=== PATIENT | female | born 1990 | race Caucasian/White ===

== ENCOUNTER → 2017-10-07 10:53 | Outpatient (CLI) | payer SELFPAY ==
[2017-10-07 11:27] LABS: Hematocrit 30.9 % (37-47); Hemoglobin 10.5 g/dl (12.0-15.0); Mean Corpuscular Volume 91.2 fL (81-99); Mean Platelet Vol. 11.2 fl (6.2-12.0); Platelet Count 144 K/mm3 (150-450); RBC Distribution Width CV 14.2 % (11.6-14.6); RBC Distribution Width SD 46.8 fl (35.1-43.9); Red Blood Count 3.39 M/mm3 (4.2-5.4); White Blood Count 6.5 K/mm3 (4.4-11.0)
[2017-10-07 11:33] LABS: Glucose Challenge Gest 1H 50g 99 mg/dL (70-140)
[2017-10-07 11:34] LABS: Scan Indicated on CBC? Y/N NO
== END ==
PROVIDERS: Visit Provider Obstetrics & Gynecology
DX: Z34.83 Encounter for supervision of other normal pregnancy, third trimester (principal); Z3A.00 Weeks of gestation of pregnancy not specified
CPT/HCPCS: 82950; 85027

== ENCOUNTER → 2017-12-02 11:09 | Outpatient (CLI) | payer SELFPAY ==
[2017-12-02 13:19] LABS: Hematocrit 32.8 % (37-47); Mean Corp Hgb Conc 33.5 g/gl (32-36); Mean Corpuscular Hgb 31.3 pg (27.0-32.0); Mean Corpuscular Volume 93.2 fL (81-99); Mean Platelet Vol. 11.7 fl (6.2-12.0); Platelet Count 120 K/mm3 (150-450); RBC Distribution Width CV 14.6 % (11.6-14.6); Red Blood Count 3.52 M/mm3 (4.2-5.4); White Blood Count 5.9 K/mm3 (4.4-11.0)
[2017-12-02 13:29] LABS: Scan Indicated on CBC? Y/N NO
[2017-12-02 14:31] LABS: Group B Strep DNA By PCR Negative (Negative); Internal Control PASS; Probe Check PASS; Specimen Processing Control PASS
== END ==
PROVIDERS: Visit Provider Obstetrics & Gynecology
DX: Z36.85 Encounter for antenatal screening for Streptococcus B (principal); D69.6 Thrombocytopenia, unspecified
CPT/HCPCS: 36415; 85027; 87081; 87653

== ENCOUNTER 2018-01-10 08:15 | Inpatient (IN) | payer SELFPAY ==
[2018-01-10] MEDS: Lactated Ringers 1,000 ML 50 ML IV ×3 (08:50→20:06)
[2018-01-10 09:14] LABS: Hemoglobin 11.1 g/dl (12.0-15.0); Mean Corp Hgb Conc 34.7 g/gl (32-36); Mean Corpuscular Hgb 32.6 pg (27.0-32.0); Mean Corpuscular Volume 94.1 fL (81-99); Mean Platelet Vol. 11.7 fl (6.2-12.0); Platelet Count 112 K/mm3 (150-450); RBC Distribution Width CV 14.4 % (11.6-14.6); RBC Distribution Width SD 46.8 fl (35.1-43.9); White Blood Count 5.9 K/mm3 (4.4-11.0)
[2018-01-10 09:15] LABS: Scan Indicated on CBC? Y/N NO
[2018-01-10] MEDS: Oxytocin 30 units/NS 500 ml 30 UNITS/500 ML IV.SOLN IV (09:35)
[2018-01-10 10:14] VITALS: BMI 31.8
[2018-01-10] MEDS: 0.9% Normal Saline 100 ML IV.SOLN. INTRA-UTER (13:00)
--- NOTE | 2018-01-10 13:11 | PCM.PN.BLA ---
Progress Note LABOR PROGRESS NOTE Pitocin and Brito bulb induction. Not painful AVSS Pitocin at 6 Miu/min EFM 110-120s with avg variability. accels noted Category I tracing overall, with occasional lates which resolve with position changes. UCs q 3-4 minutes CX 2/50/very high. mod consistency. Brito bulb inserted with stylette, and inflated with 30 cc of NS Immediate return of watery , bloody fluid. Pulled back on Brito and blood stopped. A/P: 41 3/7 wk induction of labor postdates EFM reassuring. Watch continued tolerance of labor. AROM when Brito bulb expelled. Continue Pitocin per protocol for now along with Brito .
[2018-01-10] MEDS: Acetaminophen 325 MG Tablet PO (14:44)
--- NOTE | 2018-01-10 17:36 | PCM.PN.BLA ---
Progress Note LABOR PROGRESS NOTE. induction 41 1/2 wk EGA Feeling UCs a little more strongly. Brito still in place AVSS Pitocin at 3 mIU/min EFM 120-130s avg variability. Accels Category I tracing UCs q 2-3 mins EXAM: Brito bulb sitting in vagina. Scant bloody show noted. Brito bulb deflated. Cervix 3/50/much softer. -2 VTX High, anterior. AROM scant clear fluid and scant bloody show noted. A/P: 41 4/7 wk EGA induction with first baby by vaginal delivery, then C/s for twins with Twin A hand presentation. Adequate progress. Continue induction. Watch progress , descent.
[2018-01-10] MEDS: fentaNYL-bupivacaine (epidural) 100 ML BAG EPIDURAL (18:30)
[2018-01-10] MEDS: Oxytocin 30 units/NS 500 ml 30 UNITS/500 ML IV.SOLN 334 UNITS IV (21:51)
--- NOTE | 2018-01-10 21:55 | PCM.OB.VAG ---
Vaginal Delivery Maternal Presentation: Medically Indicated Induction 41 3/7 wk induction postdates Method of Induction: Pitocin, Brito Bulb, Amniotomy Medical Reason for Induction: Post term Amniotic Membrane Rupture Type: Artificial Amniotic Fluid Description: Clear Final HORACIO: 12/31/17 Final HORACIO Source: US <20 weeks Gestational age: 41 Weeks and 3 Days Date of Procedure: 01/10/18 Pre-Operative Diagnosis: 41 3/7 wk induction, Post-Operative Diagnosis: Same Surgery/ Procedure Performed: Spontaneous Vaginal Delivery Type of Anesthesia: Epidural Description of Procedure: of a sy viable female over intact perineum. Head delivered SANDRA. No nuchal cord. Shoulders delivered easily. Infant to maternal abdomen for skin to skin. Delayed cord clamping. Cord clamped x two and cut. Female Ap 8/9 PP exam: no lacerations. No repair Placenta delivered by spont expulsion, expresssion 3V normal appearing, intact with trailing membranes EBL 200 cc Pt and infant tolerated delivery well. To recovery, stable condition Raytec counts correct x two. Presentation: Vertex, SANDRA Placental Delivery Description: Spontaneous, Expressed Placenta Disposition: [facility] Cord Vessel Description: 3 Vessels Cord Entanglement: None Drain: Brito to straight drain Estimated Blood Loss: 200 A gender: Female (1 minute): 8 (5 minute): 9 Episiotomy Description: None Laceration: None Medications given after delivery: IV Pitocin Complications: None
--- NOTE | 2018-01-10 22:01 | PCM.DCVAG ---
Discharge Diet: No Restrictions Discharge Activity: May Shower, May Take a Tub Bath May resume sexual activity in: 4-6 weeks Additional Activity Instructions:: Nothing in the vagina for 4-6 weeks. You may return to work/school in 6 weeks. Additional Instructions: If you experience any of the following, contact your healthcare provider. Bleeding that soaks a pad every hour for 2 hours Fever 100.4 or higher Unrelieved abdominal pain Problems urinating (including inability to urinate or burning while urinating). Visual changes Severe headache Flu-like symptoms Pain or redness in one of both of your breasts Pain, warmth, tenderness or swelling in your legs, especially the calf area Frequent nausea and vomiting Symptoms of depression or anxiety If you experience any of the following, call 911 or go to the nearest Emergency Room. Chest pain Problems breathing Seizure activity Partial or complete paralysis of a body part, slurred speech, weakness or drooping of the face, or a sudden inability to walk or hold your balance Allergies/Adverse Reactions: Allergies No Known Allergies Allergy (Verified 01/03/15 12:12) Medications to take at Discharge Ferrous Sulfate 325 mg PO BIDCM 01/03/15 Vits [Prenatabs FA ] 1 tablet PO DAILY 01/03/15 Please Follow Up With: Moriah Izaguirre MD - [phone] When: Call to make an appointment with your doctor in 6 weeks. Primary Care Physician: Saritha Poon PA-C [Primary Care Provider] - Test Results: Test results from this visit will be discussed in further detail at your follow-up appointment, if applicable.
[2018-01-10] MEDS: Oxytocin 30 units/NS 500 ml 30 UNITS/500 ML IV.SOLN 167 UNITS IV (22:21)
[2018-01-10] MEDS: 0.9% Saline Lock 10 ML Syringe IV (23:27)
[2018-01-10 23:53] VITALS: BP 110/58; PULSE 104; RESP 18; TEMP 37.9
[2018-01-11] MEDS: Acetaminophen 500 MG Tablet 1000 MG PO ×2 (00:34→12:08)
[2018-01-11 01:10] VITALS: BP 126/58; PULSE 97; RESP 18; TEMP 36.7
[2018-01-11 04:28] VITALS: BP 103/61; PULSE 92; RESP 16; TEMP 36.1
[2018-01-11 08:15] VITALS: BP 101/60; PULSE 81; RESP 18; TEMP 36.9; O2SAT 97
--- NOTE | 2018-01-11 08:22 | PCM.PN.OB ---
Subjective: PPD#1 induction 41 3/7 wk EGA. Vaginal delivery Doing well, Baby is content. Other children in last pm to see baby. Plans to nurse and nursing well. Pain control adequate. no concerns voiced. - Physical Exam General: Alert, Oriented x3, Cooperative, No apparent distress HEENT: Atraumatic Neck: Supple Neurological: Cranial nerves II-XII grossly intact Psych/Mental Status: Normal Affect Vital Signs Temp Pulse Resp BP 97.0 F L 92 16 103/61 01/11/18 04:28 01/11/18 04:28 01/11/18 04:28 01/11/18 04:28 Oxygen Delivery Method Room Air Weight: 78.9 kg Body Mass Index (BMI) 31.8 Intake and Output for Last 24 Hours 01/09/18 01/10/18 01/11/18 23:59 23:59 23:59 Intake Total 3489 / 3489 Output Total 1525 / 1525 800 / 800 Balance 1963 / 1963 -800 / -800 Laboratory Tests Past 24 Hrs 01/10/18 01/10/18 08:50 08:50 WBC 5.9 RBC 3.40 L Hgb 11.1 L Hct 32.0 L MCV 94.1 MCH 32.6 H MCHC 34.7 RDW 14.4 RDW Differential 46.8 H Plt Count 112 L MPV 11.7 Blood Type A POSITIVE Antibody Screen NEGATIVE Medical Necessity - Tobacco Use Smoking Status: Never smoker Assessment/Plan PPD#1 Induction 41 3/7 wk Stable . continue routine care.
[2018-01-11] MEDS: Prenatal Vits Tablet 1 TABLET PO (09:43)
[2018-01-11] MEDS: Ibuprofen 600 MG Tablet PO (09:51)
[2018-01-11 12:15] VITALS: BP 127/58; PULSE 88; RESP 16; TEMP 36.9; O2SAT 97
[2018-01-11 16:30] VITALS: BP 115/57; PULSE 78; RESP 18; TEMP 36.3; O2SAT 99
[2018-01-11 20:41] VITALS: BP 120/78; PULSE 74; RESP 18; TEMP 37.3
[2018-01-12 01:35] VITALS: BP 127/75; PULSE 78; RESP 18; TEMP 36.3
[2018-01-12] MEDS: Ibuprofen 600 MG Tablet PO ×2 (01:41→12:46)
--- NOTE | 2018-01-12 06:49 | NURSING ---
referral parers given for h/s. both patient and verbalize understanding
--- NOTE | 2018-01-12 08:10 | PCM.PN.OB ---
Subjective: PPD#2 Doing well. Baby failed hearing test. Otherwise doing well. MInimal pain and bleeding. No concerns other than for baby. Breast feeding. Baby is very content. - Physical Exam General: Alert, Oriented x3, Cooperative, No apparent distress HEENT: Atraumatic Neck: Supple Neurological: Cranial nerves II-XII grossly intact Psych/Mental Status: Normal Affect Vital Signs Temp Pulse Resp BP Pulse Ox 97.3 F L 78 18 127/75 H 99 01/12/18 01:35 01/12/18 01:35 01/12/18 01:35 01/12/18 01:35 01/11/18 16:30 Oxygen Delivery Method Room Air Weight: 78.9 kg Body Mass Index (BMI) 31.8 Intake and Output for Last 24 Hours 01/10/18 01/11/18 01/12/18 23:59 23:59 23:59 Intake Total 3489 / 3489 Output Total 1525 / 1525 1200 / 1200 Balance 1963 / 1963 -1200 / -1200 Medical Necessity - Tobacco Use Smoking Status: Never smoker Assessment/Plan PPD#2 Induction 41 3/7 wk Stable . Dischg home. Baby with failed hearing test. Outpt follow up planned.
[2018-01-12 09:01] VITALS: BP 112/69; PULSE 90; RESP 16; TEMP 36.9
[2018-01-12 12:48] VITALS: BP 111/53; PULSE 90; RESP 16; TEMP 36.7
--- NOTE | 2018-01-12 13:57 | NURSING ---
pt given dc instructions pt verbalizes understanding; denies need for any further infant or maternal care teaching
--- NOTE | 2018-01-12 14:23 | NURSING ---
1415 dc to home ; infant placed in car seat per parents
== END 2018-01-12 14:15 | disposition home or self-care (01) | DRG 775 ==
PROVIDERS: Admitting Provider Obstetrics & Gynecology; Family Provider Family Medicine; PCP Family Medicine; Visit Provider Obstetrics & Gynecology
DX: O48.0 Post-term pregnancy (principal); O34.219 Maternal care for unspecified type scar from previous cesarean delivery; O99.02 Anemia complicating childbirth; D64.9 Anemia, unspecified; Z79.899 Other long term (current) drug therapy; Z3A.41 41 weeks gestation of pregnancy; Z37.0 Single live birth
CPT/HCPCS: 59025; 59050; 85027; 86850; 86900; 99218; J7050; J7120; A4216; G0378

== ENCOUNTER → 2018-11-22 16:11 | Outpatient (CLI) | payer SELFPAY ==
[2018-11-22 17:28] LABS: hCG Titer Quant., Serum 5 mIU/mL (1-3)
== END ==
PROVIDERS: Family Provider Family Medicine; PCP Family Medicine; Visit Provider Obstetrics & Gynecology
DX: O20.0 Threatened abortion (principal)
CPT/HCPCS: 36415; 84702

== ENCOUNTER → 2019-02-01 16:52 | Outpatient (CLI) | payer SELFPAY ==
[2019-02-01 21:30] LABS: Chlamydia Trachomatis by PCR Negative (Negative); Neisserai gonorrhoeae by PCR Negative (Negative); Probe Check PASS; Sample Adequacy Control PASS; Specimen Processing Control PASS
== END ==
PROVIDERS: PCP Family Medicine; Visit Provider Advanced Practice Midwife
DX: Z11.3 Encounter for screening for infections with a predominantly sexual mode of transmission (principal)
CPT/HCPCS: 87491; 87591

== ENCOUNTER → 2019-02-06 16:16 | Outpatient (CLI) | payer SELFPAY ==
[2019-02-06 17:38] LABS: Absolute Lymphocyte Count 1.43 X10^3/uL (0.83-4.51); Absolute Neutrophil Count 5.2 X10^3/uL (2.0-7.7); Basophil# 0.03 X10^3/uL; Basophil% 0.4 % (0-1); Eosinophil# 0.06 X10^3/uL; Eosinophils% 0.8 % (0-5); Hematocrit 37.6 % (37-47); Lymphocyte # 1.43 X10^3/ul (4.0); Lymphocyte % 20.1 % (19-41); Mean Corp Hgb Conc 34.6 g/dL (32-36); Mean Corpuscular Hgb 30.2 pg (27.0-32.0); Mean Corpuscular Volume 87.2 fL (81-99); Mean Platelet Vol. 11.6 fl (6.2-12.0); Monocyte# 0.39 X10^3/uL; Monocyte% 5.5 % (0-10); NRBC Flagged by Analyzer 0 % (0-5); Neutrophil # 5.17 X10^3/uL (2.7-7.7); Neutrophil % 72.9 % (47-70); Platelet Count 170 K/mm3 (150-450); RBC Distribution Width CV 13.1 % (11.6-14.6); RBC Distribution Width SD 41.3 fl (35.1-43.9); Red Blood Count 4.31 M/mm3 (4.2-5.4); White Blood Count 7.1 K/mm3 (4.4-11.0)
[2019-02-06 17:40] LABS: Color, Urine Straw (Yellow); Glucose, Dipstick Normal (Normal); Ketone-Dipstick Negative (Negative); Leukocyte Esterase-Dipstick Negative /ul (Negative); Nitrite-Dipstick Negative (Negative); Occult Blood-Urine Negative /ul (Negative); Protein-Dipstick Negative (Negative); Specific Gravity, Urine 1.005 (1.002-1.030); Urine Bilirubin Dipstick Negative (Negative); Urine Clarity Clear (Clear); Urine Urobilinogen Normal (Normal)
[2019-02-06 17:56] LABS: Thyroid Stim Hormone (TSH) 0.22 uIU/mL (0.358-3.74)
[2019-02-07 10:36] LABS: HIV - WCH Non-Reactive (Nonreactive); Hepatitis B Surface Antigen Non-Reactive (Nonreactive); Hepatitis C Antibody Non-Reactive (Nonreactive); Rubella IgG > 500.0 IU/mL
[2019-02-09 02:39] LABS: Prenatal RPR NONREACTIVE (NONREACTIVE)
== END ==
PROVIDERS: Visit Provider Obstetrics & Gynecology
DX: Z34.81 Encounter for supervision of other normal pregnancy, first trimester (principal)
CPT/HCPCS: 36415; 81002; 84443; 85025; 86703; 86762; 86803; 87340

== ENCOUNTER → 2019-06-29 14:05 | Outpatient (CLI) | payer SELFPAY ==
[2019-06-29 16:10] LABS: Hematocrit 31.4 % (37-47); Hemoglobin 10.3 g/dL (12.0-15.0); Mean Corp Hgb Conc 32.8 g/dL (32-36); Mean Corpuscular Volume 94.6 fL (81-99); Platelet Count 117 K/mm3 (150-450); RBC Distribution Width CV 15.1 % (11.6-14.6); RBC Distribution Width SD 51.8 fl (35.1-43.9); Red Blood Count 3.32 M/mm3 (4.2-5.4); White Blood Count 5.8 K/mm3 (4.4-11.0)
[2019-06-29 16:27] LABS: Glucose Challenge Gest 1H 50g 123 mg/dL (70-140)
== END ==
PROVIDERS: Referring Provider Obstetrics & Gynecology; Visit Provider Obstetrics & Gynecology
DX: Z34.83 Encounter for supervision of other normal pregnancy, third trimester (principal)
CPT/HCPCS: 36415; 82950; 85027

== ENCOUNTER → 2019-08-03 14:06 | Outpatient (CLI) | payer SELFPAY ==
[2019-08-03 16:12] LABS: Platelet Count 126 K/mm3 (150-450)
== END ==
PROVIDERS: Visit Provider Obstetrics & Gynecology
DX: O99.113 Other diseases of the blood and blood-forming organs and certain disorders involving the immune mechanism complicating pregnancy, third trimester (principal); D69.6 Thrombocytopenia, unspecified; Z3A.00 Weeks of gestation of pregnancy not specified
CPT/HCPCS: 36415; 85049

== ENCOUNTER → 2019-08-21 | Outpatient (CLI) | payer SELFPAY | END | disposition home or self-care (01) | LOC: LABSPEC 14:07 | PROVIDERS: Referring Provider Obstetrics & Gynecology; Visit Provider Obstetrics & Gynecology | DX: Z36.85 Encounter for antenatal screening for Streptococcus B (principal) | CPT/HCPCS: 87081 ==

== ENCOUNTER 2019-09-13 07:25 | Inpatient (IN) | payer SELFPAY ==
[2019-09-13] VITALS (25 sets, daily range): BP systolic 110–141; BP diastolic 55–77; PULSE 83–99; RESP 16; TEMP 36.3–37.8; O2SAT 98–100; BMI 34.0
[2019-09-13] MEDS: Lactated Ringers 1,000 ML 50 ML IV (08:05)
--- NOTE | 2019-09-13 08:16 | PCM.HP.OB ---
- Problem List (1) 40 weeks gestation of Status: Acute (2) Hx successful (vaginal after ), currently Status: Acute (3) Patient desires vaginal after section () Status: Acute History Date of Admission: 09/13/19 Final HORACIO: 09/08/19 Final HORACIO Source: US <20 weeks Gestational age: 40 Weeks and 5 Days History of this : This is a 29 year-old, G [7], P [4], at 40 weeks gestational age. Allergies No Known Allergies Allergy (Verified 09/13/19 06:59) Home Medications: Home Medications Ferrous Sulfate 325 mg PO BIDCM 01/03/15 Vits [Prenatabs FA ] 1 tablet PO DAILY 01/03/15 Smoking Status: Former smoker Number of Fetus(es): 1 NST - FHR Rate Baby A Baseline: 140 Variability:: Moderate Accelerations:: 15 x 15 Decelerations:: None NST Reactive:: Yes FHR Category:: Category I Uterine Activity:: Q3-10 minutes, irregular History Past Pregnancies: PRIOR DELIVERY HISTORY DEL DATE GEST LAB WT LB WT OZ TYPE ANES LABOR TX 03 Oct 14 11 0 0 0 Vag None No Jan 07 41 12 8 8 Vag Epidural No Jan 15 38 7 6 7 C-Sec Epidural yes Jan 12 42 22 8 1 Vag Epidural No Labs: Mom's Problem List Problem Status Onset Code 40 weeks gestation of Acute Z3A.40 Hx successful (vaginal after ), currently Acute O34.219 Patient desires vaginal after section () Acute O34.219 Mom's Labs & Results 09/13/19 09/13/19 08:00 08:00 WBC 7.1 RBC 3.34 L Hgb 10.6 L Hct 30.5 L MCV 91.3 MCH 31.7 MCHC 34.8 RDW Std Deviation 45.2 H RDW Coeff of Juan 13.8 Plt Count 103 L MPV 11.6 Immature Gran % (Auto) 0.600 Neut % (Auto) 75.0 H Lymph % (Auto) 16.9 L [place]ilton % (Auto) 6.8 Eos % (Auto) 0.6 Baso % (Auto) 0.1 Absolute Neuts (auto) 5.3 Absolute Lymphs (auto) 1.19 Nucleated RBC % 0 Blood Type Pending Antibody Screen Pending Course Did the patient receive Yes care? Labs Blood Type: A RH: POSITIVE Rubella status Immune HbSAg Negative Date Done: 02/06/19 Chlamydia Negative Gonorrhea Negative HIV/AIDS Non-Reactive Group B Strep: Negative Current Obstetrical History Gestational Diabetes No Incompetent Cervix No Infertility No IUGR No Macrosomia No Hypertension/Pre-eclampsia No Placenta Previa/Abruption No PTL/PROM No Uterine anomaly No Oligohydramnios No Polyhydramnios No Multiple gestation No Past Medical History Asthma No Diabetes No Hypertension No Heart disease No Mitral valve prolapse No Neurologic/Seizure disorder/ No Migraines Kidney disease No Liver disease No Varicosities No Clotting disorders/Hx of DVT No Thyroid Dysfunction No Other medical diseases No Psychiatric disorders No Major trauma No Abnormal PAP smear No Sleep apnea No Mammogram in the last 2 years No Social History Marital Status: Alleged father Prashant Hx Smoking No Smoking Status Former smoker Expected Delivery Method: - Repeat Number of Visits: 12 Review of Systems Constitutional: Denies: Chills, Fever, Weight Change HEENT: Denies: Head Aches, Sinus Congestion, Sinus Drainage Cardiovascular: Denies: Chest Pain, Palpitations Respiratory: Denies: Cough, Shortness of breath at rest, Sputum production Gastrointestinal: Denies: Abdominal Pain, Nausea, Vomiting Genitourinary: Denies: Dysuria Musculoskeletal: Denies: Joint Pain, Joint Tenderness Skin: Denies: Rash, Wounds Neurological: Denies: Numbness, Tingling, Focal weakness Psychiatric: Denies: Anxiety, Depression, Homicidal Ideations, Suicidal Ideations Hematologic/ Lymphatic: Denies: Easy Bruising, Easy Bleeding Physical Exam Vitals: Vital Signs Temp Pulse BP Pulse Ox 98.9 F 88 111/69 98 09/13/19 06:49 09/13/19 06:49 09/13/19 06:49 09/13/19 06:49 General: Alert, Oriented x3, No apparent distress HEENT: Atraumatic, Normocephalic. Negative for: Thyromegaly, Lymphadenopathy Cardiovascular: Regular rate, Regular Rhythm Lungs: Clear to auscultation Abdomen: Bowel Sounds Present, Gravid Neurological: Deep Tendon Reflexes 2+/4 and Symmetrical, Neuro grossly intact FURNACE FITTER: Normal external genitalia. Negative for: Vulvar lesions Estimated gestational size: Appropriate for gestational size Presentation: Cephalic Cervix Dilation (cm): 3.5 Station: -2 Effacement (%): 25 Assessment/Plan All Active Problems 40 weeks gestation of (Acute) Hx successful (vaginal after ), currently (Acute) Patient desires vaginal after section () (Acute) A/P: This is a 29 year-old, G [7], P [4], at 40 weeks gestational age. Spontaneous labor with UC Q3-10 minutes, irregular NST Category I, FHR baseline 135, +accels, -decels, moderate variability Plans repeat Okay to AROM Recheck SVE in 4 hours or as needed Expect Essential Procedure Criteria Procedure Essential: Yes Criteria Note: On 08/07/2019 the [place] Department of Health ([facility]) Public Order signed by [facility] Director Charlee Morocho M.D., regarding the Management of Non-Essential Surgeries and Procedures for the purpose of preserving Personal Protective Equipment (PPE) and critical hospital capacity and resources within [place] went into effect as of 08/08/2019 at 5:00PM. According to the [facility] Public Order: This action will remain in full force and effect until the State of Emergency declared by the Governor no longer exists or the Director of the [facility] rescinds or modifies this Order.. This [facility] order stated all non-essential or elective surgeries and procedures that utilize PPE should be delayed unless there is undue risk to the current or future health of a patient. After reviewing the aforementioned [facility] Public Order and the patients clinical case, I have determined that the scheduled procedure meets the criteria to go forward. Risk to Patient if Procedure Delayed: Threat to patient's life if surgery or procedure is not performed - repeat
[2019-09-13 08:21] LABS: Absolute Lymphocyte Count 1.19 X10^3/uL (0.83-4.51); Absolute Neutrophil Count 5.3 X10^3/uL (2.0-7.7); Basophil# 0.01 X10^3/uL; Basophil% 0.1 % (0-1); Eosinophil# 0.04 X10^3/uL; Eosinophils% 0.6 % (0-5); Hematocrit 30.5 % (37-47); Hemoglobin 10.6 g/dL (12.0-15.0); Lymphocyte # 1.19 X10^3/ul (4.0); Lymphocyte % 16.9 % (19-41); Mean Corp Hgb Conc 34.8 g/dL (32-36); Mean Corpuscular Hgb 31.7 pg (27.0-32.0); Mean Corpuscular Volume 91.3 fL (81-99); Mean Platelet Vol. 11.6 fl (6.2-12.0); Monocyte# 0.48 X10^3/uL; Monocyte% 6.8 % (0-10); NRBC Flagged by Analyzer 0 % (0-5); Platelet Count 103 K/mm3 (150-450); RBC Distribution Width CV 13.8 % (11.6-14.6); RBC Distribution Width SD 45.2 fl (35.1-43.9); Red Blood Count 3.34 M/mm3 (4.2-5.4); White Blood Count 7.1 K/mm3 (4.4-11.0)
[2019-09-13] MEDS: Oxytocin 30 units/NS 500 ml 30 UNITS/500 ML IV.SOLN IV (11:27)
[2019-09-13] MEDS: Ondansetron 4 MG/2 ML Vial IV (12:34)
[2019-09-13] MEDS: Oxytocin 30 units/NS 500 ml 30 UNITS/500 ML IV.SOLN 334 UNITS IV (13:38)
--- NOTE | 2019-09-13 13:47 | PCM.OPRPT ---
Problem List (1) (vaginal after ) Status: Acute (2) 40 weeks gestation of Status: Acute Report of Operation Date of Procedure: 09/13/19 Pre-Operative Diagnosis: 40 5/7wga, TOLAC Post-Operative Diagnosis: 40 5/7wga, TOLAC Vaginal Delivery Maternal Presentation: - - Latent labor Method of Induction: - - Amniotomy, pitocin for augmentation Amniotic Membrane Rupture Type: Artificial Rupture of Membrane time: 0836h 09/13/19 Amniotic Fluid Description: Clear Final HORACIO: 09/08/19 Final HORACIO Source: US <20 weeks Gestational age: 40 Weeks and 5 Days Date of Procedure: 09/13/19 Pre-Operative Diagnosis: 40 5/7wga, tolac Post-Operative Diagnosis: 40 5/7wga, tolac Surgery/ Procedure Performed: Spontaneous Vaginal Delivery Type of Anesthesia: None Description of Procedure: Patient was FD/-1 station with urge to push. She pushed to deliver a female over and intact perineum. The infant was placed on the maternal abdomen and further attended by nursery personnel. The cord was doubly clamped and cut. The placenta delivered spontaneously and appeared intact on inspection. Perineum intact. Sponge counts correct x 2. Presentation: Vertex Placental Delivery Description: Spontaneous Placenta Disposition: [facility] Cord Vessel Description: 3 Vessels Nuchal Cord Compression: Without compression Cord Entanglement: None Estimated Blood Loss: 400 ml Infant A gender: Female (1 minute): 8 (5 minute): 9 Episiotomy Description: None Laceration: None Medications given after delivery: IV Pitocin Complications: None
[2019-09-14] VITALS (12 sets, daily range): BP systolic 118–129; BP diastolic 56–71; PULSE 78–206; RESP 16; TEMP 36.2–37.3; O2SAT 82–99
[2019-09-14] MEDS: Acetaminophen 500 MG Tablet 1000 MG PO ×2 (06:02→16:50)
--- NOTE | 2019-09-14 09:25 | PCM.PN.OB ---
Patient Problems: Active and Suspected Problems 40 weeks gestation of (Acute) Hx successful (vaginal after ), currently (Acute) Patient desires vaginal after section () (Acute) (vaginal after ) (Acute) Subjective: Feeling good. Denies pain or heavy bleeding. Daughter is feeding well. They would like to discharge today if they can come up with an infant name. Would like to shower this AM. Objective: VSS. Fundus, firm, midline, U/1. Lochia rubra moderate with one large clot this AM. - Physical Exam Vitals/I&O's: Vital Signs Temp Pulse Resp BP Pulse Ox 99.1 F 98 16 118/56 L 100 09/14/19 04:52 09/14/19 04:53 09/14/19 04:45 09/14/19 04:53 09/13/19 14:30 Weight: 84.55 kg Body Mass Index (BMI) 34.0 Intake and Output for Last 24 Hours 09/12/19 09/13/19 09/14/19 23:59 23:59 23:59 Intake Total 781.87 / 781.87 Balance 781.87 / 781.87 General: Alert, Oriented x3, Cooperative HEENT: Atraumatic, PERRLA, EOMI, Normocephalic Neck: Supple, No JVD, Negative Carotid Bruits Lungs: Clear to auscultation, Normal air movement Cardiovascular: Regular rate, No murmurs Abdomen: Bowel Sounds Present, Soft, Non Tender, Passing Flatus Extremities: No edema, Capillary Refill Less than 3 Seconds Skin: No rashes, No breakdown Musculoskeletal: No Tenderness to Palpation of Joints or Extremities Neurological: Cranial nerves II-XII grossly intact Psych/Mental Status: Normal Affect, Appropriate Laboratory Results 09/13/19 08:00: Blood Type A POSITIVE, Antibody Screen NEGATIVE Current Medications Acetaminophen (Tylenol) 1,000 mg PO Q8H PRN PRN PRN Reason: Pain Score 1-3/10 Last Admin: 09/14/19 06:02 Dose: 1,000 mg Documented by: Bisacodyl (Dulcolax) 10 mg RECTAL UD PRN PRN Reason: If no BM Dibucaine (Dibucaine) 1 applic TOPICAL TID PRN PRN; Protocol PRN Reason: Discomfort Hydrocortisone (Hytone) 1 applic TOPICAL TID PRN PRN; Protocol PRN Reason: Discomfort Methylergonovine Maleate (Methergine) 0.2 mg IM X1 PRN PRN Reason: Excess bleeding/uterine atony Ondansetron HCl (Zofran) 4 mg IV Q4H PRN PRN PRN Reason: NAUSEA Last Admin: 09/13/19 12:34 Dose: 4 mg Documented by: Ondansetron HCl (Zofran) 4 mg IV Q4H PRN PRN PRN Reason: Nausea Multivit/Folic Acid/Iron (Prenatabs Fa) 1 tablet PO DAILY@1200 ELSY Senna/Docusate Sodium (Senokot-S, Linda-Colace) 1 - 2 tablet PO DAILY PRN PRN PRN Reason: Constipation Simethicone (Mylicon) 80 mg PO PCHS PRN PRN Reason: Indigestion/Stomach pain Sodium Chloride () 5 - 15 ml IV UD PRN PRN Reason: SALINE FLUSH Medical Necessity - Tobacco Use Smoking Status: Former smoker Assessment/Plan All Active Problems 40 weeks gestation of (Acute) Hx successful (vaginal after ), currently (Acute) Patient desires vaginal after section () (Acute) (vaginal after ) (Acute) A/P: S/P Repeat successful day #1 Normal involution and course Dyad stable Already has follow up with Dr. Manrique scheduled States understands when to call and if bleeding increases or if she passes large clots at home Would like to discharge today
--- NOTE | 2019-09-14 09:29 | DCINST_ITS ---
Discharge Diet: No Restrictions Discharge Activity: Return to Normal Activity, May not drive while taking narcotic pain medications., May Shower May resume sexual activity in: 4-6 weeks Additional Activity Instructions:: Nothing in the vagina for 4-6 weeks. You may return to work/school in 6 weeks. Call your doctor if your incision/area has: Continuous Slow Oozing, Sudden Increased Bleeding, Increased Pain/ Swelling, Increased Redness, Foul Smelling Discharge Additional Instructions: If you experience any of the following, contact your healthcare provider. * Bleeding that soaks a pad every hour for 2 hours * Fever 100.4 or higher * Unrelieved incision or abdominal pain * Swelling, redness, discharge or bleeding from your incision or episiotomy site * Your incision begins to separate * Problems urinating (including inability to urinate or burning while urinating). * Visual changes * Severe headache * Flu-like symptoms * Pain or redness in one of both of your breasts * Pain, warmth, tenderness or swelling in your legs, especially the calf area * Frequent nausea and vomiting * Symptoms of depression or anxiety If you experience any of the following, call 911 or go to the nearest Emergency Room. * Chest pain * Problems breathing * Seizure activity * Partial or complete paralysis of a body part, slurred speech, weakness or drooping of the face, or a sudden inability to walk or hold your balance Allergies/Adverse Reactions: Allergies No Known Allergies Allergy (Verified 09/13/19 06:59) Medications to take at Discharge Ferrous Sulfate 325 mg PO BIDCM 01/03/15 Vits [Prenatabs FA ] 1 tablet PO DAILY 01/03/15 Please Follow Up With: Dori Manrique MD When: Call to make an appointment with your doctor as per her instructions or keep current appointment if already scheduled. Primary Care Physician: Saritha Poon PA-C [Primary Care Provider] - Test Results: Test results from this visit will be discussed in further detail at your follow- up appointment, if applicable.
== END 2019-09-14 21:10 | disposition home or self-care (01) | DRG 807 ==
LOC: WPOUT 07:30 → WP 07:30
PROVIDERS: Admitting Provider Obstetrics & Gynecology; PCP Family Medicine; Referring Provider Obstetrics & Gynecology; Visit Provider Obstetrics & Gynecology
DX: O34.219 Maternal care for unspecified type scar from previous cesarean delivery (principal); Z37.0 Single live birth; Z3A.40 40 weeks gestation of pregnancy; Z87.891 Personal history of nicotine dependence
CPT/HCPCS: 59025; 59050; 85025; 86850; 86900; 86901; 99218; J7120; G0378; J2405

== ENCOUNTER → 2020-04-30 | Outpatient (CLI) | payer SELFPAY ==
[2019-09-13 07:10] VITALS: BMI 34.0
[2020-05-03 15:03] LABS: HPV APTIMA, High Risk Negative (Negative)
== END | disposition home or self-care (01) ==
LOC: LABSPEC 10:43
PROVIDERS: PCP Family Medicine; Visit Provider Obstetrics & Gynecology
DX: Z12.4 Encounter for screening for malignant neoplasm of cervix (principal)
CPT/HCPCS: 87624; 88175; G0145

== ENCOUNTER → 2020-11-07 15:44 | Outpatient (CLI) | payer SELFPAY ==
[2019-09-13 07:10] VITALS: BMI 34.0
[2020-11-07 16:27] LABS: Color, Urine Yellow (Yellow); Glucose, Dipstick Normal (Normal); Ketone-Dipstick Negative (Negative); Leukocyte Esterase-Dipstick Negative /ul (Negative); Nitrite-Dipstick Negative (Negative); Occult Blood-Urine Negative /ul (Negative); Protein-Dipstick Negative (Negative); Urine Bilirubin Dipstick Negative (Negative); Urine Clarity Clear (Clear); Urine Urobilinogen Normal (Normal); Urine pH 6.5 (5.0 - 8.0)
[2020-11-07 16:44] LABS: Absolute Lymphocyte Count 1.27 X10^3/uL (0.83-4.51); Basophil# 0.01 X10^3/uL; Basophil% 0.1 % (0-1); Eosinophil# 0.05 X10^3/uL; Eosinophils% 0.7 % (0-5); Hematocrit 36.6 % (37-47); Hemoglobin 12.4 g/dL (12.0-15.0); Lymphocyte # 1.27 X10^3/ul (0.83-4.51); Lymphocyte % 18.9 % (19-41); Mean Corp Hgb Conc 33.9 g/dL (32-36); Mean Corpuscular Hgb 28.9 pg (27.0-32.0); Mean Corpuscular Volume 85.3 fL (81-99); Mean Platelet Vol. 11.4 fl (6.2-12.0); Monocyte# 0.34 X10^3/uL; Monocyte% 5.1 % (0-10); NRBC Flagged by Analyzer 0 % (0-5); Neutrophil # 5.04 X10^3/uL (2.7-7.7); Neutrophil % 74.9 % (47-70); Platelet Count 185 K/mm3 (150-450); RBC Distribution Width CV 13.7 % (11.6-14.6); RBC Distribution Width SD 42.3 fl (35.1-43.9); Red Blood Count 4.29 M/mm3 (4.2-5.4); White Blood Count 6.7 K/mm3 (4.4-11.0)
[2020-11-07 17:19] LABS: Thyroid Stim Hormone (TSH) < 0.01 uIU/mL (0.358-3.74)
[2020-11-10 08:33] LABS: HIV - WCH Non-Reactive (Nonreactive); Hepatitis B Surface Antigen Non-Reactive (Nonreactive); Hepatitis C Antibody Non-Reactive (Nonreactive); Rubella IgG Reactive (Nonreactive); Syphilis Antibodies Non-reactive
[2020-11-11 03:06] LABS: Chlamydia By Nucleic Acid AMP Negative (Negative)
[2020-11-11 10:28] LABS: Gonococcus By Nucleic Acid AMP Negative (Negative)
[2020-11-12 17:37] LABS: T4 Free Direct 1.39 ng/dL (0.76-1.46)
== END ==
PROVIDERS: PCP Family Medicine; Visit Provider Obstetrics & Gynecology
DX: Z34.81 Encounter for supervision of other normal pregnancy, first trimester (principal); Z11.3 Encounter for screening for infections with a predominantly sexual mode of transmission
CPT/HCPCS: 36415; 81002; 84439; 84443; 85025; 86703; 86762; 86780; 86803; 87340; 87491; 87591

== ENCOUNTER → 2021-03-03 08:45 | Outpatient (CLI) | payer SELFPAY ==
[2021-03-03 10:46] LABS: Hematocrit 29.9 % (37-47); Hemoglobin 10.1 g/dL (12.0-15.0); Mean Corp Hgb Conc 33.8 g/dL (32-36); Mean Corpuscular Volume 94.6 fL (81-99); Mean Platelet Vol. 11.6 fl (6.2-12.0); Platelet Count 128 K/mm3 (150-450); RBC Distribution Width CV 14.1 % (11.6-14.6); RBC Distribution Width SD 49.1 fl (35.1-43.9); Red Blood Count 3.16 M/mm3 (4.2-5.4); White Blood Count 6.1 K/mm3 (4.4-11.0)
[2021-03-03 11:05] LABS: Glucose Challenge Gest 1H 50g 112 mg/dL (70-140); T4 Free Direct 0.82 ng/dL (0.76-1.46); Thyroid Stim Hormone (TSH) 0.71 uIU/mL (0.358-3.74)
== END ==
PROVIDERS: PCP Family Medicine; Visit Provider Obstetrics & Gynecology
DX: Z34.83 Encounter for supervision of other normal pregnancy, third trimester (principal)
CPT/HCPCS: 36415; 82950; 84439; 84443; 85027

== ENCOUNTER → 2021-04-08 09:34 | Outpatient (CLI) | payer SELFPAY ==
[2021-04-08 11:09] LABS: Platelet Count 125 K/mm3 (150-450)
[2021-04-08 11:48] LABS: Syphilis Antibodies Non-reactive
== END ==
PROVIDERS: PCP Family Medicine; Visit Provider Obstetrics & Gynecology
DX: O99.119 Other diseases of the blood and blood-forming organs and certain disorders involving the immune mechanism complicating pregnancy, unspecified trimester (principal); D69.6 Thrombocytopenia, unspecified; Z3A.00 Weeks of gestation of pregnancy not specified; Z36.9 Encounter for antenatal screening, unspecified
CPT/HCPCS: 36415; 85049; 86780

== ENCOUNTER → 2021-04-28 | Outpatient (CLI) | payer SELFPAY | END | disposition home or self-care (01) | LOC: LABSPEC 17:14 | PROVIDERS: PCP Family Medicine; Visit Provider Obstetrics & Gynecology | DX: Z36.85 Encounter for antenatal screening for Streptococcus B (principal) | CPT/HCPCS: 87081 ==

== ENCOUNTER 2021-05-27 11:26 | Inpatient (IN) | payer SELFPAY ==
[2021-05-27] VITALS (15 sets, daily range): BP systolic 89–148; BP diastolic 47–84; PULSE 85–105; RESP 16–20; TEMP 36.4–37.1; O2SAT 96–100; BMI 32.1
[2021-05-27] MEDS: Lactated Ringers 1,000 ML 50 ML IV (11:45)
[2021-05-27 12:04] LABS: Absolute Lymphocyte Count 0.75 X10^3/uL (0.83-4.51); Absolute Neutrophil Count 4.6 X10^3/uL (2.0-7.7); Basophil# 0.01 X10^3/uL; Basophil% 0.2 % (0-1); Eosinophil# 0.01 X10^3/uL; Eosinophils% 0.2 % (0-5); Hematocrit 33.5 % (37-47); Hemoglobin 11.5 g/dL (12.0-15.0); Lymphocyte # 0.75 X10^3/ul (0.83-4.51); Mean Corp Hgb Conc 34.3 g/dL (32-36); Mean Corpuscular Hgb 31.9 pg (27.0-32.0); Mean Corpuscular Volume 93.1 fL (81-99); Mean Platelet Vol. 11.6 fl (6.2-12.0); Monocyte# 0.39 X10^3/uL; Monocyte% 6.7 % (0-10); NRBC Flagged by Analyzer 0 % (0-5); Neutrophil % 79.4 % (47-70); POSITIVE COUNT YES; Platelet Count 95 K/mm3 (150-450); RBC Distribution Width CV 14.6 % (11.6-14.6); RBC Distribution Width SD 50.3 fl (35.1-43.9); White Blood Count 5.8 K/mm3 (4.4-11.0)
[2021-05-27 12:07] LABS: Differential Indicated SCAN CRITERIA MET
[2021-05-27 12:29] LABS: Platelet Estimate MOD DEC (ADEQ)
--- NOTE | 2021-05-27 13:19 | HP.PCM.OB_ITS ---
History and Physical Date of Admission: 05/27/21 ACOG ANTEPARTUM RECORD - HISTORY AND PHYSICAL (05/27/2021) Name: ТАТЬЯНА COKER History of this : This is a 31 year old [id number] presents at 40 wks + 5 days gestation who presents with painful contractions. OB Physician: Dori Orellana MD [facility] Physician: Gregory Flower Med. ...................................................................... : 1990 Age: 31 Address: [address] [place] [address] Phone: (H) [phone] (O) [phone] Insurance Carrier: Emergency Contact: ROSAMARIA MACKENZIE [phone] ...................................................................... Final HORACIO: 05/22/21 By Ultrasound: 16 weeks 4 days PARITY: (G-Total Pregnancies P-Fullterm,Premature,Induced AB,Spont AB, Ectopics, Multiple,Living) HORACIO CONFIRMATION: By LMP: 08/15/20 Initial Exam: 05/22/21 By First Ultrasound Exam: 05/22/21 Final HORACIO: 05/22/21 OB PROBLEM LIST: Maternal Twin Uncles with Mental Disabilities 01/2015 C section for hand presentation, twin IUP. Successful Plans another Declines genetic and carrier screening Gestational hyperthyroidism RESOLVED Plt count 128 --> 125 Undecided about an epidural. Will breastfeed. ALLERGIES: NKDA No Known Drug Allergies MEDICATIONS: + DHA 28 mg iron- 975 mcg-200 mg combo pack daily SOCIAL HISTORY: Smoking - quit smoking 2009 Alcohol Use - denies drinking Diet - moderate, balanced diet Lifestyle - and low stress lifestyle Exercise - minimal and Enc walking 20 min day Employer - [employer] Job Description - Illicit Drug Use - denies use of street drugs Sexual Activity - Residence - lives with Place of - [place], [place] Spouse-Sig Other Name - Prashant Spouse-Sig Other Occupation - Golf Instructor, self-employed Spouse-Sig Other Phone No - [phone] Children Name(s) - Aubrey (EB), De La Cruz(EB), Scarlet(EB), Miguelina ('18), Ra ('20) PRIOR DELIVERY HISTORY DEL DATE GEST LAB WT LB WT OZ TYPE ANES LABOR TX 03 Oct 14 11 0 0 0 Vag None No Dec 18 41 12 8 8 Vag Epidural No Jan 15 38 7 6 7 C-Sec Epidural yes Sep 09 40 7 8 15 Vag None No 24 Jan 12 42 22 8 1 Vag Epidural No ANTEPARTUM FLOW CHART VISIT GE RTC FU F F OK U U DATE WK MD WKS HT PN HR M SS BP ED WT OK GL D EF ST __ ____ ___ __ __ ___ __ __ __ ___ __ __ __ ___ __ 28 Apr 39 SHM 1 39 V + + 90/60 sl 176 tr - 3 50 -3 21 Apr 38 JMW 1 38 V + + 128/82 sl 178 tr - 2 50 -2 14 Apr 37 SHM 1 37 O + + 122/68 0 175 - - 1+ 50 -3 07 Apr 36 SHM 1 36 V + + 120/70 0 175 - - 1+ 50 -3 01 Apr 35 SHM 1 35 V + + 118/76 tr 171 ne ne Mar SHM 2 32 V + + 118/74 0 171 tr - Mar SHM 2 32 V + + 118/74 0 171 tr - Mar JM 2 31 - + + 130/68 0 170 - - 12 Mar 19 SHM 2 28 V + 130/72 0 170 - - 14 Feb 13 SHM 4 25 ? + + 100/66 0 166 tr - Jan 09 SHM 4 22 + + 120/82 0 163 - - 20 Dec 05 SHM 4 + ? 124/76 0 158 tr - ANTEPARTUM NOTE(S): May 19 2021: considering membrane sweep May 12 2021: Ctxs-mild, Good FM May 05 2021: doing well Apr 28 2021: doing well Apr 22 2021: Apr 08 2021: doing well Apr 08 2021: doing well Mar 23 2021: doing well Mar 03 2021: No problems Feb 03 2021: doing well, glucola given Jan 06 2021: comp u/s today, doing well Dec 09 2020: doing well COMPREHENSIVE ANTEPARTUM NOTE(S): May 19 2021: FM, labor and SROM reviewed. Is considering having membranes stripped. Declines induction. LMT May 05 2021: Татьяна is 37w4d she is doing well. Positive movement. No edema. She reports irregular contractions and would like a cervical check. BR May 04 2021: H taken to OB. tkg Apr 28 2021: Татьяна is 36w4d. She is here today for PNV and GBS swab. Good movement. No edema. She states she is having irregular contractions. LAR consent was signed. Overall she is doing well with no concerns or complaints at this time.BR Apr 22 2021: Татьяна is here at 35.5 w. Feeling well. Baby active. Trace edema in ankles only. No concerns today. DRC. Apr 22 2021: Reviewed GBS for next visit. Discussed cervical exam indication. R/b TOLAC vs. repeat C/S. Plan TOLAC consents next visit. Apr 08 2021: Reviewed FM, PTL, discomforts. LMT Apr 08 2021: PTL, FM precautions. Rpt plt levels today and RPR. Mar 23 2021: Татьяна is here for visit. She is doing well and without complaint. Encouraged Tdap, Influenza vaccines. FM, PROM, and PTL reviewed. LMT Mar 23 2021: 31 weeks, 1hr GTT wnl. gTCP platelets 128, will repeat CBC at 34 to 36 weeks. JM Mar 03 2021: US today EFW 1284g (45th%), DOROTHEA 15.5cm. Marginal previa RESOLVED. Discussed PPBC, plans NFP vs. vasectomy. PTL, ROM, FM precautions. Feb 03 2021: Татьяна is here for visit. She is doing well, no real complaints. Glucola given with instructions. Encouraged Influenza and Tdap vaccine. LMT Feb 03 2021: PTL, ROM precautions. Discussed labor analagesia. Plans no epidural, but will consider epidural if needed. Prior low lying placenta - will repeat US next visit. Some musculoskeletal complaints - recommend support band, walking for exercise daily, child care development specialist. Jan 06 2021: No complaints. Anatomy scan today wnl, EFW 48th%, SEX UNKNOWN. MARGINAL POSTERIOR PREVIA - 1.9cm from os. Discussed r/b JODY with marginal previa in this zone with section as alternative. Will plan repeat US at 28w to follow. Pt considering circ if male. Dec 11 2020: TELEHEALTH NOB VISIT, 20 MINUTE DURATION. Татьяна is a 30 year old A2 L5 (one twin gestation) with an HORACIO of 05/22/2021, current GA is 16 w 6 d. She resides with her , Prashant, and their 5 children. She had a with her first , a C/S with her second (twins), then two 's. She plans a again at [facility], she is undecided about having an epidural, and she will breastf Dec 09 2020: Declines carrier and genetic screening. Feeling well, no co mplaints or concerns. LMT ++++NEW ++++ Dec 09 2020: Reviewed labs. Gestational hyperthyroidism noted, otherwise wnl. Pt declines carrier screening and aneuploidy screening. Plan for anatomy scan at next visit. Nov 07 2020: Татьяна is here for a missed menses appt. LMP 08/15/20. Positive UPT in office. HORACIO 05/22/21. Approximately 12 weeks 4 days. . Updated medications, allergies and hx. Only taking a vitamin at this time. Reports mild nausea and fatigue, but otherwise fine. Denies alcohol, drug and tobacco use. Pap in 2019 WNL. Will do GC/CHL cultures today, consent signed. MK REVIEW OF SYSTEMS: GENERAL - Denies fever, or chills SKIN - Denies rash, new skin lesions, or change in moles EYES - Denies blurred vision, or change in visual acuity EARS - Denies ear pain, or difficulty hearing NOSE - Denies nasal congestion, discharge, or bleeding MOUTH - Denies sore throat, or difficulty swallowing NECK - Denies pain or swelling RESPIRATORY - Denies shortness of breath, cough, wheezing CARDIOVASCULAR - Denies palpitations, chest pain, orthopnea, PND, peripheral edema, syncope or claudication GASTROINTESTINAL - Denies nausea, vomiting, diarrhea, constipation, Denies abdominal pain, melena and or bright red blood GENITOURINARY - Denies dysuria, frequency of urination, urgency, or hesitancy MUSCULOSKELETAL - Denies joint or muscle pain, or back pain NEUROLOGICAL - Denies localized numbness, weakness, or tingling PSYCHIATRIC - Denies depression, anxiety, substance abuse or suicide attempts ENDOCRINE - Denies heat or cold intolerance, weight loss or gain, increasing thirst HEMATO-IMMUNOLOGIC - Denies easy bruising, bleeding, oral ulcerations or recurrent infections GENETICS SCREENING: Age 35+ years: No Thalassemia: No Neural Tube Defect: No Down Syndrome: No SIENA-SACHS: No Sickle Cell Disease: No Hemophilia: No Musc. Dystrophy: No Cystic Fibrosis: No-declines screening Ricco Chorea: No Mental Retardation: Twin uncles Fragile X: No Other genetic: No Other defects: No SABs/still births: Yes x2 Drugs since LMP: No INFECTION HISTORY: High risk AIDS: No High risk Hepatitis: No Exposed to TB: No Exposed to Herpes: No Rash/viral illness since LMP: No History of STD: No MENSTRUAL HISTORY: *Menses Amount/Duration: 5 daysMenses Regularity: RegularMenarche (Age Onset): 13* PAST SUMMARY: PARITY: 1. Total Pregnancies............ 7 2. Full Term Pregnancies........ 4 3. Premature.................... 0 4. Abortions - Induced.......... 0 5. Abortions - Spontaneous...... 2 6. Ectopics..................... 0 7. Multiple Births.............. 1 8. Living Children.............. 5 PAST #1: Date of :.................. 02/14/12 Gestation Weeks:................ 42 Length of labor(hours):......... 22 Sex:............................ M Weight-lbs:............... 8 Weight-oz:................ 1 Type of Delivery:............... Vag Type of Anesthesia:............. Epidural Place of Delivery:.............. [place] Treatment of Labor?:.... No Comment: NONE PAST #2: Date of :.................. 02/22/14 Gestation Weeks:................ 11 Length of labor(hours):......... 0 Sex:............................ UNKNOWN Weight-lbs:............... 0 Weight-oz:................ 0 Type of Delivery:............... Vag Type of Anesthesia:............. None Place of Delivery:.............. HOME Treatment of Labor?:.... No Comment: SAB PAST #3: Date of :.................. 02/11/15 Gestation Weeks:................ 38 Length of labor(hours):......... 7 Sex:............................ F Weight-lbs:............... 6 Weight-oz:................ 7 Type of Delivery:............... C-Sect Type of Anesthesia:............. Epidural Place of Delivery:.............. [place] Treatment of Labor?:.... yes Comment: IOL, TWINS, #2 6-5 PAST #4: Date of :.................. 01/10/18 Gestation Weeks:................ 41 Length of labor(hours):......... 12 Sex:............................ F Weight-lbs:............... 8 Weight-oz:................ 8 Type of Delivery:............... Vag Type of Anesthesia:............. Epidural Place of Delivery:.............. [facility] Treatment of Labor?:.... No Comment: NO PAST #5: Date of :.................. 09/13/19 Gestation Weeks:................ 40 Length of labor(hours):......... 7 Sex:............................ F Weight-lbs:............... 8 Weight-oz:................ 15 Type of Delivery:............... Vag Type of Anesthesia:............. None Place of Delivery:.............. [place] Treatment of Labor?:.... No Comment: PHYSICAL EXAMINATION General Appearence: 31 yo female in no acute distress Vital Signs: AF, VSS Heart: RRR without rubs or gallops Lungs: CTA x 2 Breasts: deferred Abdomen: gravid Pelvis: Cervix: 4-->6.5cm Presentation: cephalic Station: -3 Fetus: Size: AGA Movement: present Heart: present LAB TEST(S) ORDERED SINCE:08/25/20 05/01/2021 RULE OUT BETA STREP (GRP. B) 04/08/2021 PLATELET COUNT 04/08/2021 L509.8000 03/03/2021 THYROID STIM HORMONE (TSH) 03/03/2021 T4 FREE DIRECT 03/03/2021 GLUCOSE CHALLENGE GEST 1H 50G 03/03/2021 FREE T3 03/03/2021 CBC-COMPLETE BLOOD CNT NO DIFF 11/12/2020 T4 FREE DIRECT 11/11/2020 CHLAMYDIA/GC BETHANIE APTIMA 11/10/2020 RUBELLA IGG 11/10/2020 L509.8000 11/10/2020 HIV - [facility] 11/10/2020 HEPATITIS C ANTIBODY 11/10/2020 HEPATITIS B SURFACE ANTIGEN 11/07/2020 URINALYSIS, ROUTINE (DIPSTICK) 11/07/2020 THYROID STIM HORMONE (TSH) 11/07/2020 T AND S-NO CHARGE W/PNP 11/07/2020 CBC W/DIFF, AUTOMATED 05/27/2021 TYPE AND SCREEN 05/27/2021 CBC W/DIFF, AUTOMATED == ==== Order Observation Description Value Ref_Range A* Site == ==== Labor [facility]~[address] [place], [address]~ TYPE AND SCRE AB SCREEN GEL NEGATIVE ML CBC W/DIFF, AUT NOTE [facility] CBC W/DIFF, AUT PLT EST MOD DEC ADEQ ML RULE OUT BETA S NOTE [facility] L509.8000 NOTE [facility] L509.8000 SYPHILIS ABS Non-reactive ML PLATELET COUNT NOTE [facility] PLATELET COUNT PLT 125 K/mm3 150-450 L ML T4 FREE DIRECT NOTE [facility] T4 FREE DIRECT T4 FREE DIRECT 0.82 ng/dL 0.76-1.46 ML THYROID STIM HO NOTE [facility] THYROID STIM HO TSH 0.71 uIU/mL 0.358-3.74 ML FREE T3 NOTE [facility] FREE T3 FREE T3 2.4 pg/mL 2.18-3.98 ML GLUCOSE CHALLEN NOTE [facility] GLUCOSE CHALLEN GLU GEST 50G 1H 112 mg/dL 70-140 ML CBC-COMPLETE BL NOTE [facility] CBC-COMPLETE BL WBC 6.1 K/mm3 4.4-11.0 ML CBC-COMPLETE BL RBC 3.16 M/mm3 4.2-5.4 L ML CBC-COMPLETE BL HGB 10.1 g/dL 12.0-15.0 L ML CBC-COMPLETE BL HCT 29.9 37-47 L ML CBC-COMPLETE BL MCV 94.6 fL 81-99 ML CBC-COMPLETE BL MCH 32.0 pg 27.0-32.0 ML CBC-COMPLETE BL MCHC 33.8 g/dL 32-36 ML CBC-COMPLETE BL RDW CV 14.1 11.6-14.6 ML CBC-COMPLETE BL RDW SD 49.1 fl 35.1-43.9 H ML CBC-COMPLETE BL PLT 128 K/mm3 150-450 L ML CBC-COMPLETE BL MPV 11.6 fl 6.2-12.0 ML T4 FREE DIRECT NOTE [facility] T4 FREE DIRECT T4 FREE DIRECT 1.39 ng/dL 0.76-1.46 ML CHLAMYDIA/GC NA NOTE [facility] CHLAMYDIA/GC NA CHLAMY,NUC ACID Negative Negative LCI CHLAMYDIA/GC NA GC BY NUC ACID Negative Negative LCI Performed at: =[facility] [id number] [employer]room[employer] Supervisor: Lo Chamorro MD, Phone: [phone] HEPATITIS C ANT NOTE [facility] HEPATITIS C ANT HEPATITIS C AB Non-Reactive Nonreactive ML Non Reactive: < 0.8 Equivocal: >/= 0.8 to < 1.0 Reactive: >/= 1.0 The CDC recommends that a reactive/equivocal HCV antibody result be followed up by the HCV Nucleic Acid Amplification test (072763) HEPATITIS B TRI NOTE [facility] HEPATITIS B TRI HEP B SURF AG Non-Reactive Nonreactive ML HIV - [facility] NOTE [facility] HIV - [facility] HIV Non-Reactive Nonreactive ML L509.8000 NOTE [facility] L509.8000 SYPHILIS ABS Non-reactive ML RUBELLA IGG NOTE [facility] RUBELLA IGG RUBELLA IGG Reactive Nonreactive ML Antibody Results Interpretation of Immune Status Non Reactive Presumed Non-Immune Equivocal Equivocal Reactive Presumed Immune THYROID STIM HO NOTE [facility] THYROID STIM HO TSH < 0.01 uIU/mL 0.358-3.74 L ML PN N [facility]~[address] [place], [address]~ T AND AB SCREEN GEL NEGATIVE ML CBC W/DIFF, AUT NOTE [facility] CBC W/DIFF, AUT WBC 6.7 K/mm3 4.4-11.0 ML CBC W/DIFF, AUT RBC 4.29 M/mm3 4.2-5.4 ML CBC W/DIFF, AUT HGB 12.4 g/dL 12.0-15.0 ML CBC W/DIFF, AUT HCT 36.6 37-47 L ML CBC W/DIFF, AUT MCV 85.3 fL 81-99 ML CBC W/DIFF, AUT MCH 28.9 pg 27.0-32.0 ML CBC W/DIFF, AUT MCHC 33.9 g/dL 32-36 ML CBC W/DIFF, AUT RDW CV 13.7 11.6-14.6 ML CBC W/DIFF, AUT RDW SD 42.3 fl 35.1-43.9 ML CBC W/DIFF, AUT PLT 185 K/mm3 150-450 ML CBC W/DIFF, AUT MPV 11.4 fl 6.2-12.0 ML CBC W/DIFF, AUT NEUT% 74.9 47-70 H ML CBC W/DIFF, AUT LY% 18.9 19-41 L ML CBC W/DIFF, AUT MONO% 5.1 0-10 ML CBC W/DIFF, AUT EO% 0.7 0-5 ML CBC W/DIFF, AUT BASO% 0.1 0-1 ML CBC W/DIFF, AUT IG% 0.300 0.0-0.9 ML IG% - Immature Granulocytes (promyelocytes, myelocytes and metamyelocytes) > 1% indicates that a LEFT SHIFT is Present. CBC W/DIFF, AUT ABSOLUTE NEUT 5.0 X10 3/uL 2.0-7.7 ML CBC W/DIFF, AUT ABSOLUTE LYMPH 1.27 X10 3/uL 0.83-4.51 ML CBC W/DIFF, AUT NUCLEATED RBC 0 0-5 ML URINALYSIS, ROU NOTE [facility] URINALYSIS, ROU COLOR Yellow Yellow ML URINALYSIS, ROU URINE CLARITY Clear Clear ML URINALYSIS, ROU GLUCOSE, UR Normal mg/dl Normal ML URINALYSIS, ROU BILIRUBIN URINE Negative mg/dL Negative ML URINALYSIS, ROU KETONE UR Negative mg/dl Negative ML URINALYSIS, ROU SP.GR. DIPSTX 1.010 1.002-1.030 ML URINALYSIS, ROU PH UR 6.5 5.0 - 8.0 ML URINALYSIS, ROU PROT DIPSTX Negative mg/dl Negative ML URINALYSIS, ROU UROBILI Normal mg/dl Normal ML URINALYSIS, ROU NITRITE Negative Negative ML URINALYSIS, ROU OCCULT BLOOD-UR Negative /ul Negative ML URINALYSIS, ROU LEUK ESTERASE Negative /ul Negative ML A POSITIVE Group B Beta Streptococcus is not isolated. A POSITIVE == ==== Impression /Plan: 40 wks + 5 days intrauterine . Preparations in progress for delivery. -Category II FHR with recurrent variable decelerations post amniotomy -To OR for double set up -Consents signed
--- NOTE | 2021-05-27 13:42 | PN.OBGYN_ITS ---
Subjective Subjective Pt comfortable with epidural placed. Objective Data Objective Data Vital Signs: Vital Signs Temp Pulse BP Pulse Ox 98.3 F 92 148/59 H 99 05/27/21 11:10 05/27/21 11:10 05/27/21 11:10 05/27/21 11:10 Weight: 79.832 kg Body Mass Index (BMI) 32.1 Lab / Micro Data Result Diagrams: 05/27/21 11:45 Labs: Laboratory Results - last 24 hr 05/27/21 11:45: WBC 5.8, RBC 3.60 L, Hgb 11.5 L, Hct 33.5 L, MCV 93.1, MCH 31.9, MCHC 34.3, RDW Std Deviation 50.3 H, RDW Coeff of Juan 14.6, Plt Count 95 L, MPV 11.6, Immature Gran % (Auto) 0.500, Neut % (Auto) 79.4 H, Lymph % (Auto) 13.0 L, [place] % (Auto) 6.7, Eos % (Auto) 0.2, Baso % (Auto) 0.2, Absolute Neuts (auto) 4.6, Absolute Lymphs (auto) 0.75 L, Nucleated RBC % 0, Platelet Estimate MOD 05/27/21 11:45: Blood Type A POSITIVE, Antibody Screen NEGATIVE NST FHR Rate Baby A Baseline: 125 Variability:: Moderate Accelerations:: 15 x 15 Decelerations:: None NST Reactive:: Yes FHR Category:: Category I Uterine Activity:: 08/30 Assessment & Plan (1) 40 weeks gestation of : (2) Patient desires vaginal after section (): PLAN: Prior recurrent decelerations resolved Discussed proceed with repeat section at this time JODEE versus observation with potential for STAT section with increased risk included by not limited to hemorrhage, need for transfusion, infection, additional surgery associated with emergent section. Pt declines section at this time. Maintain double set up.
--- NOTE | 2021-05-27 14:54 | EX.PCM.OBRPT ---
Assessment & Plan (1) 40 weeks gestation of : (2) delivery delivered: Details Operative Information Date of Procedure: 05/27/21 Pre-Operative Diagnosis: 1. 40 5/7 weeks gestation 2. Non reassuring heart rate tracing Post-Operative Diagnosis: 1. 40 5/7 weeks gestation 2. Non reassuring heart rate tracing Indications for : Nonreassuring Status Indications Narrative: 6 para 31-year-old 5-0-0-6 admitted at 40-5/7 weeks gestational age in labor. She had amniotomy and subsequently began to experience recurrent deep variable decelerations. She was taken to the OR for double set up was due to no improvement of heart rate tracing despite amnioinfusion however heart rate converted to category 1. She declined section at that time and opted for observation. With continued laboring however deep variable decelerations reemerged and she was strongly advised to proceed with section. related risks, benefits, indications and alternatives were reviewed. Patient agreed to proceed. Classification: JODEE Procedure Type: low transverse human factors advisor lead #1: Deanna Gates Type of Anesthesia: Epidural Anesthesiologist: Cody Singletary Antibiotic Given: Ancef 2 grams IV x1 and Zithromax 500 mg/5 mL X1 Drain: Brito to straight drain Estimated Blood Loss: 700 ml Findings Description of Procedure: The patient was taken to the operating room and spinal analgesia was administered. She is placed in a dorsal supine position with left lateral tilt. The perineum and abdomen were prepped and draped in sterile fashion. And the spinal was found to be adequate. A Pfannenstiel incision was made using a scalpel and brought down to incise the subcutaneous tissue and rectus fascia at the midline. Subcutaneous tissue was bluntly dissected off the fascia laterally. The fascial incision was dissected laterally and cephalad bluntly and using curved Alexander. The peritoneum was identified and entered [sharply]. The vesicouterine peritoneal fold was identified and bladder flap created and Barrera retractor placed into the abdomen. A low transverse hysterotomy was made using the [Metzenbaum scissors] to level of the membranes. The hysterotomy was extended bluntly cephalad and caudad. The membranes were then ruptured revealing clear fluid. The head was elevated and brought to the level of the hysterotomy and the infant delivered revealing vigorous [female] infant. The cord was doubly clamped and cut after 30 seconds. The infant was passed to awaiting [nursery personnel]. The placenta was [expressed] from the uterus and appeared intact on inspection. The uterus was cleared of debris. The hysterotomy was then repaired using 0 Vicryl running lock suture. The Barrera retractor was removed the anterior cul-de-sac was cleared of debris. The peritoneum was repaired using 2-0 Vicryl running suture. The rectus fascia was closed using 0 strata fix running suture. The subcutaneous tissue was reapproximated using 2-0 Vicryl. The skin was closed using 4-0 Monocryl subcuticularly by the FRET SAW OPERATOR under my supervision. A Mepilex occlusive dressing was placed over the incision. The fundus was firm. The patient was then transferred to the recovery room without complication. Sponge, instrument, and needle counts were correct ?2. Presentation: Positive for Vertex Amniotic Membrane Rupture Type: Artificial Amniotic Fluid Description: Clear Placental Delivery Description: Spontaneous Placenta Disposition: [facility] Cord Vessel Description: 3 Vessels Cord Entanglement: Around neck x 1, loose and Around neck x 1, tight Cord Gases: ABG and VBG A Gender: Female (1 minute): 8 (5 minute): 9 Delayed Cord Clamping: Yes Complications Risks of Surgery Discussed w/Patient: Bleeding, Anesthesia Risks, Infection and Injury to surrounding structure(s) including bowel and bladder
[2021-05-27] MEDS: Oxytocin 30 units/NS 500 ml 30 UNITS/500 ML IV.SOLN 167 UNITS IV (15:15)
[2021-05-27] MEDS: Ketorolac 30 MG/ML Syringe IV ×2 (16:22→21:30)
[2021-05-27] MEDS: Acetaminophen 500 MG Tablet 1000 MG PO ×2 (17:15→23:47)
[2021-05-27] MEDS: Lactated Ringers 1,000 ML 100 ML IV (18:07)
[2021-05-28 02:10] VITALS: BP 112/62; PULSE 79; RESP 16; TEMP 36.8; O2SAT 100
[2021-05-28] MEDS: Enoxaparin 30 MG/0.3 ML Syringe SC (02:14)
[2021-05-28] MEDS: Ketorolac 30 MG/ML Syringe IV ×2 (04:14→10:48)
[2021-05-28] MEDS: 0.9% Saline Lock 10 ML Syringe IV ×2 (04:15→10:48)
[2021-05-28 04:23] VITALS: BP 105/51; PULSE 85; RESP 16; TEMP 36.7; O2SAT 96
[2021-05-28] MEDS: Acetaminophen 500 MG Tablet 1000 MG PO ×3 (06:10→18:55)
[2021-05-28 06:34] LABS: Hematocrit 26.4 % (37-47); Hemoglobin 8.9 g/dL (12.0-15.0); Mean Corp Hgb Conc 33.7 g/dL (32-36); Mean Corpuscular Hgb 31.7 pg (27.0-32.0); Mean Platelet Vol. 11.4 fl (6.2-12.0); POSITIVE COUNT YES; Platelet Count 76 K/mm3 (150-450); RBC Distribution Width CV 15.1 % (11.6-14.6); RBC Distribution Width SD 51.6 fl (35.1-43.9); Red Blood Count 2.81 M/mm3 (4.2-5.4); White Blood Count 7.5 K/mm3 (4.4-11.0)
--- NOTE | 2021-05-28 07:06 | CPS ---
SMI PLACED OUTSIDE ROOM. NURSES AWARE AND WILL INSTRUCT.
[2021-05-28 08:00] VITALS: BP 103/61; PULSE 78; RESP 18; TEMP 36.8; O2SAT 98
--- NOTE | 2021-05-28 08:25 | PCM.PN.OB ---
Subjective Subjective Patient without complaints. Tolerating diet well. Minimal vaginal bleeding. Positive flatus. Considering going home later today if baby is able to go. Objective Data Objective Data Vital Signs: Vital Signs Temp Pulse Resp BP Pulse Ox 98.1 F 85 16 105/51 L 96 05/28/21 04:23 05/28/21 04:23 05/28/21 04:23 05/28/21 04:23 05/28/21 04:23 Oxygen Delivery Method Room Air Weight: 176 lb Body Mass Index (BMI) 32.1 Intake & Output: Intake and Output for Last 24 Hours 05/26/21 05/27/21 05/28/21 23:59 23:59 23:59 Intake Total 1135.40 / 1723.73 588.33 / 588.33 Output Total 250 / 650 600 / 600 Balance 885.40 / 1073.73 -11.67 / -11.67 Lab / Micro Data Result Diagrams: 05/28/21 06:15 Labs: Laboratory Results - last 24 hr 05/27/21 11:45: WBC 5.8, RBC 3.60 L, Hgb 11.5 L, Hct 33.5 L, MCV 93.1, MCH 31.9, MCHC 34.3, RDW Std Deviation 50.3 H, RDW Coeff of Juan 14.6, Plt Count 95 L, MPV 11.6, Immature Gran % (Auto) 0.500, Neut % (Auto) 79.4 H, Lymph % (Auto) 13.0 L, [place] % (Auto) 6.7, Eos % (Auto) 0.2, Baso % (Auto) 0.2, Absolute Neuts (auto) 4.6, Absolute Lymphs (auto) 0.75 L, Nucleated RBC % 0, Platelet Estimate MOD DEC 05/27/21 11:45: Blood Type A POSITIVE, Antibody Screen NEGATIVE 05/27/21 11:45: Crossmatch See Detail 05/28/21 06:15: WBC 7.5, RBC 2.81 L, Hgb 8.9 L, Hct 26.4 L, MCV 94.0, MCH 31.7, MCHC 33.7, RDW Std Deviation 51.6 H, RDW Coeff of Juan 15.1 H, Plt Count 76 L, MPV 11.4 Assessment & Plan (1) delivery delivered: PLAN: Doing well post operative day #1 status post repeat for distress. No symptoms at present from Covid infection was started last Tuesday. Home-going instructions given. Will discharge patient home if baby is able to go and she desires to go later today.
--- NOTE | 2021-05-28 08:27 | PCM.DC ---
Discharge Instructions Diet Discharge Diet: No restrictions Activity May resume sexual activity in: 4-6 weeks Lifting Restrictions: 20 pounds Dressing / Incision Call your doctor if your incision/area has: Continuous Slow Oozing, Sudden Increased Bleeding, Increased Pain/ Swelling, Increased Redness and Foul Smelling Discharge Call your doctor if you observe: Fever of 101 or Higher, Inability to urinate, Inability to have a bowel movement and Using more than 1 pad per hour Follow Up Care Please Follow Up With: Dori Christie MD When: Call [phone] for appointment to be seen in 2 weeks. Test Results: Test results from this visit will be discussed in further detail at your follow-up appointment, if applicable. Discharge Plan Admission Admit Date/Time: 05/27/21 11:26 Primary Reason for Your Visit: Repeat Attending Provider: Dori Christie Primary Care Provider: Saritha Poon Discharge Orders/Prescriptions Prescriptions: New oxycodone 5 mg capsule 5 mg PO Q6H PRN (Reason: pain) 7 Days Qty: 7 RF: 0 docusate sodium 100 mg tablet 100 mg PO BID PRN (Reason: constipation) Qty: 60 RF: 1 Continued ferrous sulfate 325 MG tablet 325 mg PO BIDCM RF: 0 Prenatabs FA 1 TABLET tablet 1 tab PO DAILY RF: 0 Referrals / Follow Up: Saritha Poon PA-C [Primary Care Provider] - Disposition Disposition (needs filled in before D/C Order can be placed): Home, Self Care
[2021-05-28] MEDS: Senna/Docusate Sodium 1 Tablet PO (10:46)
[2021-05-28 12:00] VITALS: BP 109/67; PULSE 86; RESP 18; TEMP 36.7; O2SAT 98
[2021-05-28] MEDS: Prenatal Vits Tablet 1 TABLET PO (12:30)
[2021-05-28] MEDS: Ibuprofen 600 MG Tablet PO (17:04)
[2021-05-28 18:59] VITALS: BP 115/66; PULSE 89; RESP 18; TEMP 36.9; O2SAT 97
== END 2021-05-28 21:06 | disposition home or self-care (01) | DRG 788 ==
LOC: WPOUT 11:34 → WP 11:34
PROVIDERS: Admitting Provider Obstetrics & Gynecology; PCP Family Medicine; Visit Provider Obstetrics & Gynecology
DX: O76 Abnormality in fetal heart rate and rhythm complicating labor and delivery (principal); O34.219 Maternal care for unspecified type scar from previous cesarean delivery; Z3A.40 40 weeks gestation of pregnancy; O69.1XX0 Labor and delivery complicated by cord around neck, with compression, not applicable or unspecified; O26.23 Pregnancy care for patient with recurrent pregnancy loss, third trimester; Z37.0 Single live birth; Z86.16 Personal history of COVID-19; Z87.891 Personal history of nicotine dependence
CPT/HCPCS: 59025; 59050; 76815; 85025; 85027; 86850; 86900; 86901; 86920; 86922; 99218; J7120; A4216; G0378; J2405

== ENCOUNTER 2021-07-07 14:21 | Outpatient (CLI) | payer SELFPAY ==
[2021-07-07 14:36] LABS: Platelet Count 190 K/mm3 (150-450)
== END 2021-07-07 23:59 | disposition home or self-care (01) ==
LOC: WOBLAB 14:21
PROVIDERS: PCP Family Medicine; Visit Provider Obstetrics & Gynecology
DX: D69.6 Thrombocytopenia, unspecified (principal)
CPT/HCPCS: 36415; 85049

== ENCOUNTER 2025-04-05 07:28 | Inpatient (IN) | payer SELFPAY ==
[2025-04-05] VITALS (60 sets, daily range): BP systolic 91–194; BP diastolic 54–141; PULSE 76–162; RESP 16; TEMP 36.6–37.3; O2SAT 90–99; BMI 34.0
[2025-04-05] MEDS: Lactated Ringers 1,000 ML 50 ML IV (07:55)
[2025-04-05] MEDS: Oxytocin 15 Units/NS 250ml 15 UNITS/250 ML IV.SOLN 2 UNITS IV (08:09)
[2025-04-05 08:21] LABS: Hematocrit 32.8 % (37-47); Hemoglobin 11.8 g/dL (12.0-15.0); Immature Granulocytes Count 0.090 X10^3/uL (0.0-0.0); Mean Corp Hgb Conc 36.0 g/dL (32-36); Mean Corpuscular Volume 92.4 fL (81-99); Mean Platelet Vol. 12.0 fl (6.2-12.0); NRBC Flagged by Analyzer 0 % (0-5); Platelet Count 114 K/mm3 (150-450); RBC Distribution Width CV 14.3 % (11.6-14.6); RBC Distribution Width SD 48.4 fl (35.1-43.9); Red Blood Count 3.55 M/mm3 (4.2-5.4); White Blood Count 6.2 K/mm3 (4.4-11.0)
[2025-04-05 09:22] LABS: Syphilis Antibodies Nonreactive (Nonreactive)
--- NOTE | 2025-04-05 11:18 | PCM.HP.OB ---
HPI - General General Date of Admission: 04/05/25 HPI Narrative ANUP COKER, is a 35 F @ 40.3 weeks who presents for IOL for AMA, previous (h/o 2 cs) Maternal Data Information Final HORACIO: 04/02/25 Final HORACIO Source: US <20 weeks [facility] Medical History (Updated 04/05/25 @ 11:[address] Katy Shirley MD) delivery delivered 40 weeks gestation of Home Medications Medication Instructions Recorded Last Taken Type ferrous sulfate 325 mg (65 mg 325 mg PO BIDCM anemic 01/03/15 04/04/25 History iron) tablet vits,calcium no.78-iron 1 tab PO DAILY preg 01/03/15 04/04/25 History fumarate-folic acid 29 mg-1 mg tablet (Prenatabs FA) aspirin 81 mg tablet,delayed 81 mg PO DAILY 04/05/25 04/04/25 History release Allergy/AdvReac Type Severity Reaction Status Date / Time No Known Allergies Allergy Verified 04/05/25 07:51 Surgical History (Updated 04/05/25 @ 11:[address] Katy Shirley MD) Previous section Patient desires vaginal after section () Social History Smoking Status: Never smoker History Elective abortions Hx Para 6 Spontaneous abortions Hx # Term Pregnancies Ectopic pregnancies Hx # Pregnancies Multiple births # of living children NST FHR Rate Baby A Baseline: 140 Variability:: Moderate Accelerations:: 15 x 15 Decelerations:: None NST Reactive:: Yes FHR Category:: Category I Uterine Activity:: irregular on admission Vital Signs Vital Signs Vital Signs: 04/05/25 07:40 04/05/25 07:40 04/05/25 07:40 Temperature Temperature Source Temporal Pulse Rate 104 H Respiratory Rate Blood Pressure 123/70 H BP Systolic 123 BP Diastolic 70 04/05/25 07:40 04/05/25 07:40 04/05/25 09:44 Temperature 99.1 F Temperature Source Pulse Rate Respiratory Rate 16 Blood Pressure 121/75 H BP Systolic 121 BP Diastolic 75 04/05/25 09:44 04/05/25 09:45 04/05/25 09:45 Temperature Temperature Source Temporal Pulse Rate 82 Respiratory Rate 16 Blood Pressure BP Systolic BP Diastolic 04/05/25 09:45 04/05/25 10:24 04/05/25 10:24 Temperature 98.9 F Temperature Source Temporal Pulse Rate Respiratory Rate 16 Blood Pressure BP Systolic BP Diastolic 04/05/25 10:24 04/05/25 10:25 04/05/25 10:25 Temperature 98.7 F Temperature Source Pulse Rate 81 Respiratory Rate Blood Pressure 125/70 H BP Systolic 125 BP Diastolic 70 04/05/25 11:16 04/05/25 11:16 04/05/25 11:16 Temperature Temperature Source Pulse Rate 79 Respiratory Rate 16 Blood Pressure 123/78 H BP Systolic 123 BP Diastolic 78 Weight Weight: 84.368 kg Body Mass Index (BMI) 34.0 Physical Exam Const alert and oriented x3 General Appearance: cooperative HEENT normocephalic GI GI Narrative: Gravid, non tender to palpation. OB / External & Speculum: external exam normal Extremity normal to inspection Skin no rashes or lesions noted Neuro oriented x3 and CN's II-XII intact bilaterally Psych Appearance: grossly normal Labs Labs Labs: Blood Type A POSITIVE Antibody Screen NEGATIVE Hct, (37-47) 32.8 % L Hgb, (12.0-15.0) 11.8 g/dL L Syphilis Total Ab, (Nonreactive) Nonreactive Rubella IgG Antibody, (Nonreactive) Reactive Hep Bs Antigen, (Nonreactive) Non-Reactive Hepatitis C Antibody, (Nonreactive) Non-Reactive Hepatitis C Ab (EIA), (0.0-0.9) <0.1 s/co ratio Chlamydia DNA (BETHANIE), (Negative) Negative N.gonorrhoeae DNA (BETHANIE), (Negative) Negative HIV 1&2 Antibody, (Nonreactive) Non-Reactive Glucose 1 Hr 50 gm, (70-140) 112 mg/dL Group B Strep DNA, (Negative) Negative Rhogam given: No Assessment & Plan (1) Hx successful (vaginal after ), currently : (2) History of 2 sections: (3) AMA (advanced maternal age) multigravida 35+: (4) Anemia affecting : (5) Gestational thrombocytopenia: PLAN: Plan Admit to L&D Mont[facility] FHR/TOCO Epidural if requested for pain- discussed placement of catheter in even of emergent situation. Monitor VS Anticipate Pitocin and AROM
--- NOTE | 2025-04-05 11:21 | PCM.PN.BLA ---
Progress Note Pt seen at bedside VE: /-2 AROM with small amt of clear fluid. plan to continue pitcon until active labor then can consider dc
[2025-04-05] MEDS: Lactated Ringers 1,000 ML 999 ML IV (14:15)
[2025-04-05] MEDS: fentaNYL-bupivacaine (epidural) 100 ML BAG EPIDURAL (14:30)
--- NOTE | 2025-04-05 15:26 | OB.VAGDELI_ITS ---
Assessment & Plan (1) Supervision of high risk elderly multigravida in third trimester: (2) Single live : (3) AMA (advanced maternal age) multigravida 35+: (4) History of 2 sections: (5) Hx successful (vaginal after ), currently : (6) (vaginal after ): Maternal Data Information Final HORACIO: 04/02/25 Gestational age: 40 3/7 Vaginal Delivery Maternal Presentation Maternal Presentation: Medically Indicated Induction Type of Induction: Pitocin and Amniotomy Medical Reason for Induction: Other (advanced maternal age) Vaginal Delivery Information Procedure Performed: Spontaneous Vaginal Delivery Surgeon/Practitioner: Alicia Okeefe Date of Procedure: 04/05/25 Pre-Procedure Diagnosis: labor Post-Procedure Diagnosis: same Type of anesthesia: Epidural Estimated Blood Loss: 400 Time of Delivery: 15:08 Findings Description of procedure: A vigorous female was delivered ANTHONY over an intact perineum. A loose nuchal cord ×1 was easily reduced. The remainder the was delivered with maternal pushing and gentle traction only in less than 15 seconds. The Pitocin infusion was initiated for active management of the third stage. The cord was clamped and cut after cord pulsations ceased. The infant was attended to by the waiting nursing staff. The placenta was delivered spontaneously and intact. The cervix and vagina were intact. Sponge and needle counts were correct. A vaginal sweep was completed by me. Procedure findings: vigorous female Presentation: ANTHONY Amniotic Membrane Rupture Type: Artificial Amniotic Fluid Description: Clear Placental Delivery Description: Spontaneous Placenta Disposition: [facility] Specimen collected: No Cord Vessel Description: 3 Vessels Cord Entanglement: Around neck x 1, loose Nuchal Cord Compression: Without compression A Gender: Female (1 minute): 8 (5 minute): 9 Delayed Cord Clamping: Yes Solar Maintenance Technician barge worker: No Post Vaginal Deli Medications given after delivery: IV Pitocin Episiotomy Description: None Laceration: None Complication Complications: No
[2025-04-05] MEDS: Oxytocin 15 Units/NS 250ml 15 UNITS/250 ML IV.SOLN 83 UNITS IV (15:50)
--- OUTSIDE RECORDS SUMMARY | 2025-04-05 17:53 | XMS RPT_ITS | CCD ---
Author Organization [facility] Care Team Providers Care Black Oxide Operator Name Role Phone Alexus Murcia PA-C Unavailable Alexus Murcia PA-C Unavailable Anthony Ansari MD Unavailable Saritha Poon PA-C Unavailable Dulce Maria Marli LORENZO Unavailable Unavailmasoud Larios RN, Saritha Meredith Unavailable Unavaila lluvia Walsh RN, Neetu Pruett Unavailable Unavailable Chuy BEAN, Yane J Unavailable [phone] Unavailable Unavailable Unavailable Primary Care Provider Unavailabl YULIANA Melissa CNM Primary Care Unavailable YULIANA STOCKTON CNM Attending Unavailable YULIANA STOCKTON CNM Admitting Unavailable HILLS, SARITHA PAC Consulting Unavailable PROVIDER, UNKNOWN Consulting Unavailable DAPHNE GILBERT JR Primary Care Unavailable DAPHNE GILBERT JR Attending Unavailable DAPHNE GILBERT JR Admitting Unavailable VERA, YANE J Consulting Unavailable VERA, YANE J Referring Unavailable PROVIDER, UNKNOWN Consulting Unavailable YULIANA STOCKTONM Primary Care Unavailable YULIANA STOCKTON CNM Attending Unavailable YULIANA STOCKTON CNM Admitting Unavailable HILLS, SARITHA PAC Consulting Unavailable PROVIDER, UNKNOWN Consulting Unavailable KRISTOFER WARDA Primary Care Unavailable KRISTOFER WARDA DO Attending Unavailable BETTINA STACEY DO Admitting Unavailable HILLS, SARITHA PAC Consulting Unavailable PROVIDER, UNKNOWN Consulting Unavailable VERA, YANE J Consulting Unavailable VERA, YANE J Attending Unavailable VERA, YANE J Admitting Unavailable VERA, YANE J Primary Care Unavailable PROVIDER, UNKNOWN Consulting Unavailable EVAN JENKINS Attending Unavailable EVAN JENKINS Admitting Unavailable EVAN JENKINS Primary Care Unavailable HILLS, SARITHA PAC Consulting Unavailable PROVIDER, UNKNOWN Consulting Unavailable EVAN JENKINS Attending Unavailable EVAN JENKINS SUMMER Admitting Unavailable EVAN JENKINS SUMMER Primary Care Unavailable ALTASARITHA PAC Consulting Unavailable PROVIDER, UNKNOWN Consulting Unavailable EVAN JENKINS SUMMER Admitting Unavailable EVAN JENKINS SUMMER Primary Care Unavailable ALTASARITHA PAC Consulting Unavailable EVAN JENKINS SUMMER Attending Unavailable PROVIDER, UNKNOWN Consulting Unavailable OZZIE ZHAO Referring Unavailable JAVIER, RADHA Referring Unavailable PLOTTS, YULIANA Attending Unavailable JAVIER, RADHA Referring Unavailable PLOTTS, YULIANA Referring Unavailable SWETHA, ALEXUS L Referring Unavailable CECE, KARMON Attending Unavailable SWETHA, ALEXUS L Referring Unavailable JAVIER, RADHA Referring Unavailable HAURY, BECK Referring Unavailable SWETHA, ALEXUS L Attending Unavailable HAURY, BECK Referring Unavailable JAVIER, RADHA Attending Unavailable CECE, KARMON Referring Unavailable JAVIER, RADHA Referring Unavailable BENJY, AZIZA Attending Unavailable JAVIER, RADHA Referring Unavailable WISWELL, STACEY Attending Unavailable [facility] Referring Unavailable WISWELL, STACEY Attending Unavailable CECE, KARMON Referring Unavailable HAURY, BECK Attending Unavailable WISWELL, STACEY Referring Unavailable CECE, KARMON Attending Unavailable WISWELL, STACEY Attending Unavailable WISWELL, STACEY Referring Unavailable SWETHA, ALEXUS L Attending Unavailable PLOTTS, YULIANA Attending Unavailable PLOTTS, YULIANA Referring Unavailable CECE, KARMON Attending Unavailable SWETHA, ALEXUS L Referring Unavailable BENJY, AZIZA Attending Unavailable JAVIER, RADHA Attending Unavailable SWETHA, ALEXUS L Referring Unavailable WISWELL, STACEY Referring Unavailable HAURY, BECK Referring Unavailable BENJY, AZIZA Attending Unavailable WISWELL, STACEY Referring Unavailable BENJYAZIZA Attending Unavailable Medications Current Medications Medication Drug Class(es) Dates Sig (Normalized) Sig (Original) aspirin 81 mg delayed release oral tablet (10 sources) Platelet Aggregation Inhibitor, Nonsteroidal Anti-inflammatory Drug Start: 08-24-2024 take 1 tablet by mouth once daily aspirin, enteric coated (ECOTRIN LOW STRENGTH) 81 mg EC tablet Indications: with uncertain dates in first trimester (HCC) Take 1 tablet by mouth once daily. 90 tablet 3 08/24/2024 Active doxycycline hyclate 100 mg oral tablet (1 source) Tetracycline-class Drug Start: 04-17-2024 End: 04-17-2024 take 2 tablets by mouth once doxycycline (VIBRA-TABS) 100 mg tablet Take 2 tablets by mouth one time only for 1 dose. 2 tablet 04/17/2024 04/17/2024 Active LORazepam 1 mg oral tablet (1 source) Benzodiazepine Start: 04-17-2024 End: 04-17-2024 take 1 tablet by mouth once LORazepam (ATIVAN) 1 mg tablet Indications: , missed Take 1 tablet by mouth one time only for 1 dose. 1 tablet 04/17/2024 04/17/2024 Active PNV/iron,carb/docu sat/folic ac (PRENA-CAP ORAL) (20 sources) take 1 capsule by mouth once daily before mealtime PNV/iron,carb/doc usat/folic ac (PRENA-CAP ORAL) Take 2 Units by mouth once daily. Active Completed/Discontinued Medications Medication Drug Class(es) Dates Sig (Normalized) Sig (Original) amoxicillin 500 mg oral tablet (13 sources) Penicillin-class Antibacterial Start: 11-11-2022 End: 11-21-2022 inject 1 tablet by subcutaneous injection twice daily Amoxicillin 500 MG Oral Tablet ; 1 (one) Tablet BID for 10 days Quantity: 20 {Tablet} Refills: 0 Ordered: 11-Nov-2022 VIKAS Vera Start: 11-Nov-2022 End: 21-Nov-2022 Status: Inactive Comments: sub with caps if cheaper Comment on above: sub with caps if lorraine aper Azithromycin (13 sources) Macrolide Antimicrobial Start: 06-21-2022 End: 05-12-2023 Zithromax Z-Issac 250 mg tablet ; 2 (two) Tabs day one, then one daily for 4 days for 0 days Quantity: 1 {Packet} Refills: 0 Ordered: 12-May-2023 Start: 21-Jun-2022 End: 12-May-2023 Status: Inactive cyclobenzaprine hydrochloride 10 mg oral tablet (13 sources) Muscle Relaxant Start: 12-20-2016 End: 06-21-2022 take 1 tablet by mouth three times daily as needed Cyclobenzaprine HCl 10 MG Oral Tablet ; 1 (one) Tablet Three times a day as needed for 0 days Quantity: 30 {Tablet} Refills: 0 Ordered: 21-Jun-2022 SHAR Larios Start: 20-Dec-2016 End: 21-Jun-2022 Status: Inactive Comments: Medication taken as needed. may cause drowsiness Comment on above: Medication taken as needed. may cause drowsiness Ethinyl Estradiol / norgestimate (13 sources) Progestin, Estrogen Start: 07-16-2010 End: 02-15-2013 take 1 tablet by mouth once daily SPRINTEC 28, 0.25-35MG-MCG (Oral Tablet) ; 1 (one) Tablet daily for 0 days Quantity: 2 {package(s)} Refills: 7 Ordered: 15-Feb-2013 VIKAS Poon Start: 16-Jul-2010 End: 15-Feb-2013 Status: Inactive 2 ml ketorolac tromethamine 30 mg/ml injection (3 sources) Nonsteroidal Anti-inflammatory Drug, Cyclooxygenase Inhibitor Start: 04-20-2024 End: 04-20-2024 keTORolac 60 mg injection (Toradol) Start: 04-20-2024 End: 04-20-2024 60 mg, INTRAMUSCULAR, ONCE, 1 dose, On Tue04/20/24 at 1330, Ketorolac (Toradol) is indicated for the short-term (up to 5 days) management of moderately severe acute pain. Continuation of ketorolac (Toradol) beyond 5 days increases the risk of developing serious adverse events. Please verify the duration of therapy for ketorolac (Toradol). Start: 04-17-2024 End: 04-17-2024 inject 2 mL by intramuscular injection once keTORolac (TORADOL) 60 mg/2 mL soln Inject 2 mL intramuscularly one time only for 1 dose. 2 mL 04/17/2024 04/17/2024 Active miSOPROStol 0.2 mg oral tablet (9 sources) Prostaglandin E1 Analog Start: 04-13-2024 End: 06-21-2024 miSOPROStol (CYTOTEC) 200 mcg tablet Indications: Incomplete spontaneous without complication Please insert 4 tablets into vagina x1 4 tablet 04/13/2024 06/21/2024 Discontinued norethindrone 0.35 mg oral tablet (13 sources) Start: 03-19-2013 End: 02-26-2014 HAWK, 0.35MG (Oral Tablet) ; 1 tab Tablet daily for 0 days Quantity: 1 {package(s)} Refills: 11 Ordered: 26-Feb-2014 Start: 19-Mar-2013 End: 26-Feb-2014 Status: Inactive nystatin 416604 unt/ml topical cream (13 sources) Polyene Antifungal Start: 03-17-2012 End: 02-15-2013 NYSTATIN, [id number]/GM (External Cream) ; 1 application(s) to affected area BID for 0 days Quantity: 30 {gram(s)} Refills: 0 Ordered: 15-Feb-2013 VIKAS Poon Start: 17-Mar-2012 End: 15-Feb-2013 Status: Inactive Comments: Recommended patient apply after nursing baby and wash off prior to nursing. Comment on above: Recommended patient apply after nursing baby and wash off prior to nursing. Progesterone (3 sources) Progesterone End: 04-13-2024 PROGESTERONE INTRAUTERINE Use 200 Suppositories vaginally two times a day. 04/13/2024 Discontinued (Course of therapy completed) PROGESTERONE INT RAUTERINE Use 200 Suppositories vaginally two times a day. Active PROGESTERONE MICRONIZED VAGI NAL (7 sources) End: 11-06-2024 PROGESTERONE MICRONIZED VAGI NAL Use 200 mg vaginally. 11/06/2024 Discontinued PROGESTERONE SAUL RONIZED VAGINAL Use 200 mg vaginally. Active triamcinolone acetonide 1 mg/ml topical cream (13 sources) Corticosteroid Start: 11-26-2019 End: 06-21-2022 Triamcinolone Acetonide 0.1 % External Cream ; 1 (one) Application TID prn itching for 0 days Quantity: 30 {Gram} Refills: 0 Ordered: 21-Jun-2022 SHAR Lraios Start: 26-Nov-2019 End: 21-Jun-2022 Status: Inactive Problems Active Problems Problem Classification Problem Date Documented Date Episodic/Chronic Allergic reactions (20 sources) Contact dermatitis; Translations: [Unspecified contact dermatitis, unspecified cause] 11-26-2019 Episodic Chronic obstructive pulmonary disease and bronchiectasis (20 sources) Bronchitis; Translations: [Bronchitis, not specified as acute or chronic] 06-21-2022 Episodic Coagulation and hemorrhagic disorders (1 source) Thrombocytopenia, unspecified; Translations: [Benign gestational thrombocytopenia in third trimester (HCC)] Onset: 02-11-2025 Chronic Immunizations and screening for infectious disease (20 sources) Exposure to streptococcal pharyngitis; Translations: [Contact with and (suspected) exposure to other bacterial communicable diseases] 11-11-2022 Episodic Other aftercare (20 sources) Drug indicated; Translations: [Other intermediate teacher (current) drug therapy] 06-11-2010 Episodic Other aftercare (1 source) Patient encounter status; Translations: [Encounter for follow-up examination after completed treatment for conditions other than malignant neoplasm] 06-21-2024 Episodic Other bone disease and musculoskeletal deformities (20 sources) Costal chondritis; Translations: [Chondrocostal junction syndrome [Tietze]] 06-21-2022 Episodic Other complications of ; puerperium affecting management of mother (20 sources) Obstetric nipple infection with complication; Translations: [Infection of nipple associated with the puerperium] 02-15-2013 Episodic Other complications of (2 sources) Anemia in mother complicating , childbirth AND/OR puerperium; Translations: [Anemia complicating , third trimester] Onset: 01-03-2025 01-22-2025 Chronic Other complications of (1 source) Obesity complicating , third trimester; Translations: [Obesity affecting in third trimester, unspecified obesity type (HCC)] Onset: 02-25-2025 Chronic Other complications of (1 source) Anemia complicating , third trimester; Translations: [Anemia complicating , third trimester (HCC)] Onset: 01-03-2025 Chronic Other complications of (1 source) Missed miscarriage; Translations: [Missed ] 04-17-2024 Episodic Other complications of (16 sources) High risk ; Translations: [Supervision of high risk , unspecified, first trimester] Onset: 08-24-2024 08-24-2024 Episodic Other complications of (18 sources) Multigravida of advanced maternal age; Translations: [Supervision of elderly multigravida, first trimester] Onset: 08-24-2024 08-24-2024 Episodic Other complications of (7 sources) Placenta circumvallata; Translations: [Circumvallate placenta, second trimester] Onset: 11-06-2024 11-06-2024 Episodic Other complications of (1 source) Uterine size for dates discrepancy; Translations: [Uterine size-date discrepancy, third trimester] 01-22-2025 Episodic Other complications of (1 source) Other diseases of the blood and blood-forming organs and certain disorders involving the immune mechanism complicating , third trimester; Translations: [Benign gestational thrombocytopenia in third trimester (HCC)] Onset: 02-11-2025 Episodic Other complications of (1 source) Supervision of elderly primigravida, third trimester; Translations: [AMA (advanced maternal age) primigravida 35+, third trimester ([facility])] Onset: 02-08-2025 Episodic Other connective tissue disease (20 sources) Spasm; Translations: [Other muscle spasm] 06-21-2022 Episodic Other skin disorders (20 sources) Folliculitis; Translations: [Follicular disorder, unspecified] 11-17-2010 Episodic Other upper respiratory infections (20 sources) Streptococcal sore throat; Translations: [Streptococcal pharyngitis] 12-29-2022 Episodic Residual codes; unclassified (2 sources) Gestation period, 11 weeks; Translations: [11 weeks gestation of ] 03-30-2024 Episodic Residual codes; unclassified (1 source) Gestation period, 8 weeks; Translations: [8 weeks gestation of ] 08-24-2024 Episodic Residual codes; unclassified (16 sources) History of past delivery; Translations: [History of uterine scar from previous surgery] Onset: 08-24-2024 08-24-2024 Episodic Residual codes; unclassified (2 sources) Gestation period, 12 weeks; Translations: [12 weeks gestation of ] 09-21-2024 Episodic Residual codes; unclassified (1 source) Gestation period, 16 weeks; Translations: [16 weeks gestation of ] 10-16-2024 Episodic Residual codes; unclassified (1 source) Gestation period, 23 weeks; Translations: [23 weeks gestation of ] 12-04-2024 Episodic Residual codes; unclassified (1 source) Gestation period, 27 weeks; Translations: [27 weeks gestation of ] 01-01-2025 Episodic Residual codes; unclassified (1 source) Gestation period, 30 weeks; Translations: [30 weeks gestation of ] 01-22-2025 Episodic Residual codes; unclassified (1 source) 40 weeks gestation of ; Translations: [40 weeks gestation of ([facility])] Onset: 04-02-2025 Episodic Residual codes; unclassified (1 source) 39 weeks gestation of ; Translations: [39 weeks gestation of (HCC)] Onset: 03-26-2025 Episodic Residual codes; unclassified (1 source) 38 weeks gestation of ; Translations: [38 weeks gestation of (HCC)] Onset: 03-19-2025 Episodic Residual codes; unclassified (1 source) 37 weeks gestation of ; Translations: [37 weeks gestation of ([facility])] Onset: 03-15-2025 Episodic Residual codes; unclassified (1 source) 34 weeks gestation of ; Translations: [34 weeks gestation of (HCC)] Onset: 02-25-2025 Episodic Residual codes; unclassified (1 source) 32 weeks gestation of ; Translations: [32 weeks gestation of ([facility])] Onset: 02-08-2025 Episodic Residual codes; unclassified (1 source) 30 weeks gestation of ; Translations: [30 weeks gestation of ([facility])] Onset: 01-22-2025 Episodic Superficial injury; contusion (2 sources) Insect bite of lower limb; Translations: [Insect bite (nonvenomous), unspecified foot, initial encounter] 12-24-2024 Episodic Unclassified (13 sources) deliveries 12-20-2016 Comment on above: 1. twins Unclassified (13 sources) Number of Children 12-20-2016 Comment on above: 3. 1 boy, twin girls Unclassified (13 sources) Number of Pregnancies 12-20-2016 Comment on above: 3. miscarriage in be tween 2 healthy pregnancies, 3rd was twins Unclassified (13 sources) Vaginal deliveries 12-20-2016 Comment on above: 1. Unclassified (10 sources) [facility] Education - COMMON Onset: 08-24-2024 08-24-2024 Unclassified (10 sources) Education - [place] Onset: 08-24-2024 08-24-2024 Past or Other Problems Problem Classification Problem Date Documented Date Episodic/Chronic Cancer of cervix (20 sources) Atypical squamous cells of undetermined significance on cervical Papanicolaou smear; Translations: [Atypical squamous cells of undetermined significance on cytologic smear of cervix ([facility])] Onset: 04-11-2024 04-11-2024 Episodic Hemorrhage during ; abruptio placenta; placenta previa (3 sources) Threatened miscarriage; Translations: [Threatened ] Onset: 04-13-2024 04-03-2024 Episodic Other complications of (2 sources) Supervision of elderly multigravida, second trimester; Translations: [AMA (advanced maternal age) multigravida 35+, second trimester ([facility])] Onset: 08-24-2024 Episodic Other complications of (1 source) Supervision of high risk , unspecified, third trimester; Translations: [Supervision of high risk in third trimester ([facility])] Onset: 11-06-2024 Episodic Other complications of (1 source) Supervision of high risk , unspecified, second trimester; Translations: [Supervision of high risk in second trimester ([facility])] Onset: 11-06-2024 Episodic Other complications of (1 source) Supervision of elderly multigravida, first trimester; Translations: [Multigravida of advanced maternal age in first trimester ([facility])] Onset: 08-24-2024 Episodic Other complications of (1 source) Circumvallate placenta, second trimester; Translations: [Circumvallate placenta, second trimester ([facility])] Onset: 11-06-2024 Episodic Other complications of (1 source) Supervision of high risk , unspecified, first trimester; Translations: [Encounter for supervision of high risk in first trimester, antepartum ([facility])] Onset: 08-24-2024 Episodic Other and delivery including normal (6 sources) with uncertain dates; Translations: [Encounter for supervision of normal , unspecified, first trimester] Onset: 11-06-2024 08-24-2024 Episodic Other screening for suspected conditions (not mental disorders or infectious disease) (7 sources) Cancer cervix screening status; Translations: [Encounter for screening for malignant neoplasm of cervix] Onset: 09-21-2024 04-03-2024 Episodic Polyhydramnios and other problems of amniotic cavity (11 sources) Subchorionic hematoma; Translations: [Other specified disorders of amniotic fluid and membranes, first trimester, not applicable or unspecified] Onset: 08-24-2024 08-24-2024 Episodic Residual codes; unclassified (13 sources) H/O: miscarriage; Translations: [Personal history of other complications of , childbirth and the puerperium] Onset: 08-24-2024 06-01-2024 Episodic Residual codes; unclassified (1 source) 23 weeks gestation of ; Translations: [23 weeks gestation of (HCC)] Onset: 01-01-2025 Episodic Residual codes; unclassified (3 sources) History of uterine scar from previous surgery; Translations: [History of vaginal after ] Onset: 08-24-2024 Episodic Residual codes; unclassified (1 source) 27 weeks gestation of ; Translations: [27 weeks gestation of (HCC)] Onset: 01-01-2025 Episodic Residual codes; unclassified (1 source) 16 weeks gestation of ; Translations: [16 weeks gestation of (HCC)] Onset: 10-16-2024 Episodic Residual codes; unclassified (1 source) 12 weeks gestation of ; Translations: [12 weeks gestation of (HCC)] Onset: 09-21-2024 Episodic Residual codes; unclassified (1 source) 11 weeks gestation of ; Translations: [11 weeks gestation of ] Onset: 04-13-2024 Episodic Spontaneous (16 sources) Incomplete miscarriage with complication; Translations: [Incomplete spontaneous without complication] Onset: 04-13-2024 04-13-2024 Episodic Unclassified (13 sources) Cold Symptoms - Symptoms include sore throat (with coughing), dry cough (feels congested) and productive cough, but do not include sneezing, nasal congestion, runny nose, ear pain, ear fullness, wheezing (with activity feels slightly short of breath, denies chest pain), fever, chills, general malaise (no body aches), headache or facial pain. The onset was gradual 2 week(s) ago. The symptoms occur constantly. The patient describes this as moderate in severity and worsening (maybe little worse feeling). Current treatment includes an oral decongestant (mucinex). Risk factors do not include smoking. The patient has been exposed to an individual with an upper respiratory infection (children). Patient denies history of seasonal allergies, recurrent sinusitis, asthma, tonsillectomy or recurrent ear infections. Note for Upper respiratory infection": She is currently . 06-21-2022 Unclassified (13 sources) Chest pain - The onset of the pain has been gradual and has been occurring in a recurrent pattern for 3 weeks. The pain is described as a moderate dull ache. The pain is described as being located in the left chest and radiates to the left shoulder and back. There are no precipitating factors. The symptoms have no aggravating factors. The symptoms have no relieving factors. The symptoms have been associated with shoulder pain (left), but have not been associated with blurred vision, cough, dizziness, diaphoresis, dyspnea, fever, headache, nausea, neck pain or palpitations. There is a family history of diabetes and hypertension. Note for "Chest pain": Pt. c/o "not being able to get a full breath" at times. 12-20-2016 Unclassified (13 sources) Chest pain - The onset of the pain has been acute and has been occurring in a persistent pattern for 2 days. The pain is described as a moderate dull ache and sharp pain. The pain is described as being located in the left chest and radiates to the left arm, left chest, left shoulder, left sternal border, jaw and neck. There are no precipitating factors. The symptoms have no aggravating factors. The symptoms have no relieving factors. The symptoms have been associated with headache, but have not been associated with blurred vision, cough, dizziness, diaphoresis, dyspnea, fever, nausea, palpitations, syncope or vomiting. There have been no previous evaluations. There is a family history of coronary artery disease. 02-28-2014 Unclassified (13 sources) Well Adult, female - The patient feels well with no complaints. The first day of the last menstrual period was : (02/01/13). The current method of contraception is: oral contraceptives (for now is on micronor - however when she stops breast feeding she would like to return to [facility]). The patient has a balanced diet and takes supplemental vitamins (pre-ingrid). The patient exercises 3 - 4 times per week. The patient sleeps 8 hours per night. 02-15-2013 Unclassified (13 sources) Rash - The onset of the rash has been acute and has been occurring in a persistent pattern for 1 week. The course has been increasing. The rash is characterized as red and raised above the skin. The rash was first seen on the genital area. There has been no progression. There has been associated pain (only occasionally then resolves quickly), while there has been no associated itching or drainage. There has been no associated fever, lymphadenopathy or mucous membrane lesions. Note for "Rash": was on amox 3 weeks ago for a root canal. Has some burning with intercourse upon insertion; no h/o STD and is in monogamous relationship 11-17-2010 Unclassified (13 sources) Well adult female - The patient feels well with no complaints. Most recent Pap smear: : (07/24/09). The first day of the last menstrual period was : (06/23/10). The current method of contraception is oral contraceptives (sprintec). Patient has not had a screening mammogram. The patient reports that she does not perform monthly breast self exam. Patient has not had bone density screening. Patient has not had a cholesterol screening. There has been no glucose screening. Patient has not received a recent influenza vaccine. Last Tetanus booster: Date: (08/09/06). The patient has a balanced diet. Patient exercises weekly. Patient sleeps 8 hours per night. 07-16-2010 Results Test Name Value Interpretation Reference Range Facil ity ROUTINE, GROUP B ST REPTOCOCCUS BY PCRon 03-19-2025 ROUTINE, GROUP B STREPTOCOCCUS BY PCR Not detected Normal [facility] Comment on above: Performed By: #### G BPCR #### [facility] CLIA [id number] [address] [place] [address] [place] CBC panel Auto (Bld)on 03-15 Erythrocyte distribution width (RBC) [Ratio] 14.6 % Normal 11.5-15.0 [facility] Comment on above: Order Comment: Speci men Type: BLOOD SPECIMENOrdering Facility: [facility] Address: [address] [place] [address] Performed By: #### 5 8410-2 ####[facility] [id number] [place] [address] [place] Hematocrit (Bld) [Volume fraction] 32.3 % Low 36.0-46.0 [facility] Comment on above: Order Comment: Speci men Type: BLOOD SPECIMENOrdering Facility: [facility] Address: [address] [place] [address] Performed By: #### 5 8410-2 ####[facility] WESTWNARENLIA [id number] [place] [address] [place] Hemoglobin (Bld) [Mass/Vol] 11.5 g/dL Normal 11.5-15.5 [facility] Comment on above: Order Comment: Speci men Type: BLOOD SPECIMENOrdering Facility: [facility] Address: [address] [place] [address] Performed By: #### 5 8410-2 ####[facility]ENTERNARENLIA [id number] [place] [address] [place] MCH (RBC) [Entitic mass] 32.5 pg Normal 26.0-34.0 [facility] Comment on above: Order Comment: Speci men Type: BLOOD SPECIMENOrdering Facility: [facility] Address: [address] [place] [address] Performed By: #### 5 8410-2 ####[facility] [id number] [place] [address] [place] [facility] MCHC (RBC) [Mass/Vol] 35.6 g/dL Normal 30.5-36.0 [facility] Comment on above: Order Comment: Speci men Type: BLOOD SPECIMENOrdering Facility: [facility] Address: [address] [place] [address] Performed By: #### 5 8410-2 ####[facility]ENTERDOMINGAA [id number] [place] [address] [place] MCV (RBC) [Entitic vol] 91.2 fL Normal 80.0-100.0 [facility] Comment on above: Order Comment: Speci men Type: BLOOD SPECIMENOrdering Facility: [facility] Address: [address] [place] [address] Performed By: #### 5 8410-2 ####[facility] CENTERNCLIA [id number] [place] [address] [place] Nucleated RBC (Bld) [#/Vol] 10*3/uL Normal <0.01 [facility] Comment on above: Order Comment: Speci men Type: BLOOD SPECIMENOrdering Facility: [facility] Address: [address] [place] [address] Performed By: #### 5 8410-2 ####[facility] CENTERCHRIS [id number] [place] [address] [place] Platelet mean volume (Bld) [Entitic vol] 11.3 fL Normal 9.0-12.7 [facility] Comment on above: Order Comment: Speci men Type: BLOOD SPECIMENOrdering Facility: [facility] Address: [address] [place] [address] Performed By: #### 5 8410-2 ####[facility] CENTERNCREYMUNDO [id number] [place] [address] [place] Platelets (Bld) [#/Vol] 131 10*3/uL Low 150-400 [facility] Comment on above: Order Comment: Speci men Type: BLOOD SPECIMENOrdering Facility: [facility] Address: [address] [place] [address] Result Comment: No c lot detected. Performed By: #### 5 8410-2 ####[facility] CENTERMACA [id number] [place] [address] [place] RBC (Bld) [#/Vol] 3.54 10*6/uL Low 3.90-5.20 [facility] Comment on above: Order Comment: Speci men Type: BLOOD SPECIMENOrdering Facility: [facility] Address: [address] [place] [address] Performed By: #### 5 8410-2 ####[facility]ENTERWNCLIA [id number] [place] [address] [place] WBC (Bld) [#/Vol] 6.72 10*3/uL Normal 3.70-11.00 [facility] Comment on above: Order Comment: Speci men Type: BLOOD SPECIMENOrdering Facility: [facility] Address: [address] [place] [address] Performed By: #### 5 8410-2 ####[facility] ROSOCE MORENO [id number] [address] OF [facility] ASHIANon 03-15-2025 CNPN Telephone (OBGYWM) ANUP NIELSEN ([id number]) 1990 F Date Time Provider Department 03/15/25 STACEY WARD During your visit today, we recorded the following information about you: Alcides Moreland LPN 03/15/2025 2:33 PM Signed Phone call placed x3, update patient need to collect group B strep swab with visit on 03/19/2025, patient verbalized understanding agreed with plan of care. Alcides Moreland LPN Allergies As of Date: 03/15/2025 (No Known Allergies) Date Reviewed: 03/15/2025 Reviewed by: Farzana Dunbar MA - Fully Assessed Reason for Visit: Patient Update [1234] Prescriptions as of 03/15/2025 - ferrous sulfate (IRON PO) Take by mouth. - aspirin, enteric coated (ECOTRIN LOW STRENGTH) 81 mg EC tablet Take 1 tablet by mouth once daily. - PNV/iron,carb/docusat /folic ac (PRENA-CAP ORAL) Take 2 Units by mouth once daily. Problem List As Of Date 03/15/2025 Noted Resolved Atypical squamous cell changes of undetermined *04/11/2024 Supervision of high risk in second tr*08/24/2024 History of miscarriage [Z87.59] 08/24/2024 AMA (advanced maternal age) multigravida 35+, s*08/24/2024 History of section [Z98.891] 08/24/2024 History of [Z98.891] 08/24/2024 Subchorionic hematoma in first trimester (HCC) *08/24/2024 Circumvallate placenta, second trimester (HCC) *11/06/2024 Anemia complicating , third trimester *01/03/2025 Benign gestational thrombocytopenia in third tr*02/11/2025 Encounter Status:Closed by ALCIDES MORELAND on 03/15/25 Normal [facility] CBC W Auto Differential pane l (Bld)on 02-08-2025 Basophils (Bld) [#/Vol] 10*3/uL Normal <0.11 [facility] Comment on above: Order Comment: Speci men Type: BLOOD SPECIMENOrdering Facility: [facility] Address: [address] [place] [address] Performed By: #### 5 7021-8 ####[facility] [id number] [place] [address] [place] Basophils/100 WBC (Bld) 0.3 % Normal [facility] Comment on above: Order Comment: Speci men Type: BLOOD SPECIMENOrdering Facility: [facility] Address: [address] [place] [address] Performed By: #### 5 7021-8 ####[facility] [id number] [place] [address] [place] Differential cell count method Nom (Bld) Auto Normal [facility] Comment on above: Order Comment: Speci men Type: BLOOD SPECIMENOrdering Facility: [facility] Address: [address] [place] [address] Performed By: #### 5 7021-8 ####[facility] [id number] [place] [address] [place] Eosinophils (Bld) [#/Vol] 0.04 10*3/uL Normal <0.46 [facility] Comment on above: Order Comment: Speci men Type: BLOOD SPECIMENOrdering Facility: [facility] Address: [address] [place] [address] Performed By: #### 5 7021-8 ####[facility] CENTERNCLI [id number] [place] [address] [place] Eosinophils/100 WBC (Bld) 0.6 % Normal [facility] Comment on above: Order Comment: Speci men Type: BLOOD SPECIMENOrdering Facility: [facility] Address: [address] [place] [address] Performed By: #### 5 7021-8 ####[facility] CENTERNCLI [id number] [place] [address] [place] Erythrocyte distribution width (RBC) [Ratio] 14.2 % Normal 11.5-15.0 [facility] Comment on above: Order Comment: Speci men Type: BLOOD SPECIMENOrdering Facility: [facility] Address: [address] [place] [address] Performed By: #### 5 7021-8 ####[facility]ENTERNCLIA [id number] [place] [address] [place] Hematocrit (Bld) [Volume fraction] 30.3 % Low 36.0-46.0 [facility] Comment on above: Order Comment: Speci men Type: BLOOD SPECIMENOrdering Facility: [facility] Address: [address] [place] [address] Performed By: #### 5 7021-8 ####[facility] [id number] [place] [address] [place] Hemoglobin (Bld) [Mass/Vol] 11.0 g/dL Low 11.5-15.5 [facility] Comment on above: Order Comment: Speci men Type: BLOOD SPECIMENOrdering Facility: [facility] Address: [address] [place] [address] Performed By: #### 5 7021-8 ####[facility] MILLTOWNCLIA [id number] [place] [address] [place] Immature granulocytes (Bld) [#/Vol] 0.03 10*3/uL Normal <0.10 [facility] Comment on above: Order Comment: Speci men Type: BLOOD SPECIMENOrdering Facility: [facility] Address: [address] [place] [address] Performed By: #### 5 7021-8 ####[facility] MILLWNCLIA [id number] [place] [address] [place] Immature granulocytes/100 WBC (Bld) 0.4 % Normal [facility] Comment on above: Order Comment: Speci men Type: BLOOD SPECIMENOrdering Facility: [facility] Address: [address] [place] [address] Performed By: #### 5 7021-8 ####[facility] ROSAWNCLIA [id number] [place] [address] [place] Lymphocytes (Bld) [#/Vol] 1.22 10*3/uL Normal 1.00-4.00 [facility] Comment on above: Order Comment: Speci men Type: BLOOD SPECIMENOrdering Facility: [facility] Address: [address] [place] [address] Performed By: #### 5 7021-8 ####[facility] MILLTOWNCLIA [id number] [place] [address] [place] Lymphocytes/100 WBC (Bld) 17.1 % Normal [facility] Comment on above: Order Comment: Speci men Type: BLOOD SPECIMENOrdering Facility: [facility] Address: [address] [place] [address] Performed By: #### 5 7021-8 ####[facility] MILLTOWNCLIA [id number] [place] [address] [place] MCH (RBC) [Entitic mass] 32.4 pg Normal 26.0-34.0 [facility] Comment on above: Order Comment: Speci men Type: BLOOD SPECIMENOrdering Facility: [facility] Address: [address] [place] [address] Performed By: #### 5 7021-8 ####[facility] [id number] [place] [address] [place] MCHC (RBC) [Mass/Vol] 36.3 g/dL High 30.5-36.0 [facility] Comment on above: Order Comment: Speci men Type: BLOOD SPECIMENOrdering Facility: [facility] Address: [address] [place] [address] Performed By: #### 5 7021-8 ####[facility] [id number] [place] [address] [place] MCV (RBC) [Entitic vol] 89.4 fL Normal 80.0-100.0 [facility] Comment on above: Order Comment: Speci men Type: BLOOD SPECIMENOrdering Facility: [facility] Address: [address] [place] [address] Performed By: #### 5 7021-8 ####[facility] [id number] [place] [address] [place] Monocytes (Bld) [#/Vol] 0.57 10*3/uL Normal <0.87 [facility] Comment on above: Order Comment: Speci men Type: BLOOD SPECIMENOrdering Facility: [facility] Address: [address] [place] [address] Performed By: #### 5 7021-8 ####[facility] CENTERNCLI [id number] [place] [address] [place] Monocytes/100 WBC (Bld) 8.0 % Normal [facility] Comment on above: Order Comment: Speci men Type: BLOOD SPECIMENOrdering Facility: [facility] Address: [address] [place] [address] Performed By: #### 5 7021-8 ####[facility] [id number] [place] [address] [place] Neutrophils (Bld) [#/Vol] 5.26 10*3/uL Normal 1.45-7.50 [facility] Comment on above: Order Comment: Speci men Type: BLOOD SPECIMENOrdering Facility: [facility] Address: [address] [place] [address] Performed By: #### 5 7021-8 ####[facility] [id number] [place] [address] [place] Neutrophils/100 WBC (Bld) 73.6 % Normal [facility] Comment on above: Order Comment: Speci men Type: BLOOD SPECIMENOrdering Facility: [facility] Address: [address] [place] [address] Performed By: #### 5 7021-8 ####[facility] [id number] [place] [address] [place] Nucleated RBC (Bld) [#/Vol] 10*3/uL Normal <0.01 [facility] Comment on above: Order Comment: Speci men Type: BLOOD SPECIMENOrdering Facility: [facility] Address: [address] [place] [address] Performed By: #### 5 7021-8 ####[facility] [id number] [place] [address] [place] Nucleated RBC/100 WBC (Bld) [Ratio] 0.0 /100 WBC Normal [facility] Comment on above: Order Comment: Speci men Type: BLOOD SPECIMENOrdering Facility: [facility] Address: [address] [place] [address] Performed By: #### 5 7021-8 ####[facility] ANGELODavidNCLIA [id number] [place] [address] [place] Platelet mean volume (Bld) [Entitic vol] 11.4 fL Normal 9.0-12.7 [facility] Comment on above: Order Comment: Speci men Type: BLOOD SPECIMENOrdering Facility: [facility] Address: [address] [place] [address] Performed By: #### 5 7021-8 ####[facility] CENTERNCDOMINGAA [id number] [place] [address] [place] Platelets (Bld) [#/Vol] 136 10*3/uL Low 150-400 [facility] Comment on above: Order Comment: Speci men Type: BLOOD SPECIMENOrdering Facility: [facility] Address: [address] [place] [address] Result Comment: No c lot detected. Performed By: #### 5 7021-8 ####[facility] [id number] [place] [address] [place] RBC (Bld) [#/Vol] 3.39 10*6/uL Low 3.90-5.20 [facility] Comment on above: Order Comment: Speci men Type: BLOOD SPECIMENOrdering Facility: [facility] Address: [address] [place] [address] Performed By: #### 5 7021-8 ####[facility] CENTERNCLIA [id number] [place] [address] [place] WBC (Bld) [#/Vol] 7.14 10*3/uL Normal 3.70-11.00 [facility] Comment on above: Order Comment: Speci men Type: BLOOD SPECIMENOrdering Facility: [facility] Address: [address] [place] [address] Performed By: #### 5 7021-8 ####[facility] [id number] [place] [id number] [place] Ferritin SerPl-mCncon 2024 Ferritin [Mass/Vol] 21.4 ng/mL Normal 14.7-205.1 [facility] Comment on above: Order Comment: Speci men Type: BLOOD SPECIMENOrdering Facility: [facility] Address: [address] [place] [address] Performed By: #### 5 0190-8, 2275-08 ####[facility] LABCLIA [id number] [place] [address] [place] Iron and Iron binding capaci ty panelon 02-08-2025 Iron [Mass/Vol] 118 ug/dL Normal 41-186 [facility] Comment on above: Order Comment: Speci men Type: BLOOD SPECIMENOrdering Facility: [facility] Address: [address] [place] [address] Performed By: #### 5 0190-8, 2275-08 ####[facility] LABIA [id number] [address] [place] Iron binding capacity [Mass/Vol] 350 ug/dL Normal 232-386 [facility] Comment on above: Order Comment: Speci men Type: BLOOD SPECIMENOrdering Facility: [facility] Address: [address] [place] [address] Performed By: #### 5 0190-8, 2275-08 ####[facility] LABIA [id number] [place] [id number] [place] Iron/TIBC [Molar ratio] 33.7 % Normal 15.0-57.0 [facility] Comment on above: Order Comment: Speci men Type: BLOOD SPECIMENOrdering Facility: [facility] Address: [address] [place] [address] Performed By: #### 5 0190-8, 2275- ####[facility] LABCLIA [id number] [place] [address] [place] CBC W Auto Differential pane l (Bld)on 01-01-2025 Basophils (Bld) [#/Vol] 10*3/uL Normal <0.11 [facility] Comment on above: Order Comment: Speci men Type: BLOOD SPECIMENOrdering Facility: [facility] Address: [address] [place] [address] Performed By: #### 6 30-4 #### [facility] LAB CLIA [id number] [address] [place] [address] [place] Basophils/100 WBC (Bld) 0.2 % Normal [facility] Comment on above: Order Comment: Speci men Type: BLOOD SPECIMENOrdering Facility: [facility] Address: [address] [place] [address] Performed By: #### 6 30-4 #### [facility] CLIA [id number] [address] [place] [address] [place] Differential cell count method Nom (Bld) Auto Normal [facility] Comment on above: Order Comment: Speci men Type: BLOOD SPECIMENOrdering Facility: [facility] Address: [address] [place] [address] Performed By: #### 6 30-4 #### [facility] CLIA [id number] [address] [place] [address] [place] Eosinophils (Bld) [#/Vol] 0.05 10*3/uL Normal <0.46 [facility] Comment on above: Order Comment: Speci men Type: BLOOD SPECIMENOrdering Facility: [facility] Address: [address] [place] [address] Performed By: #### 6 30-4 #### [facility] CLIA [id number] [address] [place] [address] [place] Eosinophils/100 WBC (Bld) 0.8 % Normal [facility] Comment on above: Order Comment: Speci men Type: BLOOD SPECIMENOrdering Facility: [facility] Address: [address] [place] [address] Performed By: #### 6 30-4 #### [facility] CLIA [id number] [address] [place] [address] [place] Erythrocyte distribution width (RBC) [Ratio] 14.6 % Normal 11.5-15.0 [facility] Comment on above: Order Comment: Speci men Type: BLOOD SPECIMENOrdering Facility: [facility] Address: [address] [place] [address] Performed By: #### 6 30-4 #### [facility] CLIA [id number] [address] [place] [address] [place] Hematocrit (Bld) [Volume fraction] 30.0 % Low 36.0-46.0 [facility] Comment on above: Order Comment: Speci men Type: BLOOD SPECIMENOrdering Facility: [facility] Address: [address] [place] [address] Performed By: #### 6 30-4 #### [facility] CLIA [id number] [address] [place] [address] [place] Hemoglobin (Bld) [Mass/Vol] 10.4 g/dL Low 11.5-15.5 [facility] Comment on above: Order Comment: Speci men Type: BLOOD SPECIMENOrdering Facility: [facility] Address: [address] [place] [address] Performed By: #### 6 30-4 #### [facility] CLIA [id number] [address] [place] [address] [place] Immature granulocytes (Bld) [#/Vol] 0.03 10*3/uL Normal <0.10 [facility] Comment on above: Order Comment: Speci men Type: BLOOD SPECIMENOrdering Facility: [facility] Address: [address] [place] [address] Performed By: #### 6 30-4 #### [facility] CLIA [id number] [address] [place] [address] [place] Immature granulocytes/100 WBC (Bld) 0.5 % Normal [facility] Comment on above: Order Comment: Speci men Type: BLOOD SPECIMENOrdering Facility: [facility] Address: [address] [place] [address] Performed By: #### 6 30-4 #### [facility] CLIA [id number] [address] [place] [address] [place] Lymphocytes (Bld) [#/Vol] 0.85 10*3/uL Low 1.00-4.00 [facility] Comment on above: Order Comment: Speci men Type: BLOOD SPECIMENOrdering Facility: [facility] Address: [address] [place] [address] Performed By: #### 6 30-4 #### [facility] CLIA [id number] [address] [place] [address] [place] Lymphocytes/100 WBC (Bld) 13.5 % Normal [facility] Comment on above: Order Comment: Speci men Type: BLOOD SPECIMENOrdering Facility: [facility] Address: [address] [place] [address] Performed By: #### 6 30-4 #### [facility] CLIA [id number] [address] [place] [address] [place] MCH (RBC) [Entitic mass] 31.8 pg Normal 26.0-34.0 [facility] Comment on above: Order Comment: Speci men Type: BLOOD SPECIMENOrdering Facility: [facility] Address: [address] [place] [address] Performed By: #### 6 30-4 #### [facility] CLIA [id number] [address] [place] [address] [place] MCHC (RBC) [Mass/Vol] 34.7 g/dL Normal 30.5-36.0 [facility] Comment on above: Order Comment: Speci men Type: BLOOD SPECIMENOrdering Facility: [facility] Address: [address] [place] [address] Performed By: #### 6 30-4 #### [facility] CLIA [id number] [address] [place] [address] [place] MCV (RBC) [Entitic vol] 91.7 fL Normal 80.0-100.0 [facility] Comment on above: Order Comment: Speci men Type: BLOOD SPECIMENOrdering Facility: [facility] Address: [address] [place] [address] Performed By: #### 6 30-4 #### [facility] CLIA [id number] [address] [place] [address] [place] Monocytes (Bld) [#/Vol] 0.37 10*3/uL Normal <0.87 [facility] Comment on above: Order Comment: Speci men Type: BLOOD SPECIMENOrdering Facility: [facility] Address: [address] [place] [address] Performed By: #### 6 30-4 #### [facility] CLIA [id number] [address] [place] [address] [place] Monocytes/100 WBC (Bld) 5.9 % Normal [facility] Comment on above: Order Comment: Speci men Type: BLOOD SPECIMENOrdering Facility: [facility] Address: [address] [place] [address] Performed By: #### 6 30-4 #### [facility] CLIA [id number] [address] [place] [address] [place] Neutrophils (Bld) [#/Vol] 4.99 10*3/uL Normal 1.45-7.50 [facility] Comment on above: Order Comment: Speci men Type: BLOOD SPECIMENOrdering Facility: [facility] Address: [address] [place] [address] Performed By: #### 6 30-4 #### [facility] CLIA [id number] [address] [place] [address] [place] Neutrophils/100 WBC (Bld) 79.1 % Normal [facility] Comment on above: Order Comment: Speci men Type: BLOOD SPECIMENOrdering Facility: [facility] Address: [address] [place] [address] Performed By: #### 6 30-4 #### [facility] CLIA [id number] [address] [place] [address] [place] Nucleated RBC (Bld) [#/Vol] 10*3/uL Normal <0.01 [facility] Comment on above: Order Comment: Speci men Type: BLOOD SPECIMENOrdering Facility: [facility] Address: [address] [place] [address] Performed By: #### 6 30-4 #### [facility] CLIA [id number] [address] [place] [address] [place] Nucleated RBC/100 WBC (Bld) [Ratio] 0.0 /100 WBC Normal [facility] Comment on above: Order Comment: Speci men Type: BLOOD SPECIMENOrdering Facility: [facility] Address: [address] [place] [address] Performed By: #### 6 30-4 #### [facility] CLIA [id number] [address] [place] [address] [place] Platelet mean volume (Bld) [Entitic vol] 11.6 fL Normal 9.0-12.7 [facility] Comment on above: Order Comment: Speci men Type: BLOOD SPECIMENOrdering Facility: [facility] Address: [address] [place] [address] Performed By: #### 6 30-4 #### [facility] CLIA [id number] [address] [id number] [address] [place] Platelets (Bld) [#/Vol] 138 10*3/uL Low 150-400 [facility] Comment on above: Order Comment: Speci men Type: BLOOD SPECIMENOrdering Facility: [facility] Address: [address] [place] [address] Performed By: #### 6 30-4 #### [facility] CLIA [id number] [address] [place] [address] [place] RBC (Bld) [#/Vol] 3.27 10*6/uL Low 3.90-5.20 [facility] Comment on above: Order Comment: Speci men Type: BLOOD SPECIMENOrdering Facility: [facility] Address: [address] [place] [address] Performed By: #### 6 30-4 #### [facility] CLIA [id number] [address] [place] [address] [place] WBC (Bld) [#/Vol] 6.30 10*3/uL Normal 3.70-11.00 [facility] Comment on above: Order Comment: Speci men Type: BLOOD SPECIMENOrdering Facility: [facility] Address: [address] [place] [address] Performed By: #### 6 30-4 #### [facility] CLIA [id number] [address] [place] [address] [place] Ferritin SerPl-mCncon 2024 Ferritin [Mass/Vol] 15.2 ng/mL Normal 14.7-205.1 [facility] Comment on above: Order Comment: Speci men Type: BLOOD SPECIMENOrdering Facility: [facility] Address: [address] [place] [address] Performed By: #### 6 30-4 #### [facility] CLIA [id number] [address] [place] [address] [place] GESTATIONAL GLUCOSE SCREEN, 1-HOUR, 50 GRAM, NON-FASTINGon 01-01-2025 Glucose [Mass/Vol] 132 mg/dL Normal 74-134 [facility] Comment on above: Order Comment: Speci men Type: BLOOD SPECIMENOrdering Facility: [facility] Address: [address] [place] [address] Result Comment: [facility] Congress of Obstetricians and Gynecologists (Edgardo/Nneka) guidelines state a gestational diabetes mellitus positive screen is made, in women not previously diagnosed with overt diabetes, when the 1 hr plasma glucose level is equal to or above 140 mg/dL. The [facility] [employer] and [facility] [place] recommends a 135 mg/dL cutoff. Performed By: #### 6 30-4 #### [facility] CLIA [id number] [address] [place] [address] [place] Iron and Iron binding capaci ty panelon 01-01-2025 Iron [Mass/Vol] 87 ug/dL Normal 41-186 [facility] Comment on above: Order Comment: Speci men Type: BLOOD SPECIMENOrdering Facility: [facility] Address: [address] [place] [address] Performed By: #### 6 30-4 #### [facility] CLIA [id number] [address] [place] [address] [place] Iron binding capacity [Mass/Vol] 372 ug/dL Normal 232-386 [facility] Comment on above: Order Comment: Speci men Type: BLOOD SPECIMENOrdering Facility: [facility] Address: [address] [place] [address] Performed By: #### 6 30-4 #### [facility] CLIA [id number] [address] [place] [address] [place] Iron/TIBC [Molar ratio] 23.4 % Normal 15.0-57.0 [facility] Comment on above: Order Comment: Speci men Type: BLOOD SPECIMENOrdering Facility: [facility] Address: [address] [place] [address] Performed By: #### 6 30-4 #### [facility] CLIA [id number] [address] [place] [address] [place] Reagin and Treponema pallidu m IgG and IgM [Interp]on 01-01-2025 T. pallidum IgG+IgM IA Ql (S) Non-Reactive Normal Nonreactive [facility] Comment on above: Order Comment: Speci men Type: BLOOD SPECIMENOrdering Facility: [facility] Address: [address] [place] [address] Performed By: #### 6 30-4 #### [facility] CLIA [id number] [address] [place] [address] [place] Reagin+T pallidum IgG+IgM Se rPl-Impon 01-01-2025 Reagin and Treponema pallidum IgG and IgM [Interp] Cannot exclude recent Treponemal infection if specimen collected within 7-10 days after appearance of suspect lesions or 2-3 weeks after an exposure. Clinical correlation is required. Normal [facility] Comment on above: Order Comment: Speci men Type: BLOOD SPECIMENOrdering Facility: [facility] Address: [address] [place] [address] Performed By: #### 6 30-4 #### [facility] CLIA [id number] [address] [place] [address] [place] LYME AB PANEL WBLOT [CCL]on 12-25-2024 Lyme IgG Bands p-58 Normal [facility] Comment on above: Performed By: #### 2 02522 #### [facility],[address] [place], [place] [id number] Lyme IgG Wblot Negative Normal Negative [facility] Comment on above: Result Comment: CDC criteria for a positive Western blot are the presence of >=5 bands for IgG. Performed By: #### 2 43820 #### [facility],[address] [place] [address] Lyme IgM Bands No Bands Seen Normal [facility] Comment on above: Performed By: #### 2 08804 #### [facility],[address] [place] [address] Lyme IgM Wblot Negative Normal Negative [facility] Comment on above: Result Comment: CDC criteria for a positive Western Blot are the presence of >=2 bands for IgM. Performed By: #### 2 39863 #### [facility],[address] [place] [address] Lyme Interp No evidence of antibodies to Borrelia burgdorferi. Normal [facility] Comment on above: Result Comment: [facility] [address] [place] [address] Cody Slater III, M.D. [id number] Performed By: #### 2 94250 #### [facility],[address] [place] [address] B. burgdorferi IgG+IgM IB Ql (S)on 12-24-2024 B. burgdorferi Ab band pattern IB (S) [Interp] No evidence of antibodies to Borrelia burgdorferi. Normal [facility] Comment on above: Order Comment: Speci men Type: BLOOD SPECIMENOrdering Facility: [facility] Address: [address] [place] [address] Performed By: #### 1 8203-0 ####[facility] [id number] [place] [address] [place] B. burgdorferi IgG band pattern IB (S) [Interp] p-58 Normal [facility] Comment on above: Order Comment: Speci men Type: BLOOD SPECIMENOrdering Facility: [facility] Address: [address] [place] [address] Performed By: #### 1 8203-0 ####[facility] [id number] [place] [id number] [place] B. burgdorferi IgG IB Ql (S) Negative Normal Negative [facility] Comment on above: Order Comment: Speci men Type: BLOOD SPECIMENOrdering Facility: [facility] Address: [address] [place] [address] Result Comment: [facility] criteria for a positive Western blot are the presence of >=5 bands for IgG. Performed By: #### 1 8203-0 ####[facility] [id number] [address] B. burgdorferi IgM band pattern IB (S) [Interp] No Bands Seen Normal [facility] Comment on above: Order Comment: Speci men Type: BLOOD SPECIMENOrdering Facility: [facility] Address: [address] [place] [address] Performed By: #### 1 8203-0 ####[facility] [id number] [address] B. burgdorferi IgM IB Ql (S) Negative Normal Negative [facility] Comment on above: Order Comment: Speci men Type: BLOOD SPECIMENOrdering Facility: [facility] Address: [address] [place] [address] Result Comment: [facility] criteria for a positive Western Blot are the presence of >=2 bands for IgM. Performed By: #### 1 8203-0 ####[facility] [id number] [address] STATES OF [facility] Examination level ultrasound on 11-06-2024 Indication Detailed anatomic survey Advanced maternal age, Maternal obesity, BMI >30 Impression The patient is referred for a detailed anatomic survey. - Single, live, intrauterine . - biometry is consistent with the established gestational age. - No malformations were visualized on a complete detailed anatomic survey. - The amniotic fluid volume is normal amount. - The placenta is posterior, fundal. - The Transabdominal cervical length measures 37.8 mm with no evidence of funneling or other dynamic changes. - Not all structural malformations can be detected by ultrasound examination. Recommendations Additional follow-up as clinically indicated. Maternal Assessment Height 157 cm Height (ft) 5 ft Height (in) 2 in Physical Exam Initial weight (lb) 165 lb Initial BMI 30.18 kg/m Maternal assessment other: 10 Para 6 REMOTE READ Method Transabdominal ultrasound examination. View: Adequate visualization Sy . Number of fetuses: 1 Dating LMP on: 06/26/2024 GA by LMP 19 w + 0 d HORACIO by LMP: 04/02/2025 GA by prior assessment 19 w + 0 d HORACIO by prior assessment: 04/02/2025 Ultrasound examination on: 11/06/2024 GA by U/S based upon: AC, BPD, Femur, HC GA by U/S 18 w + 6 d HORACIO by U/S: 04/03/2025 Assigned: based on stated HORACIO, selected on 11/06/2024 Assigned GA 19 w + 0 d Assigned HORACIO: 04/02/2025 General Evaluation Cardiac activity present. FHR 141 bpm. movements: present. Presentation: transverse head left Placenta: Placental site: posterior, fundal. circumvallate placenta Umbilical cord: Cord vessels: 3 vessel cord Amniotic fluid: Amount of AF: normal amount. MVP 5.3 cm Growth Overview Exam date GA BPD (mm) HC (mm) AC (mm) FL (mm) HL (mm) EFW (g) 11/06/2024 19w 0d 41.9 37% 157.7 36% 137.6 52% 28.7 59% 29 66% 264 40% Biometry Standard BPD 41.9 mm 18w 5d 37% Hadlock OFD 56.5 mm 18w 4d 55% Nicolaides HC 157.7 mm 18w 4d 36% Randall Cerebellum tr 19.6 mm 19w 0d 34% Hill Nuchal fold 2.8 mm AC 137.6 mm 19w 1d 52% Hadlock Femur 28.7 mm 19w 0d 59% Randall Humerus 29.0 mm 19w 3d 66% Randall EFW 264 g 18w 6d 40% Hadlock EFW (lb) 0 lb EFW (oz) 9 oz EFW by: Hadlock (HC-AC-FL) Extended Adjunct Physics Instructor 5.6 mm CM 3.2 mm 7% Nicolaides Extremities / Bony Struc FL / HC 0.18 48% Hadlock Other Structures FHR 141 bpm Anatomy Cranium: normal Lateral ventricles: normal Choroid plexus: normal Midline falx: normal Cavum septi pellucidi: normal Cerebellum: normal Cisterna magna: normal Head / Neck Vermis: normal Neck: normal Nuchal fold: normal Lips: normal Profile: normal Nose: normal Face Maxilla: normal Mandible: normal Orbits: normal Lens: normal 4-chamber view: normal RVOT view: normal LVOT view: normal 3-vessel view: normal 0-jouejq-oqimzez view: normal Heart / Thorax Situs: situs solitus (normal) Aortic arch view: normal SVC: normal IVC: normal Cardiac axis: normal Rt lung: normal Lt lung: normal Diaphragm: normal Cord insertion: normal Stomach: normal Kidneys: normal Bladder: normal Genitals: normal Abdomen Abdom. wall: normal Cervical spine: normal Thoracic spine: normal Lumbar spine: normal Sacral spine: normal Arms: normal Legs: normal Rt upper arm: normal Rt forearm: normal Rt hand: normal Rt fingers: normal Lt upper arm: normal Lt forearm: normal Lt hand: normal Lt fingers: normal Rt upper leg: normal Rt lower leg: normal Rt foot: normal Lt upper leg: normal Lt lower leg: normal Lt foot: normal Gender: Unspecified Wants to know sex: no Maternal Structures Uterus / Cervix Uterus: Visualized Cervix: Visualized Approach: Transabdominal Cervical length 37.8 mm Other: Patient declined transvaginal ultrasound for cervical length. Ovaries / Tubes / Adnexa Rt ovary: Visualized Lt ovary: Visualized Performed By: Loly Ko RDMS, RVT Read By: Yane Galvan M.D. MATERNAL MEDICINE [facility] Radiology Study observation (narrative) [facility] Examination level ultrasound on 09-21-2024 Indication First trimester anatomic survey Advanced maternal age, Maternal obesity, BMI >30 Impression The patient is referred for a first trimester anatomy scan including nuchal translucency measurement as clinically indicated. - Single, live, intrauterine . - [place] rump length measurement is consistent with the established gestational age. - A qualitative screen of the nuchal translucency and other anatomic structures was unremarkable on a complete first trimester anatomic assessment. - Not all structural malformations can be detected by ultrasound examination. Maternal Structures: Right Ovary: Size 29 mm x 18 mm x 17 mm Left Ovary: Size 28 mm x 23 mm x 22 mm Recommendations - A standard anatomic survey at 16 weeks can be offered and a detailed exam at 20 weeks is recommended for increased risk. Maternal Assessment Height 157 cm Height (ft) 5 ft Height (in) 2 in Physical Exam Initial weight (lb) 165 lb Initial BMI 30.18 kg/m Maternal assessment other: 10 Para 6 REMOTE READ Method Transabdominal ultrasound examination Sy . Number of fetuses: none Dating LMP on: 06/26/2024 GA by LMP 12 w + 3 d HORACIO by LMP: 04/02/2025 GA by prior assessment 12 w + 3 d HORACIO by prior assessment: 04/02/2025 Ultrasound examination on: 09/21/2024 GA by U/S based upon: CRL GA by U/S 12 w + 4 d HORACIO by U/S: 04/01/2025 Assigned: based on stated HORACIO, selected on 09/21/2024 Assigned GA 12 w + 3 d Assigned HORACIO: 04/02/2025 General Evaluation Cardiac activity present Placenta: posterior Cord vessels: 3 vessel cord Amniotic fluid: normal amount Biometry Standard FHR 157 bpm CRL 61.0 mm 12w 4d 47% Hadlock NT 1.80 mm First Trimester Anatomy Calvarium: normal Falx cerebri: normal Choroid plexus: normal Profile: normal Nasal bone: normal Retronasal triangle: normal Maxilla: normal Mandible: normal Nuchal translucency: Unremarkable Situs: normal Cardiac position: normal Cardiac axis: normal 4-chamber view: visualized 4-chamber view with color: visualized 9-balkoz-mkhruyy view: visualized Abdominal cord insertion: normal Stomach: normal Kidneys: normal Bladder: normal Color doppler of perivesical umbilical arteries: normal Vertebral alignment: normal Arms: normal Hands: normal Legs: normal Feet: normal Maternal Structures Uterus / Cervix Uterus: Visualized Uterus length 208 mm Uterus width 112 mm Uterus height 75 mm Uterus Vol 910.9 cm Ovaries / Tubes / Adnexa Rt ovary: Visualized Rt ovary D1 29 mm Rt ovary D2 18 mm Rt ovary D3 17 mm Rt ovary Vol 4.4 cm Lt ovary: Visualized Lt ovary D1 28 mm Lt ovary D2 23 mm Lt ovary D3 22 mm Lt ovary Vol 7.5 cm Performed By: Loly Ko RDMS, RVT Read By: Eri Ferrera M.D. MATERNAL MEDICINE [facility] Radiology Study observation (narrative) [facility] Bacteria Ur Culton 5 Bacteria identified Cx Nom (U) ORGANISM ID: 1 10,000 -<50,000 CFU/ml Normal urogenital landon Normal [facility] Comment on above: Performed By: #### 6 30-4 #### [facility] CLIA [id number] [address] [place] [address] [place] C. trachomatis+N. gonorrhoea e DNA BETHANIE+probe Ql (Unsp spec)on 08-24-2024 C. trachomatis rRNA BETHANIE+probe Ql (Unsp spec) Not detected Normal Not detected [facility] Comment on above: Order Comment: Speci men Type: SWABOrdering Facility: [facility] Address: [address] [place] [address] Performed By: #### 3 6902-5, TRVAMP ####[facility]IA [id number] [place] [address] [place] N. gonorrhoeae rRNA BETHANIE+probe Ql (Unsp spec) Not detected Normal Not detected [facility] Comment on above: Order Comment: Speci men Type: SWABOrdering Facility: [facility] Address: [address] [place] [address] Performed By: #### 3 6902-5, TRVAMP ####[facility] [id number] [place] [address] [place] CBC W Auto Differential pane l (Bld)on 08-24-2024 Basophils (Bld) [#/Vol] 0.04 10*3/uL Normal <0.11 [facility] Comment on above: Order Comment: Speci men Type: BLOOD SPECIMENOrdering Facility: [facility] Address: [address] [place] [address] Performed By: #### 6 30-4 #### [facility] CLIA [id number] [address] [place] [address] [place] Basophils/100 WBC (Bld) 0.6 % Normal [facility] Comment on above: Order Comment: Speci men Type: BLOOD SPECIMENOrdering Facility: [facility] Address: [address] [place] [address] Performed By: #### 6 30-4 #### [facility] CLIA [id number] [address] [place] [address] [place] Differential cell count method Nom (Bld) Auto Normal [facility] Comment on above: Order Comment: Speci men Type: BLOOD SPECIMENOrdering Facility: [facility] Address: [address] [place] [address] Performed By: #### 6 30-4 #### [facility] CLIA [id number] [address] [place] [address] [place] Eosinophils (Bld) [#/Vol] 0.06 10*3/uL Normal <0.46 [facility] Comment on above: Order Comment: Speci men Type: BLOOD SPECIMENOrdering Facility: [facility] Address: [address] [place] [address] Performed By: #### 6 30-4 #### [facility] CLIA [id number] [address] [place] [address] [place] Eosinophils/100 WBC (Bld) 0.9 % Normal [facility] Comment on above: Order Comment: Speci men Type: BLOOD SPECIMENOrdering Facility: [facility] Address: [address] [place] [address] Performed By: #### 6 30-4 #### [facility] CLIA [id number] [address] [place] [address] [place] Erythrocyte distribution width (RBC) [Ratio] 13.2 % Normal 11.5-15.0 [facility] Comment on above: Order Comment: Speci men Type: BLOOD SPECIMENOrdering Facility: [facility] Address: [address] [place] [address] Performed By: #### 6 30-4 #### [facility] CLIA [id number] [address] [place] [address] [place] Hematocrit (Bld) [Volume fraction] 37.3 % Normal 36.0-46.0 [facility] Comment on above: Order Comment: Speci men Type: BLOOD SPECIMENOrdering Facility: [facility] Address: [address] [place] [address] Performed By: #### 6 30-4 #### [facility] CLIA [id number] [address] [place] [address] [place] Hemoglobin (Bld) [Mass/Vol] 13.2 g/dL Normal 11.5-15.5 [facility] Comment on above: Order Comment: Speci men Type: BLOOD SPECIMENOrdering Facility: [facility] Address: [address] [place] [address] Performed By: #### 6 30-4 #### [facility] CLIA [id number] [address] [place] [address] [place] Immature granulocytes (Bld) [#/Vol] 10*3/uL Normal <0.10 [facility] Comment on above: Order Comment: Speci men Type: BLOOD SPECIMENOrdering Facility: [facility] Address: [address] [place] [address] Performed By: #### 6 30-4 #### [facility] CLIA [id number] [address] [place] [address] [place] Immature granulocytes/100 WBC (Bld) 0.1 % Normal [facility] Comment on above: Order Comment: Speci men Type: BLOOD SPECIMENOrdering Facility: [facility] Address: [address] [place] [address] Performed By: #### 6 30-4 #### [facility] CLIA [id number] [address] [place] [address] [place] Lymphocytes (Bld) [#/Vol] 1.13 10*3/uL Normal 1.00-4.00 [facility] [facility] Comment on above: Order Comment: Speci men Type: BLOOD SPECIMENOrdering Facility: [facility] Address: [address] [place] [address] Performed By: #### 6 30-4 #### [facility] CLIA [id number] [address] [place] [address] [place] Lymphocytes/100 WBC (Bld) 16.6 % Normal [facility] Comment on above: Order Comment: Speci men Type: BLOOD SPECIMENOrdering Facility: [facility] Address: [address] [place] [address] Performed By: #### 6 30-4 #### [facility] CLIA [id number] [address] [place] [address] [place] MCH (RBC) [Entitic mass] 28.8 pg Normal 26.0-34.0 [facility] Comment on above: Order Comment: Speci men Type: BLOOD SPECIMENOrdering Facility: [facility] Address: [address] [place] [address] Performed By: #### 6 30-4 #### [facility] CLIA [id number] [address] [place] [address] [place] MCHC (RBC) [Mass/Vol] 35.4 g/dL Normal 30.5-36.0 [facility] Comment on above: Order Comment: Speci men Type: BLOOD SPECIMENOrdering Facility: [facility] Address: [address] [place] [address] Performed By: #### 6 30-4 #### [facility] CLIA [id number] [address] [place] [address] [place] MCV (RBC) [Entitic vol] 81.4 fL Normal 80.0-100.0 [facility] Comment on above: Order Comment: Speci men Type: BLOOD SPECIMENOrdering Facility: [facility] Address: [address] [place] [address] Performed By: #### 6 30-4 #### [facility] CLIA [id number] [address] [place] [address] [place] Monocytes (Bld) [#/Vol] 0.53 10*3/uL Normal <0.87 [facility] Comment on above: Order Comment: Speci men Type: BLOOD SPECIMENOrdering Facility: [facility] Address: [address] [place] [address] Performed By: #### 6 30-4 #### [facility] CLIA [id number] [address] [place] [address] [place] Monocytes/100 WBC (Bld) 7.8 % Normal [facility] Comment on above: Order Comment: Speci men Type: BLOOD SPECIMENOrdering Facility: [facility] Address: [address] [place] [address] Performed By: #### 6 30-4 #### [facility] CLIA [id number] [address] [place] [address] [place] Neutrophils (Bld) [#/Vol] 5.03 10*3/uL Normal 1.45-7.50 [facility] Comment on above: Order Comment: Speci men Type: BLOOD SPECIMENOrdering Facility: [facility] Address: [address] [place] [address] Performed By: #### 6 30-4 #### [facility] CLIA [id number] [address] [place] [address] [place] Neutrophils/100 WBC (Bld) 74.0 % Normal [facility] Comment on above: Order Comment: Speci men Type: BLOOD SPECIMENOrdering Facility: [facility] Address: [address] [place] [address] Performed By: #### 6 30-4 #### [facility] CLIA [id number] [address] [place] [address] [place] Nucleated RBC (Bld) [#/Vol] 10*3/uL Normal <0.01 [facility] Comment on above: Order Comment: Speci men Type: BLOOD SPECIMENOrdering Facility: [facility] Address: [address] [place] [address] Performed By: #### 6 30-4 #### [facility] CLIA [id number] [address] [place] [address] [place] Nucleated RBC/100 WBC (Bld) [Ratio] 0.0 /100 WBC Normal [facility] Comment on above: Order Comment: Speci men Type: BLOOD SPECIMENOrdering Facility: [facility] Address: [address] [place] [address] Performed By: #### 6 30-4 #### [facility] CLIA [id number] [address] [place] [address] [place] Platelet mean volume (Bld) [Entitic vol] 11.3 fL Normal 9.0-12.7 [facility] Comment on above: Order Comment: Speci men Type: BLOOD SPECIMENOrdering Facility: [facility] Address: [address] [place] [address] Performed By: #### 6 30-4 #### [facility] CLIA [id number] [address] [place] [address] [place] Platelets (Bld) [#/Vol] 184 10*3/uL Normal 150-400 [facility] Comment on above: Order Comment: Speci men Type: BLOOD SPECIMENOrdering Facility: [facility] Address: [address] [place] [address] Performed By: #### 6 30-4 #### [facility] CLIA [id number] [address] [place] [address] [place] RBC (Bld) [#/Vol] 4.58 10*6/uL Normal 3.90-5.20 [facility] Comment on above: Order Comment: Speci men Type: BLOOD SPECIMENOrdering Facility: [facility] Address: [address] [place] [address] Performed By: #### 6 30-4 #### [facility] CLIA [id number] [address] [place] [address] [place] WBC (Bld) [#/Vol] 6.80 10*3/uL Normal 3.70-11.00 [facility] Comment on above: Order Comment: Speci men Type: BLOOD SPECIMENOrdering Facility: [facility] Address: [address] [place] [address] Performed By: #### 6 30-4 #### [facility] CLIA [id number] [address] [place] [address] [place] HBV surface Ag Ser Qlon 04- HBV surface Ag Ql (S) Negative Normal Negative [facility] Comment on above: Order Comment: Speci men Type: BLOOD SPECIMENOrdering Facility: [facility] Address: [address] [place] [address] Performed By: #### 5 195-3, 83302-4, 98468-1 ####[facility] [id number] [place] [address] [place] HCV Ab Ser Qlon 08-24-2024 HCV Ab Ql (S) Negative Normal Negative [facility] Comment on above: Order Comment: Speci men Type: BLOOD SPECIMENOrdering Facility: [facility] Address: [address] [place] [address] Result Comment: The result suggests no evidence of infection with Hepatitis C virus. Should recent infection be suspected, repeat testing may be considered 4-6 weeks after this draw. Performed By: #### 6 30-4 #### [facility] CLIA [id number] [address] [place] [address] [place] HIV 1+2 Ab IA Qlon HIV 1 and 2 Ab IA.rapid Nom (S/P/Bld) Normal [facility] Comment on above: Order Comment: Speci men Type: BLOOD SPECIMENOrdering Facility: [facility] Address: [address] [place] [address] Result Comment: Test not indicated. Performed By: #### 5 195-3, 47185-0, 65192-0 ####[facility] [id number] [place] [address] [place] HIV 1+2 Ab+HIV1 p24 Ag IA Ql Non-Reactive Normal Nonreactive [facility] Comment on above: Order Comment: Speci men Type: BLOOD SPECIMENOrdering Facility: [facility] Address: [address] [place] [address] Performed By: #### 5 195-3, 21149-0, 68123-1 ####[facility] [id number] [place] [address] [place] HIV immunoassay testing algorithm interpretation (S/P/Bld) [Interp] Normal [facility] Comment on above: Order Comment: Speci men Type: BLOOD SPECIMENOrdering Facility: [facility] Address: [address] [place] [address] Result Comment: No e vidence of HIV-1 or HIV-2 infection. Should recent infection be suspected, repeat testing may be considered 2-3 weeks after this draw. [place] Rev. Code 3701.243(E): This information has been disclosed to you from confidential records protected from disclosure by state law. ???You shall make no further disclosure of this information without the specific, written, and informed release of the individual to whom it pertains or as otherwise permitted by state law. A general authorization for the release of medical or other information is not sufficient for the purpose of the release of HIV test results or diagnoses. Performed By: #### 5 195-3, 65613-8, 18754-5 ####[facility] [id number] [place] [id number] [place] HbA1c (Bld)on 08-24-2024 Average glucose Estimated from glycated hemoglobin (Bld) [Mass/Vol] 88 mg/dL Normal [facility] Comment on above: Order Comment: Speci men Type: BLOOD SPECIMENOrdering Facility: [facility] Address: [address] [place] [address] Result Comment: eAG: (Estimated average glucose) is a calculated value from HgbA1c and is inbound call center representative of the average blood glucose level in the last 2-3 month period. Performed By: #### 6 30-4 #### [facility] CLIA [id number] [address] [place] [address] [place] HbA1c (Bld) [Mass fraction] 4.7 % Normal 4.3-5.6 [facility] Comment on above: Order Comment: Speci men Type: BLOOD SPECIMENOrdering Facility: [facility] Address: [address] [place] [address] [place] [address] Result Comment: [place] Diabetes Association guidelines indicate that patients with HgbA1c in the range 5.7-6.4% are at increased risk for development of diabetes, and intervention by lifestyle modification may be beneficial. HgbA1c greater or equal to 6.5% is considered diagnostic of diabetes. Performed By: #### 6 30-4 #### [facility] CLIA [id number] [address] [place] [address] [place] [facility] OPERATOR ULTRASOUNDon 08-25-19 25 Indication Viability; confirm cardiac activity Impression Single intrauterine gestational sac, CRL is appropriate for clinical dates, corresponding to HORACIO 04/02/2025 cardiac activity is visualized Recommendations Follow up for 1st Trimester Anatomy with Nuchal Translucency as clinically indicated if desired. Method Transabdominal ultrasound examination, Transvaginal ultrasound examination. View: Adequate visualization Sy . Number of embryos: none Dating LMP on: 06/26/2024 GA by LMP 8 w + 3 d HORACIO by LMP: 04/02/2025 Ultrasound examination on: 08/24/2024 GA by U/S based upon: CRL GA by U/S 8 w + 0 d HORACIO by U/S: 04/05/2025 Assigned: based on the LMP, selected on 08/24/2024 Assigned GA 8 w + 3 d Assigned HORACIO: 04/02/2025 Biometry Standard FHR 167 bpm CRL 16.6 mm 8w 0d 28% Hadlock Assessment Gestational sac: visualized Location: intrauterine Yolk sac: visualized Embryo: visualized CRL 16.6 mm 8w 0d 28% Hadlock Cardiac activity: present FHR 167 bpm General Evaluation Cardiac activity present. FHR 167 bpm Performed By: Beck Bishop NP Read By: Beck Bishop NP MATERNAL MEDICINE [facility] Radiology Study observation (narrative) [facility] RUBELLA IGG ANTIBODYon 08-24 RUBELLA IGG AB, QUAL Positive Normal Positive [facility] Comment on above: Order Comment: Speci men Type: BLOOD SPECIMENOrdering Facility: [facility] Address: [address] [place] [address] Result Comment: The result suggests recent or past exposure to Rubella virus or history of Rubella vaccination. Positive result may also be seen due to presence of passively-transferred antibodies. Please correlate with patient's history. Performed By: #### R UBIGG ####[facility] [id number] [place] [address] [place] Reagin and Treponema pallidu m IgG and IgM [Interp]on 08-24-2024 T. pallidum IgG+IgM IA Ql (S) Non-Reactive Normal Nonreactive [facility] Comment on above: Order Comment: Speci men Type: BLOOD SPECIMENOrdering Facility: [facility] Address: [address] [place] [address] Performed By: #### 5 195-3, 64563-1, 91531-2 ####[facility] [id number] [place] [address] [place] Reagin+T pallidum IgG+IgM Se rPl-Impon 08-24-2024 Reagin and Treponema pallidum IgG and IgM [Interp] Cannot exclude recent Treponemal infection if specimen collected within 7-10 days after appearance of suspect lesions or 2-3 weeks after an exposure. Clinical correlation is required. Normal [facility] Comment on above: Order Comment: Speci men Type: BLOOD SPECIMENOrdering Facility: [facility] Address: [address] [place] [address] Performed By: #### 5 195-3, 39939-6, 18922-2 ####[facility] [id number] [place] [id number] [place] TRICHOMONAS VAGINALIS NAATon 08-24-2024 T. vaginalis DNA BETHANIE+probe Ql (Unsp spec) Not detected Normal Not detected [facility] Comment on above: Order Comment: Speci men Type: SWABOrdering Facility: [facility] Address: [address] [place] [address] Performed By: #### 3 6902-5, TRVAMP ####[facility] [id number] [place] [address] [place] TYPE + SCREEN PRENATALon ABO A Normal [facility] Comment on above: Order Comment: Speci men Type: BLOOD SPECIMENOrdering Facility: [facility] Address: [address] [place] [address] Performed By: #### T SPN ####[facility] [id number] [place] [address] [place] Rh Nom (Bld) Positive Normal [facility] Comment on above: Order Comment: Speci men Type: BLOOD SPECIMENOrdering Facility: [facility] Address: [address] [place] [address] Performed By: #### T SPN ####[facility] [id number] [place] [address] [place] TYPE AND SCREEN EXPIRATION 08/27/2024 23:59 Normal [facility] Comment on above: Order Comment: Speci men Type: BLOOD SPECIMENOrdering Facility: [facility] Address: [address] [place] [address] Performed By: #### T SPN ####[facility] [id number] [place] [address] [place] CBC + DIFFon 08-08-2024 Baso # 0.01 x10EE3/UL Normal 0.00 - 0.10 [facility] Comment on above: Performed By: #### 2 59607 #### [facility],[address] [place], [place] [address] Basophils/100 WBC (Bld) 0.1 % Normal 0.0 - 2.0 [facility] Comment on above: Performed By: #### 2 31228 #### [facility],[address] [place] [address] CBC + DIFF Normal [facility] Comment on above: Result Comment: CBC- COMPLETE BLOOD COUNT Performed By: #### 2 17814 #### [facility],[address] [place] [address] EO # 0.08 x10EE3/UL Normal 0.00 - 0.50 [facility] Comment on above: Performed By: #### 2 19704 #### [facility],[address] [place] [address] Eosinophils/100 WBC (Bld) 1.3 % Normal 0.0 - 7.0 [facility] Comment on above: Performed By: #### 2 72922 #### [facility],[address] [place] [address] Erythrocyte distribution width (RBC) [Ratio] 13.2 % Normal 12.0 - 15.6 [facility] Comment on above: Performed By: #### 2 35885 #### [facility],[address] [place] [address] Hematocrit (Bld) [Volume fraction] 39.3 % Normal 34.0 - 46.0 [facility] Comment on above: Performed By: #### 2 03382 #### [facility],[address] [place] [address] Hemoglobin (Bld) [Mass/Vol] 14.2 g/dL Normal 12.0 - 16.0 [facility] Comment on above: Performed By: #### 2 99476 #### [facility],[address] [place] [address] Lymph # 1.09 x10EE3/UL Normal 0.80 - 2.80 [facility] Comment on above: Performed By: #### 2 67265 #### [facility],[address] [place] [address] Lymphocytes/100 WBC (Bld) 17.8 % Low 20.0 - 45.0 [facility] Comment on above: Performed By: #### 2 72960 #### [facility],[address] [place] [address] MANUAL DIFF N/A Normal [facility] Comment on above: Performed By: #### 2 66279 #### [facility],[address] [place] [address] MCH (RBC) [Entitic mass] 30 pg Normal 27 - 33 [facility] Comment on above: Performed By: #### 2 25803 #### [facility],[address] [place] [address] MCHC 36 X10 3 Normal 32 - 36 [facility] Comment on above: Performed By: #### 2 49189 #### [facility],[address] [place] [address] MCV (RBC) [Entitic vol] 83 fL Normal 80 - 99 [facility] Comment on above: Performed By: #### 2 88969 #### [facility],[address] [place] [address] Prentiss # 0.34 x10EE3/UL Normal 0.20 - 1.00 [facility] Comment on above: Performed By: #### 2 66751 #### [facility],[address] [place] [address] MONOS % 5.6 % Normal 0.0 - 10.0 [facility] Comment on above: Performed By: #### 2 75449 #### [facility],[address] [place], [place] [address] Morphology Emanuel (Bld) [Interp] N/A Normal [facility] Comment on above: Performed By: #### 2 84886 #### [facility],[address] [place] [address] Neut # 4.62 x10EE3/UL Normal 1.50 - 7.10 [facility] Comment on above: Performed By: #### 2 72414 #### [facility],[address] [place] [address]73 Neutrophils/100 WBC (Bld) 75.2 % Normal 46.0 - 76.0 [facility] Comment on above: Performed By: #### 2 79624 #### [facility],[address] [place] [address]21 PLATELET 205 x10EE3/UL Normal 150 - 450 [facility] Comment on above: Performed By: #### 2 34727 #### [facility],[address] [place] [address] 08275 Platelet mean volume (Bld) [Entitic vol] 9.3 fL Normal 6.6 - 10.5 [facility] Comment on above: Result Comment: AUTO MATED DIFFERENTIAL Performed By: #### 2 06109 #### [facility],[address] [place] [address] 28112 RBC 4.72 x 10EE6/UL Normal 4.10 - 5.30 [facility] Comment on above: Performed By: #### 2 44712 #### [facility],[address] [place] [address] 64011 WBC 6.1 x 10EE3/UL Normal 4.5 - 10.8 [facility] Comment on above: Performed By: #### 2 87908 #### [facility],[address] [place] [address] 80441 CMP with eGFRon 08-08-2024 AGE 34 years Normal [facility] Comment on above: Performed By: #### 2 84369 #### [facility],[address] [place] [address] 45392 Albumin [Mass/Vol] 4.2 g/dL Normal 3.4 - 5.0 [facility] Comment on above: Performed By: #### 2 44287 #### [facility],[address] [place] [address] 99098 Albumin/Globulin [Mass ratio] 1.4 {ratio} Normal 0.9 - 1.6 [facility] Comment on above: Performed By: #### 2 11113 #### [facility],[address] [place] [address] 43333 ALK PHOS 53 U/L Normal 46 - 116 [facility] Comment on above: Performed By: #### 2 68032 #### [facility],[address] [place] [address] 46355 ALT [Catalytic activity/Vol] 21 U/L Normal 16 - 63 [facility] Comment on above: Performed By: #### 2 94462 #### [facility],[address] [place] [address] 76844 Anion gap [Moles/Vol] 14 mmol/L Normal 10 - 20 [facility] Comment on above: Performed By: #### 2 10499 #### [facility],[address] [place] [address] 07926 AST [Catalytic activity/Vol] 17 U/L Normal 13 - 39 [facility] Comment on above: Performed By: #### 2 97461 #### [facility],[address] [place] [address] 66283 B/C RATIO 14 ratio Normal 0 - 30 [facility] Comment on above: Performed By: #### 2 66027 #### [facility],[address] [place] [address] 32009 Bilirubin [Mass/Vol] 0.4 mg/dL Normal 0.2 - 1.0 [facility] Comment on above: Performed By: #### 2 01129 #### [facility],[address] [place] [address] 45347 Calcium [Mass/Vol] 9.0 mg/dL Normal 8.5 - 10.1 [facility] Comment on above: Performed By: #### 2 06089 #### [facility],[address] [place] [address] 87492 Chloride [Moles/Vol] 101 mmol/L Normal 98 - 107 [facility] Comment on above: Performed By: #### 2 11307 #### [facility],[address] [place] [address] 33671 CMP with eGFR Normal [facility] Comment on above: Result Comment: COMP REHENSIVE METABOLIC PANEL Performed By: #### 2 88308 #### [facility],[address] [place] [address] 26890 CO2 [Moles/Vol] 23.9 mmol/L Normal 21.0 - 32.0 [facility] Comment on above: Performed By: #### 2 04430 #### [facility],[address] [place] [address] 59885 Creatinine [Mass/Vol] 0.70 mg/dL Normal 0.55 - 1.02 [facility] Comment on above: Performed By: #### 2 03403 #### [facility],[address] [place] [address] 68427 GFR/1.73 sq M.predicted among non-blacks MDRD (S/P/Bld) [Vol rate/Area] mL/min/{1.73_m2} Normal 60 - 999 [facility] Comment on above: Performed By: #### 2 96772 #### [facility],[address] [place] [address] 716[address] Result Comment: ACCO RDING TO THE NATIONAL KIDNEY DISEASE EDUCATION PROGRAM(NKDE), A NORMAL eGFR IS A VALUE GREATER THAN OR EQUAL TO 60 ML/MIN/1.73 SQ METERS. CHRONIC KIDNEY DISEASE: <60mL/MIN/1.73 SQ METERS KIDNEY FAILURE: <15mL/MIN/1.73 SQ METERS THIS TEST SHOULD ONLY BE USED FOR PATIENTS 18 YEARS OF AGE AND OLDER. Globulin (S) [Mass/Vol] 3.1 g/dL Normal 1.5 - 3.8 [facility] Comment on above: Performed By: #### 2 08386 #### [facility],[address] [place] [address]78[address] Glucose [Mass/Vol] 96 mg/dL Normal 74 - 106 [facility] Comment on above: Performed By: #### 2 [id number] #### [facility],[address] [place] [address] 90958 Potassium [Moles/Vol] 3.6 mmol/L Normal 3.5 - 5.1 [facility] Comment on above: Performed By: #### 2 64415 #### [facility],[address] [place] [address] 14305 Protein [Mass/Vol] 7.3 g/dL Normal 6.4 - 8.2 [facility] Comment on above: Performed By: #### 2 [id number] #### [facility],[address] [place] [address] 81632 Sodium [Moles/Vol] 135 mmol/L Low 136 - 145 [facility] Comment on above: Performed By: #### 2 [id number] #### [facility],[address] [place] [address] 84658 Urea nitrogen [Mass/Vol] 10 mg/dL Normal 7 - 18 [facility] Comment on above: Performed By: #### 2 [id number] #### [facility],[address] [place] [address] 32016 ED MED ADMINISTRATION DETAIL on 08-08-2024 ED MED ADMINISTRATION DETAIL Progress Clerk [place] [address] [id number] 08/08/2024 Patient: ANUP NIELSEN Sex: Female : 1990 Age: 34y MEASUREMENTS: Wt: 75.3 kg, Ht/Darek: 62.0 in, BMI: 30.36 ALLERGIES: No known drug allergies Medication Ordered Medication Administration Date/Time 1 of 1 Normal [facility] ED NURSES CLINICAL NOTEon ED NURSES CLINICAL NOTE Nurse Narrative Nurse Clinical Narrative [place] [id number] [facility] [place] [address] [phone] 08/08/2024 [id number] Sex: Female : 1990 Age: 34y Disposition: Discharge Disposition Decision Time: 16:49 08/08/2024 Departure Time: 17:01 08/08/2024 TRIAGE Arrived by private vehicle. Historian: (patient). Patient has a primary care physician. Primary physician (chuy). Triage time: 13:54 08/08/2024. Acuity: LEVEL 3. Chief Complaint: ABDOMINAL PAIN. This started last night. ( pt states that she had two short bouts of sharp pain last night and when she woke up today, she had constant left groin pain and is concerned for an ectopic). SEPSIS SCREEN: NEGATIVE. SIRS criteria negative: heart rate greater than 90. No possible sources of infection. -- 14:00 08/08/24 PERRY Galvin R.N. 13:57 08/08/24. BP: 139/83 MAP: 102. HR: 95. RR: 16. O2 saturation: 100% Temperature: 97.6 F. Pain level now 4/10. -- 14:00 08/08/24 PERRY Galvin R.N. Measurements: 14:00 08/08/24 Wt: 75.3 kg, Ht/Darek: 62.0 in, BMI: 30.36 -- 14:00 08/08/24 PERRY Galvin R.N. Medications: progesterone micronized 200 mg capsule: INSERT TWO CAPSULES VAGINALLY TWICE DAILY -- 14:04 08/08/24 PERRY Galvin R.N. 1 of 4 Nurse Narrative Allergies: no known drug allergies -- 13:57 08/08/24 PERRY Galvin R.N. Problems: no known problem -- 13:57 08/08/24 PERRY Galvin R.N. ADDITIONAL SURGERIES: -- 13:57 08/08/24 PERRY Galvin R.N. Appendectomy -- 13:57 08/08/24 PERRY Galvin R.N. History 13:54 08/08/24. PAST MEDICAL HX: LNMP: Last normal menstrual period- Jun 26. 10. Para 5. Abortions 4. status: possibly . In 1st trimester. SOCIAL HX: Never smoker. No alcohol use or drug use. The patient has not traveled outside the [place] Infectious disease exposure: No infectious disease exposure. ABUSE ASSESSMENT: Abuse denied. SELF HARM ASSESSMENT: Self harm assessment was performed. The patient answered "no" to the question(s) "Do you have thoughts of harming or killing yourself?" and "Do you have a plan for harming or killing yourself?". FALL RISK ASSESSMENT: Fall risk assessment completed. No risk factors identified. -- 14:00 08/08/24 PERRY Galvin R.N. Interventions 13:54 08/08/24. Advanced care plan discussed with patient. Patient does not have advanced directive. -- 14:00 08/08/24 PERRY Galvin R.N. PHYSICAL ASSESSMENT 2 of 4 Nurse Narrative 14:15 08/08/24. Ambulatory to room. (Pt is G 10 P 5, approx. 6 weeks gestation. Pt reports LLQ/pelvic pain since last night.). GENERAL / NEURO / PSYCH: Alert. Oriented X 4. Appears in no acute distress. RESPIRATORY: Respirations not labored. CVS: Capillary refill less than 2 seconds. GI / : Abdomen soft and nontender. No vaginal bleeding. No vaginal discharge. SKIN: Skin is warm and dry. -- 14:26 08/08/24 PERRY Gaines R.N. NURSING PROGRESS NOTES 14:15 08/08/24. Patient identifiers checked. Call light placed in reach. Bed placed in lowest position. Brakes of bed on. -- 14:25 08/08/24 PERRY Gaines R.N. 14:20 08/08/24. Site #1 started via IV in the right antecubital space with a 20g angiocath with aseptic technique and good blood return; 1 attempt. Saline lock flushed with 5 mL saline. -- 14:27 08/08/24 PERRY Gaines R.N. 14:25 08/08/24. Patient transported to [facility]. -- 14:25 08/08/24 EDT Blair CorralNNaya 15:15 08/08/24. Rounding: Position: states comfortable. Proximity of possessions / care items: call light within easy reach. Plug ins: checked status of equipment in use; located all cords, tubes, and lines to prevent fall hazard. Set expectations: advised patient of rounding protocol timing and asked if they needed anything else at this time. -- 15:46 08/08/24 EDT Allan Ganies R.N. 16:15 08/08/24. Rounding: Position: states comfortable. Proximity of possessions / care items: call light within easy reach. Plug ins: checked status of equipment in use; located all cords, tubes, and lines to prevent fall hazard. Set expectations: advised patient of rounding protocol timing and asked if they needed anything else at this time. -- 17:03 08/08/24 EDT Allan Gaines R.N. DISPOSITION / DISCHARGE 16:45 08/08/24. BP: 121/72 MAP: 87 mmHg. HR: 80 bpm. -- 17:04 08/08/24 EDT Allan Gaines R.NNaya 16:50 08/08/24. HR: 81 bpm. O2 saturation: 100%. -- 17:04 08/08/24 MAGALYT Allan Gaines R.N. 16:58 08/08/24. Site #1 removed upon discharge. Catheter intact. Bandage applied. -- 17:03 08/08/24 EDT Allan Gaines R.NNaya 17:00 08/08/24. RR: 14. Temperature: Deferred . Pain: Deferred. -- 17:04 08/08/24 EDT Allan Gaines R.N. Departure time: 17:01 08/08/2024. Condition at departure: unchanged and stable. No learning barriers present. Di (more content not included)... Normal [facility] ED ORDER SHEET (CPOE ONLY)on 08-08-2024 ED ORDER SHEET (CPOE ONLY) Order Sheet Order Sheet [facility] [address] [place] [address] [phone] 08/08/2024 Patient: ANUP NIELSEN Sex: Female : 1990 Age: 34y MEASUREMENTS: Wt: 75.3 kg, Ht/Darek: 62.0 in, BMI: 30.36 ALLERGIES: No known drug allergies MEDICATION/IV/DRIP/FL UID ORDERS Order Description Priority Entered Acknowledged Completed LAB ORDERS Order Description Priority Entered Acknowledged Collected Completed CBC w Diff Stat Stat 14:08/08/2024 14:08/08/2024 14:24 08/08/2024 Allan Yo Lucas Eastep, D.O. R.N. R.N. CMP Stat Stat 14:08/08/2024 14:08/08/2024 14:24 08/08/2024 Allan Yo Lucas Eastep, D.O. R.N. R.N. HCG, Quant Serum Stat Stat 14:08/08/2024 14:08/08/2024 14:24 08/08/2024 Allan Yo Lucas Eastep, D.O. R.N. R.N. Urinalysis Stat Stat 14:08/08/2024 14:08/08/2024 14:24 08/08/2024 Allan Yo Lucas Eastep, 1 of 2 Order Sheet D.ONaya R.N. R.N. DIAGNOSTIC STUDY ORDERS Order Description Priority Entered Acknowledged Completed US OB Endo Vag Stat Stat 14:08/08/2024 Cancelled: Other Daphne Gilbert D.O. 14:21 EDT Daphne Gilbert D.O. Reason for Study: Pain US OB<14WK Single Gestation Stat 14:22 08/08/2024 14:24 14:24 Stat Daphne Gilbert D.O. 08/08/2024 08/08/2024 Allan Corral R.N. R.NNaya Reason for Study: Pain STAFF ORDERS Order Description Priority Entered Acknowledged Collected Completed IV Saline Lock 14:08/08/2024 14:09 08/08/2024 14:24 08/08/2024 Allan Yo Lucas Eastep, D.O. R.NNaya RNayaNNaya [Electronically signed by Daphne Gilbert D.O. (08/08/2024 16:54 EDT)] 2 of 2 Normal [facility] ED PHYSICIAN CLINICAL REPORT on 08-08-2024 ED PHYSICIAN CLINICAL REPORT Narrative Physician Clinical Narrative [facility] [address] [place] [address] [phone] 08/08/2024 Patient: ANUP NIELSEN Sex: Female : 1990 Age: 34y Measurements Wt: 75.3 kg, Ht/Darek: 62.0 in, BMI: 30.36 Initial Vital Sign Measured Time BP MAP HR RR O2Sat ETCO2 Temp Pain GCS RTS 13:57 08/08/2024 139/83 102 95 16 100% 97.6 F 4 Time Seen: 14:13 08/08/2024. Arrived- By private vehicle. Historian- patient. HISTORY OF PRESENT ILLNESS Chief Complaint: PELVIC PAIN. Gestational age is (estimated to be 6 weeks). This started yesterday. The patient has had pelvic pain. Is still present. No vaginal bleeding or complaint of leakage of fluid. Similar symptoms previously. None. REVIEW OF SYSTEMS CVS: No chest pain. RESPIRATORY: No cough or difficulty breathing. EYES: No eye discomfort or eye discharge. CONSTITUTIONAL: No fever. NEUROLOGICAL: No headache. GI: No nausea, vomiting, diarrhea, black stools or bloody stools. PAST HISTORY 1 of 13 Narrative See nurses notes. no known problem Surgeries: Appendectomy Medications: progesterone micronized 200 mg capsule: INSERT TWO CAPSULES VAGINALLY TWICE DAILY Allergies: no known drug allergies SOCIAL HISTORY No alcohol use. ADDITIONAL NOTES The nursing notes have been reviewed. PHYSICAL EXAM Vital Signs: Have been reviewed. Appearance: Alert. Oriented X3. No acute distress. HEENT: Normal external inspection. CVS: Heart sounds normal. Respiratory: No respiratory distress. Abdomen: Soft. (left pelvic pain). Back: Normal external inspection. Skin: Skin warm. Normal skin color. Normal skin turgor. Extremities: Extremities nontender. Neuro: Oriented X 3. LABS, X-RAYS, AND EKG Laboratory Tests: 2 of 13 Narrative CBC + DIFF Final SHEY: 08/08/2024 14:20:00 EDT MsgRcvd: 08/08/2024 14:43 EDT Lab Test Result Reference Status Received Comments 08/08/2024 14:43 CBC-COMPLETE CBC + DIFF Final EDT BLOOD COUNT 08/08/2024 14:43 WBC 6.1 x 10/UL 4.5 - 10.8 Final EDT 08/08/2024 14:43 RBC 4.72 x 10/UL 4.10 - 5.30 Final EDT 08/08/2024 14:43 HEMOGLOBIN 14.2 g/dl 12.0 - 16.0 Final EDT 08/08/2024 14:43 HEMATOCRIT 39.3 % 34.0 - 46.0 Final EDT 08/08/2024 14:43 MCV 83 fl 80 - 99 Final EDT 08/08/2024 14:43 MCH 30 pg 27 - 33 Final EDT 08/08/2024 14:43 MCHC 36 X10 3 32 - 36 Final EDT 08/08/2024 14:43 RDW/CV 13.2 % 12.0 - 15.6 Final EDT 08/08/2024 14:43 PLATELET 205 x10/UL 150 - 450 Final EDT 08/08/2024 14:43 AUTOMATED MPV 9.3 fl 6.6 - 10.5 Final EDT DIFFERENTIAL 08/08/2024 14:43 NEUT % 75.2 % 46.0 - 76.0 Final EDT 3 of 13 Narrative Lab Test Result Reference Status Received Comments 17.8 % 08/08/2024 14:43 LYMPH % 20.0 - 45.0 Final Below low normal EDT 08/08/2024 14:43 MONOS % 5.6 % 0.0 - 10.0 Final EDT 08/08/2024 14:43 EO % 1.3 % 0.0 - 7.0 Final EDT 08/08/2024 14:43 BASO % 0.1 % 0.0 - 2.0 Final EDT 08/08/2024 14:43 Lymph # 1.09 x10/UL 0.80 - 2.80 Final EDT 08/08/2024 14:43 Neut # 4.62 x10/UL 1.50 - 7.10 Final EDT 08/08/2024 14:43 Prentiss # 0.34 x10/UL 0.20 - 1.00 Final EDT 08/08/2024 14:43 EO # 0.08 x10/UL 0.00 - 0.50 Final EDT 08/08/2024 14:43 Baso # 0.01 x10/UL 0.00 - 0.10 Final EDT 08/08/2024 14:43 MANUAL DIFF N/A New Order EDT 08/08/2024 14:43 MORPHOLOGY N/A New Order EDT CMP with eGFR Final SHEY: 08/08/2024 14:20:00 EDT MsgRcvd: 08/08/2024 15:47 EDT Lab Test Result Reference Status Received Comments 4 of 13 Narrative Lab Test Result Reference Status Received Comments COMPREHENSIVE 08/08/2024 CMP with eGFR Final METABOLIC 15:47 EDT PANEL 135 mmol/l 08/08/2024 SODIUM 136 - 145 Final Below low normal 15:47 EDT 08/08/2024 POTASSIUM 3.6 mmol/L 3.5 - 5.1 Final 15:47 EDT 08/08/2024 CHLORIDE 101 mmol/L 98 - 107 Final 15:47 EDT 08/08/2024 CO2 23.9 mmol/L 21.0 - 32.0 Final 15:47 EDT 08/08/2024 GLUCOSE 96 mg/dl 74 - 106 Final 15:47 EDT 08/08/2024 BUN 10 mg/dl 7 - 18 Final 15:47 EDT 08/08/2024 CREATININE 0.70 mg/dl 0.55 - 1.02 Final 15:47 EDT 08/08/2024 AST/SGOT 17 U/L 13 - 39 Final 15:47 EDT 08/08/2024 ALK PHOS 53 U/L 46 - 116 Final 15:47 EDT 08/08/2024 CALCIUM 9.0 mg/dl 8.5 - 10.1 Final 15:47 EDT TOTAL 08/08/2024 7.3 g/dl 6.4 - 8.2 Final PROTEIN 15:47 EDT 08/08/2024 ALBUMIN 4.2 g/dL 3.4 - 5.0 Final 15:47 EDT 5 of 13 Narrative Lab Test Result Reference Status Received Comments 08/08/2024 GLOBULIN 3.1 G/DL 1.5 - 3.8 Final 15:47 EDT 08/08/2024 A/G RATIO 1.4 0.9 - 1.6 Final 15:47 EDT 08/08/2024 TOTAL BILI 0.4 mg/dl 0.2 - 1.0 Final 15:47 EDT 08/08/2024 B/C RATIO 14 ratio 0 - 30 (more content not included)... Normal [facility] ED SUPER BILLon 08-08-2024 ED SUPER BILL Superbill [address] [place] [address] [phone] 08/08/2024 Patient: ANUP NIELSEN Sex: Female : 1990 Age: 34y Item Professional Category Description Facility Code Code Quantity Fee Total Nurse/E/M EMERGENCY 854692 1 $0.00 $0.00 DEPARTMENT VISIT HIGH/URGENT SEVERITY (57829-73) Grand Total $0.00 Providers Daphne Gilbert D.O. Chief Complaint PELVIC PAIN. Principal Diagnosis First trimester . Threatened . Single simple left ovarian cyst. 1 of 2 [facility] ICD-10 Codes N83.299: Other ovarian cyst, unspecified side N83.202: Unspecified ovarian cyst, left side Z34.91: Encounter for supervision of normal , unspecified, first trimester Z3A.00: Weeks of gestation of not specified O20.0: Threatened 2 of 2 Normal [facility] ED VISIT SUMMARYon ED VISIT SUMMARY Visit Overview Visit Overview [address] [place] [address] [phone] 08/08/2024 Patient: ANUP NIELSEN Sex: Female : 1990 Age: 34y 08/08/2024 05:55 PM EDT ED Arrival:13:48 08/08/2024 EDT Status: Recent Travel:no Language:eng Adv Directive:No Isolation Status: Ethnicity:N Fall Risk:no risk Infectious Disease Exposure:no Measurements:5'2" / 157.5 Self-Harm Status:risk Sepsis Screen:negative cm 166.0 lb / 75.3 kg Chief Complaint:ABDOMINAL PAIN, (vera), and (pt states that she had two short bouts of sharp pain last night and when she woke up today, she had constant left groin pain and is concerned for an ectopic) ALLERGIES No Known Drug Allergies HOME MEDICATIONS progesterone micronized 200 mg capsule: INSERT TWO CAPSULES VAGINALLY TWICE DAILY 1 of 3 Visit Overview PAST MEDICAL HISTORY / PROBLEMS LNMP: Last normal menstrual period- Jun 26. 10. Para 5. Abortions 4 None status: possibly . In 1st trimester See nurses notes PAST SURGICAL HISTORY Appendectomy SOCIAL HISTORY Smoking status: No Alcohol use: No Drug use: No ED COURSE MEDICATIONS GIVEN IN EMERGENCY DEPARTMENT IV SITE INFORMATION INTAKE OUTPUT REASSESMENT (most recent) 14:15 08/08/24. Ambulatory to room. (Pt is G 10 P 5, approx. 6 weeks gestation. Pt reports LLQ/pelvic pain since last night.). GENERAL / NEURO / PSYCH: Alert. Oriented X 4. Appears in no acute distress. RESPIRATORY: Respirations not labored. CVS: Capillary refill less than 2 seconds. GI / : Abdomen soft and nontender. No vaginal bleeding. No vaginal discharge. SKIN: Skin is warm and dry. VITAL SIGNS First Vitals Last Vitals Temp 13:57 08/08/24 97.6 F Temp 17:00 08/08/24 BP 13:57 08/08/24 139/83 BP 17:00 08/08/24 HR 13:57 08/08/24 95 HR 17:00 08/08/24 2 of 3 Visit Overview First Vitals Last Vitals RR 13:57 08/08/24 16 RR 17:00 08/08/24 14 O2 Sat 13:57 08/08/24 100% O2 Sat 17:00 08/08/24 Pain 13:57 08/08/24 4 Pain 17:00 08/08/24 ETCO2 13:57 08/08/24 ETCO2 17:00 08/08/24 GCS 13:57 08/08/24 GCS 17:00 08/08/24 RTS 13:57 08/08/24 RTS 17:00 08/08/24 PROCEDURES NURSING INTERVENTIONS LABS / STUDIES LABS / STUDIES ORDERED CBC w Diff CMP HCG, Quant Serum Urinalysis US OB<14WK Single Gestation CLINICAL IMPRESSION FIRST TRIMESTER SINGLE SIMPLE LEFT OVARIAN CYST THREATENED 3 of 3 Normal [facility] ED VITALS FLOW SHEETon 08-08 ED VITALS FLOW SHEET Vitals Vital Sign Flow Sheet [address] [address] [phone] 08/08/2024 Patient: ANUP NIELSEN Sex: Female : 1990 Age: 34y Measurements Wt: 75.3 kg, Ht/Darek: 62.0 in, BMI: 30.36 Measured Time BP MAP HR RR O2Sat ETCO2 Temp Pain GCS RTS 17:00 08/08/2024 14 16:55 08/08/2024 84 99% 16:50 08/08/2024 81 100% 16:45 08/08/2024 121/72 87 80 16:45 08/08/2024 82 100% 16:40 08/08/2024 82 99% 16:35 08/08/2024 85 100% 16:30 08/08/2024 81 100% 16:30 08/08/2024 124/75 85 80 16:25 08/08/2024 84 100% 16:20 08/08/2024 89 100% 16:15 08/08/2024 107/70 85 80 16:15 08/08/2024 88 99% 16:10 08/08/2024 90 100% 16:05 08/08/2024 86 100% 1 of 2 Vitals Measured Time BP MAP HR RR O2Sat ETCO2 Temp Pain GCS RTS 16:00 08/08/2024 114/73 85 85 16:00 08/08/2024 86 97% 15:55 08/08/2024 84 99% 15:50 08/08/2024 88 99% 15:45 08/08/2024 113/66 77 83 15:45 08/08/2024 77 99% 15:44 08/08/2024 116/72 85 80 14:10 08/08/2024 88 100% 14:05 08/08/2024 85 100% 13:57 08/08/2024 139/83 102 95 16 100% 97.6 F 4 2 of 2 Normal [facility] PREG SERUM QUANTon HCG QUANTITATIVE [id number] Normal [facility] Comment on above: Result Comment: Margaret childs Range: Male: <5 Female: Non: <5 1 - 7 days : 5 - 50 1 - 2 weeks: 50 - 500 2 - 3 weeks: 100 - 5000 3 - 4 weeks: 500 - 10,000 4 - 5 weeks: 1000 - 50,000 5 - 6 weeks: 10,000 - 100,000 6 - 8 weeks: 15,000 - 200,000 2 - 3 months: 10,000 - 100,000 2ND TRIMESTER 3000-50,000 3RD TRIMESTER 1000-50,000 Performed By: #### 2 [id number] #### [facility],[address] [place] [address] 19689 URINALYSISon 08-08-2024 Bilirubin Ql (U) Negative Normal NORMAL: NEGATIVE [facility] Comment on above: Performed By: #### 2 [id number] #### [facility],[address] [place] [address] 01437 Clarity (U) clear Normal NORMAL: CLEAR [facility] Comment on above: Performed By: #### 2 70314 #### [facility],[address] [place] [address] 97026 Color (U) p.yel Normal NORMAL: YELLOW [facility] Comment on above: Performed By: #### 2 [id number] #### [facility],[address] [place] [address] 85358 Glucose Ql (U) NORM Normal NORMAL: NORMAL [facility] Comment on above: Performed By: #### 2 [id number] #### [facility],[address] [place] [address] 70765 Hemoglobin Ql (U) Negative Normal NORMAL: NEGATIVE [facility] Comment on above: Performed By: #### 2 [id number] #### [facility],[address] [place] [address] [place] [address] Ketone Negative Normal NORMAL: NEGATIVE [facility] Comment on above: Performed By: #### 2 [id number] #### [facility],[address] [place] [address] 92850 Leukocytes Negative Normal NORMAL: NEGATIVE [facility] Comment on above: Performed By: #### 2 12510 #### [facility],[address] [place] [address] 85151 Nitrite Ql (U) Negative Normal NORMAL: NEGATIVE [facility] Comment on above: Performed By: #### 2 33658 #### [facility],[address] [place] [address] 35555 pH (U) 7 [pH] Normal NORMAL: 5.0-8.0 [facility] Comment on above: Performed By: #### 2 57066 #### [facility],[address] [place] [address] 13115 Protein Ql (U) Negative Normal NORMAL: NEGATIVE [facility] Comment on above: Performed By: #### 2 97154 #### [facility],[address] [place] [address] Sp Wilbur 1.005 Low NORMAL: 1.010-1.030 [facility] Comment on above: Performed By: #### 2 60777 #### [facility],[address] [place], [place] [id number] Specimen Type R Normal [facility] Comment on above: Performed By: #### 2 85734 #### [facility],[address] [place] [address] 35759 Urinalysis dipstick W Reflex Microscopic panel (U) NOT INDICATED Normal [facility] Comment on above: Performed By: #### 2 [id number] #### [facility],[address] [place] [address] 81531 Urobilinog NORM Normal NORMAL: NORMAL [facility] Comment on above: Performed By: #### 2 [id number] #### [facility],[address] [place], [place] [id number] US OB ENDO VAGINALon 025 OB ENDO VAGINAL [place] [address] Patient: ANUP NIELSEN Phone#: : 1990 Age: 34 Gender: F Pt. Type: ER Account: [id number] Location: 052 Ordering: DAPHNE GILBERT Exam Date: 08/08/2024/14:25 Family Phys: YANE VERA Charge Code: [id number] Physician: [place] Order #: [id number] Dose#: PROCEDURE: OB INITIAL <14 WEEKS ULTRASOUND, TRANSABDOMINAL ENDOVAGINAL COMPARISON: None. INDICATIONS: Pain. TECHNIQUE: Transabdominal and endovaginal pelvic ultrasound examinations were performed. FINDINGS: GESTATIONAL SAC: Present and normal appearing. POLE: pole is not identified. Possibly related to early gestational age. Follow-up evaluation and correlation with beta HCG levels is recommended. YOLK SAC: Present. CARDIAC ACTIVITY: Not identified UTERUS: Echo lucency is present to the right of the gestational sac and suspicious for subchorionic hemorrhage. ADNEXAE/OVARIES: Normal. CUL-DE-SAC: Small amount of free fluid is present in the cul-de-sac. CERVICAL LENGTH: Not applicable. CLINICAL AGE: 6 weeks 1 day SONOGRAPHIC AGE: 5 weeks 4 days. PLACENTA: Unable to visualize due to age. AMNIOTIC FLUID VOLUME: Normal for age. OTHER: Negative. CONCLUSION: 1. Intrauterine gestational sac is present corresponding to an age of 5 weeks 4 days. Yolk sac is identified. pole is not demonstrated at this time. Follow-up evaluation and correlation with beta HCG levels is recommended. 2. To the right of the gestational sac is a 19 x 16 by 17 millimeter echo lucency, consistent with subchorionic hemorrhage. 3. Small amount of free fluid is present in the cul-de-sac. 4. Echo lucency of the left ovarian cyst consistent with corpus luteum cyst. Dictated by: Leilani Winston MD on 08/08/2024 at 15:57 Approved by: Leilani Winston MD on 08/08/2024 at 16:04 Normal [facility] US OB INITIAL< 14 WEEKS; 1st GESTATIONon 08-08-2024 OB INITIAL< 14 WEEKS; 1st GESTATION [place] [address] Patient: ANUP NIELSEN Phone#: : 1990 Age: 34 Gender: F Pt. Type: ER Account: [id number] Location: 052 Ordering: DAPHNE GILBERT Exam Date: 08/08/2024/14:25 Family Phys: YANE VERA Charge Code: 117630 Physician: [place] Order #: [id number] Dose#: PROCEDURE: OB INITIAL <14 WEEKS ULTRASOUND, TRANSABDOMINAL ENDOVAGINAL COMPARISON: None. INDICATIONS: Pain. TECHNIQUE: Transabdominal and endovaginal pelvic ultrasound examinations were performed. FINDINGS: GESTATIONAL SAC: Present and normal appearing. POLE: pole is not identified. Possibly related to early gestational age. Follow-up evaluation and correlation with beta HCG levels is recommended. YOLK SAC: Present. CARDIAC ACTIVITY: Not identified UTERUS: Echo lucency is present to the right of the gestational sac and suspicious for subchorionic hemorrhage. ADNEXAE/OVARIES: Normal. CUL-DE-SAC: Small amount of free fluid is present in the cul-de-sac. CERVICAL LENGTH: Not applicable. CLINICAL AGE: 6 weeks 1 day SONOGRAPHIC AGE: 5 weeks 4 days. PLACENTA: Unable to visualize due to age. AMNIOTIC FLUID VOLUME: Normal for age. OTHER: Negative. CONCLUSION: 1. Intrauterine gestational sac is present corresponding to an age of 5 weeks 4 days. Yolk sac is identified. pole is not demonstrated at this time. Follow-up evaluation and correlation with beta HCG levels is recommended. 2. To the right of the gestational sac is a 19 x 16 by 17 millimeter echo lucency, consistent with subchorionic hemorrhage. 3. Small amount of free fluid is present in the cul-de-sac. 4. Echo lucency of the left ovarian cyst consistent with corpus luteum cyst. Dictated by: Leilani Winston MD on 08/08/2024 at 15:57 Approved by: Leilani Winston MD on 08/08/2024 at 16:04 Normal [facility] CNOVon 06-21-2024 CNOV Office Visit (OBGYWM ) ANUP NIELSEN ([id number]) 1990 F Date Time Provider Department 06/21/24 10:20 AM STACEY WARD During your visit today, we recorded the following information about you: Blood pressure Weight Last Period 116/80 75.6 kg 05/28/24 Stacey Ward MD 06/21/2024 12:22 PM Signed Anup Nielsen is a 34 year old female who presents for follow up. HPI: Here for follow up. Last 2 pregnancies were miscarriages. One was spontaneous and the other she had an IPAS. Here for follow up. Two regular menstrual cycles since IPAS procedure and negative HCG level at outside hospital. Desires . OB History T5 L6 SAB4 IAB0 Ectopic0 Multiple1 Live Births0 [employer] History LMP: 05/28/2024, Having periods Age at Menarche: 12 Age at First : 22 Age at Menopause: [employer] History Comments: Sexual Activity: Yes; Male Contraception: No contraception data on record PAST MEDICAL HISTORY Diagnosis Date NEGATIVE MEDICAL HISTORY PAST SURGICAL HISTORY Procedure Laterality Date APPENDIX NET-EXCIS(APPENDECTOM Y)SYNOPTIC 2022 DELIVERY ONLY 2014 and 2021 [facility] DIAGNOSTIC OR THERA - IPAS 04/20/2024 in office for missed ab FAMILY HISTORY Problem Relation Age of Onset No Known Problems Mother Hypertension Father other (pre diabetes) Father No Known Problems Sister Ovarian cancer Maternal Grandmother Lung Cancer Paternal Grandfather Social History Tobacco Use Smoking status: Never Smokeless tobacco: Never Vaping Use Vaping status: Never Used Substance Use Topics Alcohol use: Not Currently Drug use: Never Current Outpatient Medications Medication Sig PNV/iron,carb/docusat /folic ac (PRENA-CAP ORAL) Take 2 Units by mouth once daily. No current facility-administered medications for this visit. Allergies As of Date: 06/21/2024 (No Known Allergies) Fully Assessed 06/21/2024 REVIEW OF SYSTEMS Expanded ROS: N/A Allergies and current medication updated:Yes SENSITIVE EXAM: Sensitive exam not performed. EXAM: BP 116/80 Wt 166 lb 9.6 oz (75.6kg) LMP 05/28/2024 GENERAL: pleasant, female in no apparent distress HEENT: Normocephalic and atraumatic NECK: full range of motion DERMATOLOGY: Normal, without lesions, non-icteric, and non-hirsute CHEST: Normal inspiratory effort NEURO: exam grossly non-focal EXTREMITIES: normal ASSESSMENT AND PLAN: Assessment AND Plan Follow-up exam History of miscarriage Reviewed pathology results from IPAS and questions answered. Has had 2 normal menses and negative HCG level since. Discussed miscarriages in detail and questions answered. Discussed weight and age as risk factors. Patient possibly interested in workup and medication with next . She understands data is mixed regarding baby ASA and vaginal progesterone, and she will call or message if she desires rx's for this for next . Discussed option for TSH, APS panel and pelvic US. She understands uncertain if polyps interfere with and fertility. She is considering workup and will call or message if she desires to proceed. Stacey Ward, I spent 20 minutes in the visit, with more than 50% of the total [id number]-se-msiu time of the visit in counseling / coordination of care. Allergies As of Date: 06/21/2024 (No Known Allergies) Date Reviewed: 06/21/2024 Reviewed by: Alla Chavez MA - Fully Assessed Reason for Visit: Follow Up [171] Cmt: From IPAS Primary Visit Diagnosis:History of miscarriage [Z87.59] Other Visit Diagnosis:Follow-up exam [Z09] Prescriptions as of 06/21/2024 - PNV/iron,carb/docusat /folic ac (PRENA-CAP ORAL) Take 2 Units by mouth once daily. Problem List As Of Date 06/21/2024 Noted Resolved Atypical squamous cell changes of undetermined *04/11/2024 Incomplete spontaneous without complic*04/13/2024 Medications Discontinued During This Encounter Prescriptions - miSOPROStol (CYTOTEC) 200 mcg tablet (Discontinued) Please insert 4 tablets into vagina x1 Encounter Status:Closed by STACEY WARD on 06/21/24 Normal [facility] PREG SERUM QUANTon 5 HCG QUANTITATIVE 2 mIU/mL Normal 0 - 6 [facility] Comment on above: Result Comment: Refe rence Range: Male: <5 Female: Non: <5 1 - 7 days : 5 - 50 1 - 2 weeks: 50 - 500 2 - 3 weeks: 100 - 5000 3 - 4 weeks: 500 - 10,000 4 - 5 weeks: 1000 - 50,000 5 - 6 weeks: 10,000 - 100,000 6 - 8 weeks: 15,000 - 200,000 2 - 3 months: 10,000 - 100,000 2ND TRIMESTER 3000-50,000 3RD TRIMESTER 1000-50,000 Performed By: #### 2 [id number] #### [facility],[address] [place], [place] [id number] [place] [address] 04-26-2024 CNPN Telephone (OBGYWM) ANUP NIELSEN ([id number]) 1990 F Date Time Provider Department 04/26/24 STACEY WARD During your visit today, we recorded the following information about you: Briana Houston RN 04/26/2024 1:59 PM Signed ----- Message from Stacey Ward MD sent at 04/26/2024 1:21 PM EST ----- Please call path and make sure this was read correctly. During IPAS POC's were noted, and patient with +HCG quant and concern for retained products on ultrasound. Thanks Briana Houston RN 04/26/2024 2:03 PM Signed Called lab client services-pathology to inquire about this. Routed Pt's chart to Kathya uriarte assistance and she will send message to pathologist via email. Pathologist will then call office. SHAR Musa Tara, RN 05/01/2024 4:12 PM Signed Called Lab Client services and spoke to Brenton in Pathology department. States she will follow-up on this and send message to Kathya Nancie-administrato r anesthetic assistant and pathologist. SHAR Musa Tara, RN 05/08/2024 12:10 PM Signed Left message for lab client services pathology department to call office. SHAR Musa Tara, RN 06/01/2024 4:15 PM Addendum Called Lab client services again-spoke to Kathya Canada-administrato r anesthetic assistant. She is going to discuss this with administrator of home health to get with the Pathologist in person and will be in contact with our office sometime next week.SHAR Musa Sara, MD 06/01/2024 3:47 PM Signed Discussed case with pathologist who reports pathology is consistent with a polyp. Patient was instructed to follow up in 2-3 weeks but did not have a follow up with us. Would recommend that she have a repeat HCG level given pathology report to make sure it is negative and please schedule her for follow up Briana Houston RN 06/01/2024 4:34 PM Signed Pt notified and appointment scheduled. Order faxed to [facility] as it is closer to Pt's home. Briana Houston RN Allergies As of Date: 04/26/2024 (No Known Allergies) Date Reviewed: 04/20/2024 Reviewed by: Laureen Cooper RN - Fully Assessed Reason for Visit: Results [95] Primary Visit Diagnosis:History of miscarriage [Z87.59] Order(s):HCG QUANTITATIVE [SQHCGQT] Order #: [id number] FUTURE Prescriptions as of 06/01/2024 - miSOPROStol (CYTOTEC) 200 mcg tablet Please insert 4 tablets into vagina x1 - PNV/iron,carb/docusat /folic ac (PRENA-CAP ORAL) Take 2 Units by mouth once daily. Problem List As Of Date 04/26/2024 Noted Resolved Atypical squamous cell changes of undetermined *04/11/2024 Incomplete spontaneous without complic*04/13/2024 Encounter Status:Closed by BRIANA HOUSTON on 06/01/24 Normal [facility] CNOVon 04-20-2024 CNOV Office Visit (OBGYWM ) ANUP NIELSEN ([id number]) 1990 F Date Time Provider Department 04/20/24 2:00 PM STACEY WARD During your visit today, we recorded the following information about you: Pulse Blood pressure Weight 90/minute 104/68 76.2 kg Stacey Ward MD 04/20/2024 2:36 PM Signed UNIVERSAL PROTOCOL / SAFETY CHECKLIST Procedure to be Performed: IPAS Sign In: A Moment of CARE was completed. Personnel directly involved with the procedure wore the appropriate PPE (Personal Protective Equipment). Patient/Surrogate Stated/Verified: PATIENT VERIFIED(optional for EMERGENT procedures): Patient name, Date of , Relevant allergies, and The intended procedure Time Out Communication: Intended patient and procedure match the source documents. Consent documented and matches the intended procedure. Sign Out: SIGN OUT (optional for EMERGENT procedures): All specimen containers correctly labeled. All instruments, equipment, possible retained foreign bodies accounted for. Post-procedure follow-up management communicated and Plan of Care Visit completed when applicable. Procedure note: Speculum was placed in the vagina. After prepping the cervix with betadine paracervical block was performed using 10 cc of 1% lidocaine with 1:100,000 epi. Cervix was grasped with single tooth tenaculum. Cervix was dilated. Using sterile technique, the Manual Vacuum Aspiration device with size 7 cannula was inserted into the uterus and contents were evacuated. Post-procedure ultrasound confirmed no retained tissue. Post-procedure vital signs were obtained and stable Specimen was sent to pathology Patient tolerated procedure well. PLAN: Patient was advised to observe for signs and symptoms of infection including but not limited to fever, malodorous vaginal discharge and/or pain. Bleeding expectations were reviewed. Discussed taking home urine test after next period, and calling if positive. Discussed bleeding expectations and when to expect first period. Follow up: 2-3 weeks DO Allison Ramirez Trisha, RN 04/20/2024 12:58 PM Signed Information and Instructions: After a Manual Uterine Aspiration (IPAS) Procedure Bleeding Most people have some bleeding after an aspiration procedure. The amount differs for each everyone, ranging from no bleeding to moderate period-like bleeding and lasting for a few days to 2-6 weeks. It is normal to have blood clots when you stand up or use the bathroom during the first few days. It is ok to be as active as you feel ready to be. You may notice more bleeding and cramping during activity. Please call if you are completely soaking through a pad every hour for 2 hours, or passing multiple large clots or larger and larger clots. Cramping Most women have some cramping after the procedure. The amount of discomfort varies, as everyone experiences pain in a different way. Some women find that a heating pad or hot water bottle on the stomach or back helps. If you don?t have a heating pad, put some rice into a sock and heat it in the microwave, but beware, it?s hot! You may also take ibuprofen (Motrin/ Advil) or naproxen (Aleve). If you can?t take either of those medications you may use acetaminophen (Tylenol). Please call if you have severe pain or cramps that are not relieved by the pain medication. Fever Please call if your temperature is 100.4 degrees or higher for more than 2 hours. Fever can be a sign of infection, so call your doctor if you are feeling sick. You may have received a medication called misoprostol, which can cause a fever on the day of your procedure that goes away on it's own and is not concerning. symptoms You may have symptoms such as nausea, breast tenderness, or fatigue that last for a few days after the procedure. You may also notice some nipple discharge or breast swelling. If this occurs, wear a supportive bra and avoid stimulation. You may also use a cold compress. Your test may remain positive for up to 4 weeks. Please call if you have symptoms that last longer than 7 - 10 days. control For most people, it is physically possible (though unlikely) to become in the next 2 - 4 weeks, so it is important to start a control method if you are not planning a right away. Please discuss this with your provider if you have not already chosen a method. If you would like to become soon after this procedure, please discuss this with your doctor. Follow up Most women do not need a follow up appointment. Your doctor may recommend one, or you may choose to schedule one if you have any concerns, problems, or questions. Please do not put anything in your vagina for 1 week (no vaginal intercourse, toys, tampons, or douching). Do not swim or use hot (more content not included)... Normal [facility] SURGICAL PATHOLOGYon 024 CASE REPORT Normal [facility] Comment on above: Order Comment: Speci men Type: TISSUE SPECIMENOrdering Facility: [facility] Address: [address] [place] [address] Result Comment: Surg [facility] Pathology Report Case: [id number] Authorizing Provider: Stacey Ward MD Collected: 04/20/2024 02:10 PM Ordering Location: OB/Gynecology Received: 04/20/2024 03:57 PM Pathologist: Cem Briseno MD, PhD Specimen: Products of Conception Performed By: #### S ####[facility] LABCLIA [id number] [place] [address] [place] CLINICAL HISTORY missed ab Normal [facility] Comment on above: Order Comment: Speci men Type: TISSUE SPECIMENOrdering Facility: [facility] Address: [address] [place] [address] Performed By: #### S ####[facility] LABCLIA [id number] [address] STATES OF SHE FINAL DIAGNOSIS Normal [facility] Comment on above: Order Comment: Speci men Type: TISSUE SPECIMENOrdering Facility: [facility] Address: [address] [place] [address] Result Comment: A. U terine contents, missed : - Benign endometrial polyp. - Proliferative endometrium. - No evidence of products of conception. Performed By: #### S ####[facility] LABCLIA [id number] [place] [address] [place] FINAL PERFORMING LAB Normal [facility] Comment on above: Order Comment: Speci men Type: TISSUE SPECIMENOrdering Facility: [facility] Address: [address] [place] [address] Result Comment: Diag nostic interpretation performed at [place] [address] CLIA# [id number] Jury Consultant: Cody Slater M.D. Performed By: #### S ####[facility] [id number] [address] STATES OF SHE GROSS DESCRIPTION Normal [facility] Comment on above: Order Comment: Speci men Type: TISSUE SPECIMENOrdering Facility: [facility] Address: [address] [place] [address] Result Comment: A. P roducts of Conception Received in formalin labeled "products of conception" are multiple fragments of lawson-brown soft tissue and mucinous material aggregating to 7.2 x 2.3 x 0.3 cm. Chorionic villi, fragments, and vesicles are not identified. The specimen is totally submitted in formalin in cassettes A1-A3. Gross examination performed at [facility], [address] [place] [address] 04/21/24 10:01 AM Performed By: #### S ####[facility] [id number] [address] STATES [facility] Examination level ultrasound on 04-18-2024 Indication Incomplete spontaneous without complication Impression Normal appearing anteverted uterus measuring 114 mm x 90 mm x 63 mm. The central endometrial complex measures 10.6 mm in combined thickness. In the left aspect of the endometrial cavity, there is heterogeneous vascular area suggestive of retained products of conception. Normal endometrial contour. Both ovaries are visualized and appear normal with follicular change. No adnexal masses identified. There is no free fluid visualized in the peritoneal cavity. Ultrasound Consultation Recommendations Retained products of conception. Follow up as clinically indicated. Method 3D ultrasound examination, Color Doppler examination. Transvaginal ultrasound examination. View: Adequate visualization Sy . Number of fetuses: none Dating LMP on: 01/16/2024 GA by LMP 13 w + 1 d HORACIO by LMP: 10/22/2024 Assigned: based on the LMP, selected on 04/13/2024 Assigned GA 13 w + 1 d Assigned HORACIO: 10/22/2024 Assessment Gestational sac: not visualized Type: Incomplete miscarriage Retained products D1 15.3 mm Retained products D2 13.8 mm Retained products D3 8.6 mm Uterus Uterus: Visualized Uterus position: anteverted Description of uterine malformations: none Myometrium: heterogeneous Endometrium: intracavitary fluid: 'mixed' echogenicity, RPOC noted Cervix details: cystic lesions identified suggesting superficial Nabothian cysts Uterus length 114 mm Uterus width 90 mm Uterus height 63 mm Uterus Vol 338.4 cm Endometrial thickness, total 10.6 mm Cul de Sac Visualized. no free fluid visualized Right Ovary Rt ovary: Visualized Rt ovary morphology: premenopausal normal follicular Rt ovary D1 22 mm Rt ovary D2 21 mm Rt ovary D3 25 mm Rt ovary Vol 6.1 cm Left Ovary Lt ovary: Visualized Lt ovary morphology: premenopausal normal follicular Lt ovary D1 33 mm Lt ovary D2 21 mm Lt ovary D3 18 mm Lt ovary Vol 6.5 cm Performed By: Sandra Olivares RDMS Read By: Lisa Smalls M.D. MATERNAL MEDICINE [facility] Solomon 04-17-2024 CNPN Telephone (OBGYWM) ANUP NIELSEN ([id number]) 1990 F Date Time Provider Department 04/17/24 YULIANA STOCKTON OBGYW During your visit today, we recorded the following information about you: Briana Houston RN 04/17/2024 10:08 AM Signed Pt had visit with CP today for f/u missed AB. Had pelvic u/s completed today as well. CP stated Pt still has retained products and is in need of IPAS procedure o Tuesday04/20/24.SHAR Musa Deidre, MD 04/17/2024 11:43 AM Signed I spoke to LT- I have two cases on Tuesday- and then a full office. So it will probably be better to add to SW after my Hysterectomy before she does her cases. Briana Houston RN 04/17/2024 12:00 PM Signed Preparing for Your Procedure - Manual Vacuum Aspiration (MVA) or ?Ipas? procedure What is it? This is a simple procedure that uses suction to remove tissue or blood clots from the uterus. A local pain medication is used to numb the cervix and medicines to reduce pain and anxiety may also be offered. A cannula is a thin tube that is guided through the cervical opening into the uterus. A handheld suction device is attached to the tube and together they are used to remove the contents of the uterus. It takes less than ten minutes. When is the procedure done? This procedure is used to remove tissue when a person has experienced a miscarriage. It is sometimes used to help doctors diagnose the location of tissue (inside the uterus or not). It is also sometimes used to clear blood clots from the uterus in someone bleeding heavily. Is it safe? Yes, the procedure is safe. Having this procedure done does not lower your chance of getting again. Serious complications are very rare. Advantages Simple and safe Can be done in an outpatient medical office Over quickly Very effective at removing tissue Disadvantages There is a 1-2 % percent chance it will be incomplete and need to be repeated. Serious complications like infection or damage to the uterus are possible but very rare and occur in less than 0.5% of cases. What to expect You can expect to have some cramping during and after the procedure. The amount of discomfort varies as everyone experiences pain in a different way. Your doctor will talk to you about ways to make the discomfort manageable. You will have some bleeding after the procedure, usually equivalent to a light or moderate period and lasting for a few days to 2 weeks. [facility] Appointments in News Producer ( Early Assessment Clinics) [facility] at [phone] [facility] at [phone] [facility] at [phone] After 4:30 PM or on weekends, you may reach the on-call News Producer by calling the clinic where you were seen. This will automatically transfer you to a contracted answering service, who will then page the appropriate provider. Most calls are returned within 15-20 minutes depending on other direct patient care. LOSS RESOURCES Many people have different feelings and experiences with loss or termination. Grief can be a normal part of the healing process. Taking time to heal both physically and emotionally after a loss is important. Counseling is available to help you cope with your loss. A loss support group might also be a valuable resource to you and your family. Ask your healthcare provider for more information about counseling and support groups. Online Resources Unspoken Grief: an online miscarriage support resource for miscarriage, stillbirth and loss unspokengrief.org A Heartbreaking Choice: support for diagnosis or termination for medical reasons. http://www.Serious Business/ [facility]: ending a for a abnormality http://www.FatSkunktalPaperwoven.org/Pregnancy_ children/Ending_a_pre gnancy_for_fetal- _abnormality Ending a Wanted : support for patients and families ending a after or maternal medical diagnosis https://endingawanted .misterbnb Janising Maryann: one person's story about loss and collected resources. Defecarrieing maryann. [facility]iri: headquarters in [place] but with online support group https://www.Teads/mbqngj-vnlq-nl pport-groups.html Local Resources Love Lives On, [facility] Support Group https://Click Security.[facility]/locations/[facility]/supp- ort F.E.E.L.(Families Experiencing Early Loss) [facility] Support Group https://consultqd.[facility].org/hosp opjcu-vizfwzzgt-bwuli utroed-srlswxv-b- lresipm-dzkwwuqn-usbv lies/ [facility] - counseling services [phone] or toll free at [phone] [facility] Support Surjit (more content not included)... Normal [facility] Examination level ultrasound on 04-17-2024 Radiology Study observation (narrative) [facility] US Pelvison 04-15-2024 Indication threatened , r/o retained products of conception Impression Normal appearing anteverted uterus measuring 111 mm x 83 mm x 59 mm. The central endometrial complex measures 15.9 mm in combined thickness. There is increased endometrial vascularity and apparent retained products measuring 32.2 mm x 20.7 mm x 12.3 mm. Right ovary contains a 13 x 13 x 10 mm hemorrhagic cyst. Normal appearing left ovary. No adnexal masses identified. There is no free fluid visualized in the peritoneal cavity. Recommendations Follow up as clinically indicated. Method Transabdominal and transvaginal ultrasound examination. View: Adequate visualization Sy . Number of fetuses: none Dating LMP on: 01/16/2024 GA by LMP 12 w + 4 d HORACIO by LMP: 10/22/2024 Assigned: based on the LMP, selected on 04/13/2024 Assigned GA 12 w + 4 d Assigned HORACIO: 10/22/2024 Assessment Gestational sac: not visualized Type: Incomplete miscarriage Retained products D1 32.2 mm Retained products D2 20.7 mm Retained products D3 12.3 mm Color Doppler: increased vascularity Uterus Uterus: Visualized Uterus position: anteverted Description of uterine malformations: none Myometrium: heterogeneous Endometrium: heterogeneous, possible retained products noted within Cervix details: cystic lesions identified suggesting superficial Nabothian cysts Uterus length 111 mm Uterus width 83 mm Uterus height 59 mm Uterus Vol 283.5 cm Endometrial thickness, total 15.9 mm Cul de Sac Visualized. free fluid visualized: trace Right Ovary Rt ovary: Visualized Rt ovary D1 21 mm Rt ovary D2 21 mm Rt ovary D3 21 mm Rt ovary Vol 4.9 cm Rt ovarian corpus luteum: hemorrhagic Rt ovarian corpus luteum D1 12.8 mm Rt ovarian corpus luteum D2 13.2 mm Rt ovarian corpus luteum D3 10.0 mm Left Ovary Lt ovary: Visualized Lt ovary morphology: premenopausal normal follicular Lt ovary D1 13 mm Lt ovary D2 17 mm Lt ovary D3 13 mm Lt ovary Vol 1.5 cm Performed By: Sandra Olivares RDMS Read By: Lisa Smalls M.D. MATERNAL MEDICINE [facility] Solomon 04-13-2024 RUBIO Telephone (OBGYWM) SHEELAANUP GAMINONaya ([id number]) 1990 F Date Time Provider Department 04/13/24 ALEXUS POSADA During your visit today, we recorded the following information about you: Briana Houston RN 04/13/2024 2:17 PM Signed ----- Message from Alexus Posada MD sent at 04/13/2024 1:35 PM EST ----- If hasn't started passing the miscarriage does she want a f/u to discuss options sooner or still wait. Thanks. MD Gregorio Fajardo Tara, SHAR 04/13/2024 2:19 PM Signed Alexus Posada MD P [facility] Ob-[employer] Pool hcg falling slowly. Has she had bleeding? Would recommend a f/u this coming week or the next to see if she has passed it. MD Gregorio Fajardo Tara, SHAR 04/13/2024 2:19 PM Signed Pt was seen in office by CP today and plan of care was discussed. Briana Houston RN Allergies As of Date: 04/13/2024 (Not on File) Date Reviewed: 04/13/2024 Reviewed by: Rolando Guajardo MA - Fully Assessed Prescriptions as of 04/13/2024 - miSOPROStol (CYTOTEC) 200 mcg tablet Please insert 4 tablets into vagina x1 - PNV/iron,carb/docusat /folic ac (PRENA-CAP ORAL) Take 2 Units by mouth once daily. Problem List As Of Date 04/13/2024 Noted Resolved Atypical squamous cell changes of undetermined *04/11/2024 Incomplete spontaneous without complic*04/13/2024 Encounter Status:Closed by BRIANA HOUSTON on 04/13/24 [facility] Telephone (OBGYWM) ANUP NIELSEN ([id number]) 1990 F Date Time Provider Department 04/13/24 YULIANA STOCKTON During your visit today, we recorded the following information about you: Briana Houston RN 04/13/2024 5:09 PM Signed PSS called as Pt was accidentally scheduled for April ultrasound when it was to be next week. Pt was seen in office today and advised to have Ultrasound with follow-up appt next week for missed AB. We only have 1 US opening at 0900 on 04/17/24. 04/17/24 0900 US placed on hold for Pt. No provider has appt opening after that. Are you willing to fit Pt in your schedule as this was advised by CNM student? Please advise. Will need to call Pt to inform her of f/u appt date and time. SHAR Musa Courtney, APRN.CNM 04/13/2024 5:59 PM Signed Yes, Patient will need seen after ultrasound. We can fit her into my schedule or someone if they have a cancellation. Yuliana Stockton APRN.TRISH Briana Houston RN 04/16/2024 10:06 AM Signed Pills over the weekend, bled lightly over the weekend, did not feel like she passed POC. Advised Pt to come for ultrasound at 0900 and she will see CP following. Pt voiced understanding. Briana Houston RN Allergies As of Date: 04/13/2024 (Not on File) Date Reviewed: 04/13/2024 Reviewed by: Rolando Guajardo MA - Fully Assessed Prescriptions as of 04/16/2024 - miSOPROStol (CYTOTEC) 200 mcg tablet Please insert 4 tablets into vagina x1 - PNV/iron,carb/docusat /folic ac (PRENA-CAP ORAL) Take 2 Units by mouth once daily. Problem List As Of Date 04/13/2024 Noted Resolved Atypical squamous cell changes of undetermined *04/11/2024 Incomplete spontaneous without complic*04/13/2024 Encounter Status:Closed by BRIANA HOUSTON on 04/16/24 Normal [facility] US Pelvison 04-13-2024 Radiology Study observation (narrative) [facility] PREG SERUM QUANTon 4 HCG QUANTITATIVE 936 mIU/mL High 0 - 6 [facility] Comment on above: Result Comment: Margaret childs Range: Male: <5 Female: Non: <5 1 - 7 days : 5 - 50 1 - 2 weeks: 50 - 500 2 - 3 weeks: 100 - 5000 3 - 4 weeks: 500 - 10,000 4 - 5 weeks: 1000 - 50,000 5 - 6 weeks: 10,000 - 100,000 6 - 8 weeks: 15,000 - 200,000 2 - 3 months: 10,000 - 100,000 2ND TRIMESTER 3000-50,000 3RD TRIMESTER 1000-50,000 Performed By: #### 2 69288 #### [facility],[address] [place] [address] CNCOon 04-11-2024 CNCO Letter Text Normal [facility] B-HCG SerPl-aCn[place] 4 [place] [address].0 m[IU]/mL High <5.0 [facility] Comment on above: Order Comment: Speci men Type: BLOOD SPECIMENOrdering Facility: [facility] Address: [address] [place] [address] Result Comment: HIRAM TITATIVE HCG NORMAL RANGES Weeks of Gestation (Weeks Since LMP) 3 Weeks (5.8-71.2 mIU/mL) 4 Weeks (9.5-750 mIU/mL) 5 Weeks (217-7138 mIU/mL) 6 Weeks (158-44486 mIU/mL) 7 Weeks (3697-091747 mIU/mL) 8 Weeks (99649-752467 mIU/mL) 9 Weeks (77150-512835 mIU/mL) 10 Weeks (29527-917836 mIU/mL) 12 Weeks (30213-897211 mIU/mL) Referenced to 4th IS of [facility] Performed By: #### 2 1198-7 ####[facility] LABCLIA [id number] [place] [address] [place] CNPKarina 04-05-2024 CNPN Telephone (OBGYWM) SHEELAANUP UriarteNaya ([id number]) 1990 F Date Time Provider Department 04/05/24 RADHA JAVIER During your visit today, we recorded the following information about you: Aziza Murray RN 04/05/2024 8:34 AM Addendum ----- Message from Rahda Javier APRN.CNM sent at 04/04/2024 9:25 AM EST ----- Please follow up with long wall shear operator provider with second serum results. Scheduled for follow up US. Radha Javier APRN.CNM hCG Quantitative, Blood (mIU/mL) Date Value 04/03/2024 34,298.0 Laureen Cooper RN 04/06/2024 8:26 AM Signed Please review decreasing hcg quant result. Saw CHUY 04/03. hCG Quantitative, Blood (mIU/mL) Date Value 04/05/2024 26,761.0 04/03/2024 34,298.0 SHAR Cintron Deidre, MD 04/06/2024 8:42 AM Signed Hcg quant decreasing - based on CHUY findings with ultrasound and quants this is likely c/w missed ab. Per CHUY notes it looks like she discussed options with her- does she still expectant management at this time or would she like to proceed with any intervention? Loly Munoz, SHAR 04/06/2024 10:48 AM Signed Patient notified and voiced understanding of below. Patient states she has started to spot and at this time is just going to continue with expectant management. Patient states she did discuss IPAS with CHUY and that she will think about that over the weekend and let us know if she wants to proceed. Patient has ultrasound and follow up scheduled for 04/13. SHAR Bueno Deidre, MD 04/06/2024 4:18 PM Signed noted Loly Munoz RN 04/09/2024 12:08 PM Signed Patient calling to update office on her miscarriage. Patient states she feels she passed everything naturally over the weekend. Do you want patient to have ultrasound and ultrasound follow up with you on 04/13 that is already scheduled? SHAR Bueno Courtney, APRN.CNM 04/09/2024 12:58 PM Signed Yes, I would recommend an ultrasound as well as continued HCG levels until they reach zero. Yuliana Stockton APRN.Laureen Melara RN 04/09/2024 1:47 PM Signed Patient notified. She wants to get remainder of blood draws at [facility]. Written order form to CP to sign. SHAR Cintron Trisha, RN 04/09/2024 2:52 PM Signed Order signed and faxed for weekly blood draw x6. Laureen Cooper RN Allergies As of Date: 04/05/2024 (Not on File) Date Reviewed: 04/03/2024 Reviewed by: Mili Cullen MA - Fully Assessed Reason for Visit: Results [95] Miscarriage [1752] Prescriptions as of 04/09/2024 - PNV/iron,carb/docusat /folic ac (PRENA-CAP ORAL) Take 2 Units by mouth once daily. - PROGESTERONE INTRAUTERINE Use 200 Suppositories vaginally two times a day. Problem List As Of Date: 04/05/2024 (None) Encounter Status:Closed by LOLY MUNOZ on 04/06/24 Normal [facility] POC SECURITY CONTROL CENTER OPERATOR ULTRASOUNDon 04-03-20 Indication Viability Impression Single intrauterine gestational sac, cardiac activity is not visualized, CRL indicates discrepancy from clinical dates Recommendations Follow up for repeat ultrasound in at least 10-14 days to confirm viability Method Transabdominal and transvaginal ultrasound examination Sy . Number of embryos: 1 Dating LMP on: 01/16/2024 GA by LMP 11 w + 1 d HORACIO by LMP: 10/22/2024 Ultrasound examination on: 04/03/2024 GA by U/S based upon: CRL, GS GA by U/S 6 w + 0 d HORACIO by U/S: 11/27/2024 Assigned: based on ultrasound (CRL, GS), selected on 04/03/2024 Assigned GA 6 w + 0 d Assigned HORACIO: 11/27/2024 Biometry Standard CRL 2.7 mm 5w 6d <1% Hadlock Extended GS 17.0 mm 6w 0d 52% Negrita Assessment Gestational sac: visualized GS 17.0 mm 6w 0d 52% Negrita Location: intrauterine Yolk sac: visualized Embryo: visualized CRL 2.7 mm 5w 6d <1% Hadlock Cardiac activity: absent General Evaluation Cardiac activity absent Performed By: Radha Javier CNM Read By: Radha Javier CNM MATERNAL MEDICINE [facility] Radiology Study observation (narrative) [facility] PROGESTERONE [CCL]on 024 Progesterone 17.5 ng/mL Normal See comment [facility] Comment on above: Result Comment: Mens trual Cycle Progesterone Reference Ranges: Follicular: <1.0 ng/mL Ovulation: <12.1 ng/mL Luteal: 1.8 to 23.9 ng/mL. Progesterone Reference Ranges vary by gestational period: First Trimester: 11.0 to 44.3 ng/mL Second Trimester: 25.4 to 83.3 ng/mL Third Trimester: 58.7 to 214 ng/mL Post menopausal Progesterone: <0.5 ng/mL Reference: 1. Progesterone (Progesterone III) [package insert V 1.0 Citizen Of [place]]. [employer], [place], [place]. February 2015. [place] [address] Cody Slater III, M.D. [id number] Performed By: #### 2 48796 #### [facility],[address] [place], [place] [address] PREG SERUM QUANTon 4 HCG QUANTITATIVE 696 mIU/mL High 0 - 6 [facility] Comment on above: Result Comment: Refe rence Range: Male: <5 Female: Non: <5 1 - 7 days : 5 - 50 1 - 2 weeks: 50 - 500 2 - 3 weeks: 100 - 5000 3 - 4 weeks: 500 - 10,000 4 - 5 weeks: 1000 - 50,000 5 - 6 weeks: 10,000 - 100,000 6 - 8 weeks: 15,000 - 200,000 2 - 3 months: 10,000 - 100,000 2ND TRIMESTER 3000-50,000 3RD TRIMESTER 1000-50,000 Performed By: #### 2 32756 #### [facility],[address] [place] [address] ESTRADIOL-17B [CCL]on 2023 Estradiol-17B 150 pg/mL Normal [facility] Comment on above: Result Comment: This test is not suitable for patients receiving treatment with the drug Fulvestrant (Faslodex). The drug causes an interference leading to falsely elevated estradiol results. Menstrual cycle Estradiol reference ranges: Follicular : < 234 pg/mL Ovulation : 41 to 398 pg/mL Luteal : < 342 pg/mL Estradiol reference ranges vary by gestational period: First trimester : 154 to 3243 pg/mL Second trimester : 1561 to 31926 pg/mL Third trimester : 8285 to >97756 pg/mL Post-menopausal Estradiol reference range: < 41 pg/mL Reference: 1. Estradiol - E2 (Estradiol III) [package insert V 3.0 Citizen Of [place]]. [employer], [place], [place], October 2015. [facility] [employer] [address] [place] [address] Cody Slater III, M.D. [id number] Performed By: #### 2 21084 #### [facility],[address] [place] [address] PROGESTERONE [CCL]on 024 Progesterone 11.4 ng/mL Normal See comment [facility] Comment on above: Result Comment: Mens trual Cycle Progesterone Reference Ranges: Follicular: <1.0 ng/mL Ovulation: <12.1 ng/mL Luteal: 1.8 to 23.9 ng/mL. Progesterone Reference Ranges vary by gestational period: First Trimester: 11.0 to 44.3 ng/mL Second Trimester: 25.4 to 83.3 ng/mL Third Trimester: 58.7 to 214 ng/mL Post menopausal Progesterone: <0.5 ng/mL Reference: 1. Progesterone (Progesterone III) [package insert V 1.0 Citizen Of [place]]. [employer], [place], [place]. February 2015. [employer] [address] [place] [address] Cody Slater III, M.D. [id number] Performed By: #### 2 37041 #### [facility],[address] [place] [address] PREG SERUM QUANTon 4 HCG QUANTITATIVE 260 mIU/mL High 0 - 6 [facility] Comment on above: Result Comment: Refe rence Range: Male: <5 Female: Non: <5 1 - 7 days : 5 - 50 1 - 2 weeks: 50 - 500 2 - 3 weeks: 100 - 5000 3 - 4 weeks: 500 - 10,000 4 - 5 weeks: 1000 - 50,000 5 - 6 weeks: 10,000 - 100,000 6 - 8 weeks: 15,000 - 200,000 2 - 3 months: 10,000 - 100,000 2ND TRIMESTER 3000-50,000 3RD TRIMESTER 1000-50,000 Performed By: #### 2 66308 #### [facility],[address] [place] [address] Laboratory - Microbiology an d Antimicrobial susceptibilityon 12-29-2022 S. pyogenes Ag EIA Ql (Throat) Negative Normal [facility] PLATELET COUNTon 07-07-2021 Platelets (Bld) [#/Vol] 190 10*3/uL Normal 150-450 [facility] Comment on above: Performed By: #### L 100.0618 #### [facility] Laboratory [address] [place], [address] CBC-Complete Blood Cnt No Di ffon 05-28-2021 Erythrocyte distribution width (RBC) [Ratio] 15.1 % High 11.6-14.6 [facility] Comment on above: Order Comment: Comme nts: Day #1 Reason for Laboratory Test Performed By: #### L 100.0500 #### [facility] [address] [place], [address] Hematocrit (Bld) [Volume fraction] 26.4 % Low 37-47 [facility] Comment on above: Order Comment: Comme nts: Day #1 Reason for Laboratory Test Performed By: #### L 100.0500 #### [facility] [address] [place], [address] Hemoglobin (Bld) [Mass/Vol] 8.9 g/dL Low 12.0-15.0 [facility] Comment on above: Order Comment: Comme nts: Day #1 Reason for Laboratory Test Performed By: #### L 100.0500 #### [facility] [address] [place], [address] MCH (RBC) [Entitic mass] 31.7 pg Normal 27.0-32.0 [facility] Comment on above: Order Comment: Comme nts: Day #1 Reason for Laboratory Test Performed By: #### L 100.0500 #### [facility] [address] [place], [address] MCHC (RBC) [Mass/Vol] 33.7 g/dL Normal 32-36 [facility] Comment on above: Order Comment: Comme nts: Day #1 Reason for Laboratory Test Performed By: #### L 100.0500 #### [facility] [address] [place], [address] MCV (RBC) [Entitic vol] 94.0 fL Normal 81-99 [facility] Comment on above: Order Comment: Comme nts: Day #1 Reason for Laboratory Test Performed By: #### L 100.0500 #### [facility] [address] [place], [address] Platelet mean volume (Bld) [Entitic vol] 11.4 fL Normal 6.2-12.0 [facility] Comment on above: Order Comment: Comme nts: Day #1 Reason for Laboratory Test Performed By: #### L 100.0500 #### [facility] [address] [place], [address] Platelets (Bld) [#/Vol] 76 10*3/uL Low 150-450 [facility] Comment on above: Order Comment: Comme nts: Day #1 Reason for Laboratory Test Performed By: #### L 100.0500 #### [facility] [address] [place], [address] RBC (Bld) [#/Vol] 2.81 10*6/uL Low 4.2-5.4 [facility] Comment on above: Order Comment: Comme nts: Day #1 Reason for Laboratory Test Performed By: #### L 100.0500 #### [facility] [address] [place], [address] RDW SD 51.6 fl High 35.1-43.9 [facility] Comment on above: Order Comment: Comme nts: Day #1 Reason for Laboratory Test Performed By: #### L 100.0500 #### [facility] [address] [place], [address] WBC (Bld) [#/Vol] 7.5 10*3/uL Normal 4.4-11.0 [facility] Comment on above: Order Comment: Comme nts: Day #1 Reason for Laboratory Test Performed By: #### L 100.0500 #### [facility] [address] [place], [address] Discharge Instructionon Discharge Instruction [facility] Medical Records Department [address] [place] [address] Instructions for Home/Discharge Instructions 05/28/21 0827 MR#: [id number] Acct: [id number] Name: ANUP NIELSEN Kalani Rep #: [id number] : 1990 31 From: Eamon Pérez MD PCP: Saritha Poon PA-C Status:ADM IN Discharge Instructions Diet Discharge Diet: No restrictions Activity May resume sexual activity in: 4-6 weeks Lifting Restrictions: 20 pounds Dressing / Incision Call your doctor if your incision/area has: Continuous Slow Oozing, Sudden Increased Bleeding, Increased Pain/ Swelling, Increased Redness and Foul Smelling Discharge Call your doctor if you observe: Fever of 101 or Higher, Inability to urinate, Inability to have a bowel movement and Using more than 1 pad per hour Follow Up Care Please Follow Up With: Dori Christie MD When: Call [phone] for appointment to be seen in 2 weeks. Test Results: Test results from this visit will be discussed in further detail at your follow-up appointment, if applicable. Discharge Plan Admission Admit Date/Time: 05/27/21 11:26 Primary Reason for Your Visit: Repeat Attending Provider: Dori Christie Primary Care Provider: Saritha Poon Discharge Orders/Prescriptions Prescriptions: New oxycodone 5 mg capsule 5 mg PO Q6H PRN (Reason: pain) 7 Days Qty: 7 RF: 0 docusate sodium 100 mg tablet 100 mg PO BID PRN (Reason: constipation) Qty: 60 RF: 1 Continued ferrous sulfate 325 MG tablet 325 mg PO BIDCM RF: 0 Prenatabs FA 1 TABLET tablet 1 tab PO DAILY RF: 0 Referrals / Follow Up: Saritha Poon PA-C [Primary Care Provider] - Disposition Disposition (needs filled in before D/C Order can be placed): Home, Self Care 05/28/21 0831 Eamon Pérez MD CC: VIKAS Poon Signed Normal [facility] BRCon 05-27-2021 RC Normal [facility] Comment on above: Result Comment: [id number] RC XM COMPATIBLE [id number] RC XM COMPATIBLE Performed By: #### B RC #### [facility] [address] [place], [place], [address] CBC W/Diff, Automatedon PLT EST MOD DEC Normal ADEQ [facility] Comment on above: Performed By: #### B TS, L100.0100 ####[facility] [address] [place], [address] H AND P Exam - OB/GYNon H&P Exam - MANUFACTURING PRODUCTION MANAGER [facility] Medical Records Department [address] [place] [address] H P Exam - MANUFACTURING PRODUCTION MANAGER 05/27/21 1319 MR#: [id number] Acct: [id number] Name: ANUP NIELSEN Rep #: [id number] : 1990 31 From: Dori Orellana MD PCP: Saritha Poon PA-C Status:ADM IN [facility] History and Physical Date of Admission: 05/27/21 ACOG ANTEPARTUM RECORD - HISTORY AND PHYSICAL (05/27/2021) Name: ANUP NIELSEN History of this : This is a 31 year old [id number] presents at 40 wks + 5 days gestation who presents with painful contractions. OB Physician: Dori Orellana MD [place]'s Physician: Gregory [facility] Med. ..................... ..................... ..................... ....... : 1990 Age: 31 [address]: [address] [place] [address] Phone: (H) [phone] (O) [phone] Insurance Carrier: Emergency Contact: ROSAMARIA MACKENZIE [phone] ..................... ..................... ..................... ....... Final HORACIO: 05/22/21 By Ultrasound: 16 weeks 4 days PARITY: (G-Total Pregnancies P-Fullterm,Premature, Induced AB,Spont AB, Ectopics, Multiple,Living) HORACIO CONFIRMATION: By LMP: 08/15/20 Initial Exam: 05/22/21 By First Ultrasound Exam: 05/22/21 Final HORACIO: 05/22/21 OB PROBLEM LIST: Maternal Twin Uncles with Mental Disabilities 01/2015 C section for hand presentation, twin IUP. Successful Plans another Declines genetic and carrier screening Gestational hyperthyroidism RESOLVED Plt count 128 --> 125 Undecided about an epidural. Will breastfeed. ALLERGIES: NKDA No Known Drug Allergies MEDICATIONS: + DHA 28 mg iron- 975 mcg-200 mg combo pack daily SOCIAL HISTORY: Smoking - quit smoking 2008 Alcohol Use - denies drinking Diet - moderate, balanced diet Lifestyle - and low stress lifestyle Exercise - minimal and Enc walking 20 min day Employer - [employer] Job Description - Illicit Drug Use - denies use of street drugs Sexual Activity - Residence - lives with Place of - [place], [place] Spouse-Sig Other Name - Prashant Spouse-Sig Other Occupation - Nurse [employer], self-employed Spouse-Sig Other Phone No - [phone] Children Name(s) - Aubrey (EB), De La Cruz(EB), Haleigh(EB), Miguelina ('18), Ra ('20) PRIOR DELIVERY HISTORY DEL DATE GEST LAB WT LB WT OZ TYPE ANES LABOR TX ____ 03 Feb 14 11 0 0 0 Vag None No Dec 18 41 12 8 8 Vag Epidural No Jan 15 38 7 6 7 C-Sec Epidural yes Sep 09 40 7 8 15 Vag None No Jan 12 42 22 8 1 Vag Epidural No ANTEPARTUM FLOW CHART VISIT GE RTC FU F F OK U U DATE WK MD WKS HT PN HR M SS BP ED WT OK GL D EF ST __ ____ ___ __ __ ___ __ __ __ ___ __ __ __ ___ __ 28 Apr SHM 1 39 V + + 90/60 sl 176 tr - 3 50 -3 Apr JMW 1 38 V + + 128/82 sl 178 tr - 2 50 -2 Apr SHM 1 37 O + + 122/68 0 175 - - 1+ 50 -3 07 Apr SHM 1 36 V + + 120/70 0 175 - - 1+ 50 -3 Apr SHM 1 35 V + + 118/76 tr 171 ne ne Mar SHM 2 32 V + + 118/74 0 171 tr - Mar SHM 2 32 V + + 118/74 0 171 tr - Mar JM 2 31 - + + 130/68 0 170 - - 12 Mar 19 SHM 2 28 V + 130/72 0 170 - - 14 Feb 13 SHM 4 25 ? + + 100/66 0 166 tr - Jan 09 SHM 4 22 + + 120/82 0 163 - - 20 Dec 05 SHM 4 + ? 124/76 0 158 tr - ANTEPARTUM NOTE(S): May 19 2021: considering membrane sweep May 12 2021: Ctxs-mild, Good FM May 05 2021: doing well Apr 28 2021: doing well Apr 22 2021: Apr 08 2021: doing well Apr 08 2021: doing well Mar 23 2021: doing well Mar 03 2021: No problems Feb 03 2021: doing well, glucola given Jan 06 2021: comp u/s today, doing well Dec 09 2020: doing well COMPREHENSIVE ANTEPARTUM NOTE(S): May 19 2021: FM, labor and SROM reviewed. Is considering having membranes stripped. Declines induction. LMT May 05 2021: Anup is 37w4d she is doing well. Positive movement. No edema. She reports irregular contractions and would like a cervical check. BR May 04 2021: H taken to OB. tkg Apr 28 2021: Anup is 36w4d. She is here today for PNV and GBS swab. Good movement. No edema. She states she is having irregular contractions. LARC consent was signed. Overall she is doing well with no concerns or complaints at this time.BR Apr 22 2021: Anup is here at 35.5 w. Feeling well. Baby active. Trace edema in ankles only. No concerns today. DRC. Apr 22 2021: Reviewed GBS for next visit. Discussed cervical exam indication. R/b TOLAC vs. repeat C/S. Plan TOLAC consents next visit. Apr 08 2021: Reviewed FM, PTL, discomforts. LMT Apr 08 2021: PTL, FM pre (more content not included)... Normal [facility] Operative Reporton 2 Operative Report [facility] Medical Records Department [address] [place] [address] Operative Report 05/27/21 1454 MR#: [id number] Acct: [id number] Name: ANUP NIELSEN R Rep #: [id number] : 1990 31 From: Dori Orellana MD PCP: Saritha Poon PA-C Status:DIS IN Location: [id number] Assessment Plan (1) 40 weeks gestation of : (2) delivery delivered: Details Operative Information Date of Procedure: 05/27/21 Pre-Operative Diagnosis: 1. 40 5/7 weeks gestation 2. Non reassuring heart rate tracing Post-Operative Diagnosis: 1. 40 5/7 weeks gestation 2. Non reassuring heart rate tracing Indications for : Nonreassuring Status Indications Narrative: 6 para 31-year-old 5-0-0-6 admitted at 40-5/7 weeks gestational age in labor. She had amniotomy and subsequently began to experience recurrent deep variable decelerations. She was taken to the OR for double set up was due to no improvement of heart rate tracing despite amnioinfusion however heart rate converted to category 1. She declined section at that time and opted for observation. With continued laboring however deep variable decelerations reemerged and she was strongly advised to proceed with section. related risks, benefits, indications and alternatives were reviewed. Patient agreed to proceed. Classification: JODEE Procedure Type: low transverse silk spooler #1: Deanna Gates Type of Anesthesia: Epidural Anesthesiologist: Cody Singletary Antibiotic Given: Ancef 2 grams IV x1 and Zithromax 500 mg/5 mL X1 Drain: Brito to straight drain Estimated Blood Loss: 700 ml Findings Description of Procedure: The patient was taken to the operating room and spinal analgesia was administered. She is placed in a dorsal supine position with left lateral tilt. The perineum and abdomen were prepped and draped in sterile fashion. And the spinal was found to be adequate. A Pfannenstiel incision was made using a scalpel and brought down to incise the subcutaneous tissue and rectus fascia at the midline. Subcutaneous tissue was bluntly dissected off the fascia laterally. The fascial incision was dissected laterally and cephalad bluntly and using curved Alexander. The peritoneum was identified and entered [sharply]. The vesicouterine peritoneal fold was identified and bladder flap created and Barrera retractor placed into the abdomen. A low transverse hysterotomy was made using the [Metzenbaum scissors] to level of the membranes. The hysterotomy was extended bluntly cephalad and caudad. The membranes were then ruptured revealing clear fluid. The head was elevated and brought to the level of the hysterotomy and the infant delivered revealing vigorous [female] . The cord was doubly clamped and cut after 30 seconds. The infant was passed to awaiting [nursery personnel]. The placenta was [expressed] from the uterus and appeared intact on inspection. The uterus was cleared of debris. The hysterotomy was then repaired using 0 Vicryl running lock suture. The Barrera retractor was removed the anterior cul-de-sac was cleared of debris. The peritoneum was repaired using 2-0 Vicryl running suture. The rectus fascia was closed using 0 strata fix running suture. The subcutaneous tissue was reapproximated using 2-0 Vicryl. The skin was closed using 4-0 Monocryl subcuticularly by the FINANCE ANALYST under my supervision. A Mepilex occlusive dressing was placed over the incision. The fundus was firm. The patient was then transferred to the recovery room without complication. Sponge, instrument, and needle counts were correct ???2. Presentation: Positive for Vertex Amniotic Membrane Rupture Type: Artificial Amniotic Fluid Description: Clear Placental Delivery Description: Spontaneous Placenta Disposition: [facility] Cord Vessel Description: 3 Vessels Cord Entanglement: Around neck x 1, loose and Around neck x 1, tight Cord Gases: ABG and VBG Infant A Gender: Female (1 minute): 8 (5 minute): 9 Delayed Cord Clamping: Yes Complications Risks of Surgery Discussed w/Patient: Bleeding, Anesthesia Risks, Infection and Injury to surrounding structure(s) including bowel and bladder 06/03/21628 Cosigner Signature (if applicable): CC: VIKAS Poon; Dr. Dori Orellana MD Signed [facility] Type AND Screenon 05-27-2021 Ab SCREEN GEL Negative [facility] Comment on above: Order Comment: Labor Performed By: #### B TS, L100.0100 ####[facility] [address] [place], [address] ABO and Rh group Nom (Bld) Blood group A Rh(D) positive [facility] Comment on above: Order Comment: Labor Performed By: #### B TS, L100.0100 ####[facility] [address] [place], [address] Rule out Beta Strep (Grp. B) on 04-30-2021 CHRIS Group B Beta Streptococcus is not isolated. [facility] Comment on above: Performed By: #### M 100.3400 #### [facility] [address] [place], [address] L509.8000on 04-08-2021 Syphilis Abs Non-Reactive [facility] Comment on above: Performed By: #### L 509.8000, L100.0625 ####[facility] [address] [place], [address] PLATELET COUNTon 04-08-2021 Platelets (Bld) [#/Vol] 125 10*3/uL Low 150-450 [facility] Comment on above: Performed By: #### L 509.8000, L100.0625 ####[facility] [address] [place], [address] CBC-Complete Blood Cnt No Di ffon 03-03-2021 Erythrocyte distribution width (RBC) [Ratio] 14.1 % Normal 11.6-14.6 [facility] Comment on above: Performed By: #### L 501.81582, L100.0500, L501.9520, L506.0400, L501.0250 #### [facility] [address] [place], [address] Hematocrit (Bld) [Volume fraction] 29.9 % Low 37-47 [facility] Comment on above: Performed By: #### L 501.78313, L100.0500, L501.9520, L506.0400, L501.0250 #### [facility] [address] [place], [address] Hemoglobin (Bld) [Mass/Vol] 10.1 g/dL Low 12.0-15.0 [facility] Comment on above: Performed By: #### L 501.65632, L100.0500, L501.9520, L506.0400, L501.0250 #### [facility] [address] [place], [address] MCH (RBC) [Entitic mass] 32.0 pg Normal 27.0-32.0 [facility] Comment on above: Performed By: #### L 501.35867, L100.0500, L501.9520, L506.0400, L501.0250 #### [facility] [address] [place], [address] MCHC (RBC) [Mass/Vol] 33.8 g/dL Normal 32-36 [facility] Comment on above: Performed By: #### L 501.31396, L100.0500, L501.9520, L506.0400, L501.0250 #### [facility] [address] [place], [address] MCV (RBC) [Entitic vol] 94.6 fL Normal 81-99 [facility] Comment on above: Performed By: #### L 501.05665, L100.0500, L501.9520, L506.0400, L501.0250 #### [facility] [address] [place], [address] Platelet mean volume (Bld) [Entitic vol] 11.6 fL Normal 6.2-12.0 [facility] Comment on above: Performed By: #### L 501.55979, L100.0500, L501.9520, L506.0400, L501.0250 #### [facility] [address] [place], [address] Platelets (Bld) [#/Vol] 128 10*3/uL Low 150-450 [facility] Comment on above: Performed By: #### L 501.84977, L100.0500, L501.9520, L506.0400, L501.0250 #### [facility] [address] [place], [address] RBC (Bld) [#/Vol] 3.16 10*6/uL Low 4.2-5.4 [facility] Comment on above: Performed By: #### L 501.67860, L100.0500, L501.9520, L506.0400, L501.0250 #### [facility] [address] [place], [address] RDW SD 49.1 fl High 35.1-43.9 [facility] Comment on above: Performed By: #### L 501.34740, L100.0500, L501.9520, L506.0400, L501.0250 #### [facility] [address] [place], [address] WBC (Bld) [#/Vol] 6.1 10*3/uL Normal 4.4-11.0 [facility] Comment on above: Performed By: #### L 501.43983, L100.0500, L501.9520, L506.0400, L501.0250 #### [facility] [address] [place], [address] Free T3on 03-03-2021 Free T3 [Mass/Vol] 2.4 pg/mL Normal 2.18-3.98 [facility] Comment on above: Performed By: #### L 501.76920, L100.0500, L501.9520, L506.0400, L501.0250 #### [facility] [address] [place], [address] Glucose Challenge Gest 1H 50 linda 03-03-2021 GLU GEST 50g 1H 112 mg/dL Normal 70-140 [facility] Comment on above: Performed By: #### L 501.16587, L100.0500, L501.9520, L506.0400, L501.0250 #### [facility] [address] [place], [address] T4 Free Directon 03-03-2021 T4 FREE DIRECT 0.82 ng/dL Normal 0.76-1.46 [facility] Comment on above: Performed By: #### L 501.41817, L100.0500, L501.9520, L506.0400, L501.0250 ####[facility] [address] [place], [address] Thyroid Stim Hormone (TSH)on 03-03-2021 TSH 0.71 uIU/mL Normal 0.358-3.74 [facility] Comment on above: Performed By: #### L 501.26130, L100.0500, L501.9520, L506.0400, L501.0250 ####[facility] [address] [place], [place], [address] T4 Free Directon 11-12-2020 T4 FREE DIRECT 1.39 ng/dL Normal 0.76-1.46 [facility] Comment on above: Performed By: #### L 3890.6300, L400.2010, L7000.1800, L3890.6100, L509.8000, L509.4005, L501.9520, L3890.6005, BPNTSNC, L100.0100, L506.0400 ####[facility] [address] [place], [place], [id number] Chlamydia/GC BETHANIE aptimaon GC BY NUC ACID Negative Normal Negative [facility] Comment on above: Result Comment: Perf ormed at: =G - [facility] [address] [id number] Neurosurgery Spine Physician: Lo Chamorro MD, Phone: [phone] Performed By: #### L 3890.6300, L400.2010, L7000.1800, L3890.6100, L509.8000, L509.4005, L501.9520, L3890.6005, BPNTSNC, L100.0100, L506.0400 ####[facility] [address] [place], [place], [id number] CHLAMY,NUC ACID Negative Normal Negative [facility] Comment on above: Performed By: #### L 3890.6300, L400.2010, L7000.1800, L3890.6100, L509.8000, L509.4005, L501.9520, L3890.6005, BPNTSNC, L100.0100, L506.0400 ####[facility] [address] [place], [place], [id number] HIV - WCHon 11-10-2020 HIV Non-Reactive Normal Nonreactive [facility] Comment on above: Performed By: #### L 3890.6300, L400.2010, L7000.1800, L3890.6100, L509.8000, L509.4005, L501.9520, L3890.6005, BPNTSNC, L100.0100, L506.0400 ####[facility] [address] [place], [place], [id number] Hepatitis B Surface Antigeno n 11-10-2020 HEP B Surf Ag Non-Reactive Normal Nonreactive [facility] Comment on above: Performed By: #### L 3890.6300, L4, L7000.1800, L3890.6100, L509.8000, L509.4005, L501.9520, L3890.6005, BPNTSNC, L100.0100, L506.0400 ####[facility] [address] [facility] [place], [place], [phone] Hepatitis C Antibodyon 11-10 Hepatitis C Ab Non-Reactive Normal Nonreactive [facility] Comment on above: Result Comment: Non Reactive: < 0.8 Equivocal: >/= 0.8 to < 1.0 Reactive: >/= 1.0 The CDC recommends that a reactive/equivocal HCV antibody result be followed up by the HCV Nucleic Acid Amplification test (203185) Performed By: #### L 3890.6300, L4, L7000.1800, L3890.6100, L509.8000, L509.4005, L501.9520, L3890.6005, BPNTSNC, L100.0100, L506.0400 ####[facility] [address] [place], [place], [id number] L509.8000on 11-10-2020 Syphilis Abs Non-Reactive Normal [facility] Comment on above: Performed By: #### L 3890.6300, L4, L7000.1800, L3890.6100, L509.8000, L509.4005, L501.9520, L3890.6005, BPNTSNC, L100.0100, L506.0400 ####[facility] [address] [place], [address] Rubella IgGon 11-10-2020 Rubella IgG Reactive Normal Nonreactive [facility] Comment on above: Result Comment: Anti body Results Interpretation of Immune Status Non Reactive Presumed Non-Immune Equivocal Equivocal Reactive Presumed Immune Performed By: #### L 3890.6300, L400.2010, L7000.1800, L3890.6100, L509.8000, L509.4005, L501.9520, L3890.6005, BPNTSNC, L100.0100, L506.0400 ####[facility] [address] [place], [address] CBC W/Diff, Automatedon - Absolute Lymph 1.27 X10 3/uL Normal 0.83-4.51 [facility] Comment on above: Performed By: #### L 3890.6300, L400.2010, L7000.1800, L3890.6100, L509.8000, L509.4005, L501.9520, L3890.6005, BPNTSNC, L100.0100, L506.0400 ####[facility] [address] [place], [address] Absolute Neut 5.0 X10 3/uL Normal 2.0-7.7 [facility] Comment on above: Performed By: #### L 3890.6300, L400.2010, L7000.1800, L3890.6100, L509.8000, L509.4005, L501.9520, L3890.6005, BPNTSNC, L100.0100, L506.0400 ####[facility] [address] [place], [address] Basophils/100 WBC (Bld) 0.1 % Normal 0-1 [facility] Comment on above: Performed By: #### L 3890.6300, L400.2010, L7000.1800, L3890.6100, L509.8000, L509.4005, L501.9520, L3890.6005, BPNTSNC, L100.0100, L506.0400 ####[facility] [address] [place], [address] Eosinophils/100 WBC (Bld) 0.7 % Normal 0-5 [facility] Comment on above: Performed By: #### L 3890.6300, L400.2010, L7000.1800, L3890.6100, L509.8000, L509.4005, L501.9520, L3890.6005, BPNTSNC, L100.0100, L506.0400 ####[facility] [address] [place], [address] Erythrocyte distribution width (RBC) [Ratio] 13.7 % Normal 11.6-14.6 [facility] Comment on above: Performed By: #### L 3890.6300, L4.2010, L7000.1800, L3890.6100, L509.8000, L509.4005, L501.9520, L3890.6005, BPNTSNC, L100.0100, L506.0400 ####[facility] [address] [place], [address] Hematocrit (Bld) [Volume fraction] 36.6 % Low 37-47 [facility] Comment on above: Performed By: #### L 3890.6300, L4.2010, L7000.1800, L3890.6100, L509.8000, L509.4005, L501.9520, L3890.6005, BPNTSNC, L100.0100, L506.0400 ####[facility] [address] [place], [address] Hemoglobin (Bld) [Mass/Vol] 12.4 g/dL Normal 12.0-15.0 [facility] Comment on above: Performed By: #### L 3890.6300, L400.2010, L7000.1800, L3890.6100, L509.8000, L509.4005, L501.9520, L3890.6005, BPNTSNC, L100.0100, L506.0400 ####[facility] [address] [place], [address] IG% 0.300 Normal 0.0-0.9 [facility] Comment on above: Result Comment: IG% - Immature Granulocytes (promyelocytes, myelocytes and metamyelocytes) > 1% indicates that a LEFT SHIFT is Present. Performed By: #### L 3890.6300, L4, L7000.1800, L3890.6100, L509.8000, L509.4005, L501.9520, L3890.6005, BPNTSNC, L100.0100, L506.0400 ####[facility] [address] [place], [address] Lymphocytes/100 WBC (Bld) 18.9 % Low 19-41 [facility] Comment on above: Performed By: #### L 3890.6300, L4, L7000.1800, L3890.6100, L509.8000, L509.4005, L501.9520, L3890.6005, BPNTSNC, L100.0100, L506.0400 ####[facility] [address] [place], [address] MCH (RBC) [Entitic mass] 28.9 pg Normal 27.0-32.0 [facility] Comment on above: Performed By: #### L 3890.6300, L4, L7000.1800, L3890.6100, L509.8000, L509.4005, L501.9520, L3890.6005, BPNTSNC, L100.0100, L506.0400 ####[facility] [address] [place], [address] MCHC (RBC) [Mass/Vol] 33.9 g/dL Normal 32-36 [facility] Comment on above: Performed By: #### L 3890.6300, L400.2010, L7000.1800, L3890.6100, L509.8000, L509.4005, L501.9520, L3890.6005, BPNTSNC, L100.0100, L506.0400 ####[facility] [address] [place], [address] MCV (RBC) [Entitic vol] 85.3 fL Normal 81-99 [facility] Comment on above: Performed By: #### L 3890.6300, L4, L7000.1800, L3890.6100, L509.8000, L509.4005, L501.9520, L3890.6005, BPNTSNC, L100.0100, L506.0400 ####[facility] [address] [place], [address] Monocytes/100 WBC (Bld) 5.1 % Normal 0-10 [facility] Comment on above: Performed By: #### L 3890.6300, L4, L7000.1800, L3890.6100, L509.8000, L509.4005, L501.9520, L3890.6005, BPNTSNC, L100.0100, L506.0400 ####[facility] [address] [place], [address] Neutrophils/100 WBC (Bld) 74.9 % High 47-70 [facility] Comment on above: Performed By: #### L 3890.6300, L4, L7000.1800, L3890.6100, L509.8000, L509.4005, L501.9520, L3890.6005, BPNTSNC, L100.0100, L506.0400 ####[facility] [address], [address] Nucleated RBC (Bld) [#/Vol] 0 10*3/uL Normal 0-5 [facility] Comment on above: Performed By: #### L 3890.6300, L4.2010, L7000.1800, L3890.6100, L509.8000, L509.4005, L501.9520, L3890.6005, BPNTSNC, L100.0100, L506.0400 ####[facility] [address] [place], [address] Platelet mean volume (Bld) [Entitic vol] 11.4 fL Normal 6.2-12.0 [facility] Comment on above: Performed By: #### L 3890.6300, L4, L7000.1800, L3890.6100, L509.8000, L509.4005, L501.9520, L3890.6005, BPNTSNC, L100.0100, L506.0400 ####[facility] [address], [address] Platelets (Bld) [#/Vol] 185 10*3/uL Normal 150-450 [facility] Comment on above: Performed By: #### L 3890.6300, L4, L7000.1800, L3890.6100, L509.8000, L509.4005, L501.9520, L3890.6005, BPNTSNC, L100.0100, L506.0400 ####[facility] [address] [place], [address] RBC (Bld) [#/Vol] 4.29 10*6/uL Normal 4.2-5.4 [facility] Comment on above: Performed By: #### L 3890.6300, L400.2010, L7000.1800, L3890.6100, L509.8000, L509.4005, L501.9520, L3890.6005, BPNTSNC, L100.0100, L506.0400 ####[facility] [address] [place], [address] RDW SD 42.3 fl Normal 35.1-43.9 [facility] Comment on above: Performed By: #### L 3890.6300, L400.2010, L7000.1800, L3890.6100, L509.8000, L509.4005, L501.9520, L3890.6005, BPNTSNC, L100.0100, L506.0400 ####[facility] [address] [place], [place], [id number]) WBC (Bld) [#/Vol] 6.7 10*3/uL Normal 4.4-11.0 [facility] Comment on above: Performed By: #### L 3890.6300, L4, L7000.1800, L3890.6100, L509.8000, L509.4005, L501.9520, L3890.6005, BPNTSNC, L100.0100, L506.0400 ####[facility] [address] [place], [address] T AND S-No Charge w /PNPon 11-07-2020 Ab SCREEN GEL Negative Normal [facility] Comment on above: Order Comment: PNN Performed By: #### L 3890.6300, L400, L7000.1800, L3890.6100, L509.8000, L509.4005, L501.9520, L3890.6005, BPNTSNC, L100.0100, L506.0400 ####[facility] [address] [place], [address] ABO and Rh group Nom (Bld) Blood group A Rh(D) positive Normal [facility] Comment on above: Order Comment: PNN Performed By: #### L 3890.6300, L4.2010, L7000.1800, L3890.6100, L509.8000, L509.4005, L501.9520, L3890.6005, BPNTSNC, L100.0100, L506.0400 ####[facility] [address] [place], [address] Thyroid Stim Hormone (TSH)on 11-07-2020 TSH Qn m[IU]/L Low 0.358-3.74 [facility] Comment on above: Performed By: #### L 3890.6300, , L7000.1800, L3890.6100, L509.8000, L509.4005, L501.9520, L3890.6005, BPNTSNC, L100.0100, L506.0400 ####[facility] [address] [place], [address] Urinalysis, Routine (Dipstic k)on 11-07-2020 BILIRUBIN URINE Negative Normal Negative [facility] Comment on above: Order Comment: Urine , Random Performed By: #### L 3890.6300, L4, L7000.1800, L3890.6100, L509.8000, L509.4005, L501.9520, L3890.6005, BPNTSNC, L100.0100, L506.0400 ####[facility] [address] [place], [address] Clarity (U) Clear Normal Clear [facility] Comment on above: Order Comment: Urine , Random Performed By: #### L 3890.6300, L4, L7000.1800, L3890.6100, L509.8000, L509.4005, L501.9520, L3890.6005, BPNTSNC, L100.0100, L506.0400 ####[facility] [address] [place], [address] Color (U) Yellow Normal Yellow [facility] Comment on above: Order Comment: Urine , Random Performed By: #### L 3890.6300, L400.2010, L7000.1800, L3890.6100, L509.8000, L509.4005, L501.9520, L3890.6005, BPNTSNC, L100.0100, L506.0400 ####[facility] [address] [place], [address] GLUCOSE, UR Normal Normal Normal [facility] Comment on above: Order Comment: Urine , Random Performed By: #### L 3890.6300, L4, L7000.1800, L3890.6100, L509.8000, L509.4005, L501.9520, L3890.6005, BPNTSNC, L100.0100, L506.0400 ####[facility] [address] [place], [address] KETONE UR Negative Normal Negative [facility] Comment on above: Order Comment: Urine , Random Performed By: #### L 3890.6300, L4.2010, L7000.1800, L3890.6100, L509.8000, L509.4005, L501.9520, L3890.6005, BPNTSNC, L100.0100, L506.0400 ####[facility] [address] [place], [address] LEUK ESTERASE Negative Normal Negative [facility] Comment on above: Order Comment: Urine , Random Performed By: #### L 3890.6300, L4.2010, L7000.1800, L3890.6100, L509.8000, L509.4005, L501.9520, L3890.6005, BPNTSNC, L100.0100, L506.0400 ####[facility] [address] [place], [address] Nitrite Ql (U) Negative Normal Negative [facility] Comment on above: Order Comment: Urine , Random Performed By: #### L 3890.6300, L400.2010, L7000.1800, L3890.6100, L509.8000, L509.4005, L501.9520, L3890.6005, BPNTSNC, L100.0100, L506.0400 ####[facility] [address] [place], [address] OCCULT BLOOD-UR Negative Normal Negative [facility] Comment on above: Order Comment: Urine , Random Performed By: #### L 3890.6300, L4.2010, L7000.1800, L3890.6100, L509.8000, L509.4005, L501.9520, L3890.6005, BPNTSNC, L100.0100, L506.0400 ####[facility] [address] [place], [address] pH UR 6.5 Normal 5.0 - 8.0 [facility] Comment on above: Order Comment: Urine , Random Performed By: #### L 3890.6300, L4.2010, L7000.1800, L3890.6100, L509.8000, L509.4005, L501.9520, L3890.6005, BPNTSNC, L100.0100, L506.0400 ####[facility] [address] [place], [address] PROT DIPSTX Negative Normal Negative [facility] Comment on above: Order Comment: Urine , Random Performed By: #### L 3890.6300, L4.2010, L7000.1800, L3890.6100, L509.8000, L509.4005, L501.9520, L3890.6005, BPNTSNC, L100.0100, L506.0400 ####[facility] [address] [place], [address] SP.GR. DIPSTX 1.010 Normal 1.002-1.030 [facility] Comment on above: Order Comment: Urine , Random Performed By: #### L 3890.6300, L400.2011, L7000.1800, L3890.6100, L509.8000, L509.4005, L501.9520, L3890.6005, BPNTSNC, L100.0100, L506.0400 ####[facility] [address] [place], [address] UROBILI Normal Normal Normal [facility] Comment on above: Order Comment: Urine , Random Performed By: #### L 3890.6300, L400.2010, L7000.1800, L3890.6100, L509.8000, L509.4005, L501.9520, L3890.6005, BPNTSNC, L100.0100, L506.0400 ####[facility] [address] [place], [place], [id number] Laboratory - Chemistry and C hemistry - challengeon 02-15-2013 Bilirubin Ql (U) Negative [facility] [employer], [employer]ara. Ketones Ql (U) Negative Normal [facility] Apiary.; [employer], Makara. pH (U) 5.5 [pH] Normal GCW.; [employer], Makara. Specific gravity (U) [Rel density] 1.020 Normal GCW.; [employer], Makara. Laboratory - Hematology and Cell countson 02-15-2013 Hemoglobin Ql (U) small Abnormal GCW.; [employer], Makara. Laboratory - Specimen inform ationon 02-15-2013 Appearance (U) clear Normal [facility] Apiary.; [employer], [place]ara. Color (U) yellow Normal GCW.; [employer], Makara. Laboratory - Urinalysison Glucose Test strip (U) [Mass/Vol] Negative Normal [facility].; [employer]. Leukocyte esterase Test strip Ql (U) Negative Normal [facility] [employer] [facility].; [employer], Makara. Nitrite Ql (U) Negative Normal [facility].; [employer], [place]ara. Protein Ql (U) Negative Normal [facility] [employer].; [employer]. No Panel Informationon 02-15 UA - UROBILINOGEN 0.2 mg/dL Normal [email or web address].; [employer]. Laboratory - Chemistry and C hemistry - challengeon 07-16-2010 Bilirubin Ql (U) Negative [facility] [employer], [employer]. Ketones Ql (U) Negative Normal [facility] [employer], [employer]. pH (U) 6.0 [pH] Normal 4.6 - 8.0 [employer]. Specific gravity (U) [Rel density] 1.005 Normal 1.001 - 1.025 [employer].; [employer]. Laboratory - Cytologyon 06-24 Microscopic observation Cyto stain Nom (Cvx) SEE NOTE Normal [employer].; [employer]. Laboratory - Hematology and Cell countson 07-16-2010 Hemoglobin Ql (U) trace, non-hemolyzed Abnormal [facility].; [employer]. Laboratory - Specimen inform ationon 07-16-2010 Appearance (U) clear [facility] [employer]. Color (U) yellow Normal [employer]. Laboratory - Urinalysison Glucose Test strip (U) [Mass/Vol] Negative Normal [employer] [facility] [employer].; [employer] Leukocyte esterase Test strip Ql (U) Negative Normal [facility].; [employer], [place]. Nitrite Ql (U) Negative Normal [facility] [employer] Protein Ql (U) Negative Normal [facility]; [facility] No Panel Informationon 07-16 UA - UROBILINOGEN 0.2 mg/dL Normal [facility]; [facility] Vital Signs Date Time Vital Sign Value Performing Clinician Facility 01-22-2025 10:26-0400 Body mass index (BMI) [Ratio] 32.34 kg/m2 Radha Javier APRN.CNM Work Phone: [facility] 01-22-2025 10:26-0400 Body weight 80.74 kg Radha Javier APRN.CNM Work Phone: [facility] 01-22-2025 10:26-0400 Diastolic blood pressure 64 mm[Hg] Radha Javier APRN.CNM Work Phone: [facility] 01-22-2025 10:26-0400 Systolic blood pressure 110 mm[Hg] Radha Javier APRN.CNM Work Phone: [facility] 01-01-2025 09:00-0400 Body mass index (BMI) [Ratio] 32.23 kg/m2 Ozzie Zhao MD Work Phone: [facility] 01-01-2025 09:00-0400 Body weight 80.47 kg Ozzie Zhao MD Work Phone: [facility] 01-01-2025 09:00-0400 Diastolic blood pressure 80 mm[Hg] Ozzie Zhao MD Work Phone: [facility] 01-01-2025 09:00-0400 Systolic blood pressure 120 mm[Hg] Ozzie Zhao MD Work Phone: [facility] 12-04-2024 09:49-0400 Body mass index (BMI) [Ratio] 31.43 kg/m2 Ozzie Zhao MD Work Phone: [facility] 12-04-2024 09:49-0400 Body weight 78.47 kg Ozzie Zhao MD Work Phone: [facility] 12-04-2024 09:49-0400 Diastolic blood pressure 68 mm[Hg] Ozzie Zhao MD Work Phone: [facility] 12-04-2024 09:49-0400 Systolic blood pressure 120 mm[Hg] Ozzie Zhao MD Work Phone: [facility] 11-06-2024 09:24-0400 Diastolic blood pressure 66 mm[Hg] Alexus Posada MD Work Phone: [facility] 11-06-2024 09:24-0400 Systolic blood pressure 104 mm[Hg] Alexus Posada MD Work Phone: [facility] 10-16-2024 09:34-0400 Body mass index (BMI) [Ratio] 30.89 kg/m2 Aziza Trujillo MD Work Phone: [facility] 10-16-2024 09:34-0400 Body weight 77.11 kg Aziza Trujillo MD Work Phone: [facility] 10-16-2024 09:34-0400 Diastolic blood pressure 70 mm[Hg] Aziza Trujillo MD Work Phone: [facility] 10-16-2024 09:34-0400 Systolic blood pressure 120 mm[Hg] Aziza Trujillo MD Work Phone: [facility] 09-21-2024 11:49-0400 Body mass index (BMI) [Ratio] 30.34 kg/m2 Aziza Trujillo MD Work Phone: [facility] 09-21-2024 11:49-0400 Body weight 75.75 kg Aziza Trujillo MD Work Phone: [facility] 09-21-2024 11:49-0400 Diastolic blood pressure 68 mm[Hg] Aziza Trujillo MD Work Phone: [facility] 09-21-2024 11:49-0400 Systolic blood pressure 114 mm[Hg] Aziza Trujillo MD Work Phone: [facility] 08-24-2024 11:10-0400 Body height 158 cm Beck Bishop APRN.CNP Work Phone: [facility] 08-24-2024 11:10-0400 Body mass index (BMI) [Ratio] 30.71 kg/m2 Beck Haury TRUCK REPAIR SUPERVISOR.OTC CLERK Work Phone: [facility] 08-24-2024 11:10-0400 Body weight 76.66 kg Beck Bishop TRUCK REPAIR SUPERVISOR.OTC CLERK Work Phone: [facility] 08-24-2024 11:10-0400 Diastolic blood pressure 64 mm[Hg] Beck Haury TRUCK REPAIR SUPERVISOR.OTC CLERK Work Phone: [facility] 08-24-2024 11:10-0400 Systolic blood pressure 118 mm[Hg] Beck Haury TRUCK REPAIR SUPERVISOR.OTC CLERK Work Phone: [facility] 06-21-2024 10:14-0500 Body mass index (BMI) [Ratio] 30.27 kg/m2 Stacey Ward MD Work Phone: [facility] 06-21-2024 10:14-0500 Body weight 75.57 kg Stacey Ward MD Work Phone: [facility] 06-21-2024 10:14-0500 Diastolic blood pressure 80 mm[Hg] Stacey Ward MD Work Phone: [facility] 06-21-2024 10:14-0500 Systolic blood pressure 116 mm[Hg] Stacey Ward MD Work Phone: [facility] 04-20-2024 13:03-0500 Body mass index (BMI) [Ratio] 30.53 kg/m2 Stacey Ward MD Work Phone: [facility] 04-20-2024 13:03-0500 Body weight 76.2 kg Stacey Ward MD Work Phone: [facility] 04-20-2024 13:03-0500 Diastolic blood pressure 68 mm[Hg] Stacey Ward MD Work Phone: [facility] 04-20-2024 13:03-0500 Heart rate 90 /min Stacey Ward MD Work Phone: [facility] 04-20-2024 13:03-0500 SaO2% (BldA) [Mass fraction] 99 % Stacey Ward MD Work Phone: [facility] 04-20-2024 13:03-0500 Systolic blood pressure 104 mm[Hg] Stacey Ward MD Work Phone: [facility] 04-17-2024 09:27-0500 Body mass index (BMI) [Ratio] 30.53 kg/m2 Yuliana Plotts TRUCK REPAIR SUPERVISOR.CNM Work Phone: [facility] 04-17-2024 09:27-0500 Body weight 76.2 kg Yuliana Plotts TRUCK REPAIR SUPERVISOR.CNM Work Phone: [facility] 04-17-2024 09:27-0500 Diastolic blood pressure 64 mm[Hg] Yuliana Plotts TRUCK REPAIR SUPERVISOR.CNM Work Phone: [facility] 04-17-2024 09:27-0500 Systolic blood pressure 110 mm[Hg] Yuliana Plotts TRUCK REPAIR SUPERVISOR.CNM Work Phone: [facility] 04-13-2024 13:44-0500 Body mass index (BMI) [Ratio] 30.53 kg/m2 Yuliana Plotdarci TRUCK REPAIR SUPERVISOR.CNM Work Phone: [facility] 04-13-2024 13:44-0500 Body weight 76.2 kg Yuliana Plotdarci TRUCK REPAIR SUPERVISOR.CNM Work Phone: [facility] 04-13-2024 13:44-0500 Diastolic blood pressure 68 mm[Hg] Yuliana Plotts TRUCK REPAIR SUPERVISOR.CNM Work Phone: [facility] 04-13-2024 13:44-0500 Systolic blood pressure 110 mm[Hg] Yuliana Plotts TRUCK REPAIR SUPERVISOR.CNM Work Phone: [facility] 04-03-2024 08:37-0500 Body height 158 cm Radha Javier APRN.CNM Work Phone: [facility] 04-03-2024 08:37-0500 Body mass index (BMI) [Ratio] 30.71 kg/m2 Radha Javier TRUCK REPAIR SUPERVISOR.CNM Work Phone: [facility] 04-03-2024 08:37-0500 Body weight 76.66 kg Radha Javier PJ.CNM Work Phone: [facility] 04-03-2024 08:37-0500 Diastolic blood pressure 70 mm[Hg] Radha Javier APRN.CNM Work Phone: [facility] 04-03-2024 08:37-0500 Systolic blood pressure 120 mm[Hg] Radha Yaya OLIVA.CNM Work Phone: [facility] 06-21-2022 09:52-0500 Body height 154.94 cm Saritha Larios RN [facility], [facility].; [facility] [facility] 06-21-2022 09:52-0500 Body mass index (BMI) [Ratio] 30.42 kg/m2 Saritha Larios RN [email or web address].; [employer] [facility]. 06-21-2022 09:52-0500 Body surface area Derived from formula 1.72 m2 Saritha Larios RN [facility].; [employer] [facility]. 06-21-2022 09:52-0500 Body temperature 98.6 [degF] Saritha Larios RN [employer] [facility].; [employer]. Comment on above: Method: Tympanic 06-21-2022 09:52-0500 Body weight 73.03 kg Saritha Larios RN [employer] [email or web address].; [employer]. 06-21-2022 09:52-0500 Diastolic blood pressure 65 mm[Hg] Saritha Larios RN [employer] [facility].; [employer]. Comment on above: Patient Position: Sitting; Cuff Location : Left Arm; Cuff Size: Standard 06-21-2022 09:52-0500 Heart rate 102 /min Saritha Larios RN [email or web address].; [employer]. Comment on above: Pattern: Regular 06-21-2022 09:52-0500 Inhaled oxygen concentration 20 % Saritha Larios RN [employer].; [employer]W. Comment on above: Room air 06-21-2022 09:52-0500 Inhaled oxygen concentration 21 % Saritha Larios RN [employer].; [employer]. Comment on above: Room air 06-21-2022 09:52-0500 SaO2% (BldA) [Mass fraction] 98 % Saritha Larios RN [employer].; [employer]. 06-21-2022 09:52-0500 Systolic blood pressure 99 mm[Hg] Saritha Larios RN [employer].; [employer]. Comment on above: Patient Position: Sitting; Cuff Location : Left Arm; Cuff Size: Standard 12-20-2016 09:54-0400 Body temperature 98.1 [degF] Neetu Walsh RN [employer].; [employer]. Comment on above: Method: Tympanic 12-20-2016 09:54-0400 Body weight 65.41 kg Neetu Walsh RN [employer].; [employer]. 12-20-2016 09:54-0400 Diastolic blood pressure 66 mm[Hg] Neetu Walsh RN [employer].; [employer]. Comment on above: Patient Position: Sitting; Cuff Location : Left Arm; Cuff Size: Standard 12-20-2016 09:54-0400 Heart rate 81 /min Neetu Walsh RN [employer].; [employer]. Comment on above: Pattern: Regular 12-20-2016 09:54-0400 Inhaled oxygen concentration 20 % Neetu Walsh RN [employer].; [employer]. Comment on above: Room air 12-20-2016 09:54-0400 Inhaled oxygen concentration 21 % Neetu Walsh RN [employer].; [employer]. Comment on above: Room air 12-20-2016 09:54-0400 SaO2% (BldA) [Mass fraction] 99 % Neetu Walsh RN [employer].; [employer]. 12-20-2016 09:54-0400 Systolic blood pressure 118 mm[Hg] Neetu Walsh RN [facility] [employer].; [employer]. Comment on above: Patient Position: Sitting; Cuff Location : Left Arm; Cuff Size: Standard 02-26-2014 17:45-0400 Body height 154.31 cm Alexus Murcia PA-C Work Phone: [employer].; [employer]. 02-26-2014 17:45-0400 Body mass index (BMI) [Ratio] 24.96 kg/m2 Alexus Murcia PA-C Work Phone: [employer].; [employer]. 02-26-2014 17:45-0400 Body surface area Derived from formula 1.57 m2 Alexus Murcia PA-C Work Phone: [employer].; [employer]. 02-26-2014 17:45-0400 Body temperature 97.1 [degF] Alexus Murcia PA-C Work Phone: [employer].; [employer]W. Comment on above: Method: Tympanic 02-26-2014 17:45-0400 Body weight 59.42 kg Alexus Murcia PA-C Work Phone: [employer].; [employer]. 02-26-2014 17:45-0400 Diastolic blood pressure 75 mm[Hg] Alexus Murcia PA-C Work Phone: [employer].; [employer]W. Comment on above: Patient Position: Sitting; Cuff Location : Left Arm; Cuff Size: Standard 02-26-2014 17:45-0400 Heart rate 77 /min Alexus Murcia PA-C Work Phone: [employer]; [employer]W. Comment on above: Pattern: Regular 02-26-2014 17:45-0400 Systolic blood pressure 111 mm[Hg] Alexus Murcia PA-C Work Phone: [facility].; [employer]. Comment on above: Patient Position: Sitting; Cuff Location : Left Arm; Cuff Size: Standard 02-15-2013 09:27-0400 Body height 154.31 cm Neetu Walsh RN [facility].; [employer]. 02-15-2013 09:27-0400 Body mass index (BMI) [Ratio] 24.73 kg/m2 Neetu Walsh RN [facility].; [employer]. 02-15-2013 09:27-0400 Body surface area Derived from formula 1.57 m2 Neetu Walsh RN [employer] [facility].; [employer]. 02-15-2013 09:27-0400 Body temperature 98.3 [degF] Neetu Walsh RN [employer].; [employer]. Comment on above: Method: Tympanic 02-15-2013 09:27-0400 Body weight 58.88 kg Neetu Walsh RN [employer] [facility].; [employer]. 02-15-2013 09:27-0400 Diastolic blood pressure 83 mm[Hg] Neetu Walsh RN [employer].; [employer]. Comment on above: Patient Position: Sitting; Cuff Location : Left Arm; Cuff Size: Standard 02-15-2013 09:27-0400 Heart rate 89 /min Neetu Walsh RN [employer] [facility].; [employer]. Comment on above: Pattern: Regular 02-15-2013 09:27-0400 Systolic blood pressure 117 mm[Hg] Neetu Walsh RN [employer].; [employer]. Comment on above: Patient Position: Sitting; Cuff Location : Left Arm; Cuff Size: Standard 11-17-2010 09:44-0400 Body temperature 96.6 [degF] Alexus Murcia PA-C Work Phone: [employer].; [employer]. 11-17-2010 09:44-0400 Body weight 53.07 kg Alexus Murcia PA-C Work Phone: [employer]; GCW. 11-17-2010 09:44-0400 Diastolic blood pressure 84 mm[Hg] Alexus Bean PA-C Work Phone: [employer] [facility] [employer]; [employer]. Comment on above: Patient Position: Sitting; Cuff Location : Left Arm; Cuff Size: Standard 11-17-2010 09:44-0400 Heart rate 92 /min Alexus Murcia PA-C Work Phone: [employer]; GCW. Comment on above: Pattern: Regular 11-17-2010 09:44-0400 Systolic blood pressure 124 mm[Hg] Alexus Murcia PA-C Work Phone: [employer]; [employer]W. Comment on above: Patient Position: Sitting; Cuff Location : Left Arm; Cuff Size: Standard 07-16-2010 14:00-0500 Body height 154.31 cm Neetu Walsh RN [employer] [facility].; [employer]. 07-16-2010 14:00-0500 Body mass index (BMI) [Ratio] 23.09 kg/m2 Neetu Walsh RN [employer] [email or web address].; [employer]. 07-16-2010 14:00-0500 Body surface area Derived from formula 1.52 m2 Neetu Walsh RN [employer] [email or web address].; [employer] [facility]. 07-16-2010 14:00-0500 Body temperature 97.5 [degF] Neetu Walsh RN [employer].; [employer]. Comment on above: Method: Tympanic 07-16-2010 14:00-0500 Body weight 54.98 kg Neetu Walsh RN [employer] [facility].; [employer]. 07-16-2010 14:00-0500 Diastolic blood pressure 70 mm[Hg] Neetu Walsh RN [employer].; [employer]. Comment on above: Patient Position: Sitting; Cuff Location : Left Arm; Cuff Size: Standard 07-16-2010 14:00-0500 Heart rate 85 /min Neetu Walsh RN [facility], [employer].; [facility], [facility]. Comment on above: Pattern: Regular 07-16-2010 14:00-0500 Systolic blood pressure 108 mm[Hg] Neetu Walsh RN [facility], [employer].; [facility], [facility]. Comment on above: Patient Position: Sitting; Cuff Location : Left Arm; Cuff Size: Standard Encounters Encounter Date Encounter Type Care Provider Facility Start: 04-02-2025 End: 04-02-2025 ambulatory ALEXUS POSADA Facility:[facility] Start: 03-26-2025 End: 03-26-2025 ambulatory OZZIE ZHAO Facility:[facility] Start: 03-19-2025 End: 03-19-2025 ambulatory AZIZA TRUJILLO Facility:[facility] Start: 03-15-2025 End: 03-15-2025 ambulatory STACEY WARD Facility:[facility] Start: 03-15-2025 End: 03-15-2025 ambulatory STACEY WARD Facility:[facility] Start: 03-14-2025 End: 03-14-2025 ambulatory OZZIE ZHAO Facility:[facility] Start: 02-25-2025 End: 02-25-2025 ambulatory AZIZA TRUJILLO Facility:[facility] Start: 02-08-2025 End: 02-08-2025 ambulatory RADHA JAVIER Facility:[facility] Start: 02-08-2025 End: 02-08-2025 ambulatory OZZIE ZHAO Facility:[facility] Start: 01-22-2025 End: 01-22-2025 Patient encounter procedure Radha Javier APRN.CNM Work Phone: OB/Gynecology Comment on above: Supervision of high risk in third trimester (HCC) (Primary Dx); 30 weeks gestation of (HCC); Anemia complicating , third trimester (HCC); AMA (advanced maternal age) multigravida 35+, second trimester (HCC); History of ; Circumvallate placenta, second trimester (HCC); Uterine size-date discrepancy, third trimester (HCC) Start: 01-22-2025 End: 01-22-2025 ambulatory RADHA JAVIER Facility:[facility] Start: 01-01-2025 End: 01-01-2025 Patient encounter procedure Ozzie Zhao MD Work Phone: OB/Gynecology Comment on above: 27 weeks gestation o f (HCC) (Primary Dx); History of vaginal after ; AMA (advanced maternal age) multigravida 35+, second trimester (HCC) Start: 01-01-2025 End: 01-01-2025 ambulatory ALEXUS POSADA Facility:[facility] Start: 12-24-2024 End: 12-24-2024 ambulatory [facility] Start: 12-24-2024 End: 12-24-2024 Orders Alexsu Murcia PA-C Work Phone: [facility] Start: 12-04-2024 End: 12-04-2024 Patient encounter procedure Ozzie Zhao MD Work Phone: OB/Gynecology Comment on above: History of section (Primary Dx); Supervision of high risk in second trimester (HCC); History of ; 23 weeks gestation of (HCC); Screening for diabetes mellitus Start: 12-04-2024 End: 12-04-2024 ambulatory OZZIE ZHAO Facility:[facility] Start: 11-06-2024 End: 11-06-2024 ambulatory ALEXUS POSADA Facility:[facility] Start: 11-06-2024 End: 11-06-2024 Patient encounter procedure Whi Tech 1 Laser [employer] [facility] Comment on above: Multigravida of adva nced maternal age in first trimester (HCC) (Primary Dx); with uncertain dates in first trimester (HCC) History of section (Primary Dx); Supervision of high risk in second trimester (HCC); AMA (advanced maternal age) multigravida 35+, second trimester (HCC); Circumvallate placenta, second trimester (HCC) Start: 10-16-2024 End: 10-16-2024 Office outpatient visit 15 minutes Aziza Trujillo MD Work Phone: OB/Gynecology Comment on above: Supervision of high risk in second trimester (HCC) (Primary Dx); History of ; History of section; Multigravida of advanced maternal age in second trimester (HCC); 16 weeks gestation of (HCC) Start: 10-16-2024 End: 10-16-2024 ambulatory AZIZA TRUJILLO Facility:[facility] Start: 09-21-2024 End: 09-21-2024 Office outpatient visit 15 minutes Aziza Trujillo MD Work Phone: OB/Gynecology Comment on above: Encounter for superv ision of high risk in first trimester, antepartum (HCC) (Primary Dx); Multigravida of advanced maternal age in first trimester (HCC); History of ; History of section; 12 weeks gestation of (HCC) Start: 09-21-2024 End: 09-21-2024 Patient encounter procedure Whi Tech 1 Laser Operator [facility] Comment on above: Encounter for antena collin screening for malformation using ultrasound (HCC) (Primary Dx); 12 weeks gestation of (HCC); Encounter for (NT) nuchal translucency scan ([facility]) Start: 09-21-2024 End: 09-21-2024 ambulatory BECK BISHOP Facility:[facility] Start: 08-27-2024 End: 10-27-2024 Follow-up encounter Beck Bishop APRN.CNP Work Phone: OB/Gynecology Start: 08-24-2024 End: 08-24-2024 ambulatory STACEY WARD Facility:[facility] Start: 08-24-2024 End: 08-24-2024 Patient encounter procedure Beck Bishop APRN.CNP Work Phone: OB/Gynecology Comment on above: Encounter for superv ision of high risk in first trimester, antepartum (HCC) (Primary Dx); 8 weeks gestation of (HCC); with uncertain dates in first trimester (HCC); Screen for STD (sexually transmitted disease); History of miscarriage; Multigravida of advanced maternal age in first trimester (HCC); History of section; History of ; Subchorionic hematoma in first trimester, single or unspecified fetus (HCC) Start: 08-08-2024 End: 08-08-2024 Emergency department patient visit DAPHNE JR ABRAM [facility] Start: 06-21-2024 End: 06-21-2024 ambulatory STACEY WARD Facility:[facility] Start: 06-21-2024 End: 06-21-2024 Patient encounter procedure Stacey Ward MD Work Phone: OB/Gynecology Comment on above: History of miscarria ge (Primary Dx); Follow-up exam Start: 06-14-2024 End: 06-14-2024 ambulatory STACEY BETTINA [facility] Start: 04-26-2024 End: 06-01-2024 Telephone encounter Stacey Ward MD Work Phone: OB/Gynecology Comment on above: Results Start: 04-20-2024 End: 04-20-2024 ambulatory STACEYMasoud ROSADOLINO Facility:[facility] Start: 04-20-2024 End: 04-20-2024 Patient encounter procedure Stacey Ward MD Work Phone: OB/Gynecology Comment on above: Incomplete spontaneo us without complication (Primary Dx) Start: 04-17-2024 End: 04-17-2024 Telephone encounter Yuliana Stockton APRN.CNM Work Phone: OB/Gynecology Comment on above: Appointment Start: 04-17-2024 End: 04-17-2024 ambulatory YULIANA STOCKTON Facility:[facility] Start: 04-17-2024 End: 04-17-2024 Patient encounter procedure Yuliana Stockton APRN.CNDash Work Phone: OB/Gynecology Comment on above: Incomplete spontaneo us without complication (Primary Dx); Retained products of conception after miscarriage Incomplete spontaneo us without complication Start: 04-13-2024 End: 04-16-2024 Telephone encounter Alexus Posada APRN.CNDash Work Phone: OB/Gynecology Start: 04-13-2024 End: 04-13-2024 ambulatory Laser Operator [employer] Work Phone: OB/Gynecology Start: 04-13-2024 End: 04-13-2024 Patient encounter procedure Yuliana Stockton APRN.CNDash Work Phone: OB/Gynecology Comment on above: Incomplete spontaneo us without complication (Primary Dx) Start: 04-12-2024 End: 04-12-2024 ambulatory YULIANA YOUSIF [facility] Start: 04-05-2024 End: 04-05-2024 ambulatory RADHA JAVIER Facility:[facility] Start: 04-05-2024 End: 04-06-2024 Telephone encounter Radha Javier APRN.CNM Work Phone: OB/Gynecology Comment on above: Results Start: 04-03-2024 End: 04-03-2024 Patient encounter procedure Radha Javier APRN.CNM Work Phone: OB/Gynecology Comment on above: 11 weeks gestation o f (Primary Dx); Threatened ; Screening for cervical cancer; Special screening examination for human papillomavirus (HPV) Start: 03-02-2024 End: 03-02-2024 ambulatory [facility] Start: 02-20-2024 End: 02-20-2024 ambulatory [facility] Start: 02-17-2024 End: 02-17-2024 ambulatory [facility] Start: 12-29-2022 End: 06-28-2023 Orders Alexus Murcia PA-C Work Phone: [employer]. Start: 12-29-2022 Review Alexus Murcia P A-C Work Phone: [facility]. Start: 11-11-2022 End: 11-11-2022 Medication Alexus Murcia PA-C Work Phone: [employer]. Start: 06-21-2022 End: 06-21-2022 Office outpatient new 30 minutes Alexus Murcia PA-C Work Phone: [employer] Start: 11-26-2019 End: 11-26-2019 Medication Alexus Murcia PA-C Work Phone: [employer]. Start: 12-20-2016 End: 12-20-2016 Patient encounter procedure Alexus Murcia PA-C Work Phone: [employer] Start: 02-26-2014 End: 02-28-2014 Patient encounter procedure Alexus Murcia PA-C Work Phone: [employer] Start: 03-19-2013 End: 03-19-2013 Medication Alexus Murcia PA-C Work Phone: [employer] Start: 02-15-2013 End: 02-15-2013 Patient encounter procedure Alexus Murcia PA-C Work Phone: [employer]. Start: 03-17-2012 End: 03-17-2012 Medication Alexus Murcia PA-C Work Phone: [employer] Start: 03-01-2012 End: 03-01-2012 Nursing evaluation of patient and report Alexus Murcia PA-C Work Phone: [employer] Start: 11-17-2010 End: 11-17-2010 Patient encounter procedure Alexus Murcia PA-C Work Phone: [employer] Start: 07-16-2010 End: 07-16-2010 Patient encounter procedure Alexus Murcia PA-C Work Phone: [employer] Start: 07-13-2010 End: 07-13-2010 Historical Summary Alexus Murcia PA-C Work Phone: GCW. Start: 06-11-2010 End: 06-11-2010 Medication Alexus Murcia PA-C Work Phone: [employer] Procedures Date Procedure Procedure Detail Performing Clinician Start: 11-06-2024 Us preg uterus after 1st trimest / gestation Beck Bishop APRN.OTC CLERK Work Phone: Start: 09-21-2024 Us preg uterus after 1st trimest / gestation Beck Bishop APRN.OTC CLERK Work Phone: Start: 08-24-2024 H/O: section History of section Beck Vegaswati TRUCK REPAIR SUPERVISOR.OTC CLERK Work Phone: Start: 08-24-2024 Antibody screen OZZIE ZHAO Comment on above: Order Comment: Speci men Type: BLOOD SPECIMENOrdering Facility: [facility] Address: [address] [place] [address] Performed By: #### T SPN ####CC MAIN BLOOD BANKCLIA [id number] [facility] [id number] [place] [address] [place] Start: 08-24-2024 Us uterus l imited 1/> fetuses Beck Vegaswati TRUCK REPAIR SUPERVISOR.OTC CLERK Work Phone: Start: 08-08-2024 Urinalysis YULIANA ROJAS Comment on above: Result Comment: URIN ALYSIS Performed By: #### 2 [id number] #### [facility],[address] [place] [address] Start: 04-17-2024 Us preg uterus after 1st trimest 1/ gestation Yuliana Stockton TRUCK REPAIR SUPERVISOR.CNM Work Phone: Start: 04-13-2024 Us pelvic nonobstetr ic real-time image complete Radha Javier TRUCK REPAIR SUPERVISOR.CNM Work Phone: Start: 04-03-2024 Us uterus l imited 1/> fetuses Radha Yaya TRUCK REPAIR SUPERVISOR.CNM Work Phone: Start: 03-15-2012 End: 03-15-2012 Microscopic examination of cervical Papanicolaou smear Neetu Walsh RN Comment on above: Normal. Appendectomy Saritha wade RN Comment on above: 2002 H/O: section History of section Aziza Trujillo MD Work Phone: H/O: section History of section Aziza Trujillo MD Work Phone: H/O: section History of section Alexus Posada MD Work Phone: H/O: section History of section Ozzie Zhao MD Work Phone: Plan of Treatment Date Care Activity Detail Author Start: 04-03-2025 Screening for malign ant neoplasm of cervix Cervical Cancer Screening [facility] Start: 02-05-2025 RSV Vaccine (1 - Ris k 1-dose series) RSV Vaccine (1 - Risk 1-dose series) [facility] Start: 02-04-2025 End: 02-04-2025 Patient encounter procedure Maternal Medicine Comment on above: Growth Growth/OB Start: 01-22-2025 End: 01-22-2025 Patient encounter procedure 01/22/2025 10:30 AM EDT Routine Office Visit OB/Gynecology [address] [place] [address] Radha Javier APRN.CN [address] [place] [address] OB OB/Gynecology Comment on above: OB Start: 01-21-2025 Influenza vaccination [facility] Start: 01-01-2025 End: 01-01-2026 OBSTETRIC ULTRASOUND WHI OBSTETRIC ULTRASOUND [facility]I Anc Imaging Routine History of vaginal after AMA (advanced maternal age) multigravida 35+, second trimester (HCC) Expected: 01/01/2025, Expires: 01/01/2026 [facility] Work Phone: Comment on above: Expected: 01/01/2025 , Expires: 01/01/2026 Start: 01-01-2025 End: 01-01-2025 Patient encounter procedure 01/01/2025 9:00 AM EDT Routine Office Visit OB/Gynecology [address] [place] [address] Ozzie Zhao MD [address] [place] [address] Glucose/OB OB/Gynecology Comment on above: Glucose/OB Start: 01-01-2025 End: 01-01-2025 ambulatory 01/01/2025 8:45 AM EDT Results Only [facility] [address] [place] [address] Glucose/ lab [facility] Comment on above: Glucose/ lab Start: 12-24-2024 Antibody borrelia burgdorferi lyme disease Lyme Titer/EIA, reflex IgM and IgG ([id number]) Start: 24-Dec-2024 09:09-04:00 Request [facility]. Start: 12-04-2024 End: 03-05-2025 ANEMIA REFLEX PANEL ANEMIA REFLEX PANEL Lab Routine Supervision of high risk in second trimester (HCC) 23 weeks gestation of (HCC) Expected: 12/04/2024, Expires: 03/05/2025 [facility] Comment on above: Expected: 12/04/2024 , Expires: 03/05/2025 Start: 12-04-2024 End: 12-04-2025 GESTATIONAL GLUCOSE SCREEN, 1-HOUR, 50 GRAM, NON-FASTING GESTATIONAL GLUCOSE SCREEN, 1-HOUR, 50 GRAM, NON-FASTING Lab Routine Supervision of high risk in second trimester (HCC) 23 weeks gestation of (HCC) Screening for diabetes mellitus Expected: 12/04/2024, Expires: 12/04/2025 [facility] Work Phone: Comment on above: Expected: 12/04/2024 , Expires: 12/04/2025 Start: 12-04-2024 End: 12-04-2025 SYPHILIS TREPONEMAL W/REFLEX SYPHILIS TREPONEMAL W/REFLEX Lab Routine Supervision of high risk in second trimester (HCC) 23 weeks gestation of (HCC) Expected: 12/04/2024, Expires: 12/04/2025 [facility] Comment on above: Expected: 12/04/2024 , Expires: 12/04/2025 Start: 12-04-2024 End: 12-04-2024 Patient encounter procedure 12/04/2024 9:40 AM EDT Routine Office Visit OB/Gynecology [address] [place] [address] Ozzie Zhao MD [address] [place] [place] [place] [address] OB OB/Gynecology Comment on above: OB Start: 11-06-2024 End: 11-06-2024 Patient encounter procedure Maternal Medicine Comment on above: anatomy OB OB (Anatomy scan @8a m) Start: 10-16-2024 End: 10-16-2024 Patient encounter procedure 10/16/2024 9:40 AM EDT Routine Office Visit OB/Gynecology [address] [place] [address] Aziza Trujillo MD [address] [place] [address] OB OB/Gynecology Comment on above: OB Start: 09-21-2024 End: 09-21-2024 Patient encounter procedure Maternal Medicine Comment on above: nuchal 1st ob appt Start: 08-24-2024 End: 11-23-[address] [facility] Work Phone: Comment on above: Expected: 08/24/2024 , Expires: 11/23/2024 Start: 08-24-2024 End: 11-23-2024 Hemoglobin A1c in Blood [facility] Comment on above: Expected: 08/24/2024 , Expires: 11/23/2024 Start: 08-24-2024 End: 11-23-2024 Hepatitis B virus surface Ag [Presence] in Serum [facility] Comment on above: Expected: 08/24/2024 , Expires: 11/23/2024 Start: 08-24-2024 End: 11-23-2024 Hepatitis C virus Ab [Presence] in Serum [facility] Comment on above: Expected: 08/24/2024 , Expires: 11/23/2024 Start: 08-24-2024 End: 11-23-2024 HIV 1+2 Ab [Presence] in Serum or Plasma by Immunoassay [facility] Comment on above: Expected: 08/24/2024 , Expires: 11/23/2024 Start: 08-24-2024 End: 08-24-2025 OBSTETRIC ULTRASOUND WHI OBSTETRIC ULTRASOUND WHI Anc Imaging Routine with uncertain dates in first trimester (HCC) Expected: 08/24/2024, Expires: 08/24/2025 [facility] Comment on above: Expected: 08/24/2024 , Expires: 08/24/2025 Start: 08-24-2024 End: 11-23-2024 RUBELLA IGG ANTIBODY [facility] Comment on above: Expected: 08/24/2024 , Expires: 11/23/2024 Start: 08-24-2024 End: 11-23-2024 SYPHILIS TREPONEMAL W/REFLEX [facility] Comment on above: Expected: 08/24/2024 , Expires: 11/23/2024 Start: 08-24-2024 End: 11-23-2024 TYPE + SCREEN [facility] Comment on above: Expected: 08/24/2024 , Expires: 11/23/2024 Start: 06-21-2024 End: 06-21-2024 Patient encounter procedure 06/21/2024 10:20 AM EST Office Visit OB/Gynecology [address] [place] [address] Stacey Ward MD [address] [place] [address] Follow-up OB/Gynecology Comment on above: Follow-up Start: 06-01-2024 End: 08-31-2024 Choriogonadotropin.beta subunit [Units/volume] in Serum or Plasma HCG QUANTITATIVE Lab Routine History of miscarriage Expected: 06/01/2024, Expires: 08/31/2024 [facility] Work Phone: Comment on above: Expected: 06/01/2024 , Expires: 08/31/2024 Start: 05-10-2024 End: 05-10-2024 Patient encounter procedure 05/10/2024 1:20 PM EST Routine Office Visit OB/Gynecology [address] [place] [address] Stacey Ward MD [address] [place] [address] ob lmp 01/15 OB/Gynecology Comment on above: ob lmp 01/15 Start: 04-30-2024 End: 04-30-2024 Patient encounter procedure 04/30/2024 2:00 PM EST Office Visit OB/Gynecology [address] [place] [address] Stacey Ward MD [address] [place] [address] f/u IPAS OB/Gynecology Comment on above: f/u IPAS Start: 04-20-2024 End: 04-20-2024 Patient encounter procedure 04/20/2024 2:00 PM EST Office Visit OB/Gynecology [address] [place] [address] Stacey Ward MD [address] [place] [address] IPAS OB/Gynecology Comment on above: IPAS Start: 04-17-2024 End: 04-17-2024 Patient encounter procedure OB/Gynecology Comment on above: okay per nurse briana OB Start: 04-13-2024 End: 07-13-2024 CBC panel - Blood by Automated count COMPLETE BLOOD COUNT Lab Routine Incomplete spontaneous without complication Expected: 04/13/2024, Expires: 07/13/2024 [facility] Comment on above: Expected: 04/13/2024 , Expires: 07/13/2024 Start: 04-13-2024 End: 07-13-2024 Choriogonadotropin.beta subunit [Units/volume] in Serum or Plasma HCG QUANTITATIVE Lab Routine Incomplete spontaneous without complication Expected: 04/13/2024, Expires: 07/13/2024 [facility] Work Phone: Comment on above: Expected: 04/13/2024 , Expires: 07/13/2024 Start: 04-13-2024 End: 04-13-2025 OBSTETRIC ULTRASOUND WHI OBSTETRIC ULTRASOUND WHI Anc Imaging Routine Incomplete spontaneous without complication Expected: 04/13/2024, Expires: 04/13/2025 [facility] Comment on above: Expected: 04/13/2024 , Expires: 04/13/2025 Start: 04-13-2024 End: 04-13-2024 Patient encounter procedure 04/13/2024 2:00 PM EST Routine Office Visit OB/Gynecology [address] [place] [address] Yuliana Stockton APRN.CNM [address] [place] [address] US follow up OB/Gynecology Comment on above: US follow up Start: 04-13-2024 End: 04-13-2024 ambulatory 04/13/2024 1:00 PM EST Procedure OB/Gynecology [address] [place] [address] Remote, Laser [employer] [facility] [address] [place] [address] 11 weeks gestation of [Z3A.11]; Threatened [O20.0] OB/Gynecology Comment on above: 11 weeks gestation o f [Z3A.11]; Threatened [O20.0] Start: 04-03-2024 End: 07-03-2024 TYPE + SCREEN [facility] Work Phone: Comment on above: Expected: 04/03/2024 , Expires: 07/03/2024 Start: 04-03-2024 End: 04-03-2025 US Pelvis PELVIC US [facility]I Anc Imaging Routine 11 weeks gestation of Threatened Expected: 04/03/2024, Expires: 04/03/2025 [facility] Comment on above: Expected: 04/03/2024 , Expires: 04/03/2025 Start: 01-22-2024 Covid-19 Vaccine ( season) Covid-19 Vaccine ( season) [facility] Start: 01-22-2024 Influenza vaccination Influenza Vacc ine (#1) [facility] Start: 02-13-2016 HPV Vaccine (1 - 3-d ose SCDM series) HPV Vaccine (1 - 3-dose SCDM series) [facility] Start: 2010 Screening for malign ant neoplasm of cervix Cervical Cancer Screening [facility] Start: 02-13-2008 Hepatitis B Vaccine (1 of 3 - 19+ 3-dose series) Hepatitis B Vaccine (1 of 3 - 19+ 3-dose series) [facility] Start: 02-13-2008 Urine microalbumin profile DTaP,Tdap,Td Vaccine (1 - Tdap) [facility] Start: 2007 Anxiety Screening Anxiety Screening [facility] Start: 2007 Depression Screening Depression Scre marychuying [facility] Start: 2007 Hepatitis C screening Hepatitis C Sc alysia [facility] Start: 2007 HIV screening HIV Screening [facility] Bacteria identified in Urine by Culture URINE CULTURE Microbiology Routine 11 weeks gestation of 04/03/2024 9:28 AM [facility] Bacteria identified in Urine by Culture BACTERIAL CULTURE, URINE Microbiology Routine with uncertain dates in first trimester (HCC) 08/24/2024 11:49 AM [facility] Chlamydia trachomatis+Neisseria gonorrhoeae DNA [Presence] in Unspecified specimen by BETHANIE with probe detection GONORRHEA/CHLAMYDIA NAAT Lab Routine 11 weeks gestation of 04/03/2024 9:28 AM [facility] Chlamydia trachomatis+Neisseria gonorrhoeae DNA [Presence] in Unspecified specimen by BETHANIE with probe detection GONORRHEA/CHLAMYDIA NAAT Lab Routine with uncertain dates in first trimester ([facility]) Screen for STD (sexually transmitted disease) 08/24/2024 11:49 AM [facility] End: 04-25-2024 Choriogonadotropin.beta subunit [Units/volume] in Serum or Plasma HCG QUANTITATIVE Lab Routine 11 weeks gestation of Threatened 2x per week for 2 Occurrences starting 04/03/2024 until 04/25/2024 [facility] Comment on above: 2x per week for 2 Oc currences starting 04/03/2024 until 04/25/2024 Choriogonadotropin.b eta subunit [Units/volume] in Serum or Plasma HCG QUANTITATIVE Lab Routine 11 weeks gestation of Threatened 04/03/2024 9:46 AM [facility] PAP TEST PAP TEST Lab Rou italo 11 weeks gestation of Screening for cervical cancer Special screening examination for human papillomavirus (HPV) 04/03/2024 9:44 AM [facility] SURGICAL PATHOLOGY SURGICAL PATH OLOGY Lab Routine 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 Work Phone: Comment on above: Ordered: 04/17/2024 WHI (OFFICE IPAS) WHI (OFFICE IP ) Procedures Routine , missed Ordered: 04/17/2024 [facility] Work Phone: Comment on above: Ordered: 04/17/2024 WHI (OFFICE IPAS) WHI (OFFICE IP ) Procedures Routine Incomplete spontaneous without complication Ordered: 04/20/2024 [facility] Work Phone: Comment on above: Ordered: 04/20/2024 Immunizations Immunization Date Immunization Notes Care Provider Elza riojas 03-01-2012 influenza, seasonal, injectable Alexus Murcia PA-C Work Phone: [facility]; [email or web address] Comment on above: Site: Deltoid Area ( Left)VIS Given: * Inactivated Influenza Vaccine (12/31/08) * Inactivated Influenza Vaccine (12/15/10) * Influenza vaccine [id number], inactivated (11/22/2011) * VIS Given (Unspecified) 03-01-2012 influenza virus vaccine, unspecified formulation Radha Javier APRN.CNM Work Phone: [facility] 08-09-2006 tetanus toxoid, redu lili diphtheria toxoid, and acellular pertussis vaccine, adsorbed Alexus Murcia PA-C Work Phone: [email or web address]; [facility] Social History Date Type Detail Facility Start: 04-03-2024 End: 01-01-2025 Alcohol Use Alcohol Use [email or web address]; [facility] Current Work/Study Status: Current Work/Study Status: ; Full-time. [facility] Tobacco Use: Tobacco Use: ; N ever smoker. [facility]; [facility] Start: 1989 [email or web address] Work Phone: Full-time [facility]; [facility] Work Phone: Start: 03-30-2024 Never smoked tobacco [facility] Work Phone: Start: 03-30-2024 Tobacco use and exposure Smokeless tobacco non-user [facility] Start: 04-03-2024 End: 01-01-2025 Alcoholic beverage intake Ex-drinker (finding) [facility] Start: 04-03-2024 End: 01-01-2025 Tobacco use panel [facility] Start: 03-30-2024 Education 13 [facility] Start: 01-30-2024 [facility] Start: 03-30-2024 Gender identity Identifies as female gender (finding) [facility] Start: 03-30-2024 Sexual orientation Heterosexual (fin ding) [facility] Start: 07-02-2023 National Score (1-10 0), lower number is lower risk 41 [facility] Goals Date Patient Goal Desired Activity /State Personal health goal Clinical Notes 03-30-2024 to 04-02-2025 Quick Notes - Radha Javier APRN.[facility] - 01/22/2025 12:23 PM EDTPrenatal Quick Notes - Radha Javier APRN.[facility] - 01/22/2025 12:23 PM EDTPatient InstructionsPatient Instructions Note Date & Type Note Facility 04-02-2025 Note HNO ID: [id number] Author: ALEXUS POSADA MD Service: ? Author Type: Physician Type: Progress Notes Filed: 04/02/2025 11:50 Note Text: NST SUMMARY PROVIDER ASSESSMENT AND INTERPRETATION Anup Nielsen is a 35 year old female, , who is at 40w0d with an HORACIO of 04/02/2025, by Last Menstrual Period dating method. Indications for NST: AMA Baseline: 140 Variability: Moderate Accelerations: Present 15 X 15 Decelerations: None Contractions: TOCO: no regular ctxs Interpretation: Reactive SIGNATURE: Alexus Posada MD [facility] 02-08-2025 Note HNO ID: [id number] Author: RADHA JAVIER APRN.CNM Service: ? Author Type: Funder Type: Progress Notes Filed: 02/11/2025 17:51 Note Text: [facility] 01-22-2025 Progress note Formatting of t his note might be different from the original. CHUY-S: Anup Nielsen is a 34 year old female who presents at 30w0d with HORACIO:04/02/2025, by Last Menstrual Period for a routine visit. Denies headache, visual changes, chest pain, shortness of breath, vaginal bleeding, leakage of fluid, or dysuria. Feeling well, no complaints. Difficulty with iron supplement causing diarrhea O: See flow sheet Gen: No apparent distress Abd: Gravid, nontender ASSESSMENT/PLAN: 1. Supervision of high risk in third trimester -Continue PNV -Continue ASA 2. 30 weeks gestation of 3. Anemia complicating , third trimester -Continue iron supplement -Repeat CBC next visit -Reviewed option for Flroadix 4. AMA (advanced maternal age) multigravida 35+, second trimester -Will be 35 at delivery 5. History of -Planning repeat 6. Circumvallate placenta, second trimester 7.Uterine size-date discrepancy, third trimester -Growth US at 32 week PTL precautions reviewed and when to call RTO in 2 weeks Radha Javier APRN.CNM [facility] 01-22-2025 Miscellaneous Notes Formattin g of this note might be different from the original. CHUY-S: Anup Nielsen is a 34 year old female who presents at 30w0d with HORACIO:04/02/2025, by Last Menstrual Period for a routine visit. Denies headache, visual changes, chest pain, shortness of breath, vaginal bleeding, leakage of fluid, or dysuria. Feeling well, no complaints. Difficulty with iron supplement causing diarrhea O: See flow sheet Gen: No apparent distress Abd: Gravid, nontender ASSESSMENT/PLAN: 1. Supervision of high risk in third trimester -Continue PNV -Continue ASA 2. 30 weeks gestation of 3. Anemia complicating , third trimester -Continue iron supplement -Repeat CBC next visit -Reviewed option for Flroadix 4. AMA (advanced maternal age) multigravida 35+, second trimester -Will be 35 at delivery 5. History of -Planning repeat 6. Circumvallate placenta, second trimester 7.Uterine size-date discrepancy, third trimester -Growth US at 32 week PTL precautions reviewed and when to call RTO in 2 weeks Radha Javier APRN.CNM documented in this encounter [facility] 01-22-2025 Instructions Radha Javier APRN.CNM - 01/22/2025 10:23 AM EDT [facility] SIGNS AND SYMPTOMS OF LABOR 1. Contractions every 10 minutes or more often 2. Clear, pink, or brownish fluid (water) leaking from vagina 3. Feeling that baby is pushing down, pressure 4. Low, dull backache 5. Cramps that feel like a period 6. Cramps with or without diarrhea If you notice any of the above symptoms, contact our office at [phone] and ask to speak with a nurse. After hours, you can call doctors registry at [phone] OR call [facility] at [phone] and ask to have the doctor long wall shear operator paged. If you consider this an emergency, dial 9-1-1 or go to your nearest emergency department. NEED HELP? Are you dealing with a violent or abusive relationship? Are you a victim of rape or sexual assult? Call [facility] ([place]) 24 hour Crisis Hotline: 206.921.3916 or 668-734-9694. MANUAL Your Guide to a Healthy manual is now on-line. Visit [email or web address] [email or web address] to download your free copy documented in this encounter [facility] 01-01-2025 Progress note Formatting of t his note might be different from the original. KJ - S: Anup denies LOF, contractions or vaginal bleeding. O: 27w0d, see flow sheet SENSITIVE EXAM: Sensitive exam not performed. A/P: Assessment & Plan 27 weeks gestation of (HCC) 28wk labs today Declines LARC History of vaginal after Plans TOLAC at [facility] for h/o 2 c/s Orders: OBSTETRIC ULTRASOUND WHI; Future AMA (advanced maternal age) multigravida 35+, second trimester (HCC) Orders: OBSTETRIC ULTRASOUND WHI; Future Reviewed PTL & FM precautions Ozzie Zhao MD [facility] 01-01-2025 Miscellaneous Notes Formattin g of this note might be different from the original. KJ - S: Anup denies LOF, contractions or vaginal bleeding. O: 27w0d, see flow sheet SENSITIVE EXAM: Sensitive exam not performed. A/P: Assessment & Plan 27 weeks gestation of (HCC) 28wk labs today Declines LARC History of vaginal after Plans TOLAC at [facility] for h/o 2 c/s Orders: OBSTETRIC ULTRASOUND WHI; Future AMA (advanced maternal age) multigravida 35+, second trimester (HCC) Orders: OBSTETRIC ULTRASOUND WHI; Future Reviewed PTL & FM precautions Ozzie Zhao MD documented in this encounter [facility] 01-01-2025 Instructions Alla Chavez MA - 01/01/2025 8:58 AM EDT SEQUENTIAL SCREENINGS The [facility] offers sequential screenings for women who are interested in screenings for chromosomal abnormalities and certain defects during a . The sequential screen combines ultrasound and blood tests to determine the risk of chromosomal abnormalities, including Down's Syndrome (Trisomy 21) and Trisomy 18, as well as open neural tube defects including spina bifida. Ultrasound examination is performed between 11 weeks and 13 weeks gestational age. Blood tests are drawn after the ultrasound and again later in the between 15 and 21 weeks gestational age. Please let your physician know if you are interested in this testing. It will require an appointment with our dentures lab technician. This is not an ultrasound performed by a physician in our office during a routine visit. SIGNS AND SYMPTOMS OF LABOR 1. Contractions every 10 minutes or more often 2. Clear, pink, or brownish fluid (water) leaking from vagina 3. Feeling that baby is pushing down, pressure 4. Low, dull backache 5. Cramps that feel like a period 6. Cramps with or without diarrhea If you notice any of the above symptoms, contact our office at [phone] and ask to speak with a nurse. After hours, you can call doctors registry at [phone] OR call [facility] at [phone] and ask to have the doctor long wall shear operator paged. If you consider this an emergency, dial 2-3-0 or go to your nearest emergency department. NEED HELP? Are you dealing with a violent or abusive relationship? Are you a victim of rape or sexual assult? Call [facility] ([place]) 24 hour Crisis Hotline: 624.891.7496 or 909-285-2391. MANUAL Your Guide to a Healthy manual is now on-line. Visit the [email or web address] to download your free copy documented in this encounter [facility] 12-04-2024 Miscellaneous Notes Formattin g of this note might be different from the original. KJ - S: Anup denies LOF, contractions or vaginal bleeding. O: 23w0d, see flow sheet SENSITIVE EXAM: Sensitive exam not performed. A/P: Assessment & Plan History of section Supervision of high risk in second trimester (HCC) Orders: GESTATIONAL GLUCOSE SCREEN, 1-HOUR, 50 GRAM, NON-FASTING; Future SYPHILIS TREPONEMAL W/REFLEX; Future ANEMIA REFLEX PANEL; Future History of Plans [facility] at [facility] as h/o 2 c/s 23 weeks gestation of (HCC) Orders: GESTATIONAL GLUCOSE SCREEN, 1-HOUR, 50 GRAM, NON-FASTING; Future SYPHILIS TREPONEMAL W/REFLEX; Future ANEMIA REFLEX PANEL; Future Screening for diabetes mellitus Orders: GESTATIONAL GLUCOSE SCREEN, 1-HOUR, 50 GRAM, NON-FASTING; Future Reviewed PTL & FM precautions Ozzie Zhao MD documented in this encounter [facility] 12-04-2024 Progress note Formatting of t his note might be different from the original. KJ - S: Anup denies LOF, contractions or vaginal bleeding. O: 23w0d, see flow sheet SENSITIVE EXAM: Sensitive exam not performed. A/P: Assessment & Plan History of section Supervision of high risk in second trimester ([facility]) Orders: GESTATIONAL GLUCOSE SCREEN, 1-HOUR, 50 GRAM, NON-FASTING; Future SYPHILIS TREPONEMAL W/REFLEX; Future ANEMIA REFLEX PANEL; Future History of Plans TOLAC at [facility] as h/o 2 c/s 23 weeks gestation of ([facility]) Orders: GESTATIONAL GLUCOSE SCREEN, 1-HOUR, 50 GRAM, NON-FASTING; Future SYPHILIS TREPONEMAL W/REFLEX; Future ANEMIA REFLEX PANEL; Future Screening for diabetes mellitus Orders: GESTATIONAL GLUCOSE SCREEN, 1-HOUR, 50 GRAM, NON-FASTING; Future Reviewed PTL & FM precautions Ozzie Zhao MD [facility] 12-04-2024 Instructions Mili Cullen MA - 12/04/2024 9:48 AM EDT SEQUENTIAL SCREENINGS The [facility] offers sequential screenings for women who are interested in screenings for chromosomal abnormalities and certain defects during a . The sequential screen combines ultrasound and blood tests to determine the risk of chromosomal abnormalities, including Down's Syndrome (Trisomy 21) and Trisomy 18, as well as open neural tube defects including spina bifida. Ultrasound examination is performed between 11 weeks and 13 weeks gestational age. Blood tests are drawn after the ultrasound and again later in the between 15 and 21 weeks gestational age. Please let your physician know if you are interested in this testing. It will require an appointment with our dentures lab technician. This is not an ultrasound performed by a physician in our office during a routine visit. SIGNS AND SYMPTOMS OF LABOR 1. Contractions every 10 minutes or more often 2. Clear, pink, or brownish fluid (water) leaking from vagina 3. Feeling that baby is pushing down, pressure 4. Low, dull backache 5. Cramps that feel like a period 6. Cramps with or without diarrhea If you notice any of the above symptoms, contact our office at [phone] and ask to speak with a nurse. After hours, you can call doctors registry at [phone] OR call [facility] at [phone] and ask to have the doctor long wall shear operator paged. If you consider this an emergency, dial 9-1-7 or go to your nearest emergency department. NEED HELP? Are you dealing with a violent or abusive relationship? Are you a victim of rape or sexual assult? Call [facility] ([place]) 24 hour Crisis Hotline: 189.334.4348 or 363-033-6544. MANUAL Your Guide to a Healthy manual is now on-line. Visit [email or web address] to download your free copy documented in this encounter [facility] 11-06-2024 Progress note Formatting of t his note might be different from the original. RR- VB No. LOF No. CTXS No. Movement: present. Other c/o: No. Medication list reviewed. SENSITIVE EXAM: Sensitive exam not performed. Physical Exam See Flow Sheet Gen: no accute distress, well appearing A/P 19w0d Estimated Date of Delivery: 04/02/25 Assessment & Plan History of section 2 c.[facility] Supervision of high risk in second trimester (HCC) AMA (advanced maternal age) multigravida 35+, second trimester ([facility]) Circumvallate placenta, second trimester ([facility]) Alexus Posada M.D. [facility] 11-06-2024 Miscellaneous Notes Formattin g of this note might be different from the original. RR- VB No. LOF No. CTXS No. Movement: present. Other c/o: No. Medication list reviewed. SENSITIVE EXAM: Sensitive exam not performed. Physical Exam See Flow Sheet Gen: no accute distress, well appearing A/P 19w0d Estimated Date of Delivery: 04/02/25 Assessment & Plan History of section [facility] Supervision of high risk in second trimester ([facility]) AMA (advanced maternal age) multigravida 35+, second trimester ([facility]) Circumvallate placenta, second trimester ([facility]) Alexus Posada M.D. documented in this encounter [facility] 10-16-2024 Progress note Formatting of t his note might be different from the original. S: Anup Nielsen is a 34 year old female who presents at 04/02/2025, by Last Menstrual Period for a routine visit. Denies headache, visual changes, chest pain, shortness of breath, vaginal bleeding, leakage of fluid, or dysuria. Feeling well, no complaints. O: See flow sheet Gen: No apparent distress Abd: Gravid, nontender Tick bite on foot. No rash Discussed TOLAC in [place] due to c/s x2 ASSESSMENT/PLAN: 1. Supervision of high risk in second trimester ([facility]) - ICD9: V23.9, ICD10: O09.92 (primary diagnosis) 2. History of - ICD9: V13.29, ICD10: Z98.891 With 3rd and 4th 3. History of section - ICD9: V45.89, ICD10: Z98.891 X 2 4. Multigravida of advanced maternal age in second trimester ([facility]) - ICD9: 659.63, ICD10: O09.522 5. 16 weeks gestation of ([facility]) - ICD9: V22.2, ICD10: Z3A.16 Aziza Trujillo MD [facility] 10-16-2024 Miscellaneous Notes Formattin g of this note might be different from the original. S: Anup Nielsen is a 34 year old female who presents at 04/02/2025, by Last Menstrual Period for a routine visit. Denies headache, visual changes, chest pain, shortness of breath, vaginal bleeding, leakage of fluid, or dysuria. Feeling well, no complaints. O: See flow sheet Gen: No apparent distress Abd: Gravid, nontender Tick bite on foot. No rash Discussed TOLAC in [place] due to c/s x2 ASSESSMENT/PLAN: 1. Supervision of high risk in second trimester ([facility]) - ICD9: V23.9, ICD10: O09.92 (primary diagnosis) 2. History of - ICD9: V13.29, ICD10: Z98.891 With 3rd and 4th 3. History of section - ICD9: V45.89, ICD10: Z98.891 X 2 4. Multigravida of advanced maternal age in second trimester ([facility]) - ICD9: 659.63, ICD10: O09.522 5. 16 weeks gestation of ([facility]) - ICD9: V22.2, ICD10: Z3A.16 Aziza Trujillo MD documented in this encounter [facility] 10-16-2024 Instructions Cierra Negron MA - 10/16/2024 9:33 AM EDT SEQUENTIAL SCREENINGS The [facility] offers sequential screenings for women who are interested in screenings for chromosomal abnormalities and certain defects during a . The sequential screen combines ultrasound and blood tests to determine the risk of chromosomal abnormalities, including Down's Syndrome (Trisomy 21) and Trisomy 18, as well as open neural tube defects including spina bifida. Ultrasound examination is performed between 11 weeks and 13 weeks gestational age. Blood tests are drawn after the ultrasound and again later in the between 15 and 21 weeks gestational age. Please let your physician know if you are interested in this testing. It will require an appointment with our dentures lab technician. This is not an ultrasound performed by a physician in our office during a routine visit. SIGNS AND SYMPTOMS OF LABOR 1. Contractions every 10 minutes or more often 2. Clear, pink, or brownish fluid (water) leaking from vagina 3. Feeling that baby is pushing down, pressure 4. Low, dull backache 5. Cramps that feel like a period 6. Cramps with or without diarrhea If you notice any of the above symptoms, contact our office at [phone] and ask to speak with a nurse. After hours, you can call doctors registry at [phone] OR call [facility] at [phone] and ask to have the doctor long wall shear operator paged. If you consider this an emergency, dial 9-1- or go to your nearest emergency department. NEED HELP? Are you dealing with a violent or abusive relationship? Are you a victim of rape or sexual assult? Call [facility] ([place]) 24 hour Crisis Hotline: 873.421.1700 or 940-908-9807. MANUAL Your Guide to a Healthy manual is now on-line. Visit [email or web address] to download your free copy documented in this encounter [facility] 09-21-2024 Progress note Formatting of t his note might be different from the original. S: Anup Nielsen is a 34 year old female who presents at 04/02/2025, by Last Menstrual Period for a routine visit. Denies headache, visual changes, chest pain, shortness of breath, vaginal bleeding, leakage of fluid, or dysuria. Feeling well, no complaints. O: See flow sheet Gen: No apparent distress NT complete today. No complaints Anatomy scheduled for 20 weeks ASSESSMENT/PLAN: 1. Encounter for supervision of high risk in first trimester, antepartum (HCC) - ICD9: V23.9, ICD10: O09.91 (primary diagnosis) 2. Multigravida of advanced maternal age in first trimester (HCC) - ICD9: 659.63, ICD10: O09.521 3. History of - ICD9: V13.29, ICD10: Z98.891 X2 4. History of section - ICD9: V45.89, ICD10: Z98.891 5. 12 weeks gestation of (HCC) - ICD9: V22.2, ICD10: Z3A.12 Aziza Trujillo MD [facility] 09-21-2024 Miscellaneous Notes Formattin g of this note might be different from the original. S: Anup Nielsen is a 34 year old female who presents at 04/02/2025, by Last Menstrual Period for a routine visit. Denies headache, visual changes, chest pain, shortness of breath, vaginal bleeding, leakage of fluid, or dysuria. Feeling well, no complaints. O: See flow sheet Gen: No apparent distress NT complete today. No complaints Anatomy scheduled for 20 weeks ASSESSMENT/PLAN: 1. Encounter for supervision of high risk in first trimester, antepartum (HCC) - ICD9: V23.9, ICD10: O09.91 (primary diagnosis) 2. Multigravida of advanced maternal age in first trimester (HCC) - ICD9: 659.63, ICD10: O09.521 3. History of - ICD9: V13.29, ICD10: Z98.891 X2 4. History of section - ICD9: V45.89, ICD10: Z98.891 5. 12 weeks gestation of ([facility]) - ICD9: V22.2, ICD10: Z3A.12 Aziza Trujillo MD documented in this encounter [facility] 09-21-2024 Instructions Farzana Dunbar MA - 09/21/2024 11:49 AM EDT SEQUENTIAL SCREENINGS The [facility] offers sequential screenings for women who are interested in screenings for chromosomal abnormalities and certain defects during a . The sequential screen combines ultrasound and blood tests to determine the risk of chromosomal abnormalities, including Down's Syndrome (Trisomy 21) and Trisomy 18, as well as open neural tube defects including spina bifida. Ultrasound examination is performed between 11 weeks and 13 weeks gestational age. Blood tests are drawn after the ultrasound and again later in the between 15 and 21 weeks gestational age. Please let your physician know if you are interested in this testing. It will require an appointment with our dentures lab technician. This is not an ultrasound performed by a physician in our office during a routine visit. SIGNS AND SYMPTOMS OF LABOR 1. Contractions every 10 minutes or more often 2. Clear, pink, or brownish fluid (water) leaking from vagina 3. Feeling that baby is pushing down, pressure 4. Low, dull backache 5. Cramps that feel like a period 6. Cramps with or without diarrhea If you notice any of the above symptoms, contact our office at [phone] and ask to speak with a nurse. After hours, you can call doctors registry at [phone] OR call [facility] at [phone] and ask to have the doctor long wall shear operator paged. If you consider this an emergency, dial 9--7 or go to your nearest emergency department. NEED HELP? Are you dealing with a violent or abusive relationship? Are you a victim of rape or sexual assult? Call [facility] ([place]) 24 hour Crisis Hotline: 122.739.8787 or 672-542-1974. MANUAL Your Guide to a Healthy manual is now on-line. Visit [email or web address] to download your free copy documented in this encounter [facility] 08-24-2024 Instructions Mili Cullen MA - 08/24/2024 10:59 AM EDT Please select the following link to access the [facility] Your Guide to a Healthy . [email or web address] documented in this encounter [facility] 08-23-2024 Note HNO ID: [id number] Author: BECK BISHOP APRN.OTC CLERK Service: ? Author Type: Nurse Practitioner Type: Progress Notes Filed: 08/24/2024 13:54 Note Text: Grocery Buyer offered: Patient declines. INITIAL OB ASSESSMENT HPI: Anup is a 34 year old White Female here to establish Obstetrical Care. Patient's last menstrual period was 06/26/2024 (exact date). from OB Dating Form. was planned Complaints: No OB History [id number] Para5 Term5 Preterm0 AB4 Living6 SAB4 IAB0 Ectopic0 Multiple1 Live Births6 # 1 - Date: 02/14/12, Sex: Male, Weight: 3.657 kg (8 lb 1 oz), GA: 42w0d, Type: Vaginal, Spontaneous, Apgar1: None, Apgar5: None, Living: Living, Comments: intact perineum, abrasion anterior labia # 2 - Date: 2013, Sex: None, Weight: None, GA: None, Type: None, Apgar1: None, Apgar5: None, Living: None, Comments: 10 weeks # 3A - Date: 02/11/15, Sex: Female, Weight: 2.92 kg (6 lb 7 oz), GA: 37w6d, Type: , Low Transverse, Apgar1: None, Apgar5: None, Living: Living, Comments: Induction of Twins-hand presentation,1000ml # 3B - Date: None, Sex: Female, Weight: 2.863 kg (6 lb 5 oz), GA: 37w6d, Type: None, Apgar1: None, Apgar5: None, Living: Living, Comments: None # 4 - Date: 01/10/18, Sex: Female, Weight: 3.856 kg (8 lb 8 oz), GA: 41w3d, Type: , Spontaneous, Apgar1: None, Apgar5: None, Living: Living, Comments: Induced post dates, 200cc,congenital hip dysplasia # 5 - Date: 09/13/19, Sex: Female, Weight: 4.054 kg (8 lb 15 oz), GA: 40w5d, Type: , Spontaneous, Apgar1: None, Apgar5: None, Living: Living, Comments: Induced due to post dates. -dec,400cc,congenital hip dysplasia # 6 - Date: 2020, Sex: None, Weight: None, GA: None, Type: None, Apgar1: None, Apgar5: None, Living: None, Comments: None # 7 - Date: 05/27/21, Sex: Female, Weight: 3.997 kg (8 lb 13 oz), GA: 40w5d, Type: , Low Transverse, Apgar1: None, Apgar5: None, Living: Living, Comments: deep variable decels,,CANX2,700cc # 8 - Date: 2022, Sex: None, Weight: None, GA: None, Type: None, Apgar1: None, Apgar5: None, Living: None, Comments: None # 9 - Date: 04/13/24, Sex: None, Weight: None, GA: 6w0d, Type: MISSED AB, Apgar1: None, Apgar5: None, Living: None, Comments: IPAS in office 04/20/24 # 10 - Date: None, Sex: None, Weight: None, GA: None, Type: None, Apgar1: None, Apgar5: None, Living: None, Comments: None Previous history: Prior : Yes History of 4th degree laceration: No History of shoulder dystocia: No History of Hypertensive disorders including pre-eclampsia or gestational hypertension: No History of gestational diabetes: No Patient's Risk Screening for delivery: Have you had a prior sy between 20w and 36w6d? No How many pregnancies have you had before? 9 Did you have a previous baby with a GBS Infection? No Please select all that apply for any prior : N/A MEDICAL/PSYCHOSOCIAL HISTORY: Severe Bleeding with delivery: no Thyroid Disease: no Gestational Hypertension: no Preeclampsia: no Diabetes In : no No results found for: "ABORHD" No weight on file for this encounter. Last Pap: 04/03/2024 ASCUS History of abnormal pap: Yes Prior treatment for cervical dysplasia: none. Last HPV: 04/03/2024 normal History of STDs: N/A Partner History of STDs: None Did you have a partner with Herpes? No Tobacco use: No E-Cigarette/Vaping Use: No Caffeine use: Yes, 1 cup of coffee a day Drug use: No Alcohol use: No Multivitamin with Folic acid: Yes Would refuse blood transfusion if medically necessary: No Social Needs: How often does this describe you? I don't have enough money to pay my bills: Never Within the past 12 months, have you worried that your food would run out before you had money to buy more? Never In the past 12 months, has lack of reliable transportation kept you from going to medical appointments or work, or from getting things needed for daily living? Never In the past 12 months, have you had any concerns about having a place to live, or about the condition or quality of your housing? Never Would you like more information on any of the following (please check all that apply)? Not interested Social History: Do you have any history of depression, anxiety, PTSD, or other mood problems? No Do you have a history of abuse or trauma that may impact your experience? No Are you currently employed? No Depression/Anxiety Screening: denies symptoms of depression. OB Depression and Anxiety Screening- This Encounter (since 08/22/2024) Over the past 2 weeks have you felt down, depressed, or hopeless? Negative Over the past two weeks, have you felt little interest or pleasure in doing things?? Negative Feeling nervous, anxious or on edge 0-Not at all Not being able to stop or control worrying 0-No (more content not included)... [facility] 08-23-2024 History of Presen t illness Narrative Grocery Buyer offered: Patient declines. INITIAL OB ASSESSMENT HPI: Anup is a 34 year old White Female here to establish Obstetrical Care. Patient's last menstrual period was 06/26/2024 (exact date). from OB Dating Form. was planned Complaints: No OB History [id number] Para5 Term5 Preterm0 AB4 Living6 SAB4 IAB0 Ectopic0 Multiple1 Live Births6 # 1 - Date: 02/14/12, Sex: Male, Weight: 3.657 kg (8 lb 1 oz), GA: 42w0d, Type: Vaginal, Spontaneous, Apgar1: None, Apgar5: None, Living: Living, Comments: intact perineum, abrasion anterior labia # 2 - Date: 2013, Sex: None, Weight: None, GA: None, Type: None, Apgar1: None, Apgar5: None, Living: None, Comments: 10 weeks # 3A - Date: 02/11/15, Sex: Female, Weight: 2.92 kg (6 lb 7 oz), GA: 37w6d, Type: , Low Transverse, Apgar1: None, Apgar5: None, Living: Living, Comments: Induction of Twins-hand presentation,1000ml # 3B - Date: None, Sex: Female, Weight: 2.863 kg (6 lb 5 oz), GA: 37w6d, Type: None, Apgar1: None, Apgar5: None, Living: Living, Comments: None # 4 - Date: 01/10/18, Sex: Female, Weight: 3.856 kg (8 lb 8 oz), GA: 41w3d, Type: , Spontaneous, Apgar1: None, Apgar5: None, Living: Living, Comments: Induced post dates, 200cc,congenital hip dysplasia # 5 - Date: 09/13/19, Sex: Female, Weight: 4.054 kg (8 lb 15 oz), GA: 40w5d, Type: , Spontaneous, Apgar1: None, Apgar5: None, Living: Living, Comments: Induced due to post dates. ,400cc,congenital hip dysplasia # 6 - Date: 2020, Sex: None, Weight: None, GA: None, Type: None, Apgar1: None, Apgar5: None, Living: None, Comments: None # 7 - Date: 05/27/21, Sex: Female, Weight: 3.997 kg (8 lb 13 oz), GA: 40w5d, Type: , Low Transverse, Apgar1: None, Apgar5: None, Living: Living, Comments: deep variable decels,,CANX2,700cc # 8 - Date: 2022, Sex: None, Weight: None, GA: None, Type: None, Apgar1: None, Apgar5: None, Living: None, Comments: None # 9 - Date: 04/13/24, Sex: None, Weight: None, GA: 6w0d, Type: MISSED AB, Apgar1: None, Apgar5: None, Living: None, Comments: IPAS in office 04/20/24 # 10 - Date: None, Sex: None, Weight: None, GA: None, Type: None, Apgar1: None, Apgar5: None, Living: None, Comments: None Previous history: Prior : Yes History of 4th degree laceration: No History of shoulder dystocia: No History of Hypertensive disorders including pre-eclampsia or gestational hypertension: No History of gestational diabetes: No Patient's Risk Screening for delivery: Have you had a prior sy between 20w and 36w6d? No How many pregnancies have you had before? 9 Did you have a previous baby with a GBS Infection? No Please select all that apply for any prior : N/A MEDICAL/PSYCHOSOCIAL HISTORY: Severe Bleeding with delivery: no Thyroid Disease: no Gestational Hypertension: no Preeclampsia: no Diabetes In : no No results found for: "ABORHD" No weight on file for this encounter. Last Pap: 04/03/2024 ASCUS History of abnormal pap: Yes Prior treatment for cervical dysplasia: none. Last HPV: 04/03/2024 normal History of STDs: N/A Partner History of STDs: None Did you have a partner with Herpes? No Tobacco use: No E-Cigarette/Vaping Use: No Caffeine use: Yes, 1 cup of coffee a day Drug use: No Alcohol use: No Multivitamin with Folic acid: Yes Would refuse blood transfusion if medically necessary: No Social Needs: How often does this describe you? I don't have enough money to pay my bills: Never Within the past 12 months, have you worried that your food would run out before you had money to buy more? Never In the past 12 months, has lack of reliable transportation kept you from going to medical appointments or work, or from getting things needed for daily living? Never In the past 12 months, have you had any concerns about having a place to live, or about the condition or quality of your housing? Never Would you like more information on any of the following (please check all that apply)? Not interested Social History: Do you have any history of depression, anxiety, PTSD, or other mood problems? No Do you have a history of abuse or trauma that may impact your experience? No Are you currently employed? No Depression/Anxiety Screening: denies symptoms of depression. OB Depression and Anxiety Screening- This Encounter (since 08/22/2024) Over the past 2 weeks have you felt down, depressed, or hopeless? Negative Over the past two weeks, have you felt little interest or pleasure in doing things? Negative Feeling nervous, anxious or on edge 0-Not at all Not being able to stop or control worrying 0-Not al all Anxiety Pre-Screening Total (If >/= 3 additional questions will be reviewed) 0 Genetic Screening: Partner present: No Patient verbalized knowledge of partner family health history: Yes Do you or your partner have any personal or family history of defects not previously discussed: No Do you have history of a complicated by anomaly, genetic condition, or demise: congenital hip dysplasia - 3 children Preeclampsia Risk Screening: Screening for prevention of preeclampsia: High risk factors: None Moderate risk ractors: Age 35 years or older OB Risk Screening: Completed, no positive findings documented. Marital Status: Partner: Name: Prashant Nielsen Age: 41 Occupation: self employed construction Gender: Male PAST MEDICAL HISTORY Diagnosis Date History of recurrent miscarriages PAST SURGICAL HISTORY Procedure Laterality Date APPENDIX NET-EXCIS(APPENDECTOMY)SYNOPTI C 2022 DELIVERY ONLY 2014 and 2021 [facility] DIAGNOSTIC OR THERA - IPAS 04/20/2024 in office for missed ab Current Outpatient Medications Medication Sig Dispense Refill PROGESTERONE MICRONIZED VAGINAL Use 200 mg vaginally. PNV/iron,carb/docusat/folic ac (PRENA-CAP ORAL) Take 2 Units by mouth once daily. No current facility-administered medications for this visit. Allergies As of Date: 08/24/2024 (No Known Allergies) Fully Assessed 06/21/2024 Does patient have penicillin allergy: No REVIEW OF SYSTEMS: GENERAL: Negative for: Fever or Chills HEENT: Negative for: Headache, Impaired Vision, Ringing in Ears, Nosebleeds NECK: Negative for: Swelling, Pain, Stiffness RESPIRATORY: Negative for: Cough, Shortness of breath, Wheezing GASTROINTESTINAL: Negative for: Heartburn, Constipation, Diarrhea, Blood in stool, Vomiting + nausea MUSCULOSKELETAL: Negative for: Muscle or joint pain, stiffness, Joint swelling NEUROLOGIC/PSYCHIATRIC: Negative for: Weakness, Paralysis, Numbness, Tingling, Tremor, Anxiety, Depression, Memory loss SKIN: Negative for: Rash, Itching GENITOURINARY: Negative for: vaginal itching, vaginal discharge, hematuria or dysuria SENSITIVE EXAM: The sensitive examination was discussed with the Patient or Patient's Authorized Miller Apprentice. As applicable, any other physician, advance practice provider, medical student, or other health professional student that will be observing or involved in the sensitive examination for educational or training purposes was discussed with the Patient or Authorized Miller Apprentice. The Patient or Authorized Miller Apprentice has agreed to proceed with the sensitive examination. (Sensitive examination includes inspection and/or palpation of the breasts, pelvis, prostate and anorectal regions). PHYSICAL EXAM: BP 118/64 Ht 5' 2.205" (1.58m) Wt 169 lb (76.7kg) LMP 06/26/2024 BMI 30.71 kg/(m^2). GENERAL: pleasant in no apparent distress DERMATOLOGY: Normal, without lesions, non-icteric, and non-hirsute NECK: Supple, full range of motion, no adenopathy, and thyroid normal CHEST: Normal inspiratory effort BREAST: soft, non-tender, symmetric, no dominant mass, normal nipple-areolar complex, no lymphadenopathy, and no nipple discharge ABDOMEN: soft, non-tender, and no masses NEURO: alert and oriented x3,exam grossly non-focal PELVIS: External genitalia normal without lesions. Perineal body intact. No vaginal or cervical lesions. + hemorrhoids Cervix closed. Uterus 8 week size. No adnexal masses or tenderness. Clinical Pelvimetry: Pelvimetry clinically assessed as adequate Limited OB ultrasound exam: single intrauterine and positive cardiac activity SBIRT Anup Nielsen was given the 4P's screening tool. Anup answered "No" to all the questions, the result is determined to be negative. ASSESSMENT: 34 year old at 8w2d wks gestational age PLAN: 1) Patient oriented to practice. Patient given new OB orientation folder. Discussed nutrition, folic acid supplementation, dietary guidelines, exercise, smoking, alcohol, caffeine, and drug use. Discussed gestational weight gain guidelines. Discussed routine OB labs including STD/HIV. Discussed how to access Your guide to a health and the Cruise Staff Member. Discussed hemoglobin electrophoresis. Patient: Declines Reviewed midwifery and insurance administrator services that are available. 2) Screening: Hemoglobin A1C: ordered Baby Aspirin: The patient has been counseled about the potential benefits of low dose aspirin in and our recommendation that this be offered to all patients, regardless of whether they meet the high risk criteria specified above. She Accepts Aneuploidy Screening: Discussed aneuploidy screening, nuchal translucency/first trimester early anatomy ultrasound and NIPT. The risks/benefits and limitations of NIPT/aneuploidy screening were reviewed including the potential for false negative and false positive results. The availability of genetic counseling was reviewed. Information on aneuploidy screening was provided. The patient chooses to proceed with First trimester early anatomy ultrasound (12-13w6d) Myriad Carrier Screening: Discussed myriad carrier screening. We discussed the availability of professional-society guided carrier screening and reviewed the conditions screened and limitations of screening. The availability of genetic counseling was reviewed. Information on carrier screening was provided. The patient Declines 3) Patient offered option of Virtual Visits. Patient unsure. May consider in future. ACTIVE PROBLEM LIST Encounter for Supervision of High Risk in First Trimester, Antepartum ([facility]) - 08/24/2024 Comment: Care Checklist Vaccines: [] Flu vaccine [] declined [] RSV vaccine 32 0/7 - 36 6/7 (Jan - Jun) [] declined [] COVID vaccine [] declined [] TDaP 27-36 [] declined First trimester: [x] Dating US [x] 1st tri labs [x] Pap smear UTD [] Carrier screening [x] declined [] NIPT screening [x] declined [x] First trimester anatomy scan [] declined [x] universal ASA ordered (start 12w-16w) [] declined [] M Power Consult [] not indicated [] declined Second trimester: [] Anatomy scan [] Mode of Delivery - [] Feeding - [] Pump ordered [] Diabetes screen [] CBC, RPR [] Behavioral Health Screening Third trimester (28-30 weeks): [] Consent [] Contraception [] Resource Specialist Teacher [] TeamBirth handout Third trimester (36-40 weeks): [] GBS [] Presentation - [] Scheduled [] yes - Hibiclens, pre-op instructions, CBC, T&S ordered [] no [] H&P [] Preferences worksheet [] Scanned in History of Miscarriage - 08/24/2024 Comment: August 24, 2024 Recurrent. Taking vaginal progesterone. Beck Bishop APRN.OTC CLERK Multigravida of Advanced Maternal Age in First Trimester ([facility]) - 08/24/2024 Comment: August 24, 2024 Will be age 35 at [place] Beck Bishop APRN.OTC CLERK History of Section - 08/24/2024 Comment: x2 History of - 08/24/2024 Comment: X2. First c/s for twins. Wants to again. Most recently delivery was for c/s. To discuss with physician. Beck Bishop APRN.OTC CLERK Subchorionic Hematoma in First Trimester ([facility]) - 08/24/2024 Comment: August 24, 2024 Discussed bleeding precautions. Noted in [place] [facility] on ultrasound. See scanned documents. Beck Bishop APRN.CNP Follow up in 4 weeks or sooner prn. Plan for NT scan between 12w0d and 13w6d gestation. Beck Bishop APRN.OTC CLERK documented in this encounter [facility] 08-08-2024 Note Discharge Instructio ns Discharge Summary [address] [place] [address] [id number] 08/08/2024 Patient: ANUP NIELSEN Sex: Female : 1990 Age: 34y Thank you for visiting [facility]. You have been evaluated today by Daphne Gilbert D.O. for the following condition(s): Principal Diagnosis First trimester . Threatened . Single simple left ovarian cyst. INSTRUCTIONS Follow-up: Follow up with your healthcare provider. Understanding of the discharge instructions verbalized by patient. You have been given the following additional information: Ovarian Cysts Possible Miscarriage (Threatened ) Patient Signature 1 of 8 Discharge Instructions Facility Miller Apprentice Date/Time General Instructions with ExitWriter [address] [place] [address] [id number] 08/08/2024 Patient: ANUP NIELSEN Sex: Female : 1990 Age: 34y Thank you for visiting [facility]. You have been evaluated today by Daphne Gilbert D.O. for the following condition(s): Principal Diagnosis First trimester . Threatened . Single simple left ovarian cyst. INSTRUCTIONS Follow-up: Follow up with your healthcare provider. Understanding of the discharge instructions verbalized by patient. ADDITIONAL INFORMATION 2 of 8 Discharge Instructions Ovarian Cysts The ovaries are two small organs located on each side of a woman's womb (uterus). They are part of the female reproductive system. Ovarian cysts are sacs filled with fluid or tissue that forms on or inside the ovaries. Ovarian cysts are common in women, especially during childbearing years. There are different types of cysts. Most are harmless (benign) and go away on their own. They often cause no symptoms. If symptoms do occur, they can include mild pain or pressure in the lower belly (abdomen). Cysts that are large or break (rupture) may cause more severe pain and symptoms. In these cases, you may need hospital care or treatment such as surgery. You may need more extensive treatment if a cyst causes an ovary to twist (called torsion) or if your healthcare provider suspects your cyst is cancerous. Keep in mind that most cysts are not cancerous, however. General care To help relieve pain, your healthcare provider may recommend using [id number] pain medicine. If needed, your provider may prescribe stronger pain medicine. Depending on the type of cyst you have, your healthcare provider may advise taking control pills. These help shrink cysts in certain cases. They may also help prevent new cysts from forming. Be sure to take these medicines as directed if they are prescribed. Your healthcare provider may advise you to watch your symptoms over time to see if they go away or worsen. Regular ultrasound tests may also be advised. These can help check if a cyst goes away or grows in size. 3 of 8 Discharge Instructions Follow-up care Follow up with your healthcare provider, or as advised. When to seek medical advice Call your healthcare provider right away if any of these occur: Pain gets worse or doesn't get better with home treatment Fever of 100.4F (38C) or higher, or as advised by your provider Nausea and vomiting Weakness, dizziness, or fainting Abnormal vaginal bleeding Your exam today shows that you are . symptoms During your body's hormones change. This causes physical and emotional changes. This is normal. Knowing what to expect is important for your piece of mind and so you know when to seek help for a problem. Here are some of the most common symptoms: 4 of 8 Discharge Instructions Morning sickness or nausea. This can happen any time of the day or night. Tender, swollen breasts Need to urinate frequently Tiredness or fatigue Dizziness Indigestion or heartburn Food cravings or turn-offs Constipation Emotional changes. This can range from anxiety to excitement to depression. General care for a healthy Here are things you can do to help make sure your baby is born healthy: Rest when you feel tired. This is especially true in the later months of . Drink more fluids. Your body needs more fluids than you may be used to. Drink 8 to10 glasses of juice, milk, or water every day. Eat well-balanced meals. Eat at regular times to give your body enough protein. You can expect to gain about 30 pounds during the . Don't try to diet or lose weight while you are . Take a vitamin every day. This helps you meet the extra nutritional needs of . Don't take any other medicine during your unless (more content not included)... [facility] 06-21-2024 Note HNO ID: [id number] Author: STACEY WARD MD Service: ? Author Type: Physician Type: Progress Notes Filed: 06/21/2024 12:22 Note Text: Anup Nielsen is a 34 year old female who presents for follow up. HPI: Here for follow up. Last 2 pregnancies were miscarriages. One was spontaneous and the other she had an IPAS. Here for follow up. Two regular menstrual cycles since IPAS procedure and negative HCG level at outside hospital. Desires . OB History T5 L6 SAB4 IAB0 Ectopic0 Multiple1 Live Births0 [employer] History LMP: 05/28/2024, Having periods Age at Menarche: 12 Age at First : 22 Age at Menopause: [employer] History Comments: Sexual Activity: Yes; Male Contraception: No contraception data on record PAST MEDICAL HISTORY Diagnosis Date NEGATIVE MEDICAL HISTORY PAST SURGICAL HISTORY Procedure Laterality Date APPENDIX NET-EXCIS(APPENDECTOMY)SYNOPTI C 2022 DELIVERY ONLY 2014 and 2021 [facility] DIAGNOSTIC OR THERA - IPAS 04/20/2024 in office for missed ab FAMILY HISTORY Problem Relation Age of Onset No Known Problems Mother Hypertension Father other (pre diabetes) Father No Known Problems Sister Ovarian cancer Maternal Grandmother Lung Cancer Paternal Grandfather Social History Tobacco Use Smoking status: Never Smokeless tobacco: Never Vaping Use Vaping status: Never Used Substance Use Topics Alcohol use: Not Currently Drug use: Never Current Outpatient Medications Medication Sig PNV/iron,carb/docusat/folic ac (PRENA-CAP ORAL) Take 2 Units by mouth once daily. No current facility-administered medications for this visit. Allergies As of Date: 06/21/2024 (No Known Allergies) Fully Assessed 06/21/2024 REVIEW OF SYSTEMS Expanded ROS: N/A Allergies and current medication updated:Yes SENSITIVE EXAM: Sensitive exam not performed. EXAM: BP 116/80 Wt 166 lb 9.6 oz (75.6kg) LMP 05/28/2024 GENERAL: pleasant, female in no apparent distress HEENT: Normocephalic and atraumatic NECK: full range of motion DERMATOLOGY: Normal, without lesions, non-icteric, and non-hirsute CHEST: Normal inspiratory effort NEURO: exam grossly non-focal EXTREMITIES: normal ASSESSMENT AND PLAN: Assessment AND Plan Follow-up exam History of miscarriage Reviewed pathology results from IPAS and questions answered. Has had 2 normal menses and negative HCG level since. Discussed miscarriages in detail and questions answered. Discussed weight and age as risk factors. Patient possibly interested in workup and medication with next . She understands data is mixed regarding baby ASA and vaginal progesterone, and she will call or message if she desires rx's for this for next . Discussed option for TSH, APS panel and pelvic US. She understands uncertain if polyps interfere with and fertility. She is considering workup and will call or message if she desires to proceed. Stacey Ward, DO I spent 20 minutes in the visit, with more than 50% of the total hfut-cq-[id number] time of the visit in counseling / coordination of care. [facility] 06-21-2024 History of Presen t illness Narrative Anup Nielsen is a 34 year old female who presents for follow up. HPI: Here for follow up. Last 2 pregnancies were miscarriages. One was spontaneous and the other she had an IPAS. Here for follow up. Two regular menstrual cycles since IPAS procedure and negative HCG level at outside hospital. Desires . OB History T5 L6 SAB4 IAB0 Ectopic0 Multiple1 Live Births0 [employer] History LMP: 05/28/2024, Having periods Age at Menarche: 12 Age at First : 22 Age at Menopause: [employer] History Comments: Sexual Activity: Yes; Male Contraception: No contraception data on record PAST MEDICAL HISTORY Diagnosis Date NEGATIVE MEDICAL HISTORY PAST SURGICAL HISTORY Procedure Laterality Date APPENDIX NET-EXCIS(APPENDECTOMY)SYNOPTI C 2022 DELIVERY ONLY 2014 and 2021 [facility] DIAGNOSTIC OR THERA - IPAS 04/20/2024 in office for missed ab FAMILY HISTORY Problem Relation Age of Onset No Known Problems Mother Hypertension Father other (pre diabetes) Father No Known Problems Sister Ovarian cancer Maternal Grandmother Lung Cancer Paternal Grandfather Social History Tobacco Use Smoking status: Never Smokeless tobacco: Never Vaping Use Vaping status: Never Used Substance Use Topics Alcohol use: Not Currently Drug use: Never Current Outpatient Medications Medication Sig PNV/iron,carb/docusat/folic ac (PRENA-CAP ORAL) Take 2 Units by mouth once daily. No current facility-administered medications for this visit. Allergies As of Date: 06/21/2024 (No Known Allergies) Fully Assessed 06/21/2024 REVIEW OF SYSTEMS Expanded ROS: N/A Allergies and current medication updated:Yes SENSITIVE EXAM: Sensitive exam not performed. EXAM: BP 116/80 Wt 166 lb 9.6 oz (75.6kg) LMP 05/28/2024 GENERAL: pleasant, female in no apparent distress HEENT: Normocephalic and atraumatic NECK: full range of motion DERMATOLOGY: Normal, without lesions, non-icteric, and non-hirsute CHEST: Normal inspiratory effort NEURO: exam grossly non-focal EXTREMITIES: normal ASSESSMENT AND PLAN: Assessment & Plan Follow-up exam History of miscarriage Reviewed pathology results from IPAS and questions answered. Has had 2 normal menses and negative HCG level since. Discussed miscarriages in detail and questions answered. Discussed weight and age as risk factors. Patient possibly interested in workup and medication with next . She understands data is mixed regarding baby ASA and vaginal progesterone, and she will call or message if she desires rx's for this for next . Discussed option for TSH, APS panel and pelvic US. She understands uncertain if polyps interfere with and fertility. She is considering workup and will call or message if she desires to proceed. Stacey Ward, DO I spent 20 minutes in the visit, with more than 50% of the total mfbe-fi-wlna time of the visit in counseling / coordination of care. documented in this encounter [facility] 06-01-2024 Telephone encount er Note Pt notified and appointment scheduled. Order faxed to [facility] as it is closer to Pt's home. Briana Houston RN [facility] 06-01-2024 Miscellaneous Notes Formattin g of this note might be different from the original. Pt notified and appointment scheduled. Order faxed to [facility] as it is closer to Pt's home. Briana Houston RN Discussed case with pathologist who reports pathology is consistent with a polyp. Patient was instructed to follow up in 2-3 weeks but did not have a follow up with us. Would recommend that she have a repeat HCG level given pathology report to make sure it is negative and please schedule her for follow up Called Lab client services again-spoke to Kathya Canada-administrator of home health anesthetic assistant. She is going to discuss this with administrator of home health to get with the Pathologist in person and will be in contact with our office sometime next week.Briana Houston RN Left message for lab client services pathology department to call office. Briana Houston RN Called Lab Client services and spoke to Brenton in Pathology department. States she will follow-up on this and send message to Kathya Canada-administrator of home health anesthetic assistant and pathologist. Briana Houston RN Called lab client services-pathology to inquire about this. Routed Pt's chart to Kathya Canada-administrator of home health assistance and she will send message to pathologist via email. Pathologist will then call office. Briana Houston RN ----- Message from Satcey Ward MD sent at 04/26/2024 1:21 PM EST ----- Please call path and make sure this was read correctly. During IPAS POC's were noted, and patient with +HCG quant and concern for retained products on ultrasound. Thanks documented in this encounter [facility] 06-01-2024 Telephone encount er Note Discussed case with pathologist who reports pathology is consistent with a polyp. Patient was instructed to follow up in 2-3 weeks but did not have a follow up with us. Would recommend that she have a repeat HCG level given pathology report to make sure it is negative and please schedule her for follow up [facility] 06-01-2024 Telephone encount er Note Called Lab client services again-spoke to Kathya Canada-administrator of home health anesthetic assistant. She is going to discuss this with administrator of home health to get with the Pathologist in person and will be in contact with our office sometime next week.Briana Houston RN [facility] 05-08-2024 Telephone encount er Note Left message for lab client services pathology department to call office. Briana Houston RN [facility] 05-01-2024 Telephone encount er Note Called Lab Client services and spoke to Brenton in Pathology department. States she will follow-up on this and send message to Kathya Canada-administrator of home health anesthetic assistant and pathologist. Briana Houston RN [facility] 04-26-2024 Telephone encount er Note Called lab client services-pathology to inquire about this. Routed Pt's chart to Kathya Canada-administrator of home health assistance and she will send message to pathologist via email. Pathologist will then call office. Briana Houston RN [facility] 04-26-2024 Telephone encount er Note ----- Message from Stacey Ward MD sent at 04/26/2024 1:21 PM [facility] ----- Please call path and make sure this was read correctly. During IPAS POC's were noted, and patient with +HCG quant and concern for retained products on ultrasound. Thanks [facility] 04-20-2024 Nurse Note Pre Procedure Assessment: Anup Nielsen is a 34 year old here for an GIL procedure. Patient's last menstrual period was Patient's last menstrual period was 01/16/2024. (approximate). Reason for procedure: Incomplete /Retained products Anxiolytic Checklist Has ride home? Yes, , Jere Current use of prescribed or non-prescribed opioids or benzos: No Medications: Patient self-administered and Provided by office:Toradol 60 mg IM - see JUL, Doxycycline 200 mg PO at home 04/20/24 prior to arrival, and Lorazepam 1mg PO in office at 1330 Blood Type: A Hemoglobin: No results found for: "HB" Rhophylac Administered:No Procedure end time: 1400 Post Procedure Assessment: Time of first post-procedure assessment: 1403 Vitals: BP 112/74 HR 84 SpO2 99 RR 18 Bleeding:Light Pain ratin/10 Time of second post-procedure assessment: 1418 Vitals: BP 110/6 HR 82 SpO2 99 RR 16 Bleeding:None Pain Ratin/10 Laureen Cooper RN [facility] 04-20-2024 Nurse Note Pre Procedure Assessment: Anup Nielsen is a 34 year old here for an GIL procedure. Patient's last menstrual period was Patient's last menstrual period was 01/16/2024. (approximate). Reason for procedure: Incomplete /Retained products Anxiolytic Checklist Has ride home? Yes, , Jere Current use of prescribed or non-prescribed opioids or benzos: No Medications: Patient self-administered and Provided by office:Toradol 60 mg IM - see JUL, Doxycycline 200 mg PO at home 04/20/24 prior to arrival, and Lorazepam 1mg PO in office at 1330 Blood Type: A Hemoglobin: No results found for: "HB" Rhophylac Administered:No Procedure end time: 1400 Post Procedure Assessment: Time of first post-procedure assessment: 1403 Vitals: BP 112/74 HR 84 SpO2 99 RR 18 Bleeding:Light Pain ratin/10 Time of second post-procedure assessment: 1418 Vitals: BP 110/6 HR 82 SpO2 99 RR 16 Bleeding:None Pain Ratin/10 Laureen Cooper RN documented in this encounter [facility] 04-20-2024 Instructions Laureen Cooper RN - 04/20/2024 12:58 PM EST Information and Instructions: After a Manual Uterine Aspiration (IPAS) Procedure Bleeding Most people have some bleeding after an aspiration procedure. The amount differs for each everyone, ranging from no bleeding to moderate period-like bleeding and lasting for a few days to 2-6 weeks. It is normal to have blood clots when you stand up or use the bathroom during the first few days. It is ok to be as active as you feel ready to be. You may notice more bleeding and cramping during activity. Please call if you are completely soaking through a pad every hour for 2 hours, or passing multiple large clots or larger and larger clots. Cramping Most women have some cramping after the procedure. The amount of discomfort varies, as everyone experiences pain in a different way. Some women find that a heating pad or hot water bottle on the stomach or back helps. If you don t have a heating pad, put some rice into a sock and heat it in the microwave, but beware, it s hot! You may also take ibuprofen (Motrin/ Advil) or naproxen (Aleve). If you can t take either of those medications you may use acetaminophen (Tylenol). Please call if you have severe pain or cramps that are not relieved by the pain medication. Fever Please call if your temperature is 100.4 degrees or higher for more than 2 hours. Fever can be a sign of infection, so call your doctor if you are feeling sick. You may have received a medication called misoprostol, which can cause a fever on the day of your procedure that goes away on it's own and is not concerning. symptoms You may have symptoms such as nausea, breast tenderness, or fatigue that last for a few days after the procedure. You may also notice some nipple discharge or breast swelling. If this occurs, wear a supportive bra and avoid stimulation. You may also use a cold compress. Your test may remain positive for up to 4 weeks. Please call if you have symptoms that last longer than 7 - 10 days. control For most people, it is physically possible (though unlikely) to become in the next 2 - 4 weeks, so it is important to start a control method if you are not planning a right away. Please discuss this with your provider if you have not already chosen a method. If you would like to become soon after this procedure, please discuss this with your doctor. Follow up Most women do not need a follow up appointment. Your doctor may recommend one, or you may choose to schedule one if you have any concerns, problems, or questions. Please do not put anything in your vagina for 1 week (no vaginal intercourse, toys, tampons, or douching). Do not swim or use hot tubs for 1 week. Baths by yourself (do not share water for 2 weeks) and showers are OK. Important Phone Numbers: [facility] Appointments in News Producer ( Early Assessment Clinics) [facility] at [phone] [facility] at [phone] [facility] at [phone] After 4:30 PM or on weekends, you may reach the on-call News Producer by calling the clinic where you were seen. This will automatically transfer you to a contracted answering service, who will then page the appropriate provider. Most calls are returned within 15-20 minutes depending on other direct patient care. When to call the doctor: If your temperature is 100.4 degrees or higher for more than 2 hours. If you have heavy bleeding and soak through more than 2 pads in an hour for 2 hours in a row. If you have severe pain or cramps that are not relieved by the pain medication. LOSS RESOURCES Physical recovery from loss from a spontaneous miscarriage, ectopic , D&C, or a D&E may take several weeks. However, emotional recovery can take longer, and is individualized to each person. Many people have different feelings and experiences with loss or termination. Grief is a normal part of the healing process. Taking time to heal both physically and emotionally after a loss is important. Above all, don t blame yourself. Counseling is available to help you cope with your loss. A loss support group might also be a valuable resource to you and your partner. ONLINE RESOURCES Unspoken Grief: an online miscarriage support resource for miscarriage, stillbirth and loss unspokengrief.org A Heartbreaking Choice: support for diagnosis or termination for medical reasons. http://www.Mimvi/ [facility]: ending a for a abnormality http://www.FatSkunktalkwirynlRegulus Therapeutics.or g/Pregnancy_children/Ending_a_ pregnancy_for_fetal_abnormalit y Ending a Wanted : support for patients and families ending a after or maternal medical diagnosis https://[employer].awaTilkeeedYooDeal .misterbnb Rashard Wolf: one person's story about loss and collected resources. http://www.Mediaspectrum.misterbnb [employer]: headquarters in [place] but with online support group https://www.Allworx.org/in vwfz-zlyf-fuflqfx-groups.html LOCAL RESOURCES Love Lives On, [facility] https://my.[facility].org /locations/[facility]/ guest-services/support Meng(Families Experiencing Early Loss) [facility] https://consultqd.[facility].org/uaynxnanj-cbudbbcen-ud zbrdhygnj-mozfvbk-ffhrkszk-gri eving-families/ [facility] - counseling services [phone] or toll free at [phone] [facility] Support Groups (not specific to loss) https://my.[facility].org /patients/information/bereavem ent/support-groups [facility] [place] Counselors with experience with families facing the loss of a baby before . This service may be covered by your insurance. If not, [facility] will not turn anyone away because of inability to pay. or [phone] Iban Razo, local counselor, not associated with [facility] [phone] Some of our families have recommended Iban Razo as he specializes in helping families who have had or are facing a loss. This may be covered by your insurance, if not, a sliding scale payment plan is available. BOOKS Our Heartbreaking Choices: Forty-Six Women Share Their Stories of Interrupting a Much-Wanted , By Jovanna Acosta Sorrow: Loss-Guidance and Support for You and Your Family, By Sharon Garcia and Pham Summers Unspeakable Losses: Healing from Miscarriage, , and other Loss, By Landy Severino Empty Cradle, Broken Heart: Surviving the of your Baby, By Tamiko Andrews Empty Arms: Coping with Miscarriage, Stillbirth, and , By Manasa Og I Love You Still: A Memorial Baby Book, By Katia Rodriguez Understanding Your Grief: Ten Essential Touchstones for Finding Hope and Healing Your Heart, By Sergo Hawk BOOKS FOR CHILDREN We Were Gonna Have a Baby, But We had an Chuck Instead, By Hortencia Ken My Sibling Still, By Nara Taylor The Goodlilia Book, By Pop Holt Something Happened, By Farideh Hernández No New Baby, By Yana Lopez The Invisible String, By Hari Pretty Our Baby , by Mariangel Chung (two books, one for surgical termination and one for induction of labor) documented in this encounter [facility] 04-20-2024 Note HNO ID: [id number] Author: STACEY WARD MD Service: ? Author Type: Physician Type: Progress Notes Filed: 04/20/2024 14:36 Note Text: UNIVERSAL PROTOCOL / SAFETY CHECKLIST Procedure to be Performed: IPAS Sign In: A Moment of CARE was completed. Personnel directly involved with the procedure wore the appropriate PPE (Personal Protective Equipment). Patient/Surrogate Stated/Verified: PATIENT VERIFIED(optional for EMERGENT procedures): Patient name, Date of , Relevant allergies, and The intended procedure Time Out Communication: Intended patient and procedure match the source documents. Consent documented and matches the intended procedure. Sign Out: SIGN OUT (optional for EMERGENT procedures): All specimen containers correctly labeled. All instruments, equipment, possible retained foreign bodies accounted for. Post-procedure follow-up management communicated and Plan of Care Visit completed when applicable. Procedure note: Speculum was placed in the vagina. After prepping the cervix with betadine paracervical block was performed using 10 cc of 1% lidocaine with 1:100,000 epi. Cervix was grasped with single tooth tenaculum. Cervix was dilated. Using sterile technique, the Manual Vacuum Aspiration device with size 7 cannula was inserted into the uterus and contents were evacuated. Post-procedure ultrasound confirmed no retained tissue. Post-procedure vital signs were obtained and stable Specimen was sent to pathology Patient tolerated procedure well. PLAN: Patient was advised to observe for signs and symptoms of infection including but not limited to fever, malodorous vaginal discharge and/or pain. Bleeding expectations were reviewed. Discussed taking home urine test after next period, and calling if positive. Discussed bleeding expectations and when to expect first period. Follow up: 2-3 weeks Stacey Ward DO [facility] 04-20-2024 History of Presen t illness Narrative UNIVERSAL PROTOCOL / SAFETY CHECKLIST Procedure to be Performed: IPAS Sign In: A Moment of CARE was completed. Personnel directly involved with the procedure wore the appropriate PPE (Personal Protective Equipment). Patient/Surrogate Stated/Verified: PATIENT VERIFIED(optional for EMERGENT procedures): Patient name, Date of , Relevant allergies, and The intended procedure Time Out Communication: Intended patient and procedure match the source documents. Consent documented and matches the intended procedure. Sign Out: SIGN OUT (optional for EMERGENT procedures): All specimen containers correctly labeled. All instruments, equipment, possible retained foreign bodies accounted for. Post-procedure follow-up management communicated and Plan of Care Visit completed when applicable. Procedure note: Speculum was placed in the vagina. After prepping the cervix with betadine paracervical block was performed using 10 cc of 1% lidocaine with 1:100,000 epi. Cervix was grasped with single tooth tenaculum. Cervix was dilated. Using sterile technique, the Manual Vacuum Aspiration device with size 7 cannula was inserted into the uterus and contents were evacuated. Post-procedure ultrasound confirmed no retained tissue. Post-procedure vital signs were obtained and stable Specimen was sent to pathology Patient tolerated procedure well. PLAN: Patient was advised to observe for signs and symptoms of infection including but not limited to fever, malodorous vaginal discharge and/or pain. Bleeding expectations were reviewed. Discussed taking home urine test after next period, and calling if positive. Discussed bleeding expectations and when to expect first period. Follow up: 2-3 weeks Stacey Ward DO documented in this encounter [facility] 04-18-2024 Note HNO ID: [id number] Author: LISA SMALLS MD Service: ? Author Type: Physician Type: Progress Notes Filed: 04/18/2024 10:35 Note Text: Anup Nielsen is a 34 year old female who presented for ob gyn physician assistant ultrasound today. Encounter Diagnosis ICD-10-CM 1. Incomplete spontaneous without complication O03.4 Please see report under imaging tab. Lisa Smalls MD April 18, 2024 10:30 AM [facility] 04-18-2024 History of Presen t illness Narrative Anup Nielsen is a 34 year old female who presented for ob gyn physician assistant ultrasound today. Encounter Diagnosis ICD-10-CM 1. Incomplete spontaneous without complication O03.4 Please see report under imaging tab. Lisa Smalls MD April 18, 2024 10:30 AM documented in this encounter [facility] 04-17-2024 Note Addended by: ALEXUS POSADA on: 04/17/2024 01:04 PM Modules accepted: Orders [facility] Work Phone: 04-17-2024 Miscellaneous Notes Addended by: ALEXUS POSADA on: 04/17/2024 01:04 PM Modules accepted: Orders Reviewed procedure with patient and advised Pt to chart picker prescriptions at pharmacy and bring to office with her. Bleeding precautions also reviewed with patient. Briana Houston RN Rx sent. Please call and give patient instructions on what medications to take and which to bring with her. She also needs a ride. Yuliana Stockton APRN.CNM SW agreeable to do on 04/20/24. Pt to arrive at 1pm and will do at 2pm. Can you please review orders for IPAS for SW and will contact Pt on further instruction? Briana Houston RN I spoke to LT- I have two cases on Tuesday- and then a full office. So it will probably be better to add to SW after my Hysterectomy before she does her cases. Pt had visit with CP today for f/u missed AB. Had pelvic u/s completed today as well. CP stated Pt still has retained products and is in need of IPAS procedure o Tuesday04/20/24.Briana Houston RN documented in this encounter [facility] 04-17-2024 Telephone encount er Note Reviewed procedure with patient and advised Pt to chart picker prescriptions at pharmacy and bring to office with her. Bleeding precautions also reviewed with patient. Briana Houston RN [facility] 04-17-2024 Telephone encount er Note Rx sent. Please call and give patient instructions on what medications to take and which to bring with her. She also needs a ride. Yuliana Stockton APRN.CNM [facility] 04-17-2024 Telephone encount er Note SW agreeable to do on 04/20/24. Pt to arrive at 1pm and will do at 2pm. Can you please review orders for IPAS for SW and will contact Pt on further instruction? Briana Houston RN [facility] 04-17-2024 Instructions Briana Houston RN - 04/17/2024 12:00 PM EST Preparing for Your Procedure - Manual Vacuum Aspiration (MVA) or Ipas procedure What is it? This is a simple procedure that uses suction to remove tissue or blood clots from the uterus. A local pain medication is used to numb the cervix and medicines to reduce pain and anxiety may also be offered. A cannula is a thin tube that is guided through the cervical opening into the uterus. A handheld suction device is attached to the tube and together they are used to remove the contents of the uterus. It takes less than ten minutes. When is the procedure done? This procedure is used to remove tissue when a person has experienced a miscarriage. It is sometimes used to help doctors diagnose the location of tissue (inside the uterus or not). It is also sometimes used to clear blood clots from the uterus in someone bleeding heavily. Is it safe? Yes, the procedure is safe. Having this procedure done does not lower your chance of getting again. Serious complications are very rare. Advantages Simple and safe Can be done in an outpatient medical office Over quickly Very effective at removing tissue Disadvantages There is a 1-2 % percent chance it will be incomplete and need to be repeated. Serious complications like infection or damage to the uterus are possible but very rare and occur in less than 0.5% of cases. What to expect You can expect to have some cramping during and after the procedure. The amount of discomfort varies as everyone experiences pain in a different way. Your doctor will talk to you about ways to make the discomfort manageable. You will have some bleeding after the procedure, usually equivalent to a light or moderate period and lasting for a few days to 2 weeks. [facility] Appointments in News Producer ( Early Assessment Clinics) [facility] at [phone] [facility] at [phone] [facility] at [phone] After 4:30 PM or on weekends, you may reach the on-call News Producer by calling the clinic where you were seen. This will automatically transfer you to a contracted answering service, who will then page the appropriate provider. Most calls are returned within 15-20 minutes depending on other direct patient care. LOSS RESOURCES Many people have different feelings and experiences with loss or termination. Grief can be a normal part of the healing process. Taking time to heal both physically and emotionally after a loss is important. Counseling is available to help you cope with your loss. A loss support group might also be a valuable resource to you and your family. Ask your healthcare provider for more information about counseling and support groups. Online Resources Unspoken Grief: an online miscarriage support resource for miscarriage, stillbirth and loss unspokengrief.org A Heartbreaking Choice: support for diagnosis or termination for medical reasons. http://www.Mimvi/ [facility]: ending a for a abnormality http://www.healthtalkonline.or g/Pregnancy_children/Ending_a_ pregnancy_for_fetal_abnormalit y Ending a Wanted : support for patients and families ending a after or maternal medical diagnosis https://endingawantedpregnancy .com Defecarrieing Maryann: one person's story about loss and collected resources. Rashard wolf. [employer]: headquarters in [place] but with online support group https://www.EasyRunosvaldoInternational Youth Organization.Alimera Sciences/in pwik-cvup-zpwnanl-groups.html Local Resources Love Lives On, [facility] Support Group https://my.[facility].org /locations/[facility]/ guest-services/support F.E.E.L.(Families Experiencing Early Loss) [facility] Support Group https://consultqd.[facility].org/wvwfwfibg-owuncwzmy-ni stvpqkhnn-wldcmqh-hllfbswh-gri eving-families/ [facility] - counseling services [phone] or toll free at [phone] [facility] Support Groups (not specific to loss) https://my.[facility].org /patients/information/bereavem ent/support-groups [facility].org [address] [facility], [address] ([address]) Offers quarterly loss support groups, individual and couples bereavement counseling, remembrance services and more [facility] [place] Counselors with experience with families facing the loss of a baby before . This service may be covered by your insurance. If not, [facility] will not turn anyone away because of inability to pay. or [phone] Iban Razo, local counselor, not associated with [facility] [phone] Some of our families have recommended Iban Razo as he specializes in helping families who have had or are facing a loss. This may be covered by your insurance, if not, a sliding scale payment plan is available. BOOKS Our Heartbreaking Choices: Forty-Six Women Share Their Stories of Interrupting a Much-Wanted , By Jovanna Jacobson: Loss-Guidance and Support for You and Your Family, By Sharon Garcia and Pham Summers Unspeakable Losses: Healing from Miscarriage, , and other Loss, By Landy Severino Empty Cradle, Broken Heart: Surviving the of your Baby, By Tamiko Andrews Empty Arms: Coping with Miscarriage, Stillbirth, and , By Manasa Og I Love You Still: A Memorial Baby Book, By Katia Rodriguez Understanding Your Grief: Ten Essential Touchstones for Finding Hope and Healing Your Heart, By Sergo Hawk BOOKS FOR CHILDREN We Were Gonna Have a Baby, But We had an Chuck Instead, By Hortencia Ken My Sibling Still, By Nara Taylor The Goodbye Book, By Pop Holt Something Happened, By Farideh Hernández No New Baby, By Yana Lopez The Invisible String, By Hari Pretty Our Baby , by Mariangel Chung (two books, one for surgical termination and one for induction of labor) documented in this encounter [facility] 04-17-2024 Telephone encount er Note I spoke to LT- I have two cases on Tuesday- and then a full office. So it will probably be better to add to SW after my Hysterectomy before she does her cases. [facility] Work Phone: 04-17-2024 Telephone encount er Note Pt had visit with CP today for f/u missed AB. Had pelvic u/s completed today as well. CP stated Pt still has retained products and is in need of IPAS procedure o Tuesday04/20/24.Briana Houston RN [facility] 04-17-2024 Progress note Formatting of t his note might be different from the original. S: Anup Nielsen is a 34 year old female who presents for follow up visit. Seen last week in office for incomplete miscarriage. Cytotec 800 mcg vaginally placed last weekend. She reports that she did have some bleeding but mostly spotting. Denies any pain or cramping at this time. Stated I don't think I passed anything". OB US completed today and still showing retained POC. No yolk sac or pole visualized. O: See flow sheet Gen: No apparent distress Abd: Gravid, nontender ASSESSMENT/PLAN: 1. 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 Retained products of conception after miscarriage - ICD9: 634.90, ICD10: O03.4 - Reviewed ultrasound findings with patient - Discussed options of surgical intervention with D&C or IPAS - Patient would like to move forward with IPAS this week - Will assist with scheduling and sending in medications - Continue HCG levels until reaches zero- getting levels at [facility] Yuliana Stockton APRN.CNM [facility] 04-17-2024 Miscellaneous Notes Formattin g of this note might be different from the original. S: Anup Nielsen is a 34 year old female who presents for follow up visit. Seen last week in office for incomplete miscarriage. Cytotec 800 mcg vaginally placed last weekend. She reports that she did have some bleeding but mostly spotting. Denies any pain or cramping at this time. Stated I don't think I passed anything". OB US completed today and still showing retained POC. No yolk sac or pole visualized. O: See flow sheet Gen: No apparent distress Abd: Gravid, nontender ASSESSMENT/PLAN: 1. 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 Retained products of conception after miscarriage - ICD9: 634.90, ICD10: O03.4 - Reviewed ultrasound findings with patient - Discussed options of surgical intervention with D&C or IPAS - Patient would like to move forward with IPAS this week - Will assist with scheduling and sending in medications - Continue HCG levels until reaches zero- getting levels at [facility] Yuliana Stockton APRN.CNM documented in this encounter [facility] 04-17-2024 Instructions Mili Cullen MA - 04/17/2024 9:26 AM EST SEQUENTIAL SCREENINGS The [facility] offers sequential screenings for women who are interested in screenings for chromosomal abnormalities and certain defects during a . The sequential screen combines ultrasound and blood tests to determine the risk of chromosomal abnormalities, including Down's Syndrome (Trisomy 21) and Trisomy 18, as well as open neural tube defects including spina bifida. Ultrasound examination is performed between 11 weeks and 13 weeks gestational age. Blood tests are drawn after the ultrasound and again later in the between 15 and 21 weeks gestational age. Please let your physician know if you are interested in this testing. It will require an appointment with our dentures lab technician. This is not an ultrasound performed by a physician in our office during a routine visit. SIGNS AND SYMPTOMS OF LABOR 1. Contractions every 10 minutes or more often 2. Clear, pink, or brownish fluid (water) leaking from vagina 3. Feeling that baby is pushing down, pressure 4. Low, dull backache 5. Cramps that feel like a period 6. Cramps with or without diarrhea If you notice any of the above symptoms, contact our office at [phone] and ask to speak with a nurse. After hours, you can call doctors registry at [phone] OR call [facility] at [phone] and ask to have the doctor long wall shear operator paged. If you consider this an emergency, dial 9-5-4 or go to your nearest emergency department. NEED HELP? Are you dealing with a violent or abusive relationship? Are you a victim of rape or sexual assult? Call [facility] ([place]) 24 hour Crisis Hotline: 875.492.6811 or 689-942-8524. MANUAL Your Guide to a Healthy manual is now on-line. Visit the [facility].org/HealthyPre gnancyGuide to download your free copy documented in this encounter [facility] 04-16-2024 Telephone encount er Note Pills over the weekend, bled lightly over the weekend, did not feel like she passed POC. Advised Pt to come for ultrasound at 0900 and she will see CP following. Pt voiced understanding. Briana Houston RN [facility] 04-16-2024 Miscellaneous Notes Formattin g of this note might be different from the original. Pills over the weekend, bled lightly over the weekend, did not feel like she passed POC. Advised Pt to come for ultrasound at 0900 and she will see CP following. Pt voiced understanding. Briana Houston RN Yes, Patient will need seen after ultrasound. We can fit her into my schedule or someone if they have a cancellation. Yuliana Sotckton APRN.CNM PSS called as Pt was accidentally scheduled for April ultrasound when it was to be next week. Pt was seen in office today and advised to have Ultrasound with follow-up appt next week for missed AB. We only have 1 US opening at 0900 on 04/17/24. 04/17/24 0900 US placed on hold for Pt. No provider has appt opening after that. Are you willing to fit Pt in your schedule as this was advised by CNM student? Please advise. Will need to call Pt to inform her of f/u appt date and time. Briana Houtson RN documented in this encounter [facility] 04-13-2024 Telephone encount er Note Yes, Patient will need seen after ultrasound. We can fit her into my schedule or someone if they have a cancellation. Yuliana Stockton APRN.CNM [facility] 04-13-2024 Telephone encount er Note PSS called as Pt was accidentally scheduled for April ultrasound when it was to be next week. Pt was seen in office today and advised to have Ultrasound with follow-up appt next week for missed AB. We only have 1 US opening at 0900 on 04/17/24. 04/17/24 0900 US placed on hold for Pt. No provider has appt opening after that. Are you willing to fit Pt in your schedule as this was advised by CNM student? Please advise. Will need to call Pt to inform her of f/u appt date and time. Briana Houston RN [facility] 04-13-2024 Miscellaneous Notes Formattin g of this note might be different from the original. Pt was seen in office by CP today and plan of care was discussed. Briana Houston RN Alexus Posada MD [facility] [employer] Pool hcg falling slowly. Has she had bleeding? Would recommend a f/u this coming week or the next to see if she has passed it. Alexus Posada MD ----- Message from Alexus Posada MD sent at 04/13/2024 1:35 PM EST ----- If hasn't started passing the miscarriage does she want a f/u to discuss options sooner or still wait. Thanks. Alexus Posada MD documented in this encounter [facility] 04-13-2024 Telephone encount er Note Pt was seen in office by CP today and plan of care was discussed. Briana Houston RN [facility] 04-13-2024 Telephone encount er Note Alexus Posada MD [facility] [employer] Pool hcg falling slowly. Has she had bleeding? Would recommend a f/u this coming week or the next to see if she has passed it. Alexus Posada MD [facility] 04-13-2024 Telephone encount er Note ----- Message from Alexus Posada MD sent at 04/13/2024 1:35 PM EST ----- If hasn't started passing the miscarriage does she want a f/u to discuss options sooner or still wait. Thanks. Alexus Posada MD [facility] 04-13-2024 Progress note Formatting of t his note might be different from the original. 34 year old came in for a follow up ultrasound for miscarriage. Per ultrasound today, confirmed retained products of conception. No yolk sac, or pole visualized today. She stated she passed the majority of tissue last Tuesday. Verbalized that she is still bleeding but mentioned that bleeding started to slow this morning. Pulled up results of her HCG levels drawn yesterday at alternate location resulted at 936. Expressed that she had a miscarriage last year at this same time and had passed it naturally with 3 weeks of bleeding. Admitted to losing consciousness at one point. Stated it was "circumstantial and not due to dramatic amount of bleeding." Stated she had a lot of stress at that time as well. ASSESSMENT/PLAN: 1. 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 Surgical/ IPAS. - Patient opting for medication at this time - Aware she will need follow up ultrasound next week - Emotional support provided and bleeding precautions discussed. - HCG QUANTITATIVE HCG levels being drawn at alternate location due to proximity to her home. Will send results - COMPLETE BLOOD COUNT - Cytotec 800 mcg vaginally x 1. Educated how to place medication appropriately, - Advised to take Ibuprofen 800mg every 8 hours as needed for symptoms of cramping and discomfort. - Signs and symptoms of infection discussed with patient. Follow up next week for US, report HCG findings as they result. IRON Gaffney, RN, CNM Student TEACHING DIRECTOR OF [employer]OT[employer] NOTE OF PERSONAL INVOLVEMENT IN CARE: I have interviewed the patient and updated the midwifery student's PFS history, and ROS as necessary. I have re-performed the HPI, Physical Examination, Assessment and Plan. Yuliana Stockton APRN, CNM [facility] 04-13-2024 Miscellaneous Notes Formattin g of this note might be different from the original. 34 year old came in for a follow up ultrasound for miscarriage. Per ultrasound today, confirmed retained products of conception. No yolk sac, or pole visualized today. She stated she passed the majority of tissue last Tuesday. Verbalized that she is still bleeding but mentioned that bleeding started to slow this morning. Pulled up results of her HCG levels drawn yesterday at alternate location resulted at 936. Expressed that she had a miscarriage last year at this same time and had passed it naturally with 3 weeks of bleeding. Admitted to losing consciousness at one point. Stated it was "circumstantial and not due to dramatic amount of bleeding." Stated she had a lot of stress at that time as well. ASSESSMENT/PLAN: 1. 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 Surgical/ IPAS. - Patient opting for medication at this time - Aware she will need follow up ultrasound next week - Emotional support provided and bleeding precautions discussed. - HCG QUANTITATIVE HCG levels being drawn at alternate location due to proximity to her home. Will send results - COMPLETE BLOOD COUNT - Cytotec 800 mcg vaginally x 1. Educated how to place medication appropriately, - Advised to take Ibuprofen 800mg every 8 hours as needed for symptoms of cramping and discomfort. - Signs and symptoms of infection discussed with patient. Follow up next week for US, report HCG findings as they result. IRON Gaffney, RN, CNM Student TEACHING DIRECTOR [employer] NOTE OF PERSONAL INVOLVEMENT IN CARE: I have interviewed the patient and updated the midwifery student's PFS history, and ROS as necessary. I have re-performed the HPI, Physical Examination, Assessment and Plan. Yuliana Stockton APRN, CNM documented in this encounter [facility] 04-06-2024 Telephone encount er Note noted [facility] Work Phone: 04-06-2024 Miscellaneous Notes Formattin g of this note might be different from the original. noted Patient notified and voiced understanding of below. Patient states she has started to spot and at this time is just going to continue with expectant management. Patient states she did discuss IPAS with CHUY and that she will think about that over the weekend and let us know if she wants to proceed. Patient has ultrasound and follow up scheduled for 04/13. Loly Munoz RN Hcg quant decreasing - based on CHUY findings with ultrasound and quants this is likely c/w missed ab. Per CHUY notes it looks like she discussed options with her- does she still expectant management at this time or would she like to proceed with any intervention? Please review decreasing hcg quant result. Saw CHUY 04/03. hCG Quantitative, Blood (mIU/mL) Date Value 04/05/2024 26,761.0 04/03/2024 34,298.0 Laureen Cooper RN ----- Message from Radha Javier APRN.CNM sent at 04/04/2024 9:25 AM EST ----- Please follow up with long wall shear operator provider with second serum results. Scheduled for follow up US. Radha Javier APRN.CNM hCG Quantitative, Blood (mIU/mL) Date Value 04/03/2024 34,298.0 documented in this encounter [facility] 04-06-2024 Telephone encount er Note Patient notified and voiced understanding of below. Patient states she has started to spot and at this time is just going to continue with expectant management. Patient states she did discuss IPAS with CHUY and that she will think about that over the weekend and let us know if she wants to proceed. Patient has ultrasound and follow up scheduled for 04/13. Loly Munoz RN [facility] 04-06-2024 Telephone encount er Note Hcg quant decreasing - based on CHUY findings with ultrasound and quants this is likely c/w missed ab. Per CHUY notes it looks like she discussed options with her- does she still expectant management at this time or would she like to proceed with any intervention? [facility] 04-06-2024 Telephone encount er Note Please review decreasing hcg quant result. Saw CHUY 04/03. hCG Quantitative, Blood (mIU/mL) Date Value 04/05/2024 26,761.0 04/03/2024 34,298.0 Laureen Cooper RN [facility] 04-05-2024 Telephone encount er Note ----- Message from Radha Javier APRN.CNM sent at 04/04/2024 9:25 AM EST ----- Please follow up with long wall shear operator provider with second serum results. Scheduled for follow up US. Radha Javier APRN.CNM hCG Quantitative, Blood (mIU/mL) Date Value 04/03/2024 34,298.0 N [facility] 03-30-2024 History of Presen t illness Narrative Grocery Buyer offered: Patient declines. INITIAL OB ASSESSMENT HPI: Anup is a 34 year old White Female here to establish Obstetrical Care. Patient's last menstrual period was 01/16/2024. from OB Dating Form. was planned Complaints: No OB History T5 L6 SAB3 IAB0 Ectopic0 Multiple1 Live Births0 Previous history: Prior : yes x 2 History of 4th degree laceration: None History of shoulder dystocia: None History of Hypertensive disorders including pre-eclampsia or gestational hypertension: None History of gestational diabetes: None Patient's Risk Screening for delivery: Have you had a prior sy between 20w and 36w6d? No How many pregnancies have you had before? 9 Did you have a previous baby with a GBS Infection? No Please select all that apply for any prior : N/A MEDICAL/PSYCHOSOCIAL HISTORY: Severe Bleeding with delivery: Thyroid Disease: Gestational Hypertension: Preeclampsia: Diabetes in : BMI 30.71 kg/(m^2) Last Pap: last year. Unsure exactly when History of abnormal pap: no Prior treatment for cervical dysplasia: none. Last HPV: last year, unsure exactly when History of STDs: None Partner History of STDs: None Did you have a partner with Herpes? No Tobacco use: No E-Cigarette/Vaping Use: No Caffeine use: Yes Drug use: No Alcohol use: No Multivitamin with Folic acid: Yes Would refuse blood transfusion if medically necessary: No Social Needs: How often does this describe you? I don't have enough money to pay my bills: Never Within the past 12 months, have you worried that your food would run out before you had money to buy more? Never In the past 12 months, has lack of reliable transportation kept you from going to medical appointments or work, or from getting things needed for daily living? Never In the past 12 months, have you had any concerns about having a place to live, or about the condition or quality of your housing? Never Would you like more information on any of the following (please check all that apply)? Not interested Social History: Do you have any history of depression, anxiety, PTSD, or other mood problems? No Do you have a history of abuse or trauma that may impact your experience? No Are you currently employed? No Depression/Anxiety Screening: denies symptoms of depression. OB Depression and Anxiety Screening- This Encounter (since 04/02/2024) None Genetic Screening: Partner present: No Patient verbalized knowledge of partner family health history: Yes Do you or your partner have any personal or family history of defects not previously discussed: No Do you have history of a complicated by anomaly, genetic condition, or demise: No Preeclampsia Risk Screening: Screening for prevention of preeclampsia: High risk factors: None Moderate risk ractors: Age 35 years or older OB Risk Screening: Completed, no positive findings documented. Marital Status: Partner: Name: Prashant Age: 41 Occupation: Self Employed Contractor Gender: Male PAST MEDICAL HISTORY Diagnosis Date NEGATIVE MEDICAL HISTORY PAST SURGICAL HISTORY Procedure Laterality Date APPENDIX NET-EXCIS(APPENDECTOMY)SYNOPTI C 2022 DELIVERY ONLY 2014 and 2021 Current Outpatient Medications Medication Sig Dispense Refill PNV/iron,carb/docusat/folic ac (PRENA-CAP ORAL) Take 2 Units by mouth once daily. PROGESTERONE INTRAUTERINE Use 200 Suppositories vaginally two times a day. No current facility-administered medications for this visit. Allergies As of Date: 04/03/2024 (Not on File) Fully Assessed 04/03/2024 Does patient have penicillin allergy: No REVIEW OF SYSTEMS: GENERAL: Negative for: Fever or Chills HEENT: Negative for: Headache, Impaired Vision, Ringing in Ears, Nosebleeds NECK: Negative for: Swelling, Pain, Stiffness RESPIRATORY: Negative for: Cough, Shortness of breath, Wheezing GASTROINTESTINAL: Negative for: Heartburn, Constipation, Diarrhea, Blood in stool, Vomiting MUSCULOSKELETAL: Negative for: Muscle or joint pain, stiffness, Joint swelling NEUROLOGIC/PSYCHIATRIC: Negative for: Weakness, Paralysis, Numbness, Tingling, Tremor, Anxiety, Depression, Memory loss SKIN: Negative for: Rash, Itching GENITOURINARY: Negative for: vaginal itching, vaginal discharge, hematuria or dysuria SENSITIVE EXAM: Sensitive exam not performed. PHYSICAL EXAM: BP 120/70 Ht 5' 2.205" (1.58m) Wt 169 lb (76.7kg) LMP 01/16/2024 BMI 30.71 kg/(m^2). GENERAL: pleasant in no apparent distress DERMATOLOGY: Normal, without lesions, non-icteric, and non-hirsute NECK: Supple, full range of motion, no adenopathy, and thyroid normal CHEST: Normal inspiratory effort BREAST: soft, non-tender, symmetric, no dominant mass, normal nipple-areolar complex, no lymphadenopathy, and no nipple discharge ABDOMEN: soft, non-tender, and no masses NEURO: alert and oriented x3,exam grossly non-focal PELVIS: External genitalia normal without lesions. Perineal body intact. No vaginal or cervical lesions. Cervix closed. Uterus 6wk GA No adnexal masses or tenderness. Clinical Pelvimetry: Pelvimetry clinically assessed as adequate Limited OB ultrasound exam: single intrauterine and normal bilateral adnexa Assessment Gestational sac: visualized GS 17.0 mm 6w 0d 52% Negrita Location: intrauterine Yolk sac: visualized Embryo: visualized CRL 2.7 mm 5w 6d <1% [place] Cardiac activity: absent ASSESSMENT: 34 year old at 11w1d wks gestational age PLAN: -Suspect missed due to timing of home test in January. -GS and CRL not diagnostic but suspicious of failure. Will get serum quant level today and repeat in 2 days. Viability US in 10-14 days. Emotional support provided and bleeding precautions. -Early failure was discussed with the patient. She was counseled regarding expectant, medical and surgical management options.Bleeding precautions reviewed. Will discuss further after confirmation. Radha Javier APRN.CNM documented in this encounter [facility] 03-30-2024 Instructions Mili Cullen MA - 03/30/2024 12:01 PM EST Please select the following link to access the [facility] Your Guide to a Healthy . [email or web address] Please select the following link to access the [facility] Your Guide to a Healthy . [email or web address] documented in this encounter [facility] Evaluation note Diagnosis 11 weeks gestation of - Primary state, incidental Threatened Threatened , unspecified as to episode of care Screening for cervical cancer Screening for malignant neoplasm of the cervix Special screening examination for human papillomavirus (HPV) [facility] [place] [facility] Diagnosis Incomplete spontaneous without complication- Primary Incomplete spontaneous without mention of complication [facility] Diagnosis 11 weeks gestation of state, incidental Threatened Threatened , unspecified as to episode of care [facility] Diagnosis Incomplete spontaneous without complication- Primary Incomplete spontaneous without mention of complication Retained products of conception after miscarriage [facility] [place] [facility]* Diagnosis , missed- Primary Missed [facility] Diagnosis Incomplete spontaneous without complication Incomplete spontaneous without mention of complication [facility] Diagnosis Incomplete spontaneous without complication- Primary Incomplete spontaneous without mention of complication [facility] [place] [facility] Diagnosis History of miscarriage- Primary Personal history of other genital system and obstetric disorders [facility] [place] [facility] Diagnosis History of miscarriage- Primary Personal history of other genital system and obstetric disorders Follow-up exam Unspecified follow-up examination [facility] [place] [facility] Diagnosis Encounter for supervision of high risk in first trimester, antepartum (HCC)- Primary 8 weeks gestation of (HCC) state, incidental with uncertain dates in first trimester (HCC) Screen for STD (sexually transmitted disease) Screening examination for venereal disease History of miscarriage Personal history of other genital system and obstetric disorders Multigravida of advanced maternal age in first trimester (HCC) History of section Other postprocedural status History of Personal history of other genital system and obstetric disorders Subchorionic hematoma in first trimester, single or unspecified fetus (HCC) [facility] [place] [facility]* Diagnosis Encounter for supervision of high risk in first trimester, antepartum ([facility])- Primary Multigravida of advanced maternal age in first trimester ([facility]) History of Personal history of other genital system and obstetric disorders History of section Other postprocedural status 12 weeks gestation of ([facility]) state, incidental documented in this encounter [facility] note* Diagnosis Encounter for screening for malformation using ultrasound ([facility])- Primary 12 weeks gestation of ([facility]) state, incidental Encounter for (NT) nuchal translucency scan ([facility]) Other specified screening documented in this encounter [facility] note* Diagnosis Supervision of high risk in second trimester ([facility])- Primary Unspecified high-risk History of Personal history of other genital system and obstetric disorders History of section Other postprocedural status Multigravida of advanced maternal age in second trimester ([facility]) 16 weeks gestation of ([facility]) state, incidental documented in this encounter [facility] note* Diagnosis Multigravida of advanced maternal age in first trimester ([facility])- Primary with uncertain dates in first trimester ([facility]) History of section- Primary Other postprocedural status Supervision of high risk in second trimester ([facility]) Unspecified high-risk AMA (advanced maternal age) multigravida 35+, second trimester ([facility]) Circumvallate placenta, second trimester ([facility]) documented in this encounter [facility] note* Diagnosis History of section- Primary Other postprocedural status Supervision of high risk in second trimester ([facility]) Unspecified high-risk AMA (advanced maternal age) multigravida 35+, second trimester ([facility]) Circumvallate placenta, second trimester ([facility]) * Assessment & Plan Note - Alexus Posada MD - 11/06/2024 9:23 AM EDT Associated Problem(s): History of section 2 c.s [facility] * Assessment & Plan Note - Alexus Posada MD - 11/06/2024 9:23 AM EDT Associated Problem(s): Supervision of high risk in second trimester ([facility]) * Assessment & Plan Note - Alexus Posada MD - 11/06/2024 9:23 AM EDT Associated Problem(s): AMA (advanced maternal age) multigravida 35+, second trimester ([facility]) * Assessment & Plan Note - Alexus Posada MD - 11/06/2024 9:23 AM EDT Associated Problem(s): Circumvallate placenta, second trimester ([facility]) [facility] History of section- Primary Other postprocedural status Supervision of high risk in second trimester ([facility]) Unspecified high-risk AMA (advanced maternal age) multigravida 35+, second trimester ([facility]) Circumvallate placenta, second trimester ([facility]) History of section- Primary Other postprocedural status Supervision of high risk in second trimester ([facility]) Unspecified high-risk History of Personal history of other genital system and obstetric disorders 23 weeks gestation of ([facility]) state, incidental Screening for diabetes mellitus * Assessment & Plan Note - Ozzie Zhao MD - 12/04/2024 10:01 AM EDTAssociated Problem(s): History of section * Assessment & Plan Note - Ozzie Zhao MD - 12/04/2024 10:01 AM EDTAssociated Problem(s): Supervision of high risk in second trimester ([facility]) Orders: GESTATIONAL GLUCOSE SCREEN, 1-HOUR, 50 GRAM, NON-FASTING; Future SYPHILIS TREPONEMAL W/REFLEX; Future ANEMIA REFLEX PANEL; Future * Assessment & Plan Note - Ozzie Zhao MD - 12/04/2024 10:01 AM EDTAssociated Problem(s): History of Plans TOLAC at [facility] as h/o 2 c/s documented in this encounter [facility] note* Diagnosis History of section- Primary Other postprocedural status Supervision of high risk in second trimester ([facility]) Unspecified high-risk AMA (advanced maternal age) multigravida 35+, second trimester ([facility]) Circumvallate placenta, second trimester ([facility]) History of section- Primary Other postprocedural status Supervision of high risk in second trimester ([facility]) Unspecified high-risk History of Personal history of other genital system and obstetric disorders 23 weeks gestation of ([facility]) state, incidental Screening for diabetes mellitus 27 weeks gestation of ([facility])- Primary state, incidental History of vaginal after Personal history of other genital system and obstetric disorders AMA (advanced maternal age) multigravida 35+, second trimester ([facility]) * Assessment & Plan Note - Ozzie Zhao MD - 01/01/2025 9:25 AM EDTAssociated Problem(s): Supervision of high risk in second trimester ([facility]) Plans [facility] at [facility] for h/o 2 c/s Orders: OBSTETRIC ULTRASOUND WHI; Future * Assessment & Plan Note - Ozzie Zhao MD - 01/01/2025 9:25 AM EDTAssociated Problem(s): AMA (advanced maternal age) multigravida 35+, second trimester ([facility]) Orders: OBSTETRIC ULTRASOUND WHI; Future documented in this encounter [facility] note* Diagnosis History of section- Primary Other postprocedural status Supervision of high risk in second trimester ([facility]) Unspecified high-risk AMA (advanced maternal age) multigravida 35+, second trimester [facility] [facility]) Circumvallate placenta, second trimester ([facility]) History of section- Primary Other postprocedural status Supervision of high risk in second trimester ([facility]) Unspecified high-risk History of Personal history of other genital system and obstetric disorders 23 weeks gestation of ([facility]) state, incidental Screening for diabetes mellitus 27 weeks gestation of ([facility])- Primary state, incidental History of vaginal after Personal history of other genital system and obstetric disorders AMA (advanced maternal age) multigravida 35+, second trimester ([facility]) Supervision of high risk in third trimester ([facility])- Primary Unspecified high-risk 30 weeks gestation of ([facility]) state, incidental Anemia complicating , third trimester ([facility]) AMA (advanced maternal age) multigravida 35+, second trimester ([facility]) History of Personal history of other genital system and obstetric disorders Circumvallate placenta, second trimester ([facility]) Uterine size-date discrepancy, third trimester ([facility]) documented in this encounter [facility] for referral (narrative)* Diagnostic Procedure Only (Routine) - Pending Review Specialty Diagnoses / Procedures Referred By Daniela rich Referred To Contact [facility] Diagnoses 11 weeks gestation of Threatened Procedures PELVIC US WHI US PELVIC NONOBSTETRIC REAL-TIME IMAGE COMPLETE Radha Javier APRN.CNM [address] [place] [address] [address] Referral ID Status Reason Start Date Expiration Date Visits Requested Visits Authorized [id number] Pending Review Auto-Generat ed Referral 4 04/03/2025 1 1 [facility] Diagnostic Procedure Only (Routine) - Pending Review Specialty Diagnoses / Procedures Referred By Contvinh t Referred To Contact [facility] Diagnoses Incomplete spontaneous without complication Procedures OBSTETRIC ULTRASOUND WHI US PREG UTERUS AFTER 1ST TRIMEST 1/1ST GESTATION Yuliana Stockton APRN.CNM [address] [place] [address] [facility] [place] [address] Referral ID Status Reason Start Date Expiration Date Visits Requested Visits Authorized [id number] Pending Review Auto-Generat ed Referral 4 04/13/2025 1 1 [facility] Summary Purpose Family History No Family History Records Found Diabetes Mellitus Type II Status:Active Commen ts:Maternal Grandmother. Father Still Living Status:Active Hypertension Status:Active Comments:Paterna l Grandfather. Paternal Grandmother. Lung Cancer Status:Active Comments:Paterna l Grandfather. Mother Still Living Status:Active Osteoarthritis Status:Active Comments:"grandp arents" Diabetes Mellitus Type II Status:Active Commen ts:Maternal Grandmother. Father Still Living Status:Active Hypertension Status:Active Comments:Paterna l Grandfather. Paternal Grandmother. Lung Cancer Status:Active Comments:Paterna l Grandfather. Mother Still Living Status:Active Osteoarthritis Status:Active Comments:"grandp arents" Diabetes Mellitus Type II Status:Active Commen ts:Maternal Grandmother. Father Still Living Status:Active Hypertension Status:Active Comments:Paterna l Grandfather. Paternal Grandmother. Lung Cancer Status:Active Comments:Paterna l Grandfather. Mother Still Living Status:Active Osteoarthritis Status:Active Comments:"grandp arents" Diabetes Mellitus Type II Status:Active Commen ts:Maternal Grandmother. Father Still Living Status:Active Hypertension Status:Active Comments:Paterna l Grandfather. Paternal Grandmother. Lung Cancer Status:Active Comments:Paterna l Grandfather. Mother Still Living Status:Active Osteoarthritis Status:Active Comments:"grandp arents" Diabetes Mellitus Type II Status:Active Commen ts:Maternal Grandmother. Father Still Living Status:Active Hypertension Status:Active Comments:Paterna l Grandfather. Paternal Grandmother. Lung Cancer Status:Active Comments:Paterna l Grandfather. Mother Still Living Status:Active Osteoarthritis Status:Active Comments:"grandp arents" Diabetes Mellitus Type II Status:Active Commen ts:Maternal Grandmother. Father Still Living Status:Active Hypertension Status:Active Comments:Paterna l Grandfather. Paternal Grandmother. Lung Cancer Status:Active Comments:Paterna l Grandfather. Mother Still Living Status:Active Osteoarthritis Status:Active Comments:"grandp arents" Diabetes Mellitus Type II Status:Active Commen ts:Maternal Grandmother. Father Still Living Status:Active Hypertension Status:Active Comments:Paterna l Grandfather. Paternal Grandmother. Lung Cancer Status:Active Comments:Paterna l Grandfather. Mother Still Living Status:Active Osteoarthritis Status:Active Comments:"grandp arents" Diabetes Mellitus Type II Status:Active Commen ts:Maternal Grandmother. Father Still Living Status:Active Hypertension Status:Active Comments:Paterna l Grandfather. Paternal Grandmother. Lung Cancer Status:Active Comments:Paterna l Grandfather. Mother Still Living Status:Active Osteoarthritis Status:Active Comments:"grandp arents" Diabetes Mellitus Type II Status:Active Commen ts:Maternal Grandmother. Father Still Living Status:Active Hypertension Status:Active Comments:Paterna l Grandfather. Paternal Grandmother. Lung Cancer Status:Active Comments:Paterna l Grandfather. Mother Still Living Status:Active Osteoarthritis Status:Active Comments:"grandp arents" Diabetes Mellitus Type II Status:Active Commen ts:Maternal Grandmother. Father Still Living Status:Active Hypertension Status:Active Comments:Paterna l Grandfather. Paternal Grandmother. Lung Cancer Status:Active Comments:Paterna l Grandfather. Mother Still Living Status:Active Osteoarthritis Status:Active Comments:"grandp arents" Diabetes Mellitus Type II Status:Active Commen ts:Maternal Grandmother. Father Still Living Status:Active Hypertension Status:Active Comments:Paterna l Grandfather. Paternal Grandmother. Lung Cancer Status:Active Comments:Paterna l Grandfather. Mother Still Living Status:Active Osteoarthritis Status:Active Comments:"grandp arents" Diabetes Mellitus Type II Status:Active Commen ts:Maternal Grandmother. Father Still Living Status:Active Hypertension Status:Active Comments:Paterna l Grandfather. Paternal Grandmother. Lung Cancer Status:Active Comments:Paterna l Grandfather. Mother Still Living Status:Active Osteoarthritis Status:Active Comments:"grandp arents" Diabetes Mellitus Type II Status:Active Commen ts:Maternal Grandmother. Father Still Living Status:Active Hypertension Status:Active Comments:Paterna l Grandfather. Paternal Grandmother. Lung Cancer Status:Active Comments:Paterna l Grandfather. Mother Still Living Status:Active Osteoarthritis Status:Active Comments:"grandp arents" Advance Directives No Advanced Directives Records FoundNo Advanced Directives Records FoundNo Advanced Directives Records Found Additional Source Comments INFORMATION SOURCE (unrecogn ized section and content) DATE CREATED AUTHOR 08/17/2021 [facility] DATE CREATED AUTHOR AUTHOR'S ORGANIZ ATION 12/25/2024 [facility] DATE CREATED AUTHOR AUTHOR'S ORGANIZ ATION 04/03/2025 [facility] Source Comments (unrecognize d section and content) In the event this informatio n is protected by the Federal Confidentiality of Alcohol and Drug Abuse Patient Records regulations: The Federal rules restrict any use of the information to criminally investigate or prosecute any alcohol or drug abuse patient.[facility] the event this information is protected by the Federal Confidentiality of Alcohol and Drug Abuse Patient Records regulations: The Federal rules restrict any use of the information to criminally investigate or prosecute any alcohol or drug abuse patient.[facility] the event this information is protected by the Federal Confidentiality of Alcohol and Drug Abuse Patient Records regulations: The Federal rules restrict any use of the information to criminally investigate or prosecute any alcohol or drug abuse patient.[facility] the event this information is protected by the Federal Confidentiality of Alcohol and Drug Abuse Patient Records regulations: The Federal rules restrict any use of the information to criminally investigate or prosecute any alcohol or drug abuse patient.[facility] the event this information is protected by the Federal Confidentiality of Alcohol and Drug Abuse Patient Records regulations: The Federal rules restrict any use of the information to criminally investigate or prosecute any alcohol or drug abuse patient.[facility] the event this information is protected by the Federal Confidentiality of Alcohol and Drug Abuse Patient Records regulations: The Federal rules restrict any use of the information to criminally investigate or prosecute any alcohol or drug abuse patient.[facility] the event this information is protected by the Federal Confidentiality of Alcohol and Drug Abuse Patient Records regulations: The Federal rules restrict any use of the information to criminally investigate or prosecute any alcohol or drug abuse patient.[facility] the event this information is protected by the Federal Confidentiality of Alcohol and Drug Abuse Patient Records regulations: The Federal rules restrict any use of the information to criminally investigate or prosecute any alcohol or drug abuse patient.[facility] the event this information is protected by the Federal Confidentiality of Alcohol and Drug Abuse Patient Records regulations: The Federal rules restrict any use of the information to criminally investigate or prosecute any alcohol or drug abuse patient.[facility] the event this information is protected by the Federal Confidentiality of Alcohol and Drug Abuse Patient Records regulations: The Federal rules restrict any use of the information to criminally investigate or prosecute any alcohol or drug abuse patient.[facility] the event this information is protected by the Federal Confidentiality of Alcohol and Drug Abuse Patient Records regulations: The Federal rules restrict any use of the information to criminally investigate or prosecute any alcohol or drug abuse patient.[facility] the event this information is protected by the Federal Confidentiality of Alcohol and Drug Abuse Patient Records regulations: The Federal rules restrict any use of the information to criminally investigate or prosecute any alcohol or drug abuse patient.[facility] the event this information is protected by the Federal Confidentiality of Alcohol and Drug Abuse Patient Records regulations: The Federal rules restrict any use of the information to criminally investigate or prosecute any alcohol or drug abuse patient.[facility] the event this information is protected by the Federal Confidentiality of Alcohol and Drug Abuse Patient Records regulations: The Federal rules restrict any use of the information to criminally investigate or prosecute any alcohol or drug abuse patient.[facility] the event this information is protected by the Federal Confidentiality of Alcohol and Drug Abuse Patient Records regulations: The Federal rules restrict any use of the information to criminally investigate or prosecute any alcohol or drug abuse patient.[facility] the event this information is protected by the Federal Confidentiality of Alcohol and Drug Abuse Patient Records regulations: The Federal rules restrict any use of the information to criminally investigate or prosecute any alcohol or drug abuse patient.[facility] the event this information is protected by the Federal Confidentiality of Alcohol and Drug Abuse Patient Records regulations: The Federal rules restrict any use of the information to criminally investigate or prosecute any alcohol or drug abuse patient.[facility] the event this information is protected by the Federal Confidentiality of Alcohol and Drug Abuse Patient Records regulations: The Federal rules restrict any use of the information to criminally investigate or prosecute any alcohol or drug abuse patient.[facility] the event this information is protected by the Federal Confidentiality of Alcohol and Drug Abuse Patient Records regulations: The Federal rules restrict any use of the information to criminally investigate or prosecute any alcohol or drug abuse patient.[facility] the event this information is protected by the Federal Confidentiality of Alcohol and Drug Abuse Patient Records regulations: The Federal rules restrict any use of the information to criminally investigate or prosecute any alcohol or drug abuse patient.[facility] the event this information is protected by the Federal Confidentiality of Alcohol and Drug Abuse Patient Records regulations: The Federal rules restrict any use of the information to criminally investigate or prosecute any alcohol or drug abuse patient.[facility] the event this information is protected by the Federal Confidentiality of Alcohol and Drug Abuse Patient Records regulations: The Federal rules restrict any use of the information to criminally investigate or prosecute any alcohol or drug abuse patient.[facility] Reason for Visit (unrecogniz ed section and content) Reason Onset Date Comments Care 01/22/2025 Specialty Diagnoses / Procedures Referred By Contac t Referred To Contact MANUFACTURING PRODUCTION MANAGER Diagnoses Office Visit Procedures Office Visit Alexus Posada MD [address] [place] [address] Phone: tel: fax: OB/Gynecology [address] [phone] Phone: tel: Referral ID Status Reason Start Date Expiration Date Visits Requested Visits Authorized [id number] Authorized Financial Clearance Required - Self Pay Patient Cleared - Qualified 100% FAS 11/06/2024 02/04/2025 99 99 Reason Comments Initial OB Visit Specialty Diagnoses / Procedures Referred By Contac t Referred To Contact Diagnoses Procedures OFFICE VISIT, NEW PT., LEVEL 5 [facility] [address] [phone] [facility] Referral ID Status Reason Start Date Expiration Date Visits Requested Visits Authorized [id number] Authorized Patient Cleared - Qualified 100% FAS 03/26/2024 06/24/2024 99 99 Reason Comments Results Reason Onset Date Comments Care 04/17/2024 Specialty Diagnoses / Procedures [facility] Referred To Contact Diagnoses Procedures OFFICE VISIT, NEW PT., LEVEL 5 [facility] [address] [place] [address] [facility] Reason Comments Appointment Reason Comments IPAS procedure Specialty Diagnoses / Procedures Referred By Contac t Referred To Contact News Producer / MANUFACTURING PRODUCTION MANAGER Diagnoses Incomplete spontaneous IPAS -Pt arriving at 1pm Procedures TX MISSED FIRST TRIMESTER SURGICAL IPAS DOUBLE VALVE ASPIRATOR W CANNULA SINGLE USE EST WHI PATIENT [facility] [address] [place] [address] Stacey Ward MD [address] [place] [address] Referral ID Status Reason Start Date Expiration Date V isits Requested Visits Authorized [id number] Closed Financial Clearance Required - Self Pay 04/20/2024 07/19/2024 1 1 Reason Comments Follow Up From IPAS Reason Comments Initial OB Visit Specialty Diagnoses / Procedures Referred By Contac t Referred To Contact Diagnoses Procedures Stacey Ward MD [address] [place] [address] Phone: tel: fax: [place] [phone] Referral ID Status Reason Start Date Expiration Date Visits Requested Visits Authorized [id number] Authorized Patient Cleared - Qualified 100% FAS 08/06/2024 11/04/2024 99 99 Reason Onset Date Comments Care 09/21/2024 Specialty Diagnoses / Procedures Referred By Contac t Referred To Contact Diagnoses Procedures Stacey Ward MD [address] [place] [address] Phone: tel: fax: [place] [phone] Referral ID Status Reason Start Date Expiration Date Visits Requested Visits Authorized [id number] Authorized Patient Cleared - Qualified 100% FAS 08/06/2024 11/04/2024 99 99 Reason Comments US Specialty Diagnoses / Procedures Referred By Contac t Referred To Contact [facility] Diagnoses with uncertain dates in first trimester ([facility]CC) Procedures OBSTETRIC ULTRASOUND WHI US PREG UTERUS AFTER 1ST TRIMEST GESTATION [place] APRN.OTC CLERK [address] [place] [address] Phone: tel: fax: [facility] [address] [place] [address] Referral ID Status Reason Start Date Expiration Date Visits Requested Visits Authorized [id number] Pending Review Auto-Generat ed Referral 08/24/2024 08/24/2025 1 1 Reason Onset Date Comments Care 10/16/2024 Referral ID Status Reason Start Date Expiration Date Visits Requested Visits Authorized [id number] Pending Review Auto-Generat ed Referral 08/24/2024 08/24/2025 1 1 Reason Onset Date Comments Care 12/04/2024 Reason Onset Date Comments Care 01/01/2025 Specialty Diagnoses / Procedures Referred By Contvinh t 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 This clinical summary was aggregated from multiple sources. Caution should be exercised in using it in the provision of clinical care. This summary normalizes information from multiple sources, and as a consequence, information in this document may materially change the coding, format and clinical context of patient data. In addition, data may be omitted in some cases. CLINICAL DECISIONS SHOULD BE BASED ON THE PRIMARY CLINICAL RECORDS. [facility]. provides no warranty or guarantee of the accuracy or completeness of information in this document.
[2025-04-06 00:59] VITALS: BP 121/79; PULSE 87; RESP 16; TEMP 36.1; O2SAT 98
[2025-04-06 04:50] VITALS: BP 105/55; PULSE 67; RESP 16; TEMP 36.5; O2SAT 96
[2025-04-06 08:10] VITALS: BP 111/67; PULSE 76; RESP 16; TEMP 36.5; O2SAT 99
--- NOTE | 2025-04-06 11:42 | PCM.PN.OB ---
Subjective Subjective Doing well per patient and nursing staff. Ambulating and taking PO without difficulty. Voiding and passing flatus. Pain controlled. , services for assistance. Denies headache, visual changes, chest pain, shortness of breath, leg pain or increased bleeding. Lochia normal. Objective Data Objective Data Vital Signs: Vital Signs Temp Pulse Resp BP Pulse Ox O2 Del Method 97.7 F L 76 16 111/67 99 Room Air 04/06/25 08:10 04/06/25 08:10 04/06/25 08:10 04/06/25 08:10 04/06/25 08:10 04/06/25 08:10 Oxygen Delivery Method Room Air Weight: 186 lb Body Mass Index (BMI) 34.0 Intake & Output: Intake and Output for Last 24 Hours 04/04/25 04/05/25 04/06/25 23:59 23:59 23:59 Intake Total 1881.67 / 1881.67 Output Total 400 / 400 Balance 1481.67 / 1481.67 Lab / Micro Data 04/05/25 07:55 ROS Constitutional Constitutional: Reports systems reviewed and no addt'l complaints, except as documented; Denies headache(s) Eyes Eyes: Denies acute decrease in peripheral vision, blurry vision or change in vision ENT HEENT: Reports systems reviewed and no addt'l complaints, except as documented Cardiovascular Cardiovascular: Denies chest pain or dizziness Respiratory/Chest Respiratory/Chest: Denies cough, dyspnea, dyspnea on exertion, shortness of breath at rest or shortness of breath with exertion Gastrointestinal Gastrointestinal: Denies abdominal pain, diarrhea, nausea or vomiting Genitourinary Genitourinary: Denies abdominal discomfort Musculoskeletal Musculoskeletal: Denies limited range of motion Integumentary Integumentary: Reports systems reviewed and no addt'l complaints, except as documented Neurologic Neurologic: Reports systems reviewed and no addt'l complaints, except as documented Psychiatric Psychiatric: Reports systems reviewed and no addt'l complaints, except as documented Endocrine Endocrinology: Reports systems reviewed and no addt'l complaints, except as documented Hematologic/Lymphatic Hematologic/Lymphatic: Reports systems reviewed and no addt'l complaints, except as documented Allergic/Immunologic Allergic/Immunologic: Reports systems reviewed and no addt'l complaints, except as documented Physical Exam Const alert and oriented x3 General Appearance: cooperative Orientation / Consciousness: awake, oriented to person, oriented to place and oriented to time Exam Limitations: no limitations HEENT normocephalic Head and Scalp: normal to inspection, normocephalic and atraumatic Face and Sinus: normal facial exam Eyes General Eye: normal appearance of both eyes Neck full ROM Chest Chest: symmetrical chest wall rise Resp normal respiratory effort and normal air movement Auscultation: clear to auscultation bilaterally Cardio regular rate, regular rhythm, S1 normal heart sound, S2 normal heart sound, no murmurs, no rub, no gallops and no clicks GI normal to inspection, nondistended, normoactive bowel sounds and non-tender GI Narrative: Fundus firm 2 below U appearance of the vagina normal Narrative: Normal lochia rubra Bladder / Kidney Exam: no CVA tenderness Back/Spine normal ROM Extremity normal to inspection and full ROM Skin no rashes or lesions noted Neuro oriented x3, CN's II-XII intact bilaterally and moves all extremities Sensorium / Orientation: awake, alert and oriented to person Motor Exam: clonus absent Deep Tendon Reflexes: Rt Patellar (L4): 2+ and Lt Patellar (L4): 2+ Assessment & Plan (1) Lactating mother: (2) (vaginal after ): PLAN: Plan 1) Routine care, PPD #1 2) Vitals signs stable 3) Pain controlled 4) , services PRN 5) D/C home 6) Follow up in 2 weeks and 6 weeks
--- NOTE | 2025-04-06 11:43 | PCM.DC.SUM ---
Providers Date of Admission: 04/05/25 Primary Care Physician: MARY KAY Kiran Reason For Visit: VAGINAL DELIVERY Diagnosis Discharge Diagnosis (1) Lactating mother: Status: Acute Code(s): Z39.1 - Encounter for care and examination of lactating mother (2) (vaginal after ): Status: Acute Code(s): O34.219 - Maternal care for unspecified type scar from previous delivery Plan 1) Routine care, PPD #1 2) Vitals signs stable 3) Pain controlled 4) , services PRN 5) D/C home 6) Follow up in 2 weeks and 6 weeks Medications at Discharge Home Medications vits,calcium no.78-iron fumarate-folic acid 29 mg-1 mg tablet (Prenatabs FA) 1 tab PO DAILY preg 01/03/15 acetaminophen 500 mg tablet 1,000 mg (2 x 500 mg) PO Q6H PRN PRN Pain 1-10 Or Fever #0 tabs 04/06/25 ibuprofen 600 mg tablet 600 mg PO Q6H PRN PRN Pain Score 1-10 #0 tabs 04/06/25 Hospital Course Summary of Care Provided Minutes Spent on Discharge: 15 Weight / BMI Weight Weight: 186 lb Body Mass Index (BMI) 34.0 ABG / Lab / Microbiology Data 04/05/25 07:55 D/C Instructions DC O2, CPAP, BIPAP Needs Home O2 Discharge instructions: No Meaningful Use Info Meaningful Use Meaningful Use Diagnoses (Choose all that apply): None applicable Discharge Plan Admission Admit Date/Time: 04/05/25 07:28 Primary Reason for Your Visit: Vaginal Attending Provider: Alicia Okeefe Primary Care Provider: Yane Osborn Discharge Orders/Prescriptions Prescriptions: New acetaminophen 500 mg Tablet 1,000 mg PO Q6H PRN PRN (Reason: Pain 1-10 Or Fever) Qty: 0 0RF ibuprofen 600 mg Tablet 600 mg PO Q6H PRN PRN (Reason: Pain Score 1-10) Qty: 0 0RF Continued Prenatabs FA 1 TABLET tablet 1 tab PO DAILY Discontinued ferrous sulfate 325 MG tablet 325 mg PO BIDCM aspirin 81 mg tablet,delayed release (DR/EC) 81 mg PO DAILY Referrals / Follow Up: Yane Osborn PA [Primary Care Provider, Medical] Disposition Disposition (needs filled in before D/C Order can be placed): Home, Self Care
[2025-04-06 13:22] VITALS: BP 109/73; PULSE 89; RESP 16; TEMP 36.3; O2SAT 98
[2025-04-06 15:51] VITALS: BP 108/55; PULSE 82; RESP 16; TEMP 36.6
== END 2025-04-06 19:10 | disposition home or self-care (01) | DRG 806 ==
PROVIDERS: Admitting Provider Obstetrics & Gynecology; PCP Physician Assistant; Referring Provider Obstetrics & Gynecology; Visit Provider Obstetrics & Gynecology
DX: O34.219 Maternal care for unspecified type scar from previous cesarean delivery (principal); Z37.0 Single live birth; O99.12 Other diseases of the blood and blood-forming organs and certain disorders involving the immune mechanism complicating childbirth; D69.59 Other secondary thrombocytopenia; O69.81X0 Labor and delivery complicated by cord around neck, without compression, not applicable or unspecified; O99.02 Anemia complicating childbirth; Z3A.40 40 weeks gestation of pregnancy
CPT/HCPCS: 59025; 59050; 85025; 86780; 86850; 86900; 86901; 99221; G0378; J2405